=== PATIENT | female | born 1975 | race Two or more races ===

== ENCOUNTER → 2016-07-01 | Outpatient (CLI) | payer OTHER ==
--- NOTE | 2016-07-02 23:33 | ECWPNPC ---
PATIENT NAME: ALEX AVILES : 1975 GENDER: FEMALE VISIT DATE: 07/01/2016 DISCHARGE DATE: 07/01/16 1213 VISIT LOCKED DATE TIME: PHYSICIAN: NATHALIE GONGORA RESOURCE: NATHALIE GONGORA REASON FOR APPOINTMENT 1. NECK HISTORY OF PRESENT ILLNESS HISTORY OF PRESENT ILLNESS: HERE FOR POST PROC. F/U.HAD DAMIEN ON 06-01-16.REPORTS RESOLUTION OF RIGHT ARM AND HAND NUMBNESS BUT NO IMPROVEMENT IN NECK PAIN.RATING PAIN VAS 6/10.DESCRIBES PAIN CONSTANT ACHING AND STABBING.PAIN IS LOCATED RIGHT NECK.PAIN IS AGGREVATED IN THIS AREA WITH USE OF RIGH ARM.DISCUSSED TPI AND PT. FALL RISK SCREENING: SCREENING :NO FALLS IN THE PAST YEAR CURRENT MEDICATIONS TAKING RANITIDINE HCL 150 MG CAPSULE 1 CAPSULE ORALLY ONCE DAILY, NOTES: 05/31/16 0800 TAKING HYDROXYZINE HCL 25 MG TABLET 1-2 TABLETS NEEDED ORALLY AT BEDTIME NEEDED, NOTES: 05/31/16 2030 TAKING TRAZODONE HCL 50 MG TABLET 1 TABLET AT BEDTIME NEEDED ORALLY ONCE A DAY, NOTES: 05/31/16 2030 TAKING METHOCARBAMOL 500 MG TABLET 1 TABLET ORALLY THREE TIMES DAILY NEEDED, NOTES: 05/31/16 1730 TAKING FLUTICASONE FUROATE 27.5 MCG/SPRAY SUSPENSION 1 SPRAY IN EACH NOSTRIL NASALLY TWICE A DAY, NOTES: 05/31/16 0800 TAKING PANTOPRAZOLE SODIUM 40 MG TABLET DELAYED RELEASE 1 TABLET ORALLY ONCE A DAY, NOTES: 05/31/16 0800 TAKING PRAZOSIN HCL 1 MG CAPSULE 1 CAPSULE AT BEDTIME ORALLY ONCE A DAY, NOTES: 05/31/16 2030 TAKING HYDROCODONE-ACETAMINOPHEN 5-325 MG TABLET 1 TABLET NEEDED ORALLY EVERY 8 HOURS, NOTES: 05/31/16 1500 TAKING CYCLOBENZAPRINE HCL 10 MG TABLET 1 TABLET ORALLY THREE TIMES A DAY NEEDED FOR SPASMS AND PAIN MDD3, NOTES: NONE RECENTLY NOT-TAKING ALLERGY RELIEF 180 MG TABLET 1 TABLET NEEDED ORALLY ONCE A DAY NOT-TAKING PROBIOTIC CAPSULE 1 TABLET ORALLY ONCE DAILY NOT-TAKING VALIUM 10 MG TABLET 1 ORALLY 1 TAB 1HR PRE PROC. MDD1, NOTES: 1620 TODAY NOT-TAKING VALIUM 10 MG TABLET 1 TABLET ORALLY IN THE MORNING BEFORE PROCEDURE NOT-TAKING TIZANIDINE HCL 4 MG TABLET 1 TABLET NEEDED ORALLY BEFORE BEDTIME NEEDED FOR SPASMS AND PAIN MDD1 NOT-TAKING SUCRALFATE 1 GM TABLET 1 TABLET ON AN EMPTY STOMACH ORALLY ONCE DAILY MEDICATION LIST REVIEWED AND RECONCILED WITH THE PATIENT PAST MEDICAL HISTORY ANEMIA GERD STOMACH ULCERS WITH H PYLORI NECK AND LOW BACK PAIN ALLERGIES PENICILLIAN: SWELLING: ALLERGY ORANGES: SWELLING,RASH: ALLERGY BANDAIDS AND ADHESIVES: REDDNESS AND SWELLING: ALLERGY LATEX GLOVES: REDDNESS AND SWELLING: ALLERGY TEGADERM: REDNESS, SWELLING: ALLERGY SOCIAL HISTORY GENERAL: TOBACCO USE ARE YOU A:NONSMOKER LEARNING BARRIERS / SPECIAL NEEDS ORIENTED TO PLAN OF CARE: PATIENT, PAIN MANAGEMENT PATIENT, ORIENTED TO PLAN OF CARE: PATIENT, PAIN MANAGEMENT PATIENT. NEW PATIENT PAIN DIARY TODAY'S VISITNOTES FROM 0-10, WHAT LEVEL IS YOUR PAIN TODAY?0 PAIN CLINIC PFS, CLERGY, PUBLIC HEALTH REFERRALS PFS REFERRAL NEEDED?NO CLERGY REFERRAL NEEDED?NO PUBLIC HEALTH REFERRAL NEEDED?NO WAS THE PROVIDER NOTIFIED OF ANY PERTINENT INFO?NO PFS REFERRAL NEEDED?NO CLERGY REFERRAL NEEDED?NO PUBLIC HEALTH REFERRAL NEEDED?NO WAS THE PROVIDER NOTIFIED OF ANY PERTINENT INFO?NO REVIEW OF SYSTEMS CONSTITUTIONAL: ANY CHANGE IN YOUR MEDICAL CONDITION? NO . CHILLS NO . FEVER NO . INFECTION: DO YOU HAVE NEW INFECTIONS? NO . DO YOU HAVE HISTORY OF MRSA? NO . MUSCULOSKELETAL: ANY NEW PATTERNS OF PAIN OR NUMBNESS? NO . GASTROENTEROLOGY: ANY NEW CHANGE IN BOWEL CONTROL? NO . GENITOURINARY: ANY NEW CHANGE IN BLADDER CONTROL? NO . IS THERE A CHANCE YOU COULD BE ? NO . HEMATOLOGY/LYMPH: DO YOU TAKE ANY BLOOD THINNERS? (FOR EXAMPLE- COUMADIN, PLAVIX, AGGRENOX, PLATEL, PRADAXA, OR XARELTO) NO . WHEN WAS YOUR LAST DOSE? DATE: TIME: . NEUROLOGY: HAVE YOU FALLEN IN THE PAST 6 MONTHS? NO . ANY NEW EXTREMITY NUMBNESS OR WEAKNESS? NO . CARDIOLOGY: DO YOU HAVE A PACEMAKER OR DEFIBRILLATOR? NO . RESPIRATORY: HAVE YOU BEEN SICK IN THE PAST WEEK? NO . FEVER NO . FLU LIKE SYMPTOMS? NO . COUGH NO . INTEGUMENTARY: DO YOU HAVE ANY RASHES OR OPEN SORES? NO . ALLERGIC/IMMUNO: ARE YOU ALLERGIC TO SHELLFISH OR IV DYE? NO . ANY NEW ALLERGIES? NO . PSYCHIATRIC: DO YOU HAVE THOUGHTS OF HURTING YOURSELF OR SOMEONE ELSE? NO . ARE YOU ABUSED, NEGLECTED, OR IN AN UNSAFE ENVIRONMENT? NO . ENDOCRINOLOGY: ARE YOU DIABETIC? NO . OTHER: DO YOU NEED ANY PRESCRIPTIONS? YES CYCLOBENZAPRINE . IF YES, PLEASE LIST: ____ . ANY NEW PROBLEMS WITH YOUR MEDICATIONS? NO . WHEN DID YOU LAST EAT? ____ . WHEN DID YOU LAST DRINK? ____ . WHAT DID YOU LAST DRINK? ____ . NAME OF PERSON DRIVING YOU HOME? ____ . DO YOU HAVE ANY OTHER QUESTIONS OR CONCERNS NO . REVIEWED BY: PROVIDER: NATHALIE SUAZO . VITAL SIGNS WT 186.4 LBS, HT 67 IN, BMI 29.19 INDEX, BP 130/86 MM HG, HR 79 /MIN, RR 16 /MIN, TEMP 97.1 F, OXYGEN SAT % 96, NA INITIALS TL 1114, REVIEWED BY: MLFPT WEIGHED ON PMC SCALE- TL. EXAMINATION CERVICAL SPINE/NECK: RANGE OF MOTION OF NECK:FULL W REPORTS OF PAIN AND STIFFNESS W LATERAL ROTATION.. SENSATIONS:NORMAL BILATERALLY. MOTOR STRENGTH:4/5 RIGHT ARM/5/5 LEFT ARM. VERTEBRAL SPINE TENDERNESS:TENDERNESS IN PARASPINAL MUSCLES-RIGHT SIDE ONLY. MYOFASCIAL TRIGGER POINTS:POSITIVE OVER RIGHT TRAPEZIUS. ASSESSMENTS CERVICAL DISC DISORDER WITH RADICULOPATHY OF MID-CERVICAL REGION - M50.120 (PRIMARY) MYOFASCIAL PAIN - M79.1 TREATMENT CERVICAL DISC DISORDER WITH RADICULOPATHY OF MID-CERVICAL REGION TRIGGER POINT 1-2 NATHALIE MARRUFO 07/01/2016 11:43:13 AM > RIGHT TRAPEZIUS CERVICAL FACET JOINT NATHALIE KING 07/01/2016 11:45:06 AM > BILAT CERVICAL C5/6-C6/7 THERAPEUTIC FACET NOTES: TRIGGER POINT INJECTION MATERIAL WAS PRINTED,TRIGGER POINT INJECTION: YOUR EXPERIENCE MATERIAL WAS PRINTED,FACET JOINT INJECTION MATERIAL WAS PRINTED,FACET JOINT INJECTION: YOUR EXPERIENCE MATERIAL WAS PRINTED. REFERRAL TO:PHYSICAL THERAPIST REASON:[id number] MYOFASCIAL RELEASE RIGHT TRAPEZIUS MYOFASCIAL PAIN TRIGGER POINT 1-2 NATHALIE MARRUFO 07/01/2016 11:43:13 AM > RIGHT TRAPEZIUS CERVICAL FACET JOINT NATHALIE KING 07/01/2016 11:45:06 AM > BILAT CERVICAL C5/6-C6/7 THERAPEUTIC FACET PROCEDURE CODES FA211 ESTABILISHED PATIENT [facility] CHARGE DISPOSITION & COMMUNICATION FOLLOW UP 2WK POST (REASON: REQUEST AUTH. BILAT. C5/6-C6/7 THERAPEUTIC FACET BLOCK,TPI RIGHT NECK AND PT [id number]) ELECTRONICALLY SIGNED BY GABRIELE CHRISTENSEN ON 07/02/2016 AT 11:37 AM EST DISCLAIMER : THIS IS A VISIT SUMMARY EXTRACTED FROM THE [email or web address] CHART. IT IS NOT A COPY OF THE [employer] PROGRESS NOTE. JOSE
== END ==
LOC: M PAIN 10:40
PROVIDERS: ATTEND Nurse Practitioner Family
DX: Z09 Encounter for follow-up examination after completed treatment for conditions other than malignant neoplasm (principal); G89.29 Other chronic pain; M50.120 Mid-cervical disc disorder, unspecified level; M79.1 Myalgia; D64.9 Anemia, unspecified; K21.9 Gastro-esophageal reflux disease without esophagitis; Z88.0 Allergy status to penicillin; Z91.018 Allergy to other foods; Z91.040 Latex allergy status; Z88.8 Allergy status to other drugs, medicaments and biological substances; L23.1 Allergic contact dermatitis due to adhesives; Z79.891 Long term (current) use of opiate analgesic; Z79.899 Other long term (current) drug therapy

== ENCOUNTER → 2016-07-27 | Outpatient (CLI) | payer OTHER ==
--- NOTE | 2016-07-28 23:23 | ECWPNPC ---
PATIENT NAME: ALEX AVILES : 1975 GENDER: FEMALE VISIT DATE: 07/27/2016 DISCHARGE DATE: 07/27/16 1108 VISIT LOCKED DATE TIME: PHYSICIAN: NATHALIE GONGORA RESOURCE: NATHALIE GONGORA REASON FOR APPOINTMENT 1. INCREASED PAIN HISTORY OF PRESENT ILLNESS HISTORY OF PRESENT ILLNESS: HERE ON URGENT BASIS FOR RIGHT NECK PAIN.RATING PAIN VAS 9/10.WOULD LIKE US TAKE OVER MEDICINE MANAGEMENT OF PAIN.CURRENTLY USING PERCOCET 5/325 PRN FOR SEVERE PAIN.UNABLE TO USE NSAIDS DUE TO ABDOMINAL ULCERS.REVIEWED NARCOTIC AGREEMENT AND CLINIC POLICY.REVIEWED POTENIAL SIDE EFFECTS OF OPIOD MEDICATIONS. PAIN THE PATIENT DESCRIBES THE PAIN... FALL RISK SCREENING: SCREENING :NO FALLS IN THE PAST YEAR CURRENT MEDICATIONS TAKING RANITIDINE HCL 150 MG CAPSULE 1 CAPSULE ORALLY ONCE DAILY TAKING HYDROXYZINE HCL 25 MG TABLET 1-2 TABLETS NEEDED ORALLY AT BEDTIME NEEDED TAKING TRAZODONE HCL 50 MG TABLET 1 TABLET AT BEDTIME NEEDED ORALLY ONCE A DAY TAKING METHOCARBAMOL 500 MG TABLET 1 TABLET ORALLY THREE TIMES DAILY NEEDED TAKING FLUTICASONE FUROATE 27.5 MCG/SPRAY SUSPENSION 1 SPRAY IN EACH NOSTRIL NASALLY TWICE A DAY TAKING PANTOPRAZOLE SODIUM 40 MG TABLET DELAYED RELEASE 1 TABLET ORALLY ONCE A DAY TAKING PRAZOSIN HCL 1 MG CAPSULE 1 CAPSULE AT BEDTIME ORALLY ONCE A DAY TAKING HYDROCODONE-ACETAMINOPHEN 5-325 MG TABLET 1 TABLET NEEDED ORALLY EVERY 8 HOURS TAKING CYCLOBENZAPRINE HCL 10 MG TABLET 1 TABLET ORALLY THREE TIMES A DAY NEEDED FOR SPASMS AND PAIN MDD3 TAKING MIRALAX NOT-TAKING ALLERGY RELIEF 180 MG TABLET 1 TABLET NEEDED ORALLY ONCE A DAY NOT-TAKING PROBIOTIC CAPSULE 1 TABLET ORALLY ONCE DAILY NOT-TAKING VALIUM 10 MG TABLET 1 ORALLY 1 TAB 1HR PRE PROC. MDD1, NOTES: 1620 TODAY NOT-TAKING VALIUM 10 MG TABLET 1 TABLET ORALLY IN THE MORNING BEFORE PROCEDURE NOT-TAKING TIZANIDINE HCL 4 MG TABLET 1 TABLET NEEDED ORALLY BEFORE BEDTIME NEEDED FOR SPASMS AND PAIN MDD1 NOT-TAKING SUCRALFATE 1 GM TABLET 1 TABLET ON AN EMPTY STOMACH ORALLY ONCE DAILY MEDICATION LIST REVIEWED AND RECONCILED WITH THE PATIENT PAST MEDICAL HISTORY ANEMIA GERD STOMACH ULCERS WITH H PYLORI NECK AND LOW BACK PAIN ALLERGIES PENICILLIAN: SWELLING: ALLERGY ORANGES: SWELLING,RASH: ALLERGY BANDAIDS AND ADHESIVES: REDDNESS AND SWELLING: ALLERGY LATEX GLOVES: REDDNESS AND SWELLING: ALLERGY TEGADERM: REDNESS, SWELLING: ALLERGY SURGICAL HISTORY RIGHT KNEE 1985 TUBAL LIGATION 2002 D&C 1996 MOLES REMOVED 2016 TOTAL HYSTERECTOMY 2017 HOSPITALIZATION/MAJOR DIAGNOSTIC PROCEDURE CHILD 12/18/1991 CHILD 11/01/1996 CHILD 11/23/1998 CHILD 01/29/2002 REVIEW OF SYSTEMS CONSTITUTIONAL: ANY CHANGE IN YOUR MEDICAL CONDITION? NO . CHILLS NO . FEVER NO . INFECTION: DO YOU HAVE NEW INFECTIONS? NO . DO YOU HAVE HISTORY OF MRSA? NO . MUSCULOSKELETAL: ANY NEW PATTERNS OF PAIN OR NUMBNESS? NO . GASTROENTEROLOGY: ANY NEW CHANGE IN BOWEL CONTROL? NO . GENITOURINARY: ANY NEW CHANGE IN BLADDER CONTROL? NO . IS THERE A CHANCE YOU COULD BE ? NO . HEMATOLOGY/LYMPH: DO YOU TAKE ANY BLOOD THINNERS? (FOR EXAMPLE- COUMADIN, PLAVIX, AGGRENOX, PLATEL, PRADAXA, OR XARELTO) NO . WHEN WAS YOUR LAST DOSE? DATE: TIME: . NEUROLOGY: HAVE YOU FALLEN IN THE PAST 6 MONTHS? NO . ANY NEW EXTREMITY NUMBNESS OR WEAKNESS? NO . CARDIOLOGY: DO YOU HAVE A PACEMAKER OR DEFIBRILLATOR? NO . RESPIRATORY: HAVE YOU BEEN SICK IN THE PAST WEEK? NO . FEVER NO . FLU LIKE SYMPTOMS? NO . COUGH NO . INTEGUMENTARY: DO YOU HAVE ANY RASHES OR OPEN SORES? NO . ALLERGIC/IMMUNO: ARE YOU ALLERGIC TO SHELLFISH OR IV DYE? NO . ANY NEW ALLERGIES? NO . PSYCHIATRIC: DO YOU HAVE THOUGHTS OF HURTING YOURSELF OR SOMEONE ELSE? NO . ARE YOU ABUSED, NEGLECTED, OR IN AN UNSAFE ENVIRONMENT? NO . ENDOCRINOLOGY: ARE YOU DIABETIC? NO . OTHER: DO YOU NEED ANY PRESCRIPTIONS? YES PT IS WANTING THE PAIN CLINIC TO TAKE OVER MEDICATION MANAGGEMNT . IF YES, PLEASE LIST: ____ . ANY NEW PROBLEMS WITH YOUR MEDICATIONS? NO . WHEN DID YOU LAST EAT? ____ . WHEN DID YOU LAST DRINK? ____ . WHAT DID YOU LAST DRINK? ____ . NAME OF PERSON DRIVING YOU HOME? ____ . DO YOU HAVE ANY OTHER QUESTIONS OR CONCERNS NO . REVIEWED BY: PROVIDER: NATHALIE SUAZO . VITAL SIGNS WT 179.8 LBS, HT 67 IN, BMI 28.16 INDEX, BP 132/84 MM HG, HR 89 /MIN, RR 16 /MIN, TEMP 97.3 F, OXYGEN SAT % 98, NA INITIALS TL 1003, REVIEWED BY: KG. EXAMINATION CERVICAL SPINE/NECK: RANGE OF MOTION OF NECK:FULL W REPORTS OF PAIN AND STIFFNESS W LATERAL ROTATION.. SENSATIONS:NORMAL BILATERALLY. MOTOR STRENGTH:4/5 RIGHT ARM/5/5 LEFT ARM. VERTEBRAL SPINE TENDERNESS:TENDERNESS IN PARASPINAL MUSCLES-RIGHT SIDE ONLY. MYOFASCIAL TRIGGER POINTS:POSITIVE OVER RIGHT TRAPEZIUS. ASSESSMENTS CERVICAL DISC DISORDER WITH RADICULOPATHY OF MID-CERVICAL REGION - M50.120 (PRIMARY) MYOFASCIAL PAIN - M79.1 TREATMENT CERVICAL DISC DISORDER WITH RADICULOPATHY OF MID-CERVICAL REGION REFILL HYDROCODONE-ACETAMINOPHEN TABLET, 5-325 MG, 1 TABLET NEEDED, ORALLY, EVERY 8 HOURS PRN MDD3, 30 DAY(S), 45, REFILLS 0 PROCEDURE CODES FA211 ESTABILISHED PATIENT [facility] CHARGE DISPOSITION & COMMUNICATION FOLLOW UP HAS PROCEDURE SCHEDULED AND NEEDS F/U W ME 2WK POST ELECTRONICALLY SIGNED BY GABRIELE CHRISTENSEN ON 07/28/2016 AT 01:52 PM EDT DISCLAIMER : THIS IS A VISIT SUMMARY EXTRACTED FROM THE [employer] CHART. IT IS NOT A COPY OF THE [employer] PROGRESS NOTE. BRITANYD
== END | disposition home or self-care (01) ==
LOC: M PAIN 10:00
PROVIDERS: ATTEND Nurse Practitioner Family
DX: Z09 Encounter for follow-up examination after completed treatment for conditions other than malignant neoplasm (principal); G89.29 Other chronic pain; M50.120 Mid-cervical disc disorder, unspecified level; M79.1 Myalgia; K21.9 Gastro-esophageal reflux disease without esophagitis; D64.9 Anemia, unspecified; Z79.899 Other long term (current) drug therapy; Z91.040 Latex allergy status; L23.1 Allergic contact dermatitis due to adhesives; Z91.018 Allergy to other foods; Z88.0 Allergy status to penicillin

== ENCOUNTER → 2016-08-06 | Outpatient (CLI) | payer OTHER ==
[~2016-08-06] MED LIST: BUPIVACAINE HCL 0.25% 10 ML VIAL As Ordered ONE; BUPIVACAINE HCL 0.25% 30 ML VIAL As Ordered ONE; TRIAMCINOLONE ACETONIDE SUSP 40 MG/ML VIAL (J3301) As Ordered ONE; diazePAM 5 MG TAB As Ordered ONE; oxyCODONE 5MG TAB As Ordered ONE
--- NOTE | 2016-08-15 23:23 | ECWPNPC ---
PATIENT NAME: ALEX AVILES : 1975 GENDER: FEMALE VISIT DATE: 08/06/2016 DISCHARGE DATE: 08/06/16 1609 VISIT LOCKED DATE TIME: PHYSICIAN: YESSICA DRAKE RESOURCE: YESSICA DRAKE REASON FOR APPOINTMENT 1. BILAT. C5/6-C6/7 THERAPEUTIC FACET BLOCK HISTORY OF PRESENT ILLNESS HISTORY OF PRESENT ILLNESS: PAIN THE PATIENT DESCRIBES THE PAIN... FALL RISK SCREENING: SCREENING :NO FALLS IN THE PAST YEAR CURRENT MEDICATIONS TAKING RANITIDINE HCL 150 MG CAPSULE 1 CAPSULE ORALLY ONCE DAILY, NOTES: 08-05-162099 TAKING HYDROXYZINE HCL 25 MG TABLET 1-2 TABLETS NEEDED ORALLY AT BEDTIME NEEDED, NOTES: 08-05-162099 TAKING TRAZODONE HCL 50 MG TABLET 1 TABLET AT BEDTIME NEEDED ORALLY ONCE A DAY, NOTES: 08-05-162099 TAKING METHOCARBAMOL 500 MG TABLET 1 TABLET ORALLY THREE TIMES DAILY NEEDED, NOTES: 08-05-161729 TAKING FLUTICASONE FUROATE 27.5 MCG/SPRAY SUSPENSION 1 SPRAY IN EACH NOSTRIL NASALLY TWICE A DAY, NOTES: 08-06-16599 TAKING PANTOPRAZOLE SODIUM 40 MG TABLET DELAYED RELEASE 1 TABLET ORALLY ONCE A DAY, NOTES: 08-05-16 08 TAKING PRAZOSIN HCL 1 MG CAPSULE 1 CAPSULE AT BEDTIME ORALLY ONCE A DAY, NOTES: 08-05-162099 TAKING CYCLOBENZAPRINE HCL 10 MG TABLET 1 TABLET ORALLY THREE TIMES A DAY NEEDED FOR SPASMS AND PAIN MDD3, NOTES: 08-04-16 TAKING MIRALAX TAKING HYDROCODONE-ACETAMINOPHEN 5-325 MG TABLET 1 TABLET NEEDED ORALLY EVERY 8 HOURS PRN MDD3, NOTES: 08-05-161999 TAKING MONTELUKAST SODIUM 10 MG TABLET 1 TABLET IN THE EVENING ORALLY ONCE A DAY, NOTES: 08-06-16 07 NOT-TAKING ALLERGY RELIEF 180 MG TABLET 1 TABLET NEEDED ORALLY ONCE A DAY NOT-TAKING PROBIOTIC CAPSULE 1 TABLET ORALLY ONCE DAILY NOT-TAKING TIZANIDINE HCL 4 MG TABLET 1 TABLET NEEDED ORALLY BEFORE BEDTIME NEEDED FOR SPASMS AND PAIN MDD1 NOT-TAKING SUCRALFATE 1 GM TABLET 1 TABLET ON AN EMPTY STOMACH ORALLY ONCE DAILY DISCONTINUED VALIUM 10 MG TABLET 1 ORALLY 1 TAB 1HR PRE PROC. MDD1, NOTES: 1620 TODAY DISCONTINUED VALIUM 10 MG TABLET 1 TABLET ORALLY IN THE MORNING BEFORE PROCEDURE MEDICATION LIST REVIEWED AND RECONCILED WITH THE PATIENT PAST MEDICAL HISTORY ANEMIA GERD STOMACH ULCERS WITH H PYLORI NECK AND LOW BACK PAIN ALLERGIES PENICILLIAN: SWELLING: ALLERGY ORANGES: SWELLING,RASH: ALLERGY BANDAIDS AND ADHESIVES: REDDNESS AND SWELLING: ALLERGY LATEX GLOVES: REDDNESS AND SWELLING: ALLERGY TEGADERM: REDNESS, SWELLING: ALLERGY SURGICAL HISTORY RIGHT KNEE 1985 TUBAL LIGATION 2002 D&C 1996 MOLES REMOVED 2016 TOTAL HYSTERECTOMY 2017 SOCIAL HISTORY GENERAL: PAIN CLINIC PFS, CLERGY, PUBLIC HEALTH REFERRALS CLERGY REFERRAL NEEDED?NO WAS THE PROVIDER NOTIFIED OF ANY PERTINENT INFO?NO PFS REFERRAL NEEDED?NO PUBLIC HEALTH REFERRAL NEEDED?NO PATIENT: ____. HOSPITALIZATION/MAJOR DIAGNOSTIC PROCEDURE CHILD 12/18/1991 CHILD 11/01/1996 CHILD 11/23/1998 CHILD 01/29/2002 REVIEW OF SYSTEMS CONSTITUTIONAL: ANY CHANGE IN YOUR MEDICAL CONDITION? NO . CHILLS NO . FEVER NO . INFECTION: DO YOU HAVE NEW INFECTIONS? NO . DO YOU HAVE HISTORY OF MRSA? NO . MUSCULOSKELETAL: ANY NEW PATTERNS OF PAIN OR NUMBNESS? NO . GASTROENTEROLOGY: ANY NEW CHANGE IN BOWEL CONTROL? NO . GENITOURINARY: ANY NEW CHANGE IN BLADDER CONTROL? NO . IS THERE A CHANCE YOU COULD BE ? NO . HEMATOLOGY/LYMPH: DO YOU TAKE ANY BLOOD THINNERS? (FOR EXAMPLE- COUMADIN, PLAVIX, AGGRENOX, PLATEL, PRADAXA, OR XARELTO) NO . WHEN WAS YOUR LAST DOSE? DATE: TIME: . NEUROLOGY: HAVE YOU FALLEN IN THE PAST 6 MONTHS? NO . ANY NEW EXTREMITY NUMBNESS OR WEAKNESS? NO . CARDIOLOGY: DO YOU HAVE A PACEMAKER OR DEFIBRILLATOR? NO . RESPIRATORY: HAVE YOU BEEN SICK IN THE PAST WEEK? NO . FEVER NO . FLU LIKE SYMPTOMS? NO . COUGH NO . INTEGUMENTARY: DO YOU HAVE ANY RASHES OR OPEN SORES? NO . ALLERGIC/IMMUNO: ARE YOU ALLERGIC TO SHELLFISH OR IV DYE? NO . ANY NEW ALLERGIES? NO . PSYCHIATRIC: DO YOU HAVE THOUGHTS OF HURTING YOURSELF OR SOMEONE ELSE? NO . ARE YOU ABUSED, NEGLECTED, OR IN AN UNSAFE ENVIRONMENT? NO . ENDOCRINOLOGY: ARE YOU DIABETIC? NO . OTHER: DO YOU NEED ANY PRESCRIPTIONS? NO . IF YES, PLEASE LIST: ____ . ANY NEW PROBLEMS WITH YOUR MEDICATIONS? NO . WHEN DID YOU LAST EAT? 08-05-16 6:30 PM . WHEN DID YOU LAST DRINK? 08-06-16 0600 . WHAT DID YOU LAST DRINK? WATER . NAME OF PERSON DRIVING YOU HOME? KILEY SOTO . DO YOU HAVE ANY OTHER QUESTIONS OR CONCERNS NO . REVIEWED BY: PROVIDER: . VITAL SIGNS WT 182.6 LBS, HT 67 IN, BMI 28.60 INDEX, BP 117/79 MM HG, HR 89 /MIN, RR 16 /MIN, TEMP 97.2 F, OXYGEN SAT % 97, NA INITIALS AW 1149, REVIEWED BY: CM. ASSESSMENTS MYALGIA - M79.1 (PRIMARY) PROCEDURES PN TRIGGER POINT INJECTION WITH STEROIDS PRE PROCEDURE DIAGNOSIS 1. MYALGIA 2. PAIN AT BILATERAL NECK AREA AND BILATERAL SHOULDER AREA POST PROCEDURE DIAGNOSIS 1. MYALGIA 2. PAIN AT BILATERAL NECK AREA AND BILATERAL SHOULDER AREA PROCEDURE TRIGGER POINT INJECTION AT BILATERAL NECK AREA AND BILATERAL SHOULDER AREA SURGEON DR. YESSICA DRAKE PART MAKER NONE ANESTHESIA LOCAL PRE PROCEDURE NOTE THE PATIENT HAS A HISTORY OF CHRONIC PAIN AT THE RIGHT AND LEFT NECK AREA AND RIGHT AND LEFT SHOULDER AREA. I EVALUATE THE PATIENT AND REVIEWED THE CHART. THERE IS EVIDENCE OF BANDS OF TISSUE WITH RESTRICTION OF MOVEMENT AND PRESENCE OF TRIGGER POINT AT THE AFFECTED AREA. I WENT OVER THE RISKS, ALTERNATIVES, AND BENEFITS ASSOCIATED WITH THIS PROCEDURE. THE PATIENT WOULD LIKE TO PROCEED AND GIVE CONSENT TO PERFORMED THE PROCEDURE. THE PATIENT DENIES UNEXPLAINABLE WEIGHT LOSS, FEVER, CHILLS, OR NEW CHANGES IN URINARY OR BOWEL CONTROL DESCRIPTION OF PROCEDURE THE PATIENT WAS BROUGHT TO THE PROCEDURE ROOM AND PLACED IN THE SITTING POSITION. THE AREA WAS CLEANED WITH ALCOHOL. THE PROCEDURE WAS DONE USING ASEPTIC STERILE TECHNIQUE. I CHECKED LATERALITY AND THE LEVEL WHERE THE PROCEDURE WAS GOING TO BE PERFORMED WITH THE PATIENT AND THE SUPPORTING STAFF AT THE MOMENT OF THE TIME OUT IN THE PROCEDURE ROOM. USING A 25-GAUGE NEEDLE, TRIGGER POINTS WERE INJECTED AT THE RIGHT AND LEFT NECK AREA AND RIGHT AND LEFT SHOULDER AREA WITH A TOTAL OF 40 ML OF BUPIVACAINE 0.25% AND KENALOG 40 MG. THERE WAS NO EVIDENCE OF BLOOD, PARESTHESIA OR CEREBROSPINAL FLUID DURING THE PROCEDURE. THE PATIENT WAS SENT TO THE RECOVERY ROOM. THE PATIENT WAS MOVING THE EXTREMITIES AND DOING WELL. THERE WAS NO COMPLICATION DURING THE PROCEDURE POST PROCEDURE NOTE THE PATIENT WILL BE SEEN IN A FOLLOW UP IN THE NEXT FEW WEEKS. INSTRUCTIONS WERE GIVEN, QUESTIONS WERE ANSWERED, AND THE PATIENT EXPRESSED UNDERSTANDING AND AGREES WITH THE PLAN. I, DREA ALCAZAR, DOCUMENTED THE ABOVE INFORMATION ACTING A SCRIBE FOR DR. DRAKE. I HAVE REVIEWED THE ABOVE DOCUMENT, WRITTEN BY DREA ALCAZAR SCRIBDemarco AND I VERIFY THAT IT IS ACCURATE. PROCEDURE CODES 91142 INJECT TRIGGER POINTS 3/> DISPOSITION & COMMUNICATION FOLLOW UP 3 WEEKS ELECTRONICALLY SIGNED BY YESSICA DRAKE MD ON 08/15/2016 AT 05:49 PM EDT DISCLAIMER : THIS IS A VISIT SUMMARY EXTRACTED FROM THE [email or web address] CHART. IT IS NOT A COPY OF THE [employer] PROGRESS NOTE. JOSE
== END | disposition home or self-care (01) ==
LOC: M PAIN 11:40
PROVIDERS: ATTEND Anesthesiology
DX: G89.29 Other chronic pain (principal); M79.1 Myalgia; D64.9 Anemia, unspecified; K21.9 Gastro-esophageal reflux disease without esophagitis; M54.5 Low back pain; M54.2 Cervicalgia; Z79.899 Other long term (current) drug therapy; Z88.0 Allergy status to penicillin; Z91.018 Allergy to other foods; L23.1 Allergic contact dermatitis due to adhesives; Z91.040 Latex allergy status

== ENCOUNTER → 2016-08-20 | Outpatient (CLI) | payer OTHER ==
--- NOTE | 2016-08-31 00:53 | ECWPNPC ---
PATIENT NAME: ALEX AVILES : 1975 GENDER: FEMALE VISIT DATE: 08/20/2016 DISCHARGE DATE: 08/20/16 1126 VISIT LOCKED DATE TIME: PHYSICIAN: NATHALIE GONGORA RESOURCE: NATHALIE GONGORA REASON FOR APPOINTMENT 1. POST TPI HISTORY OF PRESENT ILLNESS HISTORY OF PRESENT ILLNESS: HERE FOR POST PROC. F/U.HAD TPI NECK ON 08-06-16.REPORTS ONLY 3-4 DAYS IMPROVEMENT IN NECK PAIN.RATING PAIN VAS 8/10.DESCRIBES PAIN CONSTANT ACHING AND STABBING.PAIN IS LOCATED RIGHT NECK.PAIN IS AGGREVATED IN THIS AREA WITH USE OF RIGH ARM.DISCUSSED TPI AND PT. PAIN THE PATIENT DESCRIBES THE PAIN... THE PATIENT DESCRIBES THE PAIN... FALL RISK SCREENING: SCREENING :NO FALLS IN THE PAST YEAR CURRENT MEDICATIONS TAKING RANITIDINE HCL 150 MG CAPSULE 1 CAPSULE ORALLY ONCE DAILY TAKING HYDROXYZINE HCL 25 MG TABLET 1-2 TABLETS NEEDED ORALLY AT BEDTIME NEEDED TAKING TRAZODONE HCL 50 MG TABLET 1 TABLET AT BEDTIME NEEDED ORALLY ONCE A DAY TAKING METHOCARBAMOL 500 MG TABLET 1 TABLET ORALLY THREE TIMES DAILY NEEDED TAKING FLUTICASONE FUROATE 27.5 MCG/SPRAY SUSPENSION 1 SPRAY IN EACH NOSTRIL NASALLY TWICE A DAY TAKING PANTOPRAZOLE SODIUM 40 MG TABLET DELAYED RELEASE 1 TABLET ORALLY ONCE A DAY TAKING PRAZOSIN HCL 1 MG CAPSULE 1 CAPSULE AT BEDTIME ORALLY ONCE A DAY TAKING MIRALAX TAKING MONTELUKAST SODIUM 10 MG TABLET 1 TABLET IN THE EVENING ORALLY ONCE A DAY TAKING CYCLOBENZAPRINE HCL 10 MG TABLET 1 TABLET ORALLY THREE TIMES A DAY NEEDED FOR SPASMS AND PAIN MDD3 TAKING HYDROCODONE-ACETAMINOPHEN 5-325 MG TABLET 1 TABLET NEEDED ORALLY EVERY 8 HOURS PRN MDD3 NOT-TAKING ALLERGY RELIEF 180 MG TABLET 1 TABLET NEEDED ORALLY ONCE A DAY NOT-TAKING PROBIOTIC CAPSULE 1 TABLET ORALLY ONCE DAILY NOT-TAKING TIZANIDINE HCL 4 MG TABLET 1 TABLET NEEDED ORALLY BEFORE BEDTIME NEEDED FOR SPASMS AND PAIN MDD1 NOT-TAKING SUCRALFATE 1 GM TABLET 1 TABLET ON AN EMPTY STOMACH ORALLY ONCE DAILY MEDICATION LIST REVIEWED AND RECONCILED WITH THE PATIENT PAST MEDICAL HISTORY ANEMIA GERD STOMACH ULCERS WITH H PYLORI NECK AND LOW BACK PAIN ALLERGIES PENICILLIAN: SWELLING: ALLERGY ORANGES: SWELLING,RASH: ALLERGY BANDAIDS AND ADHESIVES: REDDNESS AND SWELLING: ALLERGY LATEX GLOVES: REDDNESS AND SWELLING: ALLERGY TEGADERM: REDNESS, SWELLING: ALLERGY SOCIAL HISTORY GENERAL: TOBACCO USE ARE YOU A:CURRENT SMOKER PATIENT COUNSELED ON THE DANGERS OF TOBACCO USE AND URGED TO QUIT:08/20/2016 ARE YOU INTERESTED IN QUITTING?NOT READY TO QUIT COUNSELED THE PATIENT ON SMOKING EFFECTS, EDUCATION [id number]/21/2017 PAIN CLINIC PFS, CLERGY, PUBLIC HEALTH REFERRALS CLERGY REFERRAL NEEDED?NO WAS THE PROVIDER NOTIFIED OF ANY PERTINENT INFO?NO PFS REFERRAL NEEDED?NO PUBLIC HEALTH REFERRAL NEEDED?NO PATIENT: ____. REVIEW OF SYSTEMS CONSTITUTIONAL: ANY CHANGE IN YOUR MEDICAL CONDITION? YES STILL NOT SLEEPING . CHILLS NO . FEVER NO . INFECTION: DO YOU HAVE NEW INFECTIONS? NO . DO YOU HAVE HISTORY OF MRSA? NO . MUSCULOSKELETAL: ANY NEW PATTERNS OF PAIN OR NUMBNESS? NO . GASTROENTEROLOGY: ANY NEW CHANGE IN BOWEL CONTROL? NO . GENITOURINARY: ANY NEW CHANGE IN BLADDER CONTROL? NO . IS THERE A CHANCE YOU COULD BE ? NO . HEMATOLOGY/LYMPH: DO YOU TAKE ANY BLOOD THINNERS? (FOR EXAMPLE- COUMADIN, PLAVIX, AGGRENOX, PLATEL, PRADAXA, OR XARELTO) NO . WHEN WAS YOUR LAST DOSE? DATE: TIME: . NEUROLOGY: HAVE YOU FALLEN IN THE PAST 6 MONTHS? NO . ANY NEW EXTREMITY NUMBNESS OR WEAKNESS? NO . CARDIOLOGY: DO YOU HAVE A PACEMAKER OR DEFIBRILLATOR? NO . RESPIRATORY: HAVE YOU BEEN SICK IN THE PAST WEEK? NO . FEVER NO . FLU LIKE SYMPTOMS? NO . COUGH NO . INTEGUMENTARY: DO YOU HAVE ANY RASHES OR OPEN SORES? NO . ALLERGIC/IMMUNO: ARE YOU ALLERGIC TO SHELLFISH OR IV DYE? NO . ANY NEW ALLERGIES? NO . PSYCHIATRIC: DO YOU HAVE THOUGHTS OF HURTING YOURSELF OR SOMEONE ELSE? NO . ARE YOU ABUSED, NEGLECTED, OR IN AN UNSAFE ENVIRONMENT? NO . ENDOCRINOLOGY: ARE YOU DIABETIC? NO . OTHER: DO YOU NEED ANY PRESCRIPTIONS? NO . IF YES, PLEASE LIST: ____ . ANY NEW PROBLEMS WITH YOUR MEDICATIONS? NO . WHEN DID YOU LAST EAT? ____ . WHEN DID YOU LAST DRINK? ____ . WHAT DID YOU LAST DRINK? ____ . NAME OF PERSON DRIVING YOU HOME? ____ . DO YOU HAVE ANY OTHER QUESTIONS OR CONCERNS NO . REVIEWED BY: PROVIDER: NATHALIE SUAZO . VITAL SIGNS WT 169 LBS, HT 67 IN, BMI 26.47 INDEX, BP 132/80 MM HG, HR 73 /MIN, RR 16 /MIN, TEMP 98.6 F, OXYGEN SAT % 100%, NA INITIALS SC 10:36, REVIEWED BY: KG. EXAMINATION CERVICAL SPINE/NECK: RANGE OF MOTION OF NECK:FULL W REPORTS OF PAIN AND STIFFNESS W LATERAL ROTATION.. SENSATIONS:NORMAL BILATERALLY. MOTOR STRENGTH:4/5 RIGHT ARM/5/5 LEFT ARM. VERTEBRAL SPINE TENDERNESS:TENDERNESS IN PARASPINAL MUSCLES-RIGHT SIDE ONLY. MYOFASCIAL TRIGGER POINTS:POSITIVE OVER RIGHT TRAPEZIUS. DIAGNOSTIC DATA-CERVICAL [id number]-REVIEWED. 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 IT IS NOT A COPY OF THE [employer] PROGRESS NOTE. JOSE
== END | disposition home or self-care (01) ==
LOC: M PAIN 10:00
PROVIDERS: ATTEND Nurse Practitioner Family
DX: G89.29 Other chronic pain (principal); M50.120 Mid-cervical disc disorder, unspecified level; M79.1 Myalgia; D64.9 Anemia, unspecified; K21.9 Gastro-esophageal reflux disease without esophagitis; Z79.899 Other long term (current) drug therapy; Z88.0 Allergy status to penicillin; L23.1 Allergic contact dermatitis due to adhesives; Z91.040 Latex allergy status; Z91.018 Allergy to other foods

== ENCOUNTER → 2016-09-28 | Outpatient (CLI) | payer OTHER ==
[~2016-09-28] MED LIST changes: -BUPIVACAINE HCL 0.25% 10 ML VIAL As Ordered ONE; -BUPIVACAINE HCL 0.25% 30 ML VIAL As Ordered ONE; +ISOVUE-M 300 61% 15ML VIAL (Q9967) As Ordered ONE; +LIDOCAINE 1% SDV INJ 30 ML VIAL As Ordered ONE; -TRIAMCINOLONE ACETONIDE SUSP 40 MG/ML VIAL (J3301) As Ordered ONE; +methylPREDNISolone SUSP 40 MG/ML (DEPO-medrol) VIAL (J1030) As Ordered ONE
--- NOTE | 2016-09-29 17:51 | REP ---
FLUOROSCOPIC GUIDED SPINAL INJECTION: The films were reviewed with Dr. Holloway. The patient has a history of neck pain. The portable C-ARM was provided in the OR by Dr. Sanchez for fluoroscopic guidance. 1 intraoperative fluoroscopic spot film was obtained for needle placement verification for cervical epidural injection. The film is on the PACS system and are available for review. 10 seconds of fluoroscopic time was utilized for this procedure. Reviewed by WALE Saez 09/30/2016 12:37 PEdited and Signed by Abelino Holloway MD 09/30/2016 07:22 P
--- NOTE | 2016-10-10 23:49 | ECWPNPC ---
PATIENT NAME: ALEX AVILES : 1975 GENDER: FEMALE VISIT DATE: 09/28/2016 DISCHARGE DATE: 09/28/16 1308 VISIT LOCKED DATE TIME: PHYSICIAN: YESSICA DRAKE RESOURCE: YESSICA DRAKE REASON FOR APPOINTMENT 1. DAMIEN C4/5 HISTORY OF PRESENT ILLNESS HISTORY OF PRESENT ILLNESS: PAIN THE PATIENT DESCRIBES THE PAIN... FALL RISK SCREENING: SCREENING :NO FALLS IN THE PAST YEAR CURRENT MEDICATIONS TAKING RANITIDINE HCL 150 MG CAPSULE 1 CAPSULE ORALLY ONCE DAILY, NOTES: 09/27/16 0800 TAKING HYDROXYZINE HCL 25 MG TABLET 1-2 TABLETS NEEDED ORALLY AT BEDTIME NEEDED, NOTES: 09/27/162199 TAKING TRAZODONE HCL 50 MG TABLET 1 TABLET AT BEDTIME NEEDED ORALLY ONCE A DAY, NOTES: 09/27/162199 TAKING METHOCARBAMOL 500 MG TABLET 1 TABLET ORALLY THREE TIMES DAILY NEEDED, NOTES: 2-3 DAYS AGO TAKING FLUTICASONE FUROATE 27.5 MCG/SPRAY SUSPENSION 1 SPRAY IN EACH NOSTRIL NASALLY TWICE A DAY, NOTES: 09/27/16 1100 TAKING PANTOPRAZOLE SODIUM 40 MG TABLET DELAYED RELEASE 1 TABLET ORALLY ONCE A DAY, NOTES: 09/27/16 0800 TAKING PRAZOSIN HCL 1 MG CAPSULE 1 CAPSULE AT BEDTIME ORALLY ONCE A DAY, NOTES: 09/27/162199 TAKING MIRALAX - POWDER 1 DOSE ORALLY ONCE A DAY NEEDED, NOTES: 2 WEEKS AGO TAKING MONTELUKAST SODIUM 10 MG TABLET 1 TABLET IN THE EVENING ORALLY ONCE A DAY, NOTES: 09/27/162199 TAKING CYCLOBENZAPRINE HCL 10 MG TABLET 1 TABLET ORALLY THREE TIMES A DAY NEEDED FOR SPASMS AND PAIN MDD3, NOTES: 09/27/16 2100 TAKING HYDROCODONE-ACETAMINOPHEN 5-325 MG TABLET 1 TABLET NEEDED ORALLY EVERY 8 HOURS PRN MDD3, NOTES: 09/27/16 1900 NOT-TAKING ALLERGY RELIEF 180 MG TABLET 1 TABLET NEEDED ORALLY ONCE A DAY NOT-TAKING PROBIOTIC CAPSULE 1 TABLET ORALLY ONCE DAILY NOT-TAKING TIZANIDINE HCL 4 MG TABLET 1 TABLET NEEDED ORALLY BEFORE BEDTIME NEEDED FOR SPASMS AND PAIN MDD1 NOT-TAKING SUCRALFATE 1 GM TABLET 1 TABLET ON AN EMPTY STOMACH ORALLY ONCE DAILY MEDICATION LIST REVIEWED AND RECONCILED WITH THE PATIENT PAST MEDICAL HISTORY ANEMIA GERD STOMACH ULCERS WITH H PYLORI NECK AND LOW BACK PAIN ALLERGIES PENICILLIAN: SWELLING: ALLERGY ORANGES: SWELLING,RASH: ALLERGY BANDAIDS AND ADHESIVES: REDDNESS AND SWELLING: ALLERGY LATEX GLOVES: REDDNESS AND SWELLING: ALLERGY TEGADERM: REDNESS, SWELLING: ALLERGY SURGICAL HISTORY RIGHT KNEE 1985 TUBAL LIGATION 2002 D&C 1996 MOLES REMOVED 2016 TOTAL HYSTERECTOMY 2017 SOCIAL HISTORY GENERAL: TOBACCO USE ARE YOU A:CURRENT SMOKER PATIENT COUNSELED ON THE DANGERS OF TOBACCO USE AND URGED TO QUIT:08/20/2016 ARE YOU INTERESTED IN QUITTING?NOT READY TO QUIT COUNSELED THE PATIENT ON SMOKING EFFECTS, EDUCATION [id number]/21/2017 PAIN CLINIC PFS, CLERGY, PUBLIC HEALTH REFERRALS CLERGY REFERRAL NEEDED?NO WAS THE PROVIDER NOTIFIED OF ANY PERTINENT INFO?NO PFS REFERRAL NEEDED?NO PUBLIC HEALTH REFERRAL NEEDED?NO PATIENT: ____. HOSPITALIZATION/MAJOR DIAGNOSTIC PROCEDURE CHILD 12/18/1991 CHILD 11/01/1996 CHILD 11/23/1998 CHILD 01/29/2002 REVIEW OF SYSTEMS CONSTITUTIONAL: ANY CHANGE IN YOUR MEDICAL CONDITION? NO . CHILLS NO . FEVER NO . INFECTION: DO YOU HAVE NEW INFECTIONS? NO . DO YOU HAVE HISTORY OF MRSA? NO . MUSCULOSKELETAL: ANY NEW PATTERNS OF PAIN OR NUMBNESS? NO . GASTROENTEROLOGY: ANY NEW CHANGE IN BOWEL CONTROL? NO . GENITOURINARY: ANY NEW CHANGE IN BLADDER CONTROL? NO . IS THERE A CHANCE YOU COULD BE ? NO . HEMATOLOGY/LYMPH: DO YOU TAKE ANY BLOOD THINNERS? (FOR EXAMPLE- COUMADIN, PLAVIX, AGGRENOX, PLATEL, PRADAXA, OR XARELTO) NO . WHEN WAS YOUR LAST DOSE? DATE: TIME: . NEUROLOGY: HAVE YOU FALLEN IN THE PAST 6 MONTHS? NO . ANY NEW EXTREMITY NUMBNESS OR WEAKNESS? NO . CARDIOLOGY: DO YOU HAVE A PACEMAKER OR DEFIBRILLATOR? NO . RESPIRATORY: HAVE YOU BEEN SICK IN THE PAST WEEK? NO . FEVER NO . FLU LIKE SYMPTOMS? NO . COUGH NO . INTEGUMENTARY: DO YOU HAVE ANY RASHES OR OPEN SORES? NO . ALLERGIC/IMMUNO: ARE YOU ALLERGIC TO SHELLFISH OR IV DYE? NO . ANY NEW ALLERGIES? NO . PSYCHIATRIC: DO YOU HAVE THOUGHTS OF HURTING YOURSELF OR SOMEONE ELSE? NO . ARE YOU ABUSED, NEGLECTED, OR IN AN UNSAFE ENVIRONMENT? NO . ENDOCRINOLOGY: ARE YOU DIABETIC? NO . OTHER: DO YOU NEED ANY PRESCRIPTIONS? NO . IF YES, PLEASE LIST: ____ . ANY NEW PROBLEMS WITH YOUR MEDICATIONS? NO . WHEN DID YOU LAST EAT? ____ . WHEN DID YOU LAST DRINK? ____ . WHAT DID YOU LAST DRINK? ____ . NAME OF PERSON DRIVING YOU HOME? ____REHAN JOHNSON . DO YOU HAVE ANY OTHER QUESTIONS OR CONCERNS NO . REVIEWED BY: PROVIDER: . VITAL SIGNS WT 97.4 LBS, HT 67 IN, BMI 15.25 INDEX, BP 123/81 MM HG, HR 76 /MIN, RR 16 /MIN, TEMP 97.4 F, OXYGEN SAT % 98, NA INITIALS TL 1027, REVIEWED BY: KG. ASSESSMENTS CERVICAL DISC DISORDER AT C5-C6 LEVEL WITH RADICULOPATHY - M50.122 (PRIMARY) PROCEDURES PN CERVICAL EPIDURAL PRE PROCEDURE DIAGNOSIS CERVICAL DISC DISORDER WITH RADICULOPATHY POST PROCEDURE DIAGNOSIS CERVICAL DISC DISORDER WITH RADICULOPATHY PROCEDURE CERVICAL EPIDURAL STEROID INJECTION UNDER FLUOROSCOPIC GUIDANCE SURGEON DR. YESSICA DRAKE METAL LEAF LAYER NONE ANESTHESIA LOCAL PRE PROCEDURE NOTE THE PATIENT HAS A HISTORY OF CHRONIC CERVICAL PAIN. I EVALUATE THE PATIENT AND REVIEWED THE CHART. I WENT OVER THE RISKS, ALTERNATIVES, AND BENEFITS ASSOCIATED WITH THIS PROCEDURE. THE PATIENT WOULD LIKE TO PROCEED AND GIVE CONSENT TO PERFORMED THE PROCEDURE. THE PATIENT DENIES UNEXPLAINABLE WEIGHT LOSS, FEVER, CHILLS, OR NEW CHANGES IN URINARY OR BOWEL CONTROL DESCRIPTION OF PROCEDURE THE PATIENT WAS BROUGHT TO THE PROCEDURE ROOM AND PLACED IN THE PRONE POSITION. THE CERVICOTHORACIC AREA WAS CLEANED WITH BETADINE SOLUTION AND DRAPED ASEPTICALLY. THE PROCEDURE WAS DONE UNDER STERILE CONDITIONS. I CHECKED LATERALITY AND THE LEVEL WHERE THE PROCEDURE WAS GOING TO BE PERFORMED WITH THE PATIENT AND THE SUPPORTING STAFF AT THE MOMENT OF THE TIME OUT IN THE PROCEDURE ROOM. UNDER FLUOROSCOPIC GUIDANCE, THE TARGET WAS SELECTED AT THE INTERLAMINAR LEVEL OF T1-T2 WITH GOOD SPREAD OF DYE TO THE CERVICAL AREA. LIDOCAINE WAS USED TO NUMB THE SKIN AND THE SUBCUTANEOUS TISSUE BELOW IT. EPIDURAL TUOHY NEEDLE 17-GAUGE WAS ADVANCED UNDER FLUOROSCOPIC GUIDANCE AND FOLLOWING PATIENT FEEDBACK UNTIL THE EPIDURAL SPACE WAS REACHED 6 CM DEEP INTO THE SKIN BY THE LOSS OF RESISTANCE TECHNIQUE. ISOVUE M DYE 30%, 0.25 ML, WAS INJECTED SHOWING ADEQUATE SPREAD OF THE DYE. THEN, A SOLUTION OF 3 ML OF NORMAL SALINE WITH DEPO-MEDROL 60 MG WAS INJECTED SLOWLY FOLLOWING PATIENT FEEDBACK. THERE WAS NO EVIDENCE OF BLOOD, PARESTHESIA OR CEREBROSPINAL FLUID DURING THE PROCEDURE. THE PATIENT WAS SENT TO THE RECOVERY ROOM. THE PATIENT WAS MOVING THE EXTREMITIES AND DOING WELL. THERE WAS NO COMPLICATION DURING THE PROCEDURE. FLUOROSCOPY TIME WAS 10 SECONDS POST PROCEDURE NOTE THE PATIENT WILL BE SEEN IN A FOLLOW UP IN THE NEXT FEW WEEKS. INSTRUCTIONS WERE GIVEN, QUESTIONS WERE ANSWERED, AND THE PATIENT EXPRESSED UNDERSTANDING AND AGREES WITH THE PLAN. I, MARCE WEST, DOCUMENTED THE ABOVE INFORMATION ACTING A SCRIBE FOR DR. DRAKE. I HAVE REVIEWED THE ABOVE DOCUMENT, WRITTEN BY MARCE WEST SCRIBE AND I VERIFY THAT IT IS ACCURATE DIAGNOSTIC IMAGING [facility] FLUORO GUIDE SPINE INJECTION (PAIN)[id number] PROCEDURE CODES 27728 CERVICAL/THORACIC W/ IMAGING 6045F RADXPS IN END [id number] PXD DISPOSITION & COMMUNICATION FOLLOW UP 3 WEEKS ELECTRONICALLY SIGNED BY YESSICA DRAKE MD ON 10/10/2016 AT 06:57 PM EDT DISCLAIMER : THIS IS A VISIT SUMMARY EXTRACTED FROM THE [employer] CHART. IT IS NOT A COPY OF THE [employer] PROGRESS NOTE. [id number]
== END | disposition home or self-care (01) ==
LOC: M PAIN 10:20
PROVIDERS: ATTEND Anesthesiology
DX: G89.29 Other chronic pain (principal); M50.122 Cervical disc disorder at C5-C6 level with radiculopathy; D64.9 Anemia, unspecified; K21.9 Gastro-esophageal reflux disease without esophagitis; K25.9 Gastric ulcer, unspecified as acute or chronic, without hemorrhage or perforation; Z79.899 Other long term (current) drug therapy; Z88.0 Allergy status to penicillin; Z91.018 Allergy to other foods; Z91.040 Latex allergy status; L23.1 Allergic contact dermatitis due to adhesives

== ENCOUNTER → 2016-10-13 | Outpatient (CLI) | payer OTHER ==
--- NOTE | 2016-10-14 00:12 | ECWPNPC ---
PATIENT NAME: ALEX AVILES : 1975 GENDER: FEMALE VISIT DATE: 10/13/2016 DISCHARGE DATE: 10/13/16 1040 VISIT LOCKED DATE TIME: PHYSICIAN: NATHALIE GONGORA RESOURCE: NATHALIE GONGORA REASON FOR APPOINTMENT 1. POST EPIDURAL HISTORY OF PRESENT ILLNESS GENERAL: HERE FOR POST PROCEDURE F/U.HAD DAMIEN ON 09-28-16.REPORTS 2 WEEKS IMPROVEMENT POST PROCEDURE BUT PAIN IS GRADUALLY INCREAING.PAIN IS LOCATED IN NECK WITH RADIATION INTO RIGHT UPPER BACK AND SHOULDER.RATING PAIN VAS 5/10.PAIN IS AGGREVATED WITH USE OF RIGHT ARM.DISCUSSED TREATMENT OPTIONS. CURRENT MEDICATIONS TAKING RANITIDINE HCL 150 MG CAPSULE 1 CAPSULE ORALLY ONCE DAILY TAKING HYDROXYZINE HCL 25 MG TABLET 1-2 TABLETS NEEDED ORALLY AT BEDTIME NEEDED TAKING TRAZODONE HCL 50 MG TABLET 1 TABLET AT BEDTIME NEEDED ORALLY ONCE A DAY TAKING METHOCARBAMOL 500 MG TABLET 1 TABLET ORALLY THREE TIMES DAILY NEEDED TAKING FLUTICASONE FUROATE 27.5 MCG/SPRAY SUSPENSION 1 SPRAY IN EACH NOSTRIL NASALLY TWICE A DAY TAKING PANTOPRAZOLE SODIUM 40 MG TABLET DELAYED RELEASE 1 TABLET ORALLY ONCE A DAY TAKING PRAZOSIN HCL 1 MG CAPSULE 1 CAPSULE AT BEDTIME ORALLY ONCE A DAY TAKING MIRALAX - POWDER 1 DOSE ORALLY ONCE A DAY NEEDED TAKING MONTELUKAST SODIUM 10 MG TABLET 1 TABLET IN THE EVENING ORALLY ONCE A DAY TAKING CYCLOBENZAPRINE HCL 10 MG TABLET 1 TABLET ORALLY THREE TIMES A DAY NEEDED FOR SPASMS AND PAIN MDD3 TAKING HYDROCODONE-ACETAMINOPHEN 5-325 MG TABLET 1 TABLET NEEDED ORALLY EVERY 8 HOURS PRN MDD3 NOT-TAKING ALLERGY RELIEF 180 MG TABLET 1 TABLET NEEDED ORALLY ONCE A DAY NOT-TAKING PROBIOTIC CAPSULE 1 TABLET ORALLY ONCE DAILY NOT-TAKING TIZANIDINE HCL 4 MG TABLET 1 TABLET NEEDED ORALLY BEFORE BEDTIME NEEDED FOR SPASMS AND PAIN MDD1 NOT-TAKING SUCRALFATE 1 GM TABLET 1 TABLET ON AN EMPTY STOMACH ORALLY ONCE DAILY MEDICATION LIST REVIEWED AND RECONCILED WITH THE PATIENT PAST MEDICAL HISTORY ANEMIA GERD STOMACH ULCERS WITH H PYLORI NECK AND LOW BACK PAIN ALLERGIES PENICILLIAN: SWELLING: ALLERGY ORANGES: SWELLING,RASH: ALLERGY BANDAIDS AND ADHESIVES: REDDNESS AND SWELLING: ALLERGY LATEX GLOVES: REDDNESS AND SWELLING: ALLERGY TEGADERM: REDNESS, SWELLING: ALLERGY VITAL SIGNS WT 187.8 LBS, HT 67 IN, BMI 29.41 INDEX, BP 114/69 MM HG, HR 82 /MIN, RR 16 /MIN, TEMP 97.5 F, OXYGEN SAT % 98%, NA INITIALS SC 09:52, REVIEWED BY: NL. EXAMINATION CERVICAL SPINE/NECK: RANGE OF MOTION OF NECK:FULL W REPORTS OF PAIN AND STIFFNESS W LATERAL ROTATION.. SENSATIONS:NORMAL BILATERALLY. MOTOR STRENGTH:4/5 RIGHT ARM/5/5 LEFT ARM. VERTEBRAL SPINE TENDERNESS:TENDERNESS IN PARASPINAL MUSCLES-RIGHT SIDE ONLY. MYOFASCIAL TRIGGER POINTS:POSITIVE OVER RIGHT TRAPEZIUS. DIAGNOSTIC DATA-CERVICAL [id number]-REVIEWED. ASSESSMENTS CERVICAL DISC DISORDER WITH RADICULOPATHY OF MID-CERVICAL REGION - M50.120 (PRIMARY) CHRONIC PRESCRIPTION OPIATE USE - Z79.891 TREATMENT CERVICAL DISC DISORDER WITH RADICULOPATHY OF MID-CERVICAL REGION CONTINUE HYDROCODONE-ACETAMINOPHEN TABLET, 5-325 MG, 1 TABLET NEEDED, ORALLY, EVERY 8 HOURS PRN MDD3 CONTINUE TIZANIDINE HCL TABLET, 4 MG, 1 TABLET NEEDED, ORALLY, BEFORE BEDTIME NEEDED FOR SPASMS AND PAIN MDD1 NOTES: ISTOP REGISTRY REVIEWED AND DEMNOSTRATES COMPLLIANCE. BRINGS IN MEDICATIONS WHICH IS APPROPRIATE FOR WHAT WAS DISPENSED. RECENT URINE TOXICOLOGY REVIEWED. NO UNAUTHORIZED MEDICATIONS. NO ILLICIT SUBSTANCES AND PRESCRIBED MEDICATIONS WERE PRESENT. URINE TOX TODAY.DAMIEN-REQUEST FROM INSURANCE. [facility] REASON:CERVICAL SPONDYLOSIS PROCEDURE CODES FA211 ESTABILISHED PATIENT [facility] CHARGE DISPOSITION & COMMUNICATION FOLLOW UP 2WK POST PROCEDURE (REASON: DAMIEN-REQUEST FROM INSURANCE) ELECTRONICALLY SIGNED BY GABRIELE CHRISTENSEN ON 10/13/2016 AT 03:22 PM EDT DISCLAIMER : THIS IS A VISIT SUMMARY EXTRACTED FROM THE [employer] CHART. IT IS NOT A COPY OF THE [employer] PROGRESS NOTE. JOSE
== END | disposition home or self-care (01) ==
LOC: M PAIN 09:40
PROVIDERS: ATTEND Nurse Practitioner Family
DX: G89.29 Other chronic pain (principal); M50.120 Mid-cervical disc disorder, unspecified level; D64.9 Anemia, unspecified; K21.9 Gastro-esophageal reflux disease without esophagitis; K25.9 Gastric ulcer, unspecified as acute or chronic, without hemorrhage or perforation; Z79.899 Other long term (current) drug therapy; Z79.51 Long term (current) use of inhaled steroids; Z88.0 Allergy status to penicillin; Z91.018 Allergy to other foods; Z91.040 Latex allergy status; L23.1 Allergic contact dermatitis due to adhesives

== ENCOUNTER → 2016-11-16 | Outpatient (CLI) | payer OTHER ==
[~2016-11-16] MED LIST changes: +CYCL10TA PO; +FLUTISP; +HYDR-3363 PO; +MIRA33504 PO; +MONT10TA2 PO; +NEUR100C PO; +NORC1TAB4 PO; +PANT40TA2 PO; +PRAZ1CAP PO; +PROBCAP4 PO; +RANI150C PO; +ROBA500T PO; +TOBRSUS41 OP; +TRAZ25TA PO
--- NOTE | 2016-11-16 16:53 | REP ---
Cervical spine series: Two views: History: Cervical epidural steroid injection for pain. Findings: A sequence of two fluoroscopically obtained last image hold spot radiographs of the cervicothoracic junction document needle position and contrast injection associated with cervical injection procedure Signed by John Chowdary MD 11/16/2016 06:44 P
--- NOTE | 2016-11-30 01:33 | ECWPNPC ---
PATIENT NAME: ALEX AVILES : 1975 GENDER: FEMALE VISIT DATE: 11/16/2016 DISCHARGE DATE: 11/16/16 1541 VISIT LOCKED DATE TIME: PHYSICIAN: YESSICA DRAKE RESOURCE: YESSICA DRAKE REASON FOR APPOINTMENT 1. DAMIEN HISTORY OF PRESENT ILLNESS HISTORY OF PRESENT ILLNESS: PAIN THE PATIENT DESCRIBES THE PAIN... FALL RISK SCREENING: SCREENING :NO FALLS IN THE PAST YEAR CURRENT MEDICATIONS TAKING RANITIDINE HCL 150 MG CAPSULE 1 CAPSULE ORALLY ONCE DAILY, NOTES: 11/15/16 8PM TAKING HYDROXYZINE HCL 25 MG TABLET 1-2 TABLETS NEEDED ORALLY AT BEDTIME NEEDED, NOTES: 11/15/16 9PM TAKING TRAZODONE HCL 50 MG TABLET 1 TABLET AT BEDTIME NEEDED ORALLY ONCE A DAY, NOTES: 11/15/16 9PM TAKING METHOCARBAMOL 500 MG TABLET 1 TABLET ORALLY THREE TIMES DAILY NEEDED, NOTES: 11/14/16 TAKING FLUTICASONE FUROATE 27.5 MCG/SPRAY SUSPENSION 1 SPRAY IN EACH NOSTRIL NASALLY TWICE A DAY, NOTES: 11/15/16 8PM TAKING PANTOPRAZOLE SODIUM 40 MG TABLET DELAYED RELEASE 1 TABLET ORALLY ONCE A DAY, NOTES: 11/15/16 0800 TAKING PRAZOSIN HCL 1 MG CAPSULE 1 CAPSULE AT BEDTIME ORALLY ONCE A DAY, NOTES: 11/15/16 9PM TAKING MIRALAX - POWDER 1 DOSE ORALLY ONCE A DAY NEEDED, NOTES: AWHILE AGO TAKING MONTELUKAST SODIUM 10 MG TABLET 1 TABLET IN THE EVENING ORALLY ONCE A DAY, NOTES: 11/15/16 9PM TAKING TIZANIDINE HCL 4 MG TABLET 1 TABLET NEEDED ORALLY BEFORE BEDTIME NEEDED FOR SPASMS AND PAIN MDD1, NOTES: 11/15/16 6PM TAKING HYDROCODONE-ACETAMINOPHEN 5-325 MG TABLET 1 TABLET NEEDED ORALLY EVERY 8 HOURS PRN MDD3, NOTES: 11/15/16 9PM TAKING CYCLOBENZAPRINE HCL 10 MG TABLET 1 TABLET ORALLY THREE TIMES A DAY NEEDED FOR SPASMS AND PAIN MDD3, NOTES: 11/15/16 6PM NOT-TAKING ALLERGY RELIEF 180 MG TABLET 1 TABLET NEEDED ORALLY ONCE A DAY NOT-TAKING PROBIOTIC CAPSULE 1 TABLET ORALLY ONCE DAILY NOT-TAKING SUCRALFATE 1 GM TABLET 1 TABLET ON AN EMPTY STOMACH ORALLY ONCE DAILY MEDICATION LIST REVIEWED AND RECONCILED WITH THE PATIENT PAST MEDICAL HISTORY ANEMIA GERD STOMACH ULCERS WITH H PYLORI NECK AND LOW BACK PAIN ALLERGIES PENICILLIAN: SWELLING: ALLERGY ORANGES: SWELLING,RASH: ALLERGY BANDAIDS AND ADHESIVES: REDDNESS AND SWELLING: ALLERGY LATEX GLOVES: REDDNESS AND SWELLING: ALLERGY TEGADERM: REDNESS, SWELLING: ALLERGY REVIEW OF SYSTEMS REVIEWED BY: PROVIDER: . CONSTITUTIONAL: ANY CHANGE IN YOUR MEDICAL CONDITION? NO . CHILLS NO . FEVER NO . INFECTION: DO YOU HAVE NEW INFECTIONS? NO . DO YOU HAVE HISTORY OF MRSA? NO . MUSCULOSKELETAL: ANY NEW PATTERNS OF PAIN OR NUMBNESS? NO . GASTROENTEROLOGY: ANY NEW CHANGE IN BOWEL CONTROL? NO . GENITOURINARY: ANY NEW CHANGE IN BLADDER CONTROL? NO . IS THERE A CHANCE YOU COULD BE ? NO . HEMATOLOGY/LYMPH: DO YOU TAKE ANY BLOOD THINNERS? (FOR EXAMPLE- COUMADIN, PLAVIX, AGGRENOX, PLATEL, PRADAXA, OR XARELTO) NO . WHEN WAS YOUR LAST DOSE? DATE: TIME: . NEUROLOGY: HAVE YOU FALLEN IN THE PAST 6 MONTHS? NO . ANY NEW EXTREMITY NUMBNESS OR WEAKNESS? NO . CARDIOLOGY: DO YOU HAVE A PACEMAKER OR DEFIBRILLATOR? NO . RESPIRATORY: HAVE YOU BEEN SICK IN THE PAST WEEK? NO . FEVER NO . FLU LIKE SYMPTOMS? NO . COUGH NO . INTEGUMENTARY: DO YOU HAVE ANY RASHES OR OPEN SORES? NO . ALLERGIC/IMMUNO: ARE YOU ALLERGIC TO SHELLFISH OR IV DYE? NO . ANY NEW ALLERGIES? NO . PSYCHIATRIC: DO YOU HAVE THOUGHTS OF HURTING YOURSELF OR SOMEONE ELSE? NO . ARE YOU ABUSED, NEGLECTED, OR IN AN UNSAFE ENVIRONMENT? NO . ENDOCRINOLOGY: ARE YOU DIABETIC? NO . OTHER: DO YOU NEED ANY PRESCRIPTIONS? NO . IF YES, PLEASE LIST: ____ . ANY NEW PROBLEMS WITH YOUR MEDICATIONS? NO . WHEN DID YOU LAST EAT? 8 PM . WHEN DID YOU LAST DRINK? 930PM . WHAT DID YOU LAST DRINK? WATER . NAME OF PERSON DRIVING YOU HOME? KILEY . DO YOU HAVE ANY OTHER QUESTIONS OR CONCERNS NO . VITAL SIGNS WT 187.8 LBS, HT 67 IN, BMI 29.41 INDEX, BP 131/80 MM HG, HR 91 /MIN, RR 16 /MIN, TEMP 98.2 F, OXYGEN SAT % 100%, NA INITIALS SC 11:20, REVIEWED BY: NL. ASSESSMENTS CERVICAL DISC DISORDER WITH RADICULOPATHY, CERVICOTHORACIC REGION - M50.13 (PRIMARY) PROCEDURES PN CERVICAL EPIDURAL PRE PROCEDURE DIAGNOSIS CERVICAL DISC DISORDER WITH RADICULOPATHY POST PROCEDURE DIAGNOSIS CERVICAL DISC DISORDER WITH RADICULOPATHY PROCEDURE CERVICAL EPIDURAL STEROID INJECTION UNDER FLUOROSCOPIC GUIDANCE SURGEON DR. YESSICA DRAKE CLOTH FOLDER HAND NONE ANESTHESIA LOCAL PRE PROCEDURE NOTE THE PATIENT HAS A HISTORY OF CHRONIC CERVICAL PAIN. I EVALUATE THE PATIENT AND REVIEWED THE CHART. I WENT OVER THE RISKS, ALTERNATIVES, AND BENEFITS ASSOCIATED WITH THIS PROCEDURE. THE PATIENT WOULD LIKE TO PROCEED AND GIVE CONSENT TO PERFORMED THE PROCEDURE. THE PATIENT DENIES UNEXPLAINABLE WEIGHT LOSS, FEVER, CHILLS, OR NEW CHANGES IN URINARY OR BOWEL CONTROL DESCRIPTION OF PROCEDURE THE PATIENT WAS BROUGHT TO THE PROCEDURE ROOM AND PLACED IN THE PRONE POSITION. THE CERVICOTHORACIC AREA WAS CLEANED WITH BETADINE SOLUTION AND DRAPED ASEPTICALLY. THE PROCEDURE WAS DONE UNDER STERILE CONDITIONS. I CHECKED LATERALITY AND THE LEVEL WHERE THE PROCEDURE WAS GOING TO BE PERFORMED WITH THE PATIENT AND THE SUPPORTING STAFF AT THE MOMENT OF THE TIME OUT IN THE PROCEDURE ROOM. UNDER FLUOROSCOPIC GUIDANCE, THE TARGET WAS SELECTED AT THE INTERLAMINAR LEVEL OF T1-T2 WITH GOOD CERVICAL SPREAD OF THE DYE. LIDOCAINE WAS USED TO NUMB THE SKIN AND THE SUBCUTANEOUS TISSUE BELOW IT. EPIDURAL TUOHY NEEDLE 17-GAUGE WAS ADVANCED UNDER FLUOROSCOPIC GUIDANCE AND FOLLOWING PATIENT FEEDBACK UNTIL THE EPIDURAL SPACE WAS REACHED 6 CM DEEP INTO THE SKIN BY THE LOSS OF RESISTANCE TECHNIQUE. ISOVUE M DYE 30%, 0.25 ML, WAS INJECTED SHOWING ADEQUATE SPREAD OF THE DYE. THEN, A SOLUTION OF 3 ML OF NORMAL SALINE WITH DEPO-MEDROL 60 MG WAS INJECTED SLOWLY FOLLOWING PATIENT FEEDBACK. THERE WAS NO EVIDENCE OF BLOOD, PARESTHESIA OR CEREBROSPINAL FLUID DURING THE PROCEDURE. THE PATIENT WAS SENT TO THE RECOVERY ROOM. THE PATIENT WAS MOVING THE EXTREMITIES AND DOING WELL. THERE WAS NO COMPLICATION DURING THE PROCEDURE. FLUOROSCOPY TIME WAS 19 SECONDS POST PROCEDURE NOTE THE PATIENT WILL BE SEEN IN A FOLLOW UP IN THE NEXT FEW WEEKS. INSTRUCTIONS WERE GIVEN, QUESTIONS WERE ANSWERED, AND THE PATIENT EXPRESSED UNDERSTANDING AND AGREES WITH THE PLAN. I, MARCE WEST, DOCUMENTED THE ABOVE INFORMATION ACTING A SCRIBE FOR DR. DRAKE. I, DR. DRAKE, HAVE REVIEWED THE ABOVE DOCUMENT, SCRIBED BY MARCE WEST, AND I VERIFY THAT IT IS ACCURATE DIAGNOSTIC IMAGING [facility] FLUORO GUIDE SPINE INJECTION (PAIN)[id number] PROCEDURE CODES 24263 CERVICAL/THORACIC W/ IMAGING 6045F RADXPS IN END [id number] PXD DISPOSITION & COMMUNICATION FOLLOW UP 3 WEEKS ELECTRONICALLY SIGNED BY YESSICA DRAKE MD ON 11/29/2016 AT 11:24 AM EDT DISCLAIMER : THIS IS A VISIT SUMMARY EXTRACTED FROM THE [employer] CHART. IT IS NOT A COPY OF THE [employer] PROGRESS NOTE. MTDD
== END ==
LOC: M PAIN 11:40
PROVIDERS: ATTEND Anesthesiology
DX: G89.29 Other chronic pain (principal); M50.13 Cervical disc disorder with radiculopathy, cervicothoracic region; Z79.891 Long term (current) use of opiate analgesic; Z79.899 Other long term (current) drug therapy; Z88.0 Allergy status to penicillin; Z91.018 Allergy to other foods; Z91.040 Latex allergy status; Z91.09 Other allergy status, other than to drugs and biological substances

== ENCOUNTER → 2016-11-30 | Outpatient (CLI) | payer OTHER ==
[~2016-11-30] MED LIST changes: -ISOVUE-M 300 61% 15ML VIAL (Q9967) As Ordered ONE; -LIDOCAINE 1% SDV INJ 30 ML VIAL As Ordered ONE; -diazePAM 5 MG TAB As Ordered ONE; -methylPREDNISolone SUSP 40 MG/ML (DEPO-medrol) VIAL (J1030) As Ordered ONE; -oxyCODONE 5MG TAB As Ordered ONE
--- NOTE | 2016-12-17 00:44 | ECWPNPC ---
PATIENT NAME: ALEX AVILES : 1975 GENDER: FEMALE VISIT DATE: 11/30/2016 DISCHARGE DATE: 11/30/16 1141 VISIT LOCKED DATE TIME: PHYSICIAN: NATHALIE GONGORA RESOURCE: NATHALIE GONGORA REASON FOR APPOINTMENT 1. POST DAMIEN HISTORY OF PRESENT ILLNESS HISTORY OF PRESENT ILLNESS: PAIN THE PATIENT DESCRIBES THE PAIN... FALL RISK SCREENING: SCREENING :NO FALLS IN THE PAST YEAR GENERAL: HERE FOR POST PROCEDURE F/U.HAD DAMIEN ON 11-16-16.REPORTS 2 WEEKS IMPROVEMENT POST PROCEDURE BUT PAIN IS GRADUALLY INCREAING.PAIN IS LOCATED IN NECK WITH RADIATION INTO RIGHT UPPER BACK AND SHOULDER.RATING PAIN VAS 7/10.PAIN IS AGGREVATED WITH USE OF RIGHT ARM.PATIENT CAN APPRECIATE AN AREA OF PAINFUL SWELLING RIGHT UPPER BACK SINCE INJECTION.ALTHOUGH AREA IS NOT CLOSE TO INJECTION SITE.DISCUSSED TREATMENT OPTIONS. CURRENT MEDICATIONS TAKING RANITIDINE HCL 150 MG CAPSULE 1 CAPSULE ORALLY ONCE DAILY TAKING HYDROXYZINE HCL 25 MG TABLET 1-2 TABLETS NEEDED ORALLY AT BEDTIME NEEDED TAKING TRAZODONE HCL 50 MG TABLET 1 TABLET AT BEDTIME NEEDED ORALLY ONCE A DAY TAKING METHOCARBAMOL 500 MG TABLET 1 TABLET ORALLY THREE TIMES DAILY NEEDED TAKING FLUTICASONE FUROATE 27.5 MCG/SPRAY SUSPENSION 1 SPRAY IN EACH NOSTRIL NASALLY TWICE A DAY TAKING PANTOPRAZOLE SODIUM 40 MG TABLET DELAYED RELEASE 1 TABLET ORALLY ONCE A DAY TAKING PRAZOSIN HCL 1 MG CAPSULE 1 CAPSULE AT BEDTIME ORALLY ONCE A DAY TAKING MIRALAX - POWDER 1 DOSE ORALLY ONCE A DAY NEEDED TAKING MONTELUKAST SODIUM 10 MG TABLET 1 TABLET IN THE EVENING ORALLY ONCE A DAY TAKING TIZANIDINE HCL 4 MG TABLET 1 TABLET NEEDED ORALLY BEFORE BEDTIME NEEDED FOR SPASMS AND PAIN MDD1 TAKING CYCLOBENZAPRINE HCL 10 MG TABLET 1 TABLET ORALLY THREE TIMES A DAY NEEDED FOR SPASMS AND PAIN MDD3 TAKING HYDROCODONE-ACETAMINOPHEN 5-325 MG TABLET 1 TABLET NEEDED ORALLY EVERY 8 HOURS PRN MDD3 NOT-TAKING ALLERGY RELIEF 180 MG TABLET 1 TABLET NEEDED ORALLY ONCE A DAY NOT-TAKING PROBIOTIC CAPSULE 1 TABLET ORALLY ONCE DAILY NOT-TAKING SUCRALFATE 1 GM TABLET 1 TABLET ON AN EMPTY STOMACH ORALLY ONCE DAILY MEDICATION LIST REVIEWED AND RECONCILED WITH THE PATIENT PAST MEDICAL HISTORY ANEMIA GERD STOMACH ULCERS WITH H PYLORI NECK AND LOW BACK PAIN ALLERGIES PENICILLIAN: SWELLING: ALLERGY ORANGES: SWELLING,RASH: ALLERGY BANDAIDS AND ADHESIVES: REDDNESS AND SWELLING: ALLERGY LATEX GLOVES: REDDNESS AND SWELLING: ALLERGY TEGADERM: REDNESS, SWELLING: ALLERGY SOCIAL HISTORY GENERAL: TOBACCO USE ARE YOU A:CURRENT SMOKER PATIENT COUNSELED ON THE DANGERS OF TOBACCO USE AND URGED TO QUIT:08/20/2016 ARE YOU INTERESTED IN QUITTING?NOT READY TO QUIT COUNSELED THE PATIENT ON SMOKING EFFECTS, EDUCATION [id number]/21/2017 MOSQUE [id number] YARSANISM LEARNING BARRIERS / SPECIAL NEEDS BARRIERS TO LEARNING?NO HEARING IMPAIRED?NO VISION IMPAIRED?NO COGNITIVELY IMPAIRED?NO READINESS TO LEARN?YES LEARNING PREFERENCES?NO LEARNING CAPABILITIES PRESENT?YES EMOTIONAL BARRIERS?NO SPECIAL DEVICES?NO POPPED CORN OVEN ATTENDANT NEEDED?NO PAIN CLINIC PFS, CLERGY, PUBLIC HEALTH REFERRALS PFS REFERRAL NEEDED?NO CLERGY REFERRAL NEEDED?NO PUBLIC HEALTH REFERRAL NEEDED?NO WAS THE PROVIDER NOTIFIED OF ANY PERTINENT INFO?NO HAS THE PATIENT BEEN EDUCATED REGARDING HIS/HER PLAN OF CARE?YES HAS THE PATIENT BEEN EDUCATED REGARDING PAIN, THE RISK FOR PAIN, THE IMPORTANCE OF EFFECTIVE PAIN MANAGEMENT, AND THE PAIN ASSESSMENT PROCESS?YES PATIENT: ____. ADVANCE DIRECTIVES HEALTH CARE PROXY?YES NAME OF HCP TRE[facility] SPAR[facility] CONTACT # FOR HCP [phone] DO YOU HAVE A COPY WITH YOU?NO DO YOU HAVE A DNR?NO WOULD YOU LIKE MORE INFORMATION?NO LIVING WILL?NO WOULD YOU LIKE MORE INFORMATION?NO POWER OF VACUUM CLEANER MECHANIC?NO WOULD YOU LIKE MORE INFORMATION?NO REVIEW OF SYSTEMS REVIEWED BY: PROVIDER: NATHALIE SUAZO . CONSTITUTIONAL: ANY CHANGE IN YOUR MEDICAL CONDITION? NO . CHILLS NO . FEVER NO . INFECTION: DO YOU HAVE NEW INFECTIONS? NO . DO YOU HAVE HISTORY OF MRSA? NO . MUSCULOSKELETAL: ANY NEW PATTERNS OF PAIN OR NUMBNESS? NO . GASTROENTEROLOGY: ANY NEW CHANGE IN BOWEL CONTROL? NO . GENITOURINARY: ANY NEW CHANGE IN BLADDER CONTROL? NO . IS THERE A CHANCE YOU COULD BE ? NO . HEMATOLOGY/LYMPH: DO YOU TAKE ANY BLOOD THINNERS? (FOR EXAMPLE- COUMADIN, PLAVIX, AGGRENOX, PLATEL, PRADAXA, OR XARELTO) NO . WHEN WAS YOUR LAST DOSE? DATE: TIME: . NEUROLOGY: HAVE YOU FALLEN IN THE PAST 6 MONTHS? NO . ANY NEW EXTREMITY NUMBNESS OR WEAKNESS? NO . CARDIOLOGY: DO YOU HAVE A PACEMAKER OR DEFIBRILLATOR? NO . RESPIRATORY: HAVE YOU BEEN SICK IN THE PAST WEEK? NO . FEVER NO . FLU LIKE SYMPTOMS? NO . COUGH NO . INTEGUMENTARY: DO YOU HAVE ANY RASHES OR OPEN SORES? NO . ALLERGIC/IMMUNO: ARE YOU ALLERGIC TO SHELLFISH OR IV DYE? NO . ANY NEW ALLERGIES? NO . PSYCHIATRIC: DO YOU HAVE THOUGHTS OF HURTING YOURSELF OR SOMEONE ELSE? NO . ARE YOU ABUSED, NEGLECTED, OR IN AN UNSAFE ENVIRONMENT? NO . ENDOCRINOLOGY: ARE YOU DIABETIC? NO . OTHER: DO YOU NEED ANY PRESCRIPTIONS? NO . IF YES, PLEASE LIST: ____ . ANY NEW PROBLEMS WITH YOUR MEDICATIONS? NO . WHEN DID YOU LAST EAT? ____ . WHEN DID YOU LAST DRINK? ____ . WHAT DID YOU LAST DRINK? ____ . NAME OF PERSON DRIVING YOU HOME? ____ . DO YOU HAVE ANY OTHER QUESTIONS OR CONCERNS NO . VITAL SIGNS WT 177.8 LBS, HT 67 IN, BMI 27.84 INDEX, BP 120/71 MM HG, HR 78 /MIN, RR 16 /MIN, TEMP 97.5 F, OXYGEN SAT % 98%, NA INITIALS [id number], REVIEWED BY: CS. EXAMINATION CERVICAL SPINE/NECK: RANGE OF MOTION OF NECK:FULL W REPORTS OF PAIN AND STIFFNESS W LATERAL ROTATION.. SENSATIONS:NORMAL BILATERALLY. MOTOR STRENGTH:4/5 RIGHT ARM/5/5 LEFT ARM. VERTEBRAL SPINE TENDERNESS:TENDERNESS IN PARASPINAL MUSCLES-RIGHT SIDE ONLY. MYOFASCIAL TRIGGER POINTS:POSITIVE OVER RIGHT TRAPEZIUS. DIAGNOSTIC DATA-CERVICAL [id number]-REVIEWED. GENERAL EXAMINATION: LUNGS:LUNG ALVARES ARE CLEAR TO AUSCULTATION BILATERALLY. GOOD MOVEMENT OF AIR. HEART:S1, S2 IN A REGULAR RATE AND RHYTHM. NO SIGNIFICANT MURMURS, RUBS OR GALLOPS NOTED. ASSESSMENTS CERVICAL DISC DISORDER WITH RADICULOPATHY OF MID-CERVICAL REGION - M50.120 (PRIMARY) MYALGIA - M79.1 TREATMENT CERVICAL DISC DISORDER WITH RADICULOPATHY OF MID-CERVICAL REGION CONTINUE TIZANIDINE HCL TABLET, 4 MG, 1 TABLET NEEDED, ORALLY, BEFORE BEDTIME NEEDED FOR SPASMS AND PAIN MDD1 CONTINUE CYCLOBENZAPRINE HCL TABLET, 10 MG, 1 TABLET, ORALLY, THREE TIMES A DAY NEEDED FOR SPASMS AND PAIN MDD3 CONTINUE HYDROCODONE-ACETAMINOPHEN TABLET, 5-325 MG, 1 TABLET NEEDED, ORALLY, EVERY 8 HOURS PRN MDD3 NOTES: HEAT X 20MIN TO RIGHT UPPER THORACIC SWELLINGASPERCREME W LIDOCAINE 3X DAY. PREVENTIVE MEDICINE PAIN CLINIC TEACHING: MEDICATIONS PATIENT ADVISED TO USE OVER THE COUNTER ASPERCREAM WITH LIDOCAINE BY Adam GONGORA. PATIENT VERBALIZES UNDERSTANDING.. PROCEDURE CODES FA211 ESTABILISHED PATIENT [facility] CHARGE DISPOSITION & COMMUNICATION FOLLOW UP 4 WEEKS ELECTRONICALLY SIGNED BY GABRIELE CHRISTENSEN ON 12/16/2016 AT 06:48 PM EDT DISCLAIMER : THIS IS A VISIT SUMMARY EXTRACTED FROM THE [email or web address] CHART. IT IS NOT A COPY OF THE [email or web address] PROGRESS NOTE. JOSE
== END | disposition home or self-care (01) ==
LOC: M PAIN 11:00
PROVIDERS: ATTEND Nurse Practitioner Family
DX: G89.29 Other chronic pain (principal); M50.120 Mid-cervical disc disorder, unspecified level; M79.1 Myalgia; D64.9 Anemia, unspecified; K21.9 Gastro-esophageal reflux disease without esophagitis; Z79.899 Other long term (current) drug therapy; F17.210 Nicotine dependence, cigarettes, uncomplicated; Z88.0 Allergy status to penicillin; Z91.018 Allergy to other foods; Z91.040 Latex allergy status; L23.1 Allergic contact dermatitis due to adhesives

== ENCOUNTER → 2017-01-04 | Outpatient (CLI) | payer OTHER ==
--- NOTE | 2017-01-14 00:49 | ECWPNPC ---
PATIENT NAME: ALEX AVILES : 1975 GENDER: FEMALE VISIT DATE: 01/04/2017 DISCHARGE DATE: 01/04/17 1444 VISIT LOCKED DATE TIME: PHYSICIAN: NATHALIE GONGORA RESOURCE: NAHTALIE GONGORA REASON FOR APPOINTMENT 1. NECK HISTORY OF PRESENT ILLNESS HISTORY OF PRESENT ILLNESS: HERE FOR F/U OF PERSISTENT RIGHT NECK PAIN.HAS BEEN SEEN BY [facility] IN [place] RECENTLY.MRI CERVICAL SPINE WAS ORDERED AND IS PENDING.RATING PAIN VAS 7/10.HAS BEEN USING HYDROCODONE 5/325 PRN WHICH SEEMS TO NOT BE EFFECTIVE ANYMORE.ALSO USING METHCARBOMAL AND FLEXERIL PRN WITH IMPROVEMENT.DISCUSSED MEDICATION AND TREATMENT OPTIONS. PAIN THE PATIENT DESCRIBES THE PAIN... FALL RISK SCREENING: SCREENING :NO FALLS IN THE PAST YEAR CURRENT MEDICATIONS TAKING RANITIDINE HCL 150 MG CAPSULE 1 CAPSULE ORALLY ONCE DAILY TAKING HYDROXYZINE HCL 25 MG TABLET 1-2 TABLETS NEEDED ORALLY AT BEDTIME NEEDED TAKING TRAZODONE HCL 50 MG TABLET 1 TABLET AT BEDTIME NEEDED ORALLY ONCE A DAY TAKING METHOCARBAMOL 500 MG TABLET 1 TABLET ORALLY THREE TIMES DAILY NEEDED TAKING FLUTICASONE FUROATE 27.5 MCG/SPRAY SUSPENSION 1 SPRAY IN EACH NOSTRIL NASALLY TWICE A DAY TAKING PANTOPRAZOLE SODIUM 40 MG TABLET DELAYED RELEASE 1 TABLET ORALLY ONCE A DAY TAKING PRAZOSIN HCL 1 MG CAPSULE 1 CAPSULE AT BEDTIME ORALLY ONCE A DAY TAKING MIRALAX - POWDER 1 DOSE ORALLY ONCE A DAY NEEDED TAKING MONTELUKAST SODIUM 10 MG TABLET 1 TABLET IN THE EVENING ORALLY ONCE A DAY TAKING CYCLOBENZAPRINE HCL 10 MG TABLET 1 TABLET ORALLY THREE TIMES A DAY NEEDED FOR SPASMS AND PAIN MDD3 TAKING HYDROCODONE-ACETAMINOPHEN 5-325 MG TABLET 1 TABLET NEEDED ORALLY EVERY 8 HOURS PRN MDD3 TAKING ASTELIN 1 SPRAY EACH NOSTRIL NASAL TWICE A DAY NOT-TAKING TIZANIDINE HCL 4 MG TABLET 1 TABLET NEEDED ORALLY BEFORE BEDTIME NEEDED FOR SPASMS AND PAIN MDD1 NOT-TAKING ALLERGY RELIEF 180 MG TABLET 1 TABLET NEEDED ORALLY ONCE A DAY NOT-TAKING PROBIOTIC CAPSULE 1 TABLET ORALLY ONCE DAILY NOT-TAKING SUCRALFATE 1 GM TABLET 1 TABLET ON AN EMPTY STOMACH ORALLY ONCE DAILY MEDICATION LIST REVIEWED AND RECONCILED WITH THE PATIENT PAST MEDICAL HISTORY ANEMIA GERD STOMACH ULCERS WITH H PYLORI NECK AND LOW BACK PAIN ALLERGIES PENICILLIAN: SWELLING: ALLERGY ORANGES: SWELLING,RASH: ALLERGY BANDAIDS AND ADHESIVES: REDDNESS AND SWELLING: ALLERGY LATEX GLOVES: REDDNESS AND SWELLING: ALLERGY TEGADERM: REDNESS, SWELLING: ALLERGY SOCIAL HISTORY GENERAL: TOBACCO USE ARE YOU A:CURRENT SMOKER PATIENT COUNSELED ON THE DANGERS OF TOBACCO USE AND URGED TO QUIT:08/20/2016 ARE YOU INTERESTED IN QUITTING?NOT READY TO QUIT COUNSELED THE PATIENT ON SMOKING EFFECTS, EDUCATION [id number]/21/2017 YAZIDISM [id number] YAZDANISM LEARNING BARRIERS / SPECIAL NEEDS CHANGE FROM LAST VISIT?NO BARRIERS TO LEARNING?NO HEARING IMPAIRED?NO VISION IMPAIRED?NO COGNITIVELY IMPAIRED?NO READINESS TO LEARN?YES LEARNING PREFERENCES?NO LEARNING CAPABILITIES PRESENT?YES EMOTIONAL BARRIERS?NO SPECIAL DEVICES?NO THERMAL CUTTING MACHINE OPERATOR NEEDED?NO PAIN CLINIC PFS, CLERGY, PUBLIC HEALTH REFERRALS PFS REFERRAL NEEDED?NO CLERGY REFERRAL NEEDED?NO PUBLIC HEALTH REFERRAL NEEDED?NO WAS THE PROVIDER NOTIFIED OF ANY PERTINENT INFO?NO HAS THE PATIENT BEEN EDUCATED REGARDING HIS/HER PLAN OF CARE?YES HAS THE PATIENT BEEN EDUCATED REGARDING PAIN, THE RISK FOR PAIN, THE IMPORTANCE OF EFFECTIVE PAIN MANAGEMENT, AND THE PAIN ASSESSMENT PROCESS?YES PATIENT: ____. ADVANCE DIRECTIVES HEALTH CARE PROXY?YES NAME OF HCP TREV[facility] SPARKS CONTACT # FOR HCP [phone] DO YOU HAVE A COPY WITH YOU?NO DO YOU HAVE A DNR?NO WOULD YOU LIKE MORE INFORMATION?NO LIVING WILL?NO WOULD YOU LIKE MORE INFORMATION?NO POWER OF BIOMASS FACILITATOR?NO WOULD YOU LIKE MORE INFORMATION?NO REVIEW OF SYSTEMS REVIEWED BY: PROVIDER: NATHALIE SUAZO . CONSTITUTIONAL: ANY CHANGE IN YOUR MEDICAL CONDITION? NO . CHILLS NO . FEVER NO . INFECTION: DO YOU HAVE NEW INFECTIONS? NO . DO YOU HAVE HISTORY OF MRSA? NO . MUSCULOSKELETAL: ANY NEW PATTERNS OF PAIN OR NUMBNESS? NO . GASTROENTEROLOGY: ANY NEW CHANGE IN BOWEL CONTROL? NO . GENITOURINARY: ANY NEW CHANGE IN BLADDER CONTROL? NO . IS THERE A CHANCE YOU COULD BE ? NO . HEMATOLOGY/LYMPH: DO YOU TAKE ANY BLOOD THINNERS? (FOR EXAMPLE- COUMADIN, PLAVIX, AGGRENOX, PLATEL, PRADAXA, OR XARELTO) NO . WHEN WAS YOUR LAST DOSE? DATE: TIME: . NEUROLOGY: HAVE YOU FALLEN IN THE PAST 6 MONTHS? NO . ANY NEW EXTREMITY NUMBNESS OR WEAKNESS? NO . CARDIOLOGY: DO YOU HAVE A PACEMAKER OR DEFIBRILLATOR? NO . RESPIRATORY: HAVE YOU BEEN SICK IN THE PAST WEEK? NO . FEVER NO . FLU LIKE SYMPTOMS? NO . COUGH NO . INTEGUMENTARY: DO YOU HAVE ANY RASHES OR OPEN SORES? NO . ALLERGIC/IMMUNO: ARE YOU ALLERGIC TO SHELLFISH OR IV DYE? NO . ANY NEW ALLERGIES? NO . PSYCHIATRIC: DO YOU HAVE THOUGHTS OF HURTING YOURSELF OR SOMEONE ELSE? NO . ARE YOU ABUSED, NEGLECTED, OR IN AN UNSAFE ENVIRONMENT? NO . ENDOCRINOLOGY: ARE YOU DIABETIC? NO . OTHER: DO YOU NEED ANY PRESCRIPTIONS? NO . IF YES, PLEASE LIST: ____ . ANY NEW PROBLEMS WITH YOUR MEDICATIONS? NO . WHEN DID YOU LAST EAT? ____ . WHEN DID YOU LAST DRINK? ____ . WHAT DID YOU LAST DRINK? ____ . NAME OF PERSON DRIVING YOU HOME? ____ . DO YOU HAVE ANY OTHER QUESTIONS OR CONCERNS NO . VITAL SIGNS WT 178 LBS, HT 67 IN, BMI 27.88 INDEX, BP 120/68 MM HG, HR 84 /MIN, RR 16 /MIN, TEMP 97.7 F, OXYGEN SAT % 99%, REVIEWED BY: ORLANDO (DONE AT 1355). EXAMINATION CERVICAL SPINE/NECK: RANGE OF MOTION OF NECK:FULL W REPORTS OF PAIN AND STIFFNESS W LATERAL ROTATION.. SENSATIONS:NORMAL BILATERALLY. MOTOR STRENGTH:4/5 RIGHT ARM/5/5 LEFT ARM. VERTEBRAL SPINE TENDERNESS:TENDERNESS IN PARASPINAL MUSCLES-RIGHT SIDE ONLY. MYOFASCIAL TRIGGER POINTS:POSITIVE OVER RIGHT TRAPEZIUS. DIAGNOSTIC DATA-CERVICAL [id number]-REVIEWED. GENERAL EXAMINATION: LUNGS:LUNG ALVARES ARE CLEAR TO AUSCULTATION BILATERALLY. GOOD MOVEMENT OF AIR. HEART:S1, S2 IN A REGULAR RATE AND RHYTHM. NO SIGNIFICANT MURMURS, RUBS OR GALLOPS NOTED. ASSESSMENTS CERVICAL DISC DISORDER WITH RADICULOPATHY OF MID-CERVICAL REGION - M50.120 (PRIMARY) MYALGIA - M79.1 TREATMENT CERVICAL DISC DISORDER WITH RADICULOPATHY OF MID-CERVICAL REGION CONTINUE METHOCARBAMOL TABLET, 500 MG, 1 TABLET, ORALLY, THREE TIMES DAILY NEEDED CONTINUE CYCLOBENZAPRINE HCL TABLET, 10 MG, 1 TABLET, ORALLY, THREE TIMES A DAY NEEDED FOR SPASMS AND PAIN MDD3 REFILL HYDROCODONE-ACETAMINOPHEN TABLET, 5-325 MG, 1 TABLET NEEDED, ORALLY, EVERY 8 HOURS PRN MDD3, 30 DAY(S), 90, REFILLS 0 NOTES: ISTOP REGISTRY REVIEWED AND DEMNOSTRATES COMPLLIANCE. BRINGS IN MEDICATIONS WHICH IS APPROPRIATE FOR WHAT WAS DISPENSED. RECENT URINE TOXICOLOGY REVIEWED. NO UNAUTHORIZED MEDICATIONS. NO ILLICIT SUBSTANCES AND PRESCRIBED MEDICATIONS WERE PRESENT. , RISKS AND BENEFITS OF NARCOTIC/OPIOD MEDICATIONS WERE REVIEWED WITH PATIENT - THIS INCLUDES BUT IS NOT LIMITED TO RISK OF DEPENDANCE/DEVELOPMENT OF ADDICTION, MOOD DISTURBANCE AND DEPRESSION, OSTEOPOROSIS, HORMONAL AND LABIDAL CHANGES, RESPIRATORY DEPRESSION AND . PATIENT IS ADVISED NOT TO DRIVE WHILE ON THESE MEDICATIONS. PREVENTIVE MEDICINE PAIN CLINIC TEACHING: PROCEDURE TEACHING PRE-PROCEDURE TEACHING DONE. QUESTIONS ANSWERED AND PATIENT VERBALIZES UNDERSTANDING.. PROCEDURE CODES FA211 ESTABILISHED PATIENT [facility] CHARGE DISPOSITION & COMMUNICATION FOLLOW UP TPI RIGHT NECK/2WK POST (REASON: TPI RIGHT NECK) ELECTRONICALLY SIGNED BY GABRIELE CHRISTENSEN ON 01/13/2017 AT 05:33 PM EDT DISCLAIMER : THIS IS A VISIT SUMMARY EXTRACTED FROM THE [employer] CHART. IT IS NOT A COPY OF THE [employer] PROGRESS NOTE. JOSE
== END | disposition home or self-care (01) ==
LOC: M PAIN 13:30
PROVIDERS: ATTEND Nurse Practitioner Family
DX: G89.29 Other chronic pain (principal); M50.120 Mid-cervical disc disorder, unspecified level; M79.1 Myalgia; D64.9 Anemia, unspecified; K21.9 Gastro-esophageal reflux disease without esophagitis; K25.9 Gastric ulcer, unspecified as acute or chronic, without hemorrhage or perforation; Z79.899 Other long term (current) drug therapy; Z79.51 Long term (current) use of inhaled steroids; Z88.0 Allergy status to penicillin; Z91.018 Allergy to other foods; L23.1 Allergic contact dermatitis due to adhesives; Z91.040 Latex allergy status; F17.210 Nicotine dependence, cigarettes, uncomplicated

== ENCOUNTER → 2017-02-08 | Outpatient (CLI) | payer OTHER ==
[~2017-02-08] MED LIST changes: +BUPIVACAINE HCL 0.25% 10 ML VIAL As Ordered ONE; +BUPIVACAINE HCL 0.25% 30 ML VIAL As Ordered ONE; +TRIAMCINOLONE ACETONIDE SUSP 40 MG/ML VIAL (J3301) As Ordered ONE; +diazePAM 5 MG TAB As Ordered ONE; +oxyCODONE 5MG TAB As Ordered ONE
--- NOTE | 2017-02-09 23:56 | ECWPNPC ---
PATIENT NAME: ALEX AVILES : 1975 GENDER: FEMALE VISIT DATE: 02/08/2017 DISCHARGE DATE: 02/08/17 1300 VISIT LOCKED DATE TIME: PHYSICIAN: YESSICA DRAKE RESOURCE: YESSICA DRAKE REASON FOR APPOINTMENT 1. TPI HISTORY OF PRESENT ILLNESS HISTORY OF PRESENT ILLNESS: PAIN THE PATIENT DESCRIBES THE PAIN... FALL RISK SCREENING: SCREENING :NO FALLS IN THE PAST YEAR CURRENT MEDICATIONS TAKING RANITIDINE HCL 150 MG CAPSULE 1 CAPSULE ORALLY ONCE DAILY, NOTES: 02-07-172099 TAKING HYDROXYZINE HCL 25 MG TABLET 1-2 TABLETS NEEDED ORALLY AT BEDTIME NEEDED, NOTES: 02-07-172099 TAKING TRAZODONE HCL 50 MG TABLET 1 TABLET AT BEDTIME NEEDED ORALLY ONCE A DAY, NOTES: 02-07-172099 TAKING FLUTICASONE FUROATE 27.5 MCG/SPRAY SUSPENSION 1 SPRAY IN EACH NOSTRIL NASALLY TWICE A DAY, NOTES: [id number] TAKING PANTOPRAZOLE SODIUM 40 MG TABLET DELAYED RELEASE 1 TABLET ORALLY ONCE A DAY, NOTES: 02-07-17799 TAKING PRAZOSIN HCL 1 MG CAPSULE 1 CAPSULE AT BEDTIME ORALLY ONCE A DAY, NOTES: 02-07-172099 TAKING MIRALAX - POWDER 1 DOSE ORALLY ONCE A DAY NEEDED, NOTES: NOT LATELY TAKING MONTELUKAST SODIUM 10 MG TABLET 1 TABLET IN THE EVENING ORALLY ONCE A DAY, NOTES: 02-08-17699 TAKING ASTELIN 1 SPRAY EACH NOSTRIL NASAL TWICE A DAY, NOTES: 02-07-172099 TAKING METHOCARBAMOL 500 MG TABLET 1 TABLET ORALLY THREE TIMES DAILY NEEDED, NOTES: 02-07-17899 TAKING CYCLOBENZAPRINE HCL 10 MG TABLET 1 TABLET ORALLY THREE TIMES A DAY NEEDED FOR SPASMS AND PAIN MDD3, NOTES: 02-06-172099 TAKING HYDROCODONE-ACETAMINOPHEN 5-325 MG TABLET 1 TABLET NEEDED ORALLY EVERY 8 HOURS PRN MDD3, NOTES: 02-07-171899 UNKNOWN TIZANIDINE HCL 4 MG TABLET 1 TABLET NEEDED ORALLY BEFORE BEDTIME NEEDED FOR SPASMS AND PAIN MDD1 UNKNOWN ALLERGY RELIEF 180 MG TABLET 1 TABLET NEEDED ORALLY ONCE A DAY UNKNOWN PROBIOTIC CAPSULE 1 TABLET ORALLY ONCE DAILY UNKNOWN SUCRALFATE 1 GM TABLET 1 TABLET ON AN EMPTY STOMACH ORALLY ONCE DAILY MEDICATION LIST REVIEWED AND RECONCILED WITH THE PATIENT PAST MEDICAL HISTORY ANEMIA GERD STOMACH ULCERS WITH H PYLORI NECK AND LOW BACK PAIN ALLERGIES PENICILLIAN: SWELLING: ALLERGY ORANGES: SWELLING,RASH: ALLERGY BANDAIDS AND ADHESIVES: REDDNESS AND SWELLING: ALLERGY LATEX GLOVES: REDDNESS AND SWELLING: ALLERGY TEGADERM: REDNESS, SWELLING: ALLERGY REVIEW OF SYSTEMS REVIEWED BY: PROVIDER: . CONSTITUTIONAL: ANY CHANGE IN YOUR MEDICAL CONDITION? NO . CHILLS NO . FEVER NO . INFECTION: DO YOU HAVE NEW INFECTIONS? NO . DO YOU HAVE HISTORY OF MRSA? NO . MUSCULOSKELETAL: ANY NEW PATTERNS OF PAIN OR NUMBNESS? NO . GASTROENTEROLOGY: ANY NEW CHANGE IN BOWEL CONTROL? NO . GENITOURINARY: ANY NEW CHANGE IN BLADDER CONTROL? NO . IS THERE A CHANCE YOU COULD BE ? NO . HEMATOLOGY/LYMPH: DO YOU TAKE ANY BLOOD THINNERS? (FOR EXAMPLE- COUMADIN, PLAVIX, AGGRENOX, PLATEL, PRADAXA, OR XARELTO) NO . WHEN WAS YOUR LAST DOSE? DATE: TIME: . NEUROLOGY: HAVE YOU FALLEN IN THE PAST 6 MONTHS? NO . ANY NEW EXTREMITY NUMBNESS OR WEAKNESS? NO . CARDIOLOGY: DO YOU HAVE A PACEMAKER OR DEFIBRILLATOR? NO . RESPIRATORY: HAVE YOU BEEN SICK IN THE PAST WEEK? NO . FEVER NO . FLU LIKE SYMPTOMS? NO . COUGH NO . INTEGUMENTARY: DO YOU HAVE ANY RASHES OR OPEN SORES? NO . ALLERGIC/IMMUNO: ARE YOU ALLERGIC TO SHELLFISH OR IV DYE? NO . ANY NEW ALLERGIES? NO . PSYCHIATRIC: DO YOU HAVE THOUGHTS OF HURTING YOURSELF OR SOMEONE ELSE? NO . ARE YOU ABUSED, NEGLECTED, OR IN AN UNSAFE ENVIRONMENT? NO . ENDOCRINOLOGY: ARE YOU DIABETIC? NO . OTHER: DO YOU NEED ANY PRESCRIPTIONS? NO . IF YES, PLEASE LIST: ____ . ANY NEW PROBLEMS WITH YOUR MEDICATIONS? NO . WHEN DID YOU LAST EAT? ____630 LAST NIGHT . WHEN DID YOU LAST DRINK? ____LAST NIGHT . WHAT DID YOU LAST DRINK? _WATER-___LAST NIGHT . NAME OF PERSON DRIVING YOU HOME? ____KILEY CABAN . DO YOU HAVE ANY OTHER QUESTIONS OR CONCERNS NO . VITAL SIGNS WT 178.4 LBS, HT 67 IN, BMI 27.94 INDEX, BP 118/77 MM HG, HR 100 /MIN, RR 18 /MIN, TEMP 98.0 F, OXYGEN SAT % 100%, NA INITIALS SC 11:27, REVIEWED BY: KG. ASSESSMENTS MYALGIA - M79.1 (PRIMARY) PROCEDURES PN TRIGGER POINT INJECTION WITH STEROIDS PRE PROCEDURE DIAGNOSIS 1. MYALGIA 2. PAIN AT RIGHT NECK AREA AND BILATERAL SHOULDER AREA POST PROCEDURE DIAGNOSIS 1. MYALGIA 2. PAIN AT RIGHT NECK AREA AND BILATERAL SHOULDER AREA PROCEDURE TRIGGER POINT INJECTION AT RIGHT NECK AREA AND BILATERAL SHOULDER AREA SURGEON DR. YESSICA DRAKE SURGICAL ELASTIC KNITTER HAND FRAME NONE ANESTHESIA LOCAL PRE PROCEDURE NOTE THE PATIENT HAS A HISTORY OF CHRONIC PAIN AT THE RIGHT NECK AND RIGHT AND LEFT SHOULDER AREA. I EVALUATE THE PATIENT AND REVIEWED THE CHART. THERE IS EVIDENCE OF BANDS OF TISSUE WITH RESTRICTION OF MOVEMENT AND PRESENCE OF TRIGGER POINT AT THE AFFECTED AREA. I WENT OVER THE RISKS, ALTERNATIVES, AND BENEFITS ASSOCIATED WITH THIS PROCEDURE. THE PATIENT WOULD LIKE TO PROCEED AND GIVE CONSENT TO PERFORMED THE PROCEDURE. THE PATIENT DENIES UNEXPLAINABLE WEIGHT LOSS, FEVER, CHILLS, OR NEW CHANGES IN URINARY OR BOWEL CONTROL DESCRIPTION OF PROCEDURE THE PATIENT WAS BROUGHT TO THE PROCEDURE ROOM AND PLACED IN THE SITTING POSITION. THE AREA WAS CLEANED WITH ALCOHOL. THE PROCEDURE WAS DONE USING ASEPTIC STERILE TECHNIQUE. I CHECKED LATERALITY AND THE LEVEL WHERE THE PROCEDURE WAS GOING TO BE PERFORMED WITH THE PATIENT AND THE SUPPORTING STAFF AT THE MOMENT OF THE TIME OUT IN THE PROCEDURE ROOM. USING A 25-GAUGE NEEDLE, TRIGGER POINTS WERE INJECTED AT THE RIGHT NECK AREA AND RIGHT AND LEFT SHOULDER AREA WITH A TOTAL OF 40 ML OF BUPIVACAINE 0.25% AND KENALOG 40 MG. THERE WAS NO EVIDENCE OF BLOOD, PARESTHESIA OR CEREBROSPINAL FLUID DURING THE PROCEDURE. THE PATIENT WAS SENT TO THE RECOVERY ROOM. THE PATIENT WAS MOVING THE EXTREMITIES AND DOING WELL. THERE WAS NO COMPLICATION DURING THE PROCEDURE POST PROCEDURE NOTE THE PATIENT WILL BE SEEN IN A FOLLOW UP IN THE NEXT FEW WEEKS. INSTRUCTIONS WERE GIVEN, QUESTIONS WERE ANSWERED, AND THE PATIENT EXPRESSED UNDERSTANDING AND AGREES WITH THE PLAN. I, MARCE WEST, DOCUMENTED THE ABOVE INFORMATION ACTING A SCRIBE FOR DR. DRAKE. I HAVE REVIEWED THE ABOVE DOCUMENT, WRITTEN BY MARCE HOLGUIN AND I VERIFY THAT IT IS ACCURATE PROCEDURE CODES 03769 INJECT TRIGGER POINTS 3/> DISPOSITION & COMMUNICATION FOLLOW UP 3 WEEKS ELECTRONICALLY SIGNED BY YESSICA DRAKE MD ON 02/09/2017 AT 12:57 PM EDT DISCLAIMER : THIS IS A VISIT SUMMARY EXTRACTED FROM THE [employer] CHART. IT IS NOT A COPY OF THE [facility]. MTDD
== END ==
LOC: M PAIN 11:45
PROVIDERS: ATTEND Anesthesiology
DX: G89.29 Other chronic pain (principal); M79.1 Myalgia; Z79.891 Long term (current) use of opiate analgesic; Z79.899 Other long term (current) drug therapy; Z88.0 Allergy status to penicillin; Z88.8 Allergy status to other drugs, medicaments and biological substances; Z91.018 Allergy to other foods; Z91.040 Latex allergy status; Z91.048 Other nonmedicinal substance allergy status
CPT/HCPCS: 20553; J3301

== ENCOUNTER → 2017-02-22 | Outpatient (CLI) | payer OTHER ==
[~2017-02-22] MED LIST changes: -BUPIVACAINE HCL 0.25% 10 ML VIAL As Ordered ONE; -BUPIVACAINE HCL 0.25% 30 ML VIAL As Ordered ONE; -TRIAMCINOLONE ACETONIDE SUSP 40 MG/ML VIAL (J3301) As Ordered ONE; -diazePAM 5 MG TAB As Ordered ONE; -oxyCODONE 5MG TAB As Ordered ONE
--- NOTE | 2017-02-23 00:27 | ECWPNPC ---
PATIENT NAME: AELX AVILES : 1975 GENDER: FEMALE VISIT DATE: 02/22/2017 DISCHARGE DATE: 02/22/17 1220 VISIT LOCKED DATE TIME: PHYSICIAN: NATHALIE GONGORA RESOURCE: NATHALIE GONGORA REASON FOR APPOINTMENT 1. POST TPI HISTORY OF PRESENT ILLNESS HISTORY OF PRESENT ILLNESS: HERE FOR POST PROCEDURE F/U.HAD TPI RIGHT NECK ON 02/08/17.REPORTS 2 DAYS OF IMPROVEMENT THEN PAIN RETURNED TO BASELINE.RAING PAIN VAS 8/10.DESCRIBES PAIN CONSTANT AND STABBING.HAS SEEN ORTHOPEDIC SURGEON,DR. MONACO AT [facility].SHE WAS TOLD SHE WASNT A SURGICAL CANDIDATE RIGHT NOW. PAIN THE PATIENT DESCRIBES THE PAIN... FALL RISK SCREENING: SCREENING :NO FALLS IN THE PAST YEAR CURRENT MEDICATIONS TAKING RANITIDINE HCL 150 MG CAPSULE 1 CAPSULE ORALLY ONCE DAILY TAKING HYDROXYZINE HCL 25 MG TABLET 1-2 TABLETS NEEDED ORALLY AT BEDTIME NEEDED TAKING TRAZODONE HCL 50 MG TABLET 1 TABLET AT BEDTIME NEEDED ORALLY ONCE A DAY TAKING FLUTICASONE FUROATE 27.5 MCG/SPRAY SUSPENSION 1 SPRAY IN EACH NOSTRIL NASALLY TWICE A DAY TAKING PANTOPRAZOLE SODIUM 40 MG TABLET DELAYED RELEASE 1 TABLET ORALLY ONCE A DAY TAKING PRAZOSIN HCL 1 MG CAPSULE 1 CAPSULE AT BEDTIME ORALLY ONCE A DAY TAKING MIRALAX - POWDER 1 DOSE ORALLY ONCE A DAY NEEDED TAKING MONTELUKAST SODIUM 10 MG TABLET 1 TABLET IN THE EVENING ORALLY ONCE A DAY TAKING ASTELIN 1 SPRAY EACH NOSTRIL NASAL TWICE A DAY TAKING METHOCARBAMOL 500 MG TABLET 1 TABLET ORALLY THREE TIMES DAILY NEEDED TAKING CYCLOBENZAPRINE HCL 10 MG TABLET 1 TABLET ORALLY THREE TIMES A DAY NEEDED FOR SPASMS AND PAIN MDD3 TAKING HYDROCODONE-ACETAMINOPHEN 5-325 MG TABLET 1 TABLET NEEDED ORALLY EVERY 8 HOURS PRN MDD3 TAKING PROBIOTIC CAPSULE 1 TABLET ORALLY ONCE DAILY NOT-TAKING TIZANIDINE HCL 4 MG TABLET 1 TABLET NEEDED ORALLY BEFORE BEDTIME NEEDED FOR SPASMS AND PAIN MDD1 NOT-TAKING ALLERGY RELIEF 180 MG TABLET 1 TABLET NEEDED ORALLY ONCE A DAY NOT-TAKING SUCRALFATE 1 GM TABLET 1 TABLET ON AN EMPTY STOMACH ORALLY ONCE DAILY MEDICATION LIST REVIEWED AND RECONCILED WITH THE PATIENT PAST MEDICAL HISTORY ANEMIA GERD STOMACH ULCERS WITH H PYLORI NECK AND LOW BACK PAIN ALLERGIES PENICILLIAN: SWELLING: ALLERGY ORANGES: SWELLING,RASH: ALLERGY BANDAIDS AND ADHESIVES: REDDNESS AND SWELLING: ALLERGY LATEX GLOVES: REDDNESS AND SWELLING: ALLERGY TEGADERM: REDNESS, SWELLING: ALLERGY SOCIAL HISTORY GENERAL: TOBACCO USE ARE YOU A:CURRENT SMOKER ARE YOU INTERESTED IN QUITTING?NOT READY TO QUIT PATIENT COUNSELED ON THE DANGERS OF TOBACCO USE AND URGED TO QUIT:08/20/2016 COUNSELED THE PATIENT ON SMOKING EFFECTS, EDUCATION [id number]/21/2017 ALCOHOL SCREENING POINTS0 INTERPRETATIONNEGATIVE RECREATIONAL DRUG USE DRUG USE?NO SCIENTOLOGIST [id number] [employer]ARITAN LANGUAGE LANGUAGES SPOKEN:LAO LEARNING BARRIERS / SPECIAL NEEDS CHANGE FROM LAST VISIT?NO BARRIERS TO LEARNING?NO HEARING IMPAIRED?NO VISION IMPAIRED?NO COGNITIVELY IMPAIRED?NO READINESS TO LEARN?YES LEARNING PREFERENCES?NO LEARNING CAPABILITIES PRESENT?YES EMOTIONAL BARRIERS?NO SPECIAL DEVICES?NO ABAP DEVELOPER NEEDED?NO PAIN CLINIC PFS, CLERGY, PUBLIC HEALTH REFERRALS PFS REFERRAL NEEDED?NO CLERGY REFERRAL NEEDED?NO PUBLIC HEALTH REFERRAL NEEDED?NO WAS THE PROVIDER NOTIFIED OF ANY PERTINENT INFO?NO HAS THE PATIENT BEEN EDUCATED REGARDING HIS/HER PLAN OF CARE?YES HAS THE PATIENT BEEN EDUCATED REGARDING PAIN, THE RISK FOR PAIN, THE IMPORTANCE OF EFFECTIVE PAIN MANAGEMENT, AND THE PAIN ASSESSMENT PROCESS?YES PATIENT: ____. ADVANCE DIRECTIVES HEALTH CARE PROXY?YES NAME OF HCP TREVON SPARKS CONTACT # FOR HCP [phone] DO YOU HAVE A COPY WITH YOU?NO POWER OF SENIOR TAX MANAGER?NO DO YOU HAVE A DNR?NO WOULD YOU LIKE MORE INFORMATION?NO LIVING WILL?NO WOULD YOU LIKE MORE INFORMATION?NO WOULD YOU LIKE MORE INFORMATION?NO REVIEW OF SYSTEMS REVIEWED BY: PROVIDER: NATHALIE SUAZO . CONSTITUTIONAL: ANY CHANGE IN YOUR MEDICAL CONDITION? NO . CHILLS NO . FEVER NO . INFECTION: DO YOU HAVE NEW INFECTIONS? NO . DO YOU HAVE HISTORY OF MRSA? NO . MUSCULOSKELETAL: ANY NEW PATTERNS OF PAIN OR NUMBNESS? NO . GASTROENTEROLOGY: ANY NEW CHANGE IN BOWEL CONTROL? NO . GENITOURINARY: ANY NEW CHANGE IN BLADDER CONTROL? NO . IS THERE A CHANCE YOU COULD BE ? NO . HEMATOLOGY/LYMPH: DO YOU TAKE ANY BLOOD THINNERS? (FOR EXAMPLE- COUMADIN, PLAVIX, AGGRENOX, PLATEL, PRADAXA, OR XARELTO) NO . WHEN WAS YOUR LAST DOSE? DATE: TIME: . NEUROLOGY: HAVE YOU FALLEN IN THE PAST 6 MONTHS? YES, FELL BACKWARDS ON BUTTOCKS YESTERDAY AND HAS BRUISING ON RIGHT BUTTOCKS AND ALSO "JOLTED NECK" . ANY NEW EXTREMITY NUMBNESS OR WEAKNESS? NO . CARDIOLOGY: DO YOU HAVE A PACEMAKER OR DEFIBRILLATOR? NO . RESPIRATORY: HAVE YOU BEEN SICK IN THE PAST WEEK? NO . FEVER NO . FLU LIKE SYMPTOMS? NO . COUGH NO . INTEGUMENTARY: DO YOU HAVE ANY RASHES OR OPEN SORES? NO . ALLERGIC/IMMUNO: ARE YOU ALLERGIC TO SHELLFISH OR IV DYE? NO . ANY NEW ALLERGIES? NO . PSYCHIATRIC: DO YOU HAVE THOUGHTS OF HURTING YOURSELF OR SOMEONE ELSE? NO . ARE YOU ABUSED, NEGLECTED, OR IN AN UNSAFE ENVIRONMENT? NO . ENDOCRINOLOGY: ARE YOU DIABETIC? NO . OTHER: DO YOU NEED ANY PRESCRIPTIONS? NO . IF YES, PLEASE LIST: ____ . ANY NEW PROBLEMS WITH YOUR MEDICATIONS? NO . WHEN DID YOU LAST EAT? ____ . WHEN DID YOU LAST DRINK? ____ . WHAT DID YOU LAST DRINK? ____ . NAME OF PERSON DRIVING YOU HOME? ____ . DO YOU HAVE ANY OTHER QUESTIONS OR CONCERNS NO . VITAL SIGNS WT 170.5 LBS, HT 67 IN, BMI 26.70 INDEX, BP 129/93 MM HG, HR 82 /MIN, RR 18 /MIN, TEMP 97.7 F, OXYGEN SAT % 98%, SAFE IN ENV? (Y/N) YES, REVIEWED BY: CS. EXAMINATION CERVICAL SPINE/NECK: RANGE OF MOTION OF NECK:FULL W REPORTS OF PAIN AND STIFFNESS W LATERAL ROTATION.. SENSATIONS:NORMAL BILATERALLY. MOTOR STRENGTH:4/5 RIGHT ARM/5/5 LEFT ARM. VERTEBRAL SPINE TENDERNESS:TENDERNESS IN PARASPINAL MUSCLES-RIGHT SIDE ONLY. MYOFASCIAL TRIGGER POINTS:POSITIVE OVER RIGHT TRAPEZIUS. DIAGNOSTIC DATA-CERVICAL [id number]-REVIEWED. 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 BRINGS IN MEDICATIONS WHICH IS APPROPRIATE FOR WHAT WAS DISPENSED. RECENT URINE TOXICOLOGY REVIEWED. NO UNAUTHORIZED MEDICATIONS. NO ILLICIT SUBSTANCES AND PRESCRIBED MEDICATIONS WERE PRESENT. PREVENTIVE MEDICINE PAIN CLINIC TEACHING: MEDICATIONS GABAPENTIN TEACHING DONE. QUESTIONS ANSWERED AND PATIENT VERBALIZES UNDERSTANDING.ADDITIONAL HAND OUT GIVEN TO PATIENT.. PROCEDURE TEACHING PRE-PROCEDURE TEACHING DONE. QUESTIONS ANSWERED AND PATIENT VERBALIZES UNDERSTANDING.. PROCEDURE CODES FA211 ESTABILISHED PATIENT [facility] CHARGE DISPOSITION & COMMUNICATION FOLLOW UP 2WK POST (REASON: SIGN RECORDS RELEASE SOS/DAMIEN) ELECTRONICALLY SIGNED BY GABRIELE CHRISTENSEN ON 02/22/2017 AT 02:00 PM EDT DISCLAIMER : THIS IS A VISIT SUMMARY EXTRACTED FROM THE [employer] CHART. IT IS NOT A COPY OF THE [employer] PROGRESS NOTE. BRITANYD
== END ==
LOC: M PAIN 11:15
PROVIDERS: ATTEND Nurse Practitioner Family
DX: G89.29 Other chronic pain (principal); M50.120 Mid-cervical disc disorder, unspecified level; M79.1 Myalgia; K21.9 Gastro-esophageal reflux disease without esophagitis; F17.210 Nicotine dependence, cigarettes, uncomplicated; Z88.0 Allergy status to penicillin; Z91.018 Allergy to other foods; Z91.040 Latex allergy status; Z88.8 Allergy status to other drugs, medicaments and biological substances; Z79.899 Other long term (current) drug therapy

== ENCOUNTER → 2017-03-09 | Outpatient (CLI) | payer OTHER ==
[~2017-03-09] MED LIST changes: +ISOVUE-M 300 61% 15ML VIAL (Q9967) As Ordered ONE; +LIDOCAINE 1% SDV INJ 30 ML VIAL As Ordered ONE; +diazePAM 5 MG TAB As Ordered ONE; +methylPREDNISolone SUSP 40 MG/ML (DEPO-medrol) VIAL (J1030) As Ordered ONE; +oxyCODONE 5MG TAB As Ordered ONE
--- NOTE | 2017-03-09 18:43 | REP ---
FLUOROSCOPIC GUIDANCE FOR CERVICAL EPIDURAL INJECTION: 03/09/2017. Clinical history: Neck pain. Findings: Three images were reviewed from the fluoroscopic guidance provided to Dr. Sanchez of the pain clinic. The initial image shows a needle to the right of the C7-T1 level. Second image shows epidural contrast adjacent and the third image shows the needle removed. Fluoroscopy time: 35 seconds. Signed by Rome Hartmann MD 03/10/2017 09:54 A
--- NOTE | 2017-03-14 23:59 | ECWPNPC ---
PATIENT NAME: ALEX AVILES : 1975 GENDER: FEMALE VISIT DATE: 03/09/2017 DISCHARGE DATE: 03/09/17 1355 VISIT LOCKED DATE TIME: PHYSICIAN: YESSICA DRAKE RESOURCE: YESSICA DRAKE REASON FOR APPOINTMENT 1. DAMIEN HISTORY OF PRESENT ILLNESS HISTORY OF PRESENT ILLNESS: PAIN THE PATIENT DESCRIBES THE PAIN... FALL RISK SCREENING: SCREENING :NO FALLS IN THE PAST YEAR CURRENT MEDICATIONS TAKING RANITIDINE HCL 150 MG CAPSULE 1 CAPSULE ORALLY ONCE DAILY, NOTES: 03/08/17 TAKING HYDROXYZINE HCL 25 MG TABLET 1-2 TABLETS NEEDED ORALLY AT BEDTIME NEEDED, NOTES: 03/08/17 TAKING TRAZODONE HCL 50 MG TABLET 1 TABLET AT BEDTIME NEEDED ORALLY ONCE A DAY, NOTES: 03/08/17 TAKING FLUTICASONE FUROATE 27.5 MCG/SPRAY SUSPENSION 1 SPRAY IN EACH NOSTRIL NASALLY TWICE A DAY, NOTES: 03/09/17 0600 TAKING PANTOPRAZOLE SODIUM 40 MG TABLET DELAYED RELEASE 1 TABLET ORALLY ONCE A DAY, NOTES: 03/08/17 TAKING PRAZOSIN HCL 1 MG CAPSULE 1 CAPSULE AT BEDTIME ORALLY ONCE A DAY, NOTES: 03/08/17 TAKING MIRALAX - POWDER 1 DOSE ORALLY ONCE A DAY NEEDED, NOTES: 3 DAYS AGO TAKING MONTELUKAST SODIUM 10 MG TABLET 1 TABLET IN THE EVENING ORALLY ONCE A DAY, NOTES: 03/08/17 TAKING ASTELIN 1 SPRAY EACH NOSTRIL NASAL TWICE A DAY, NOTES: 03/08/17 TAKING PROBIOTIC CAPSULE 1 TABLET ORALLY ONCE DAILY, NOTES: 03/08/17 TAKING METHOCARBAMOL 500 MG TABLET 1 TABLET ORALLY THREE TIMES DAILY NEEDED, NOTES: 03/08/17 TAKING CYCLOBENZAPRINE HCL 10 MG TABLET 1 TABLET ORALLY THREE TIMES A DAY NEEDED FOR SPASMS AND PAIN MDD3, NOTES: 03/07/17 TAKING GABAPENTIN 100 MG CAPSULE DIRECTED ORALLY BID, NOTES: 03/08/17 TAKING HYDROCODONE-ACETAMINOPHEN 5-325 MG TABLET 1 TABLET NEEDED ORALLY EVERY 8 HOURS PRN MDD3, NOTES: 03/08/17 NOT-TAKING TIZANIDINE HCL 4 MG TABLET 1 TABLET NEEDED ORALLY BEFORE BEDTIME NEEDED FOR SPASMS AND PAIN MDD1 NOT-TAKING ALLERGY RELIEF 180 MG TABLET 1 TABLET NEEDED ORALLY ONCE A DAY NOT-TAKING SUCRALFATE 1 GM TABLET 1 TABLET ON AN EMPTY STOMACH ORALLY ONCE DAILY MEDICATION LIST REVIEWED AND RECONCILED WITH THE PATIENT PAST MEDICAL HISTORY ANEMIA GERD STOMACH ULCERS WITH H PYLORI NECK AND LOW BACK PAIN ALLERGIES PENICILLIAN: SWELLING: ALLERGY ORANGES: SWELLING,RASH: ALLERGY BANDAIDS AND ADHESIVES: REDDNESS AND SWELLING: ALLERGY LATEX GLOVES: REDDNESS AND SWELLING: ALLERGY TEGADERM: REDNESS, SWELLING: ALLERGY SURGICAL HISTORY RIGHT KNEE 1985 TUBAL LIGATION 2002 D&C 1996 MOLES REMOVED 2016 TOTAL HYSTERECTOMY 2017 SOCIAL HISTORY GENERAL: TOBACCO USE ARE YOU A:CURRENT SMOKER ARE YOU INTERESTED IN QUITTING?NOT READY TO QUIT COUNSELED THE PATIENT ON SMOKING EFFECTS, EDUCATION [id number]/08/2017 PATIENT COUNSELED ON THE DANGERS OF TOBACCO USE AND URGED TO QUIT:03/09/2017 ALCOHOL SCREENING DID YOU HAVE A DRINK CONTAINING ALCOHOL IN THE PAST YEAR?NO POINTS0 INTERPRETATIONNEGATIVE RECREATIONAL DRUG USE DRUG USE?NO SCIENTOLOGY [id number] RASTAFARIAN LANGUAGE LANGUAGES SPOKEN:[place] OF [place] EDUCATION LEVEL OF EDUCATION:NOT FINISHED COLLEGE LEARNING BARRIERS / SPECIAL NEEDS CHANGE FROM LAST VISIT?NO BARRIERS TO LEARNING?NO HEARING IMPAIRED?NO VISION IMPAIRED?NO COGNITIVELY IMPAIRED?NO READINESS TO LEARN?YES LEARNING PREFERENCES?NO LEARNING CAPABILITIES PRESENT?YES EMOTIONAL BARRIERS?NO SPECIAL DEVICES?NO EDUCATION ANALYST NEEDED?NO PAIN CLINIC PFS, CLERGY, PUBLIC HEALTH REFERRALS PFS REFERRAL NEEDED?NO CLERGY REFERRAL NEEDED?NO PUBLIC HEALTH REFERRAL NEEDED?NO WAS THE PROVIDER NOTIFIED OF ANY PERTINENT INFO?NO HAS THE PATIENT BEEN EDUCATED REGARDING HIS/HER PLAN OF CARE?YES HAS THE PATIENT BEEN EDUCATED REGARDING PAIN, THE RISK FOR PAIN, THE IMPORTANCE OF EFFECTIVE PAIN MANAGEMENT, AND THE PAIN ASSESSMENT PROCESS?YES PATIENT: ____. ADVANCE DIRECTIVES HEALTH CARE PROXY?YES NAME OF HCP TREVON SPARKS CONTACT # FOR HCP [phone] DO YOU HAVE A COPY WITH YOU?NO POWER OF MANAGER RISK?NO DO YOU HAVE A DNR?NO WOULD YOU LIKE MORE INFORMATION?NO LIVING WILL?NO WOULD YOU LIKE MORE INFORMATION?NO WOULD YOU LIKE MORE INFORMATION?NO HOSPITALIZATION/MAJOR DIAGNOSTIC PROCEDURE CHILD 12/18/1991 CHILD 11/01/1996 CHILD 11/23/1998 CHILD 01/29/2002 REVIEW OF SYSTEMS REVIEWED BY: PROVIDER: . CONSTITUTIONAL: ANY CHANGE IN YOUR MEDICAL CONDITION? NO . CHILLS NO . FEVER NO . INFECTION: DO YOU HAVE NEW INFECTIONS? NO . DO YOU HAVE HISTORY OF MRSA? NO . MUSCULOSKELETAL: ANY NEW PATTERNS OF PAIN OR NUMBNESS? NO . GASTROENTEROLOGY: ANY NEW CHANGE IN BOWEL CONTROL? NO . GENITOURINARY: ANY NEW CHANGE IN BLADDER CONTROL? NO . IS THERE A CHANCE YOU COULD BE ? NO . HEMATOLOGY/LYMPH: DO YOU TAKE ANY BLOOD THINNERS? (FOR EXAMPLE- COUMADIN, PLAVIX, AGGRENOX, PLATEL, PRADAXA, OR XARELTO) NO . WHEN WAS YOUR LAST DOSE? DATE: TIME: . NEUROLOGY: HAVE YOU FALLEN IN THE PAST 6 MONTHS? YES, PT WAS PULLING WEEDS, THE WEED GAVE UNEXPECTEDLY AND PT FELL BACK ON HER BOTTOM, NO INJURIES REQUIRING MEDICAL [place] . ANY NEW EXTREMITY NUMBNESS OR WEAKNESS? NO . CARDIOLOGY: DO YOU HAVE A PACEMAKER OR DEFIBRILLATOR? NO . RESPIRATORY: HAVE YOU BEEN SICK IN THE PAST WEEK? NO . FEVER NO . FLU LIKE SYMPTOMS? NO . COUGH NO . INTEGUMENTARY: DO YOU HAVE ANY RASHES OR OPEN SORES? NO . ALLERGIC/IMMUNO: ARE YOU ALLERGIC TO SHELLFISH OR IV DYE? NO . ANY NEW ALLERGIES? NO . PSYCHIATRIC: DO YOU HAVE THOUGHTS OF HURTING YOURSELF OR SOMEONE ELSE? NO . ARE YOU ABUSED, NEGLECTED, OR IN AN UNSAFE ENVIRONMENT? NO . ENDOCRINOLOGY: ARE YOU DIABETIC? NO . OTHER: DO YOU NEED ANY PRESCRIPTIONS? NO . IF YES, PLEASE LIST: ____ . ANY NEW PROBLEMS WITH YOUR MEDICATIONS? NO . WHEN DID YOU LAST EAT? 03/08/17 1900 . WHEN DID YOU LAST DRINK? 03/09/17 0600 . WHAT DID YOU LAST DRINK? WATER . NAME OF PERSON DRIVING YOU HOME? KILEY SOTO . DO YOU HAVE ANY OTHER QUESTIONS OR CONCERNS NO, PT STATES FLU SHOT NOT TAKEN THIS YEAR. DISCUSSED AVOIDING FLU VACCINE WITHIN 1 MONTH OF PROCEDURES WITH US . VITAL SIGNS WT 174.2 LBS, HT 67 IN, BMI 27.28 INDEX, BP 134/82 MM HG, HR 98 /MIN, RR 16 /MIN, TEMP 97.5 F, OXYGEN SAT % 98%, NA INITIALS TL 1021. ASSESSMENTS CERVICAL DISC DISORDER WITH RADICULOPATHY OF CERVICOTHORACIC REGION - M50.13 (PRIMARY) PROCEDURES PN CERVICAL EPIDURAL PRE PROCEDURE DIAGNOSIS CERVICAL DISC DISORDER WITH RADICULOPATHY POST PROCEDURE DIAGNOSIS CERVICAL DISC DISORDER WITH RADICULOPATHY PROCEDURE CERVICAL EPIDURAL STEROID INJECTION UNDER FLUOROSCOPIC GUIDANCE SURGEON DR. YESSICA DRAKE DRAWER IN HAND NONE ANESTHESIA LOCAL PRE PROCEDURE NOTE THE PATIENT HAS A HISTORY OF CHRONIC CERVICAL PAIN. I EVALUATE THE PATIENT AND REVIEWED THE CHART. I WENT OVER THE RISKS, ALTERNATIVES, AND BENEFITS ASSOCIATED WITH THIS PROCEDURE. THE PATIENT WOULD LIKE TO PROCEED AND GIVE CONSENT TO PERFORMED THE PROCEDURE. THE PATIENT DENIES UNEXPLAINABLE WEIGHT LOSS, FEVER, CHILLS, OR NEW CHANGES IN URINARY OR BOWEL CONTROL DESCRIPTION OF PROCEDURE THE PATIENT WAS BROUGHT TO THE PROCEDURE ROOM AND PLACED IN THE PRONE POSITION. THE CERVICOTHORACIC AREA WAS CLEANED WITH BETADINE SOLUTION AND DRAPED ASEPTICALLY. THE PROCEDURE WAS DONE UNDER STERILE CONDITIONS. I CHECKED LATERALITY AND THE LEVEL WHERE THE PROCEDURE WAS GOING TO BE PERFORMED WITH THE PATIENT AND THE SUPPORTING STAFF AT THE MOMENT OF THE TIME OUT IN THE PROCEDURE ROOM. UNDER FLUOROSCOPIC GUIDANCE, THE TARGET WAS SELECTED AT THE INTERLAMINAR LEVEL OF T1-T2, WITH GOOD SPREAD OF THE DYE TO THE CERVICAL AREA. LIDOCAINE WAS USED TO NUMB THE SKIN AND THE SUBCUTANEOUS TISSUE BELOW IT. EPIDURAL TUOHY NEEDLE 17-GAUGE WAS ADVANCED UNDER FLUOROSCOPIC GUIDANCE AND FOLLOWING PATIENT FEEDBACK UNTIL THE EPIDURAL SPACE WAS REACHED 6 CM DEEP INTO THE SKIN BY THE LOSS OF RESISTANCE TECHNIQUE. ISOVUE M DYE 30%, 0.25 ML, WAS INJECTED SHOWING ADEQUATE SPREAD OF THE DYE. THEN, A SOLUTION OF 3 ML OF NORMAL SALINE WITH DEPO-MEDROL 60 MG WAS INJECTED SLOWLY FOLLOWING PATIENT FEEDBACK. THERE WAS NO EVIDENCE OF BLOOD, PARESTHESIA OR CEREBROSPINAL FLUID DURING THE PROCEDURE. THE PATIENT WAS SENT TO THE RECOVERY ROOM. THE PATIENT WAS MOVING THE EXTREMITIES AND DOING WELL. THERE WAS NO COMPLICATION DURING THE PROCEDURE. FLUOROSCOPY TIME WAS 35 SECONDS POST PROCEDURE NOTE BEFORE I STARTED THE PROCEDURE I WAS INFORMED BY THE NURSE IN THE ROOM THAT WHILE PREPARING MS. AVILES FOR THE PROCEDURE SOME BETADINE SOLUTION WENT TO HER EYE. I WAS INFORMED THAT IMMEDIATELY THAT THIS OCCURRED SHE WAS PROPERLY CLEAN WITH SALINE SOLUTION AND THAT SHE WAS DOING WELL. I ASKED ALEX AND SHE TOLD ME SHE WAS TOTALLY FINE. SO, I DECIDED TO MOVE FORWARD WITH THE PROCEDURE WHICH WENT WELL AND WITHOUT COMPLICATIONS. AFTER THE PROCEDURE WAS DONE, I DISCUSSED THE CASE WITH THE PATIENT. ALEX EXPRESSED UNDERSTANDING AND I LEFT THE ROOM. FEW MINUTES AFTER THE PROCEDURE WAS DONE I WAS CALLED TO GO TO THE RECOVERY ROOM BECAUSE MS. AVILES WAS HAVING SOME DISCOMFORT AT HER EYE. I WENT TO SEE HER AND DECIDED TO IMMEDIATELY CLEAN HER AGAIN WITH NORMAL SALINE. I ALSO DECIDED TO TRANSFER HER TO THE ER FOR FURTHER EVALUATION. SHE AGREES. ALEX WILL BE SEEN IN A FOLLOW UP IN THE NEXT FEW WEEKS. INSTRUCTIONS WERE GIVEN, QUESTIONS WERE ANSWERED, AND THE PATIENT EXPRESSED UNDERSTANDING AND AGREES WITH THE PLAN. I, MARCE WEST, DOCUMENTED THE ABOVE INFORMATION ACTING A SCRIBE FOR DR. DRAKE. I HAVE REVIEWED THE ABOVE DOCUMENT, WRITTEN BY MARCE HOLGUIN AND I VERIFY THAT IT IS ACCURATE. DIAGNOSTIC IMAGING [facility] FLUORO GUIDE SPINE INJECTION (PAIN)[id number] PROCEDURE CODES 75746 CERVICAL/THORACIC W/ IMAGING 6045F RADXPS IN END [id number] [id number] DISPOSITION & COMMUNICATION FOLLOW UP 3 WEEKS ELECTRONICALLY SIGNED BY YESSICA DRAKE MD ON 03/14/2017 AT 01:00 PM EST DISCLAIMER : THIS IS A VISIT SUMMARY EXTRACTED FROM THE [employer] CHART. IT IS NOT A COPY OF THE [employer] PROGRESS NOTE. MTDD
== END ==
LOC: M PAIN 10:15
PROVIDERS: ATTEND Anesthesiology
DX: G89.29 Other chronic pain (principal); M50.13 Cervical disc disorder with radiculopathy, cervicothoracic region; F17.210 Nicotine dependence, cigarettes, uncomplicated; Z88.0 Allergy status to penicillin; Z91.018 Allergy to other foods; L23.1 Allergic contact dermatitis due to adhesives; Z88.8 Allergy status to other drugs, medicaments and biological substances; Z91.040 Latex allergy status; Z79.899 Other long term (current) drug therapy
CPT/HCPCS: 62321; J1030; Q9967

== ENCOUNTER → 2017-04-01 | Outpatient (CLI) | payer OTHER ==
[~2017-04-01] MED LIST changes: -ISOVUE-M 300 61% 15ML VIAL (Q9967) As Ordered ONE; -LIDOCAINE 1% SDV INJ 30 ML VIAL As Ordered ONE; -diazePAM 5 MG TAB As Ordered ONE; -methylPREDNISolone SUSP 40 MG/ML (DEPO-medrol) VIAL (J1030) As Ordered ONE; -oxyCODONE 5MG TAB As Ordered ONE
--- NOTE | 2017-04-22 01:03 | ECWPNPC ---
PATIENT NAME: ALEX AVILES : 1975 GENDER: FEMALE VISIT DATE: 04/01/2017 DISCHARGE DATE: 04/01/17 1152 VISIT LOCKED DATE TIME: PHYSICIAN: NATHALIE GONGORA RESOURCE: NATHALIE GONGORA REASON FOR APPOINTMENT 1. POST PROCEDURE HISTORY OF PRESENT ILLNESS HISTORY OF PRESENT ILLNESS: HERE FOR POST PROCEDURE F/U.HAD THORACIC EPIDURAL T1/T2 ON 03/09/17.REPORTS 2 DAYS OF IMPROVEMENT THEN PAIN RETURNED TO BASELINE.RAING PAIN VAS 8/10.DESCRIBES PAIN CONSTANT AND STABBING.HAS SEEN ORTHOPEDIC SURGEON,DR. MONACO AT [facility].SHE WAS TOLD SHE WASNT A SURGICAL CANDIDATE RIGHT NOW. PAIN THE PATIENT DESCRIBES THE PAIN... THE PATIENT DESCRIBES THE PAIN... FALL RISK SCREENING: SCREENING :NO FALLS IN THE PAST YEAR CURRENT MEDICATIONS TAKING RANITIDINE HCL 150 MG CAPSULE 1 CAPSULE ORALLY ONCE DAILY TAKING HYDROXYZINE HCL 25 MG TABLET 1-2 TABLETS NEEDED ORALLY AT BEDTIME NEEDED TAKING TRAZODONE HCL 50 MG TABLET 1 TABLET AT BEDTIME NEEDED ORALLY ONCE A DAY TAKING FLUTICASONE FUROATE 27.5 MCG/SPRAY SUSPENSION 1 SPRAY IN EACH NOSTRIL NASALLY TWICE A DAY TAKING PANTOPRAZOLE SODIUM 40 MG TABLET DELAYED RELEASE 1 TABLET ORALLY ONCE A DAY TAKING PRAZOSIN HCL 1 MG CAPSULE 1 CAPSULE AT BEDTIME ORALLY ONCE A DAY TAKING MIRALAX - POWDER 1 DOSE ORALLY ONCE A DAY NEEDED TAKING MONTELUKAST SODIUM 10 MG TABLET 1 TABLET IN THE EVENING ORALLY ONCE A DAY TAKING ASTELIN 1 SPRAY EACH NOSTRIL NASAL TWICE A DAY TAKING PROBIOTIC CAPSULE 1 TABLET ORALLY ONCE DAILY TAKING METHOCARBAMOL 500 MG TABLET 1 TABLET ORALLY THREE TIMES DAILY NEEDED TAKING CYCLOBENZAPRINE HCL 10 MG TABLET 1 TABLET ORALLY THREE TIMES A DAY NEEDED FOR SPASMS AND PAIN MDD3 TAKING GABAPENTIN 100 MG CAPSULE DIRECTED ORALLY BID TAKING HYDROCODONE-ACETAMINOPHEN 5-325 MG TABLET 1 TABLET NEEDED ORALLY EVERY 8 HOURS PRN MDD3 NOT-TAKING TIZANIDINE HCL 4 MG TABLET 1 TABLET NEEDED ORALLY BEFORE BEDTIME NEEDED FOR SPASMS AND PAIN MDD1 NOT-TAKING ALLERGY RELIEF 180 MG TABLET 1 TABLET NEEDED ORALLY ONCE A DAY NOT-TAKING SUCRALFATE 1 GM TABLET 1 TABLET ON AN EMPTY STOMACH ORALLY ONCE DAILY MEDICATION LIST REVIEWED AND RECONCILED WITH THE PATIENT PAST MEDICAL HISTORY ANEMIA GERD STOMACH ULCERS WITH H PYLORI NECK AND LOW BACK PAIN ALLERGIES PENICILLIAN: SWELLING: ALLERGY ORANGES: SWELLING,RASH: ALLERGY BANDAIDS AND ADHESIVES: REDDNESS AND SWELLING: ALLERGY LATEX GLOVES: REDDNESS AND SWELLING: ALLERGY TEGADERM: REDNESS, SWELLING: ALLERGY SURGICAL HISTORY RIGHT KNEE 1985 TUBAL LIGATION 2002 D&C 1996 MOLES REMOVED 2016 TOTAL HYSTERECTOMY 2016 SOCIAL HISTORY GENERAL: TOBACCO USE ARE YOU A:CURRENT SMOKER ARE YOU INTERESTED IN QUITTING?NOT READY TO QUIT COUNSELED THE PATIENT ON SMOKING EFFECTS, EDUCATION [id number]/01/2017 PATIENT COUNSELED ON THE DANGERS OF TOBACCO USE AND URGED TO QUIT:04/01/2017 ALCOHOL SCREENING DID YOU HAVE A DRINK CONTAINING ALCOHOL IN THE PAST YEAR?NO POINTS0 INTERPRETATIONNEGATIVE RECREATIONAL DRUG USE DRUG USE?NO ISLAM [id number] [employer] L[employer] LANGUAGES SPOKEN:OCCITAN EDUCATION LEVEL OF EDUCATION:NOT FINISHED COLLEGE LEARNING BARRIERS / SPECIAL NEEDS CHANGE FROM LAST VISIT?NO BARRIERS TO LEARNING?NO HEARING IMPAIRED?NO VISION IMPAIRED?NO COGNITIVELY IMPAIRED?NO READINESS TO LEARN?YES LEARNING PREFERENCES?NO LEARNING CAPABILITIES PRESENT?YES EMOTIONAL BARRIERS?NO SPECIAL DEVICES?NO FISH HATCHERY INSPECTOR NEEDED?NO PAIN CLINIC PFS, CLERGY, PUBLIC HEALTH REFERRALS PFS REFERRAL NEEDED?NO CLERGY REFERRAL NEEDED?NO PUBLIC HEALTH REFERRAL NEEDED?NO WAS THE PROVIDER NOTIFIED OF ANY PERTINENT INFO?NO HAS THE PATIENT BEEN EDUCATED REGARDING HIS/HER PLAN OF CARE?YES HAS THE PATIENT BEEN EDUCATED REGARDING PAIN, THE RISK FOR PAIN, THE IMPORTANCE OF EFFECTIVE PAIN MANAGEMENT, AND THE PAIN ASSESSMENT PROCESS?YES PATIENT: ____. ADVANCE DIRECTIVES HEALTH CARE PROXY?YES NAME OF HCP TREVON SPARKS CONTACT # FOR HCP [phone] DO YOU HAVE A COPY WITH YOU?NO POWER OF NUCLEAR PLANT EQUIPMENT OPERATOR?NO DO YOU HAVE A DNR?NO WOULD YOU LIKE MORE INFORMATION?NO LIVING WILL?NO WOULD YOU LIKE MORE INFORMATION?NO WOULD YOU LIKE MORE INFORMATION?NO HOSPITALIZATION/MAJOR DIAGNOSTIC PROCEDURE CHILD 12/18/1991 CHILD 11/01/1996 CHILD 11/23/1998 CHILD 01/29/2002 REVIEW OF SYSTEMS REVIEWED BY: PROVIDER: NATHALIE SUAZO . CONSTITUTIONAL: ANY CHANGE IN YOUR MEDICAL CONDITION? NO . CHILLS NO . FEVER NO . INFECTION: DO YOU HAVE NEW INFECTIONS? NO . DO YOU HAVE HISTORY OF MRSA? NO . MUSCULOSKELETAL: ANY NEW PATTERNS OF PAIN OR NUMBNESS? NO . GASTROENTEROLOGY: ANY NEW CHANGE IN BOWEL CONTROL? NO . GENITOURINARY: ANY NEW CHANGE IN BLADDER CONTROL? NO . IS THERE A CHANCE YOU COULD BE ? NO . HEMATOLOGY/LYMPH: DO YOU TAKE ANY BLOOD THINNERS? (FOR EXAMPLE- COUMADIN, PLAVIX, AGGRENOX, PLATEL, PRADAXA, OR XARELTO) NO . WHEN WAS YOUR LAST DOSE? DATE: TIME: . NEUROLOGY: HAVE YOU FALLEN IN THE PAST 6 MONTHS? YES, ABOUT A MONTH AGO, PT STATES SHE FELL PULLING WEEDS. PT DENIES SEEKING MEDICAL [place] . ANY NEW EXTREMITY NUMBNESS OR WEAKNESS? NO . CARDIOLOGY: DO YOU HAVE A PACEMAKER OR DEFIBRILLATOR? NO . RESPIRATORY: HAVE YOU BEEN SICK IN THE PAST WEEK? NO . FEVER NO . FLU LIKE SYMPTOMS? NO . COUGH NO . INTEGUMENTARY: DO YOU HAVE ANY RASHES OR OPEN SORES? NO . ALLERGIC/IMMUNO: ARE YOU ALLERGIC TO SHELLFISH OR IV DYE? NO . ANY NEW ALLERGIES? NO . PSYCHIATRIC: DO YOU HAVE THOUGHTS OF HURTING YOURSELF OR SOMEONE ELSE? NO . ARE YOU ABUSED, NEGLECTED, OR IN AN UNSAFE ENVIRONMENT? NO . ENDOCRINOLOGY: ARE YOU DIABETIC? NO . OTHER: DO YOU NEED ANY PRESCRIPTIONS? NO . IF YES, PLEASE LIST: ____ . ANY NEW PROBLEMS WITH YOUR MEDICATIONS? NO . WHEN DID YOU LAST EAT? ____ . WHEN DID YOU LAST DRINK? ____ . WHAT DID YOU LAST DRINK? ____ . NAME OF PERSON DRIVING YOU HOME? ____ . DO YOU HAVE ANY OTHER QUESTIONS OR CONCERNS NO . VITAL SIGNS WT 174.2 LBS, HT 67 IN, BMI 27.28 INDEX, BP 122/76 MM HG, HR 82 /MIN, RR 16 /MIN, TEMP 97.3 F, OXYGEN SAT % 99%, NA INITIALS SC 10:52, REVIEWED BY: EM. EXAMINATION CERVICAL SPINE/NECK: RANGE OF MOTION OF NECK:FULL W REPORTS OF PAIN AND STIFFNESS W LATERAL ROTATION. . SENSATIONS:NORMAL BILATERALLY . MOTOR STRENGTH:4/5 RIGHT ARM/5/5 LEFT ARM . VERTEBRAL SPINE TENDERNESS:TENDERNESS IN PARASPINAL MUSCLES-RIGHT SIDE ONLY . MYOFASCIAL TRIGGER POINTS:POSITIVE OVER RIGHT TRAPEZIUS . REVIEWED PROGRESS NOTES AND MRI IMAGING FROM [facility] AND REVIEWED WITH PATIENT. ASSESSMENTS CERVICAL DISC DISORDER WITH RADICULOPATHY OF MID-CERVICAL REGION - M50.120 (PRIMARY) MYALGIA - M79.1 CERVICAL SPONDYLOSIS WITH RADICULOPATHY - M47.22 TREATMENT CERVICAL DISC DISORDER WITH RADICULOPATHY OF MID-CERVICAL REGION REFILL CYCLOBENZAPRINE HCL TABLET, 10 MG, 1 TABLET, ORALLY, THREE TIMES A DAY NEEDED FOR SPASMS AND PAIN MDD3, 30 DAY(S), 90, REFILLS 1 STOP GABAPENTIN CAPSULE, 100 MG, DIRECTED, ORALLY, BID REFILL HYDROCODONE-ACETAMINOPHEN TABLET, 5-325 MG, 1 TABLET NEEDED, ORALLY, EVERY 8 HOURS PRN MDD3, 30 DAY(S), 90, REFILLS 0 START CYMBALTA CAPSULE DELAYED RELEASE PARTICLES, 30 MG, 1 CAPSULE, ORALLY, DAILY, 30 DAY(S), 30 CAPSULE, REFILLS 1 NOTES: ISTOP REGISTRY REVIEWED [id number] AND DEMNOSTRATES COMPLLIANCE. BRINGS IN MEDICATIONS WHICH IS APPROPRIATE FOR WHAT WAS DISPENSED. RECENT URINE TOXICOLOGY REVIEWED. NO UNAUTHORIZED MEDICATIONS. NO ILLICIT SUBSTANCES AND PRESCRIBED MEDICATIONS WERE PRESENT. , RISKS AND BENEFITS OF NARCOTIC/OPIOD MEDICATIONS WERE REVIEWED WITH PATIENT - THIS INCLUDES BUT IS NOT LIMITED TO RISK OF DEPENDANCE/DEVELOPMENT OF ADDICTION, MOOD DISTURBANCE AND DEPRESSION, OSTEOPOROSIS, HORMONAL AND LABIDAL CHANGES, RESPIRATORY DEPRESSION AND . PATIENT IS ADVISED NOT TO DRIVE WHILE ON THESE MEDICATIONSCESI (HIGH CERVICAL-ASK PATIENT-C4/5 NOT T1/2). PROCEDURE CODES FA211 ESTABILISHED PATIENT [facility] FACILITY CHARGE DISPOSITION & COMMUNICATION FOLLOW UP 2WK POST (REASON: DAMIEN (HIGH CERVICAL-ASK PATIENT-C4/5 NOT T1/2)) ELECTRONICALLY SIGNED BY GABRIELE CHRISTENSEN ON 04/21/2017 AT 04:19 PM EST DISCLAIMER : THIS IS A VISIT SUMMARY EXTRACTED FROM THE [employer] CHART. IT IS NOT A COPY OF THE [employer] PROGRESS NOTE. BRITANYD
== END ==
LOC: M PAIN 10:00
PROVIDERS: ATTEND Nurse Practitioner Family
DX: M50.120 Mid-cervical disc disorder, unspecified level (principal); M79.1 Myalgia; M47.22 Other spondylosis with radiculopathy, cervical region; F17.210 Nicotine dependence, cigarettes, uncomplicated; Z79.891 Long term (current) use of opiate analgesic; Z79.899 Other long term (current) drug therapy; Z88.0 Allergy status to penicillin; Z91.040 Latex allergy status; Z91.018 Allergy to other foods; Z91.048 Other nonmedicinal substance allergy status; Z88.8 Allergy status to other drugs, medicaments and biological substances

== ENCOUNTER → 2017-05-11 | Outpatient (CLI) | payer OTHER ==
[~2017-05-11] MED LIST changes: -CYCL10TA PO; -FLUTISP; -HYDR-3363 PO; +ISOVUE-M 300 61% 15ML VIAL (Q9967) As Ordered; +LIDOCAINE 1% SDV INJ 30 ML VIAL As Ordered; -MIRA33504 PO; -MONT10TA2 PO; -NEUR100C PO; -NORC1TAB4 PO; -PANT40TA2 PO; -PRAZ1CAP PO; -PROBCAP4 PO; -RANI150C PO; -ROBA500T PO; -TOBRSUS41 OP; -TRAZ25TA PO; +diazePAM 5 MG TAB As Ordered; +methylPREDNISolone SUSP 40 MG/ML (DEPO-medrol) VIAL (J1030) As Ordered; +oxyCODONE 5MG TAB As Ordered
== END ==
LOC: M PAIN 11:15
DX: G89.29 Other chronic pain (principal); M50.13 Cervical disc disorder with radiculopathy, cervicothoracic region; K21.9 Gastro-esophageal reflux disease without esophagitis; F17.210 Nicotine dependence, cigarettes, uncomplicated; Z88.0 Allergy status to penicillin; Z88.8 Allergy status to other drugs, medicaments and biological substances; Z91.018 Allergy to other foods; Z91.09 Other allergy status, other than to drugs and biological substances; Z91.040 Latex allergy status; Z79.899 Other long term (current) drug therapy
CPT/HCPCS: J1030

== ENCOUNTER → 2017-06-07 | Outpatient (CLI) | payer OTHER | LOC: M PAIN 10:00 | DX: M50.120 Mid-cervical disc disorder, unspecified level (principal); M47.22 Other spondylosis with radiculopathy, cervical region; M79.1 Myalgia; K21.9 Gastro-esophageal reflux disease without esophagitis; F17.210 Nicotine dependence, cigarettes, uncomplicated; Z79.899 Other long term (current) drug therapy; Z88.0 Allergy status to penicillin; Z88.8 Allergy status to other drugs, medicaments and biological substances; Z91.018 Allergy to other foods; Z91.040 Latex allergy status; Z91.048 Other nonmedicinal substance allergy status | CPT/HCPCS: G0463 ==

== ENCOUNTER → 2017-06-28 | Outpatient (CLI) | payer OTHER | LOC: M PAIN 09:45 | DX: G89.29 Other chronic pain (principal); M50.120 Mid-cervical disc disorder, unspecified level; M79.1 Myalgia; M47.22 Other spondylosis with radiculopathy, cervical region; D64.9 Anemia, unspecified; K21.9 Gastro-esophageal reflux disease without esophagitis; F17.210 Nicotine dependence, cigarettes, uncomplicated; K25.9 Gastric ulcer, unspecified as acute or chronic, without hemorrhage or perforation; Z79.899 Other long term (current) drug therapy; Z88.0 Allergy status to penicillin; Z91.018 Allergy to other foods; Z91.040 Latex allergy status; Z91.048 Other nonmedicinal substance allergy status; Z88.8 Allergy status to other drugs, medicaments and biological substances | CPT/HCPCS: G0463 ==

== ENCOUNTER → 2017-08-01 | Outpatient (CLI) | payer OTHER | LOC: M PAIN 11:15 | DX: G89.29 Other chronic pain (principal); M48.02 Spinal stenosis, cervical region; M50.10 Cervical disc disorder with radiculopathy, unspecified cervical region; K21.9 Gastro-esophageal reflux disease without esophagitis; F17.210 Nicotine dependence, cigarettes, uncomplicated; Z79.899 Other long term (current) drug therapy; Z88.0 Allergy status to penicillin; Z88.8 Allergy status to other drugs, medicaments and biological substances; Z91.018 Allergy to other foods; Z91.040 Latex allergy status; Z91.09 Other allergy status, other than to drugs and biological substances | CPT/HCPCS: J1030 ==

== ENCOUNTER → 2017-08-29 | Outpatient (CLI) | payer OTHER | LOC: M PAIN 13:45 | DX: G89.29 Other chronic pain (principal); M50.120 Mid-cervical disc disorder, unspecified level; M79.1 Myalgia; D64.9 Anemia, unspecified; K21.9 Gastro-esophageal reflux disease without esophagitis; M54.5 Low back pain; Z79.891 Long term (current) use of opiate analgesic; Z79.899 Other long term (current) drug therapy; F17.210 Nicotine dependence, cigarettes, uncomplicated; Z88.0 Allergy status to penicillin; Z91.040 Latex allergy status; Z91.018 Allergy to other foods; Z88.8 Allergy status to other drugs, medicaments and biological substances | CPT/HCPCS: G0463 ==

== ENCOUNTER → 2017-09-20 | Outpatient (CLI) | payer OTHER ==
[~2017-09-20] MED LIST changes: +BUPIVACAINE HCL 0.25% 10 ML VIAL As Ordered; +BUPIVACAINE HCL 0.25% 30 ML VIAL As Ordered; -ISOVUE-M 300 61% 15ML VIAL (Q9967) As Ordered; -LIDOCAINE 1% SDV INJ 30 ML VIAL As Ordered; +TRIAMCINOLONE ACETONIDE SUSP 40 MG/ML VIAL (J3301) As Ordered; -methylPREDNISolone SUSP 40 MG/ML (DEPO-medrol) VIAL (J1030) As Ordered
== END ==
LOC: M PAIN 11:45
DX: G89.29 Other chronic pain (principal); M79.1 Myalgia; M54.2 Cervicalgia; M25.511 Pain in right shoulder; M54.6 Pain in thoracic spine; F17.210 Nicotine dependence, cigarettes, uncomplicated; Z79.899 Other long term (current) drug therapy; Z88.0 Allergy status to penicillin; Z88.8 Allergy status to other drugs, medicaments and biological substances; Z91.09 Other allergy status, other than to drugs and biological substances; Z91.040 Latex allergy status; Z91.018 Allergy to other foods
CPT/HCPCS: J3301

== ENCOUNTER → 2017-11-09 | Outpatient (CLI) | payer OTHER | LOC: M PAIN 11:30 | DX: M54.2 Cervicalgia (principal); M54.6 Pain in thoracic spine; K25.4 Chronic or unspecified gastric ulcer with hemorrhage; F17.210 Nicotine dependence, cigarettes, uncomplicated; Z79.891 Long term (current) use of opiate analgesic; Z79.899 Other long term (current) drug therapy; Z88.0 Allergy status to penicillin; Z91.018 Allergy to other foods; Z91.048 Other nonmedicinal substance allergy status; Z91.040 Latex allergy status; Z90.710 Acquired absence of both cervix and uterus | CPT/HCPCS: G0463 ==

== ENCOUNTER → 2017-11-18 | Outpatient (CLI) | payer OTHER | LOC: M RAD 13:37 | DX: M54.2 Cervicalgia (principal) | CPT/HCPCS: 70490 ==

== ENCOUNTER → 2017-12-07 | Outpatient (CLI) | payer OTHER | LOC: M PAIN 11:15 | DX: M47.812 Spondylosis without myelopathy or radiculopathy, cervical region (principal); M43.6 Torticollis; F17.210 Nicotine dependence, cigarettes, uncomplicated; Z79.891 Long term (current) use of opiate analgesic; Z79.899 Other long term (current) drug therapy; Z88.0 Allergy status to penicillin; Z91.040 Latex allergy status; Z91.018 Allergy to other foods; Z91.048 Other nonmedicinal substance allergy status; Z88.8 Allergy status to other drugs, medicaments and biological substances | CPT/HCPCS: G0463 ==

== ENCOUNTER → 2018-01-30 | Outpatient (CLI) | payer OTHER | LOC: M PAIN 11:30 | DX: M47.812 Spondylosis without myelopathy or radiculopathy, cervical region (principal); K21.9 Gastro-esophageal reflux disease without esophagitis; F17.210 Nicotine dependence, cigarettes, uncomplicated; Z79.899 Other long term (current) drug therapy; Z88.0 Allergy status to penicillin; Z88.8 Allergy status to other drugs, medicaments and biological substances; Z91.018 Allergy to other foods; Z91.09 Other allergy status, other than to drugs and biological substances; Z91.040 Latex allergy status; Z96.651 Presence of right artificial knee joint; Z87.19 Personal history of other diseases of the digestive system | CPT/HCPCS: G0463 ==

== ENCOUNTER → 2018-02-17 | Outpatient (CLI) | payer OTHER ==
[~2018-02-17] MED LIST changes: -BUPIVACAINE HCL 0.25% 10 ML VIAL As Ordered
== END ==
LOC: M PAIN 13:45
DX: M79.18 Myalgia, other site (principal); M54.2 Cervicalgia; M25.511 Pain in right shoulder; K21.9 Gastro-esophageal reflux disease without esophagitis; Z79.899 Other long term (current) drug therapy; Z88.0 Allergy status to penicillin; Z88.8 Allergy status to other drugs, medicaments and biological substances; Z91.09 Other allergy status, other than to drugs and biological substances; Z91.018 Allergy to other foods; Z91.040 Latex allergy status; Z86.2 Personal history of diseases of the blood and blood-forming organs and certain disorders involving the immune mechanism
CPT/HCPCS: J3301

== ENCOUNTER → 2018-03-08 | Outpatient (CLI) | payer OTHER | LOC: M PAIN 09:30 | DX: M79.7 Fibromyalgia (principal); M51.26 Other intervertebral disc displacement, lumbar region; D64.9 Anemia, unspecified; K21.9 Gastro-esophageal reflux disease without esophagitis; M54.2 Cervicalgia; Z79.899 Other long term (current) drug therapy; Z79.891 Long term (current) use of opiate analgesic; Z88.0 Allergy status to penicillin; Z91.018 Allergy to other foods; Z91.040 Latex allergy status; Z91.048 Other nonmedicinal substance allergy status; Z88.8 Allergy status to other drugs, medicaments and biological substances | CPT/HCPCS: G0463 ==

== ENCOUNTER → 2018-03-30 | Outpatient (CLI) | payer OTHER | LOC: M PAIN 13:45 | DX: M79.18 Myalgia, other site (principal); M54.5 Low back pain; K21.9 Gastro-esophageal reflux disease without esophagitis; Z79.891 Long term (current) use of opiate analgesic; Z79.899 Other long term (current) drug therapy; Z88.0 Allergy status to penicillin; Z88.8 Allergy status to other drugs, medicaments and biological substances; Z91.09 Other allergy status, other than to drugs and biological substances; Z91.040 Latex allergy status; Z91.018 Allergy to other foods; Z87.19 Personal history of other diseases of the digestive system | CPT/HCPCS: J3301 ==

== ENCOUNTER → 2018-05-08 | Outpatient (CLI) | payer BC ==
[~2018-05-08] MED LIST changes: -BUPIVACAINE HCL 0.25% 30 ML VIAL As Ordered; +CYCL10TA PO; +FLUTISP; +HYDR-3363 PO; +MIRA33504 PO; +MONT10TA2 PO; +NEUR100C PO; +NORC1TAB4 PO; +PANT40TA3 PO; +PRAZ1CAP PO; +PROBCAP4 PO; +RANI150C PO; +ROBA500T PO; +TOBRSUS41 OP; +TRAZ25TA PO; -TRIAMCINOLONE ACETONIDE SUSP 40 MG/ML VIAL (J3301) As Ordered; -diazePAM 5 MG TAB As Ordered; -oxyCODONE 5MG TAB As Ordered
--- NOTE | 2018-05-29 01:34 | ECWPNPC ---
PATIENT NAME: ALEX AVILES : 1975 GENDER: FEMALE VISIT DATE: 05/08/2018 DISCHARGE DATE: 05/08/18 1335 VISIT LOCKED DATE TIME: PHYSICIAN: NATHALIE GONGORA RESOURCE: NATHALIE GONGORA REASON FOR APPOINTMENT 1. POST TPI HISTORY OF PRESENT ILLNESS HISTORY OF PRESENT ILLNESS: HERE FOR POST PROCEDURE F/U.HAD TPI LOW BACK ON 03-30-18.REPORTING IMPROVEMENT IN LOW BACK PAIN THAT CONTINUES TODAY. REPORTS FALLING DOWN STAIRS THE DAY AFTER ABBIE.REPORTING HAVING SUSTAINED A CONCUSSION AFTER FALL AND ONSET OF LEFT NECK PAIN.PAIN IS AGGREVATED BY TURNING HEAD.DENIES CHANGES IN URINARY OR BOWEL ROUTINE. PAIN THE PATIENT DESCRIBES THE PAIN... THE PATIENT DESCRIBES THE PAIN... FALL RISK SCREENING: SCREENING :NO FALLS IN THE PAST YEAR CURRENT MEDICATIONS TAKING RANITIDINE HCL 150 MG CAPSULE 1 CAPSULE ORALLY ONCE DAILY TAKING HYDROXYZINE HCL 25 MG TABLET 1-2 TABLETS NEEDED ORALLY AT BEDTIME NEEDED TAKING FLUTICASONE FUROATE 27.5 MCG/SPRAY SUSPENSION 1 SPRAY IN EACH NOSTRIL NASALLY TWICE A DAY TAKING PANTOPRAZOLE SODIUM 40 MG TABLET DELAYED RELEASE 1 TABLET ORALLY ONCE A DAY TAKING MIRALAX - POWDER 1 DOSE ORALLY ONCE A DAY NEEDED TAKING MONTELUKAST SODIUM 10 MG TABLET 1 TABLET IN THE EVENING ORALLY ONCE A DAY TAKING ASTELIN 1 SPRAY EACH NOSTRIL NASAL TWICE A DAY TAKING PROBIOTIC CAPSULE 1 TABLET ORALLY ONCE DAILY TAKING WELLBUTRIN SR 200 MG TABLET EXTENDED RELEASE 12 HOUR 1 TABLET IN THE MORNING ORALLY ONCE A DAY TAKING NORCO 10-325 MG TABLET 1 TABLET NEEDED ORALLY Q8H PRN MDD3 TAKING TIZANIDINE HCL 4 MG TABLET 1 TAB ORALLY BID TAKING MORPHINE SULFATE ER 15 MG TABLET EXTENDED RELEASE 1 TABLET ORALLY DAILY MDD1 TAKING CYMBALTA 30 MG CAPSULE DELAYED RELEASE PARTICLES 1 CAPSULE ORALLY DAILY DISCONTINUED PRAZOSIN HCL 2 MG CAPSULE 1 CAPSULE AT BEDTIME ORALLY ONCE A DAY DISCONTINUED VALIUM 5 MG TABLET 1/2 TAB ORALLY TWICE A DAY PRN MUSCLE SPASM DISCONTINUED KETOROLAC TROMETHAMINE 10 MG TABLET 1 TABLET WITH FOOD OR MILK NEEDED ORALLY EVERY 6 HRS DISCONTINUED TRAZODONE HCL 50 MG TABLET 1 TABLET AT BEDTIME NEEDED ORALLY ONCE A DAY MEDICATION LIST REVIEWED AND RECONCILED WITH THE PATIENT PAST MEDICAL HISTORY ANEMIA GERD STOMACH ULCERS WITH H PYLORI NECK AND LOW BACK PAIN 04/26/18 CONCUSSION FROM FALLING DOWN THE STAIRS AND HITTING HEAD ALLERGIES PENICILLIN: SWELLING: ALLERGY ORANGES: SWELLING,RASH: ALLERGY BANDAIDS AND ADHESIVES: REDDNESS AND SWELLING: ALLERGY LATEX GLOVES: REDDNESS AND SWELLING: ALLERGY TEGADERM: REDNESS, SWELLING: ALLERGY SURGICAL HISTORY RIGHT KNEE 1985 TUBAL LIGATION 2002 D&C 1996 MOLES REMOVED 2016 TOTAL HYSTERECTOMY 2017 FAMILY HISTORY FATHER: MOTHER: , DIAGNOSED WITH OTHER SIBLINGS: ALIVE PATERNAL GRAND FATHER: DIAGNOSED WITH CANCER 3 BROTHER(S) , 4 SISTER(S) - HEALTHY. 1 SON(S) , 3 DAUGHTER(S) . FATHER FROM MVA, NO MEDICAL HISTORY MOTHER- DUE TO CHF, BRAIN TUMOR X 2, BREAST CAPATERNAL GRANDFATHER--CA-UNSURE OF WHAT KINDDAUGHTER - IRREGULAR HEART BEAT, ASTHMADAUGHTER - HYPOTHYROID. SOCIAL HISTORY GENERAL: TOBACCO USE ARE YOU A:NONSMOKER ALCOHOL SCREENING DID YOU HAVE A DRINK CONTAINING ALCOHOL IN THE PAST YEAR?NO POINTS0 INTERPRETATIONNEGATIVE RECREATIONAL DRUG USE DRUG USE?NO CAFFEINE CAFFEINE USE?YES HOW OFTEN AND HOW MUCH? 3 SODAS/DAY CAODAISM [id number] YAZDANISM LANGUAGE LANGUAGES SPOKEN:SAMI EDUCATION LEVEL OF EDUCATION:NOT FINISHED COLLEGE LEARNING BARRIERS / SPECIAL NEEDS BARRIERS TO LEARNING?NO HEARING IMPAIRED?NO VISION IMPAIRED?NO COGNITIVELY IMPAIRED?NO READINESS TO LEARN?YES DOMESTIC VIOLENCE DO YOU FEEL SAFE IN YOUR ENVIRONMENT?YES PAIN CLINIC PFS, CLERGY, PUBLIC HEALTH REFERRALS HAS THE PATIENT BEEN EDUCATED REGARDING HIS/HER PLAN OF CARE?YES HAS THE PATIENT BEEN EDUCATED REGARDING PAIN, THE RISK FOR PAIN, THE IMPORTANCE OF EFFECTIVE PAIN MANAGEMENT, AND THE PAIN ASSESSMENT PROCESS?YES ADVANCE DIRECTIVE ADVANCE DIRECTIVE DISCUSSED WITH PATIENT:YES HCP-TREVON SPARKS [phone] REVIEWED WITH PT 02/17/18 1326 BVREVIEWED WITH PATIENT 03/08/18 1023 JSREVIEWED WITH PATIENT 03/30/18 1400 LAS05/08/18 REVIEWED WITH PT. AD. HOSPITALIZATION/MAJOR DIAGNOSTIC PROCEDURE CHILD 12/18/1991 CHILD 11/01/1996 CHILD 11/23/1998 CHILD 01/29/2002 HYSTERECTOMY 2017 KNEE SURGERY ALLERGIC REACTION AGE 2 OR 3 REVIEW OF SYSTEMS REVIEWED BY: PROVIDER: NATHALIE SUAZO . CONSTITUTIONAL: ANY CHANGE IN YOUR MEDICAL CONDITION? YES, CONCUSSION 04/26 . CHILLS NO . FEVER NO . INFECTION: DO YOU HAVE NEW INFECTIONS? NO . DO YOU HAVE HISTORY OF MRSA? NO . MUSCULOSKELETAL: ANY NEW PATTERNS OF PAIN OR NUMBNESS? YES, FELL DOWN STAIRS 04/26 WITH LOC, WENT TO ED-DX WITH CONCUSSION. WAS GIVEN TORADOL. NOW BOTH SIDES OF NECK HURT ALONG WITH LOWER BACK PAIN BEING WORSE SINCE. HAS BEEN TAKING THE MORPHINE FOR THE PAIN. . GASTROENTEROLOGY: ANY NEW CHANGE IN BOWEL CONTROL? NO . GENITOURINARY: ANY NEW CHANGE IN BLADDER CONTROL? NO . IS THERE A CHANCE YOU COULD BE ? NO . HEMATOLOGY/LYMPH: DO YOU TAKE ANY BLOOD THINNERS? (FOR EXAMPLE- COUMADIN, PLAVIX, AGGRENOX, PLATEL, PRADAXA, OR XARELTO) NO . WHEN WAS YOUR LAST DOSE? DATE: TIME: . NEUROLOGY: HAVE YOU FALLEN IN THE PAST 6 MONTHS? YES, HAS FALLEN DOWN HER STAIRS X 2, LAST 04/16 SEE ABOVE NOTE . ANY NEW EXTREMITY NUMBNESS OR WEAKNESS? NO . CARDIOLOGY: DO YOU HAVE A PACEMAKER OR DEFIBRILLATOR? NO . RESPIRATORY: HAVE YOU BEEN SICK IN THE PAST WEEK? NO . FEVER NO . FLU LIKE SYMPTOMS? NO . COUGH NO . INTEGUMENTARY: DO YOU HAVE ANY RASHES OR OPEN SORES? NO . ALLERGIC/IMMUNO: ARE YOU ALLERGIC TO SHELLFISH OR IV DYE? NO . ANY NEW ALLERGIES? NO . PSYCHIATRIC: DO YOU HAVE THOUGHTS OF HURTING YOURSELF OR SOMEONE ELSE? NO . ARE YOU ABUSED, NEGLECTED, OR IN AN UNSAFE ENVIRONMENT? NO . ENDOCRINOLOGY: ARE YOU DIABETIC? NO . OTHER: DO YOU NEED ANY PRESCRIPTIONS? NO . IF YES, PLEASE LIST: ____ . ANY NEW PROBLEMS WITH YOUR MEDICATIONS? NO . WHEN DID YOU LAST EAT? ____ . WHEN DID YOU LAST DRINK? ____ . WHAT DID YOU LAST DRINK? ____ . NAME OF PERSON DRIVING YOU HOME? ____ . DO YOU HAVE ANY OTHER QUESTIONS OR CONCERNS NO . VITAL SIGNS WT 182 LBS, HT 67 IN, BMI 28.50 INDEX, BP 135/82 MM HG, HR 74 /MIN, RR 16 /MIN, TEMP 98 F, OXYGEN SAT % 98%, SAFE IN ENV? (Y/N) Y, REVIEWED BY: AD @ [id number]. EXAMINATION GENERAL EXAMINATION: LUNGS:LUNG SOUNDS ARE CLEAR . HEART:HEART RATE REGULAR . MUSCULOSKELETAL:*, MUSCLE STRENGTH TESTING 5/5 BILATERAL UPPER EXTREMITIES. . CERVICAL+ FOR PAIN WITH PALPATION OF CERVICAL SPINE. + FOR PAIN WITH PALPATION OF CERVICAL PARASPINALS.SPECIFIC POINT TENDERNESS NOTED OV C4/5-/C5/6 CERVICAL FACETS WITH EXTENSION AND FACET LOADING. . DIAGNOSTIC TESTS REVIEWEDCERVICAL MRI . ASSESSMENTS CERVICAL SPONDYLOSIS WITHOUT MYELOPATHY - M47.812 (PRIMARY) TREATMENT CERVICAL SPONDYLOSIS WITHOUT MYELOPATHY REFILL NORCO TABLET, 10-325 MG, 1 TABLET NEEDED, ORALLY, Q8H PRN MDD3, 30 DAY(S), 90, REFILLS 0 STOP MORPHINE SULFATE ER TABLET EXTENDED RELEASE, 15 MG, 1 TABLET, ORALLY, DAILY MDD1 CONTINUE TIZANIDINE HCL TABLET, 4 MG, 1 TAB, ORALLY, BID CONTINUE CYMBALTA CAPSULE DELAYED RELEASE PARTICLES, 30 MG, 1 CAPSULE, ORALLY, DAILY NOTES: BILAT. C4/5-C5/6 THERAPEUTIC FACET BLOCKNECK STRETCHING EXCERSISE 2X DAILY 10 REPS,FACET JOINT INJECTION MATERIAL WAS PRINTED, REVIEWED AND GIVEN TO PT. EM. PROCEDURE CODES FA211 ESTABILISHED PATIENT [facility] CHARGE DISPOSITION & COMMUNICATION FOLLOW UP POST (REASON: BILAT. C4/5-C5/6 THERAPEUTIC FACET BLOCK) ELECTRONICALLY SIGNED BY GABRIELE DAWSON ON 05/28/2018 AT 09:15 AM EST DISCLAIMER : THIS IS A VISIT SUMMARY EXTRACTED FROM THE [employer] CHART. IT IS NOT A COPY OF THE [employer] PROGRESS NOTE. MTDD
== END ==
LOC: M PAIN 13:00
PROVIDERS: ATTEND Nurse Practitioner Family
DX: M47.812 Spondylosis without myelopathy or radiculopathy, cervical region (principal); K21.9 Gastro-esophageal reflux disease without esophagitis; Z79.891 Long term (current) use of opiate analgesic; Z79.899 Other long term (current) drug therapy; Z88.0 Allergy status to penicillin; Z88.8 Allergy status to other drugs, medicaments and biological substances; Z91.018 Allergy to other foods; Z91.09 Other allergy status, other than to drugs and biological substances; Z91.040 Latex allergy status; Z87.820 Personal history of traumatic brain injury; Z87.11 Personal history of peptic ulcer disease

== ENCOUNTER → 2018-05-30 | Outpatient (CLI) | payer BC ==
[~2018-05-30] MED LIST changes: +BUPIVACAINE HCL 0.25% 30 ML VIAL As Ordered ONE; +ISOVUE-M 300 61% 15ML VIAL (Q9967) As Ordered ONE; +LIDOCAINE 1% SDV INJ 30 ML VIAL As Ordered ONE; +TRIAMCINOLONE ACETONIDE SUSP 40 MG/ML VIAL (J3301) As Ordered ONE; +diazePAM 5 MG TAB As Ordered ONE; +oxyCODONE 5MG TAB As Ordered ONE
--- NOTE | 2018-05-30 13:45 | REP ---
Cervical spine: Two views limited study. History: Bilateral cervical facet block for pain. 17 seconds of fluoroscopy time was utilized. Findings: A sequence of two last image hold fluoroscopically obtained spot radiographs of the cervical spine document various needle positions and contrast injections associated with cervical spine facet injection procedure. Electronically Signed by John Chowdary MD 05/30/2018 01:36 P
--- NOTE | 2018-06-13 00:49 | ECWPNPC ---
PATIENT NAME: ALEX AVILES : 1975 GENDER: FEMALE VISIT DATE: 05/30/2018 DISCHARGE DATE: 05/30/18 1403 VISIT LOCKED DATE TIME: PHYSICIAN: YESSICA DRAKE MD RESOURCE: YESSICA DRAKE MD REASON FOR APPOINTMENT 1. BILAT. CERVICAL THERAPEUTIC FACET BLOCK HISTORY OF PRESENT ILLNESS HISTORY OF PRESENT ILLNESS: PAIN THE PATIENT DESCRIBES THE PAIN... FALL RISK SCREENING: SCREENING :NO FALLS IN THE PAST YEAR CURRENT MEDICATIONS TAKING RANITIDINE HCL 150 MG CAPSULE 1 CAPSULE ORALLY ONCE DAILY, NOTES: 05/29/18 TAKING HYDROXYZINE HCL 25 MG TABLET 1-2 TABLETS NEEDED ORALLY AT BEDTIME NEEDED, NOTES: 05/29/18 TAKING FLUTICASONE FUROATE 27.5 MCG/SPRAY SUSPENSION 1 SPRAY IN EACH NOSTRIL NASALLY TWICE A DAY, NOTES: 05/29/18 TAKING PANTOPRAZOLE SODIUM 40 MG TABLET DELAYED RELEASE 1 TABLET ORALLY ONCE A DAY, NOTES: 05/29/18 TAKING MIRALAX - POWDER 1 DOSE ORALLY ONCE A DAY NEEDED, NOTES: 05/29/18 TAKING MONTELUKAST SODIUM 10 MG TABLET 1 TABLET IN THE EVENING ORALLY ONCE A DAY, NOTES: 05/29/18 TAKING ASTELIN 1 SPRAY EACH NOSTRIL NASAL TWICE A DAY, NOTES: 05/29/18 TAKING PROBIOTIC CAPSULE 1 TABLET ORALLY ONCE DAILY, NOTES: 05/29/18 TAKING WELLBUTRIN SR 200 MG TABLET EXTENDED RELEASE 12 HOUR 1 TABLET IN THE MORNING ORALLY ONCE A DAY, NOTES: 05/29/18 TAKING NORCO 10-325 MG TABLET 1 TABLET NEEDED ORALLY Q8H PRN MDD3, NOTES: 05/29/18 TAKING TIZANIDINE HCL 4 MG TABLET 1 TAB ORALLY BID, NOTES: 05/29/18 TAKING CYMBALTA 30 MG CAPSULE DELAYED RELEASE PARTICLES 1 CAPSULE ORALLY DAILY, NOTES: 05/29/18 MEDICATION LIST REVIEWED AND RECONCILED WITH THE PATIENT PAST MEDICAL HISTORY ANEMIA GERD STOMACH ULCERS WITH H PYLORI NECK AND LOW BACK PAIN 04/26/18 CONCUSSION FROM FALLING DOWN THE STAIRS AND HITTING HEAD ALLERGIES PENICILLIN: SWELLING: ALLERGY ORANGES: SWELLING,RASH: ALLERGY BANDAIDS AND ADHESIVES: REDDNESS AND SWELLING: ALLERGY LATEX GLOVES: REDDNESS AND SWELLING: ALLERGY TEGADERM: REDNESS, SWELLING: ALLERGY SURGICAL HISTORY RIGHT KNEE 1985 TUBAL LIGATION 2002 D&C 1996 MOLES REMOVED 2016 TOTAL HYSTERECTOMY 2017 FAMILY HISTORY FATHER: MOTHER: , DIAGNOSED WITH OTHER SIBLINGS: ALIVE PATERNAL GRAND FATHER: DIAGNOSED WITH CANCER 3 BROTHER(S) , 4 SISTER(S) - HEALTHY. 1 SON(S) , 3 DAUGHTER(S) . FATHER FROM MVA, NO MEDICAL HISTORY MOTHER- DUE TO CHF, BRAIN TUMOR X 2, BREAST CAPATERNAL GRANDFATHER--CA-UNSURE OF WHAT KINDDAUGHTER - IRREGULAR HEART BEAT, ASTHMADAUGHTER - HYPOTHYROID. SOCIAL HISTORY GENERAL: TOBACCO USE ARE YOU A:NONSMOKER ALCOHOL SCREENING DID YOU HAVE A DRINK CONTAINING ALCOHOL IN THE PAST YEAR?NO POINTS0 INTERPRETATIONNEGATIVE RECREATIONAL DRUG USE DRUG USE?NO CAFFEINE CAFFEINE USE?YES HOW OFTEN AND HOW MUCH? 3 SODAS/DAY MUSLIM [id number] SCIENTOLOGY LANGUAGE LANGUAGES SPOKEN:MOLDOVAN EDUCATION LEVEL OF EDUCATION:NOT FINISHED COLLEGE LEARNING BARRIERS / SPECIAL NEEDS BARRIERS TO LEARNING?NO HEARING IMPAIRED?NO VISION IMPAIRED?NO COGNITIVELY IMPAIRED?NO READINESS TO LEARN?YES DOMESTIC VIOLENCE DO YOU FEEL SAFE IN YOUR ENVIRONMENT?YES PAIN CLINIC PFS, CLERGY, PUBLIC HEALTH REFERRALS HAS THE PATIENT BEEN EDUCATED REGARDING HIS/HER PLAN OF CARE?YES HAS THE PATIENT BEEN EDUCATED REGARDING PAIN, THE RISK FOR PAIN, THE IMPORTANCE OF EFFECTIVE PAIN MANAGEMENT, AND THE PAIN ASSESSMENT PROCESS?YES ADVANCE DIRECTIVE ADVANCE DIRECTIVE DISCUSSED WITH PATIENT:YES HCP-TREVON SPARKS [phone] REVIEWED WITH PT 02/17/18 1326 BVREVIEWED WITH PATIENT 03/08/18 1023 JSREVIEWED WITH PATIENT 03/30/18 1400 LAS05/08/18 REVIEWED WITH PT. AD. HOSPITALIZATION/MAJOR DIAGNOSTIC PROCEDURE CHILD 12/18/1991 CHILD 11/01/1996 CHILD 11/23/1998 CHILD 01/29/2002 HYSTERECTOMY 2017 KNEE SURGERY ALLERGIC REACTION AGE 2 OR 3 REVIEW OF SYSTEMS REVIEWED BY: PROVIDER: . CONSTITUTIONAL: ANY CHANGE IN YOUR MEDICAL CONDITION? NO . CHILLS NO . FEVER NO . INFECTION: DO YOU HAVE NEW INFECTIONS? NO . DO YOU HAVE HISTORY OF MRSA? NO . MUSCULOSKELETAL: ANY NEW PATTERNS OF PAIN OR NUMBNESS? NO . GASTROENTEROLOGY: ANY NEW CHANGE IN BOWEL CONTROL? NO . GENITOURINARY: ANY NEW CHANGE IN BLADDER CONTROL? NO . IS THERE A CHANCE YOU COULD BE ? NO . HEMATOLOGY/LYMPH: DO YOU TAKE ANY BLOOD THINNERS? (FOR EXAMPLE- COUMADIN, PLAVIX, AGGRENOX, PLATEL, PRADAXA, OR XARELTO) NO . WHEN WAS YOUR LAST DOSE? DATE: TIME: . NEUROLOGY: HAVE YOU FALLEN IN THE PAST 12 MONTHS? YES, PRIOR TO LAST VISIT . ANY NEW EXTREMITY NUMBNESS OR WEAKNESS? NO . CARDIOLOGY: DO YOU HAVE A PACEMAKER OR DEFIBRILLATOR? NO . RESPIRATORY: HAVE YOU BEEN SICK IN THE PAST WEEK? NO . FEVER NO . FLU LIKE SYMPTOMS? NO . COUGH NO . INTEGUMENTARY: DO YOU HAVE ANY RASHES OR OPEN SORES? NO . ALLERGIC/IMMUNO: ARE YOU ALLERGIC TO IV DYE? NO . ANY NEW ALLERGIES? NO . PSYCHIATRIC: DO YOU HAVE THOUGHTS OF HURTING YOURSELF OR SOMEONE ELSE? NO . ARE YOU ABUSED, NEGLECTED, OR IN AN UNSAFE ENVIRONMENT? NO . ENDOCRINOLOGY: ARE YOU DIABETIC? NO . OTHER: DO YOU NEED ANY PRESCRIPTIONS? NO . IF YES, PLEASE LIST: ____ . ANY NEW PROBLEMS WITH YOUR MEDICATIONS? NO . WHEN DID YOU LAST EAT? 1999 . WHEN DID YOU LAST DRINK? 499 . WHAT DID YOU LAST DRINK? WATER . NAME OF PERSON DRIVING YOU HOME? KILEY SOTO . DO YOU HAVE ANY OTHER QUESTIONS OR CONCERNS NO . VITAL SIGNS WT 186.4 LBS, HT 67 IN, BMI 29.19 INDEX, BP 150/90 MM HG, HR 64 /MIN, RR 18 /MIN, TEMP 97.2 F, OXYGEN SAT % 99%, NA INITIALS SC 11:00, REVIEWED BY: ALEXUS. ASSESSMENTS SPONDYLOSIS OF CERVICAL REGION WITHOUT MYELOPATHY OR RADICULOPATHY - M47.812 (PRIMARY) PROCEDURES PN CERVICAL FACET BLOCK LOW BILATERAL CERVICAL PRE PROCEDURE DIAGNOSIS CERVICAL SPONDYLOSIS POST PROCEDURE DIAGNOSIS CERVICAL SPONDYLOSIS PROCEDURE BILATERAL C5-C6 AND BILATERAL C6-C7 CERVICAL FACET BLOCK SURGEON DR. 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 I EVALUATE THE PATIENT AND REVIEWED THE CHART. I WENT OVER THE RISKS, ALTERNATIVES, AND BENEFITS ASSOCIATED WITH THIS PROCEDURE. THE PATIENT WOULD LIKE TO PROCEED AND GIVE CONSENT TO PERFORMED THE PROCEDURE. THE PATIENT DENIES UNEXPLAINABLE WEIGHT LOSS, FEVER, CHILLS, OR NEW CHANGES IN URINARY OR BOWEL CONTROL. DESCRIPTION OF PROCEDURE THE PATIENT WAS BROUGHT TO THE PROCEDURE ROOM AND PLACED IN THE PRONE POSITION. THE CERVICOTHORACIC AREA WAS CLEANED WITH CHLORAPREP SOLUTION AND DRAPED ASEPTICALLY. THE PROCEDURE WAS DONE UNDER STERILE CONDITIONS. I CHECKED LATERALITY AND THE LEVEL WHERE THE PROCEDURE WAS GOING TO BE PERFORMED WITH THE PATIENT AND THE SUPPORTING STAFF AT THE MOMENT OF THE TIME OUT IN THE PROCEDURE ROOM. UNDER FLUOROSCOPIC GUIDANCE, TARGET POINT WAS SELECTED AT THE RIGHT AND LEFT C5-C6 CERVICAL FACET JOINT. TARGET POINTS WERE SELECTED AFTER LATERAL ROTATION AND TILT OF THE MAGNIFIER OF THE C-ARM. LIDOCAINE 0.5% WAS USED TO NUMB THE SKIN AND THE SUBCUTANEOUS TISSUE BELOW IT. SPINAL NEEDLES, 22-GAUGE, WERE ADVANCED UNDER FLUOROSCOPIC GUIDANCE AND FOLLOWING PATIENT FEEDBACK UNTIL THE TARGETS WERE TOUCHED. THE POSITION OF THE NEEDLES WAS VERIFIED WITH AP AND LATERAL VIEWS. AFTER PROPER POSITION OF THE NEEDLES WAS ACHIEVED, ISOVUE M DYE 30, 0.1 ML WAS INJECTED SHOWING SPREAD OF THE DYE. THEN A SOLUTION OF 0.9 ML OF BUPIVACAINE 0.125% AND KENALOG 10 MG WAS INJECTED AT EACH SITE. THERE WAS NO EVIDENCE OF BLOOD, PARESTHESIA OR CEREBROSPINAL FLUID DURING THE PROCEDURE. THE PATIENT WAS SENT TO THE RECOVERY ROOM. THE PATIENT WAS MOVING THE EXTREMITIES AND DOING WELL. THERE WAS NO COMPLICATION DURING THE PROCEDURE. FLUOROSCOPY TIME WAS 17 SECONDS POST PROCEDURE NOTE THE PATIENT WILL BE SEEN IN A FOLLOW UP IN THE NEXT FEW WEEKS. INSTRUCTIONS WERE GIVEN, QUESTIONS WERE ANSWERED, AND THE PATIENT EXPRESSED UNDERSTANDING AND AGREES WITH THE PLAN. I, DESIRAE DRAKE, DOCUMENTED THE ABOVE INFORMATION ACTING A SCRIBE FOR DR. DRAKE. I HAVE REVIEWED THE ABOVE DOCUMENT, WRITTEN BY DESIRAE HOLGUIN AND I VERIFY THAT IT IS ACCURATE. [facility]AGNOSTIC [facility] FACET BLOCK (PAIN)[id number] PROCEDURE CODES 6045F RADXPS IN END [id number] PXD [id number] INJ PARAVERT F JNT C/T 1 LEV, MODIFIERS: 50 [id number] INJ PARAVERT F JNT C/T 2 LEV, MODIFIERS: 50 DISPOSITION & COMMUNICATION FOLLOW UP 3 WEEKS ELECTRONICALLY SIGNED BY YESSICA DRAKE MD, MD ON 06/12/2018 AT 05:44 PM EST DISCLAIMER : THIS IS A VISIT SUMMARY EXTRACTED FROM THE SLID CHART. IT IS NOT A COPY OF THE SLID PROGRESS NOTE. MTDD
== END ==
LOC: M PAIN 11:15
PROVIDERS: ATTEND Anesthesiology
DX: G89.29 Other chronic pain (principal); M47.812 Spondylosis without myelopathy or radiculopathy, cervical region; K21.9 Gastro-esophageal reflux disease without esophagitis; Z79.899 Other long term (current) drug therapy; Z88.0 Allergy status to penicillin; Z88.8 Allergy status to other drugs, medicaments and biological substances; Z91.018 Allergy to other foods; Z91.09 Other allergy status, other than to drugs and biological substances; Z91.040 Latex allergy status; Z87.11 Personal history of peptic ulcer disease; Z87.820 Personal history of traumatic brain injury
CPT/HCPCS: 64490; 64491; J3301; Q9967

== ENCOUNTER → 2018-08-14 | Outpatient (CLI) | payer BC ==
[~2018-08-14] MED LIST changes: -BUPIVACAINE HCL 0.25% 30 ML VIAL As Ordered ONE; -ISOVUE-M 300 61% 15ML VIAL (Q9967) As Ordered ONE; -LIDOCAINE 1% SDV INJ 30 ML VIAL As Ordered ONE; -NORC1TAB4 PO; +NORC1TAB7 PO; -TRIAMCINOLONE ACETONIDE SUSP 40 MG/ML VIAL (J3301) As Ordered ONE; -diazePAM 5 MG TAB As Ordered ONE; -oxyCODONE 5MG TAB As Ordered ONE
--- NOTE | 2018-08-28 00:59 | ECWPNPC ---
PATIENT NAME: ALEX AVILES : 1975 GENDER: FEMALE VISIT DATE: 08/14/2018 DISCHARGE DATE: 08/14/18 1208 VISIT LOCKED DATE TIME: PHYSICIAN: NATHALIE GONGORA RESOURCE: NATHALIE GONGORA REASON FOR APPOINTMENT 1. POST PROC HISTORY OF PRESENT ILLNESS HISTORY OF PRESENT ILLNESS: HERE FOR POST PROCEDURE F/U.HAD BILATERAL C5/6-C6/7 THERAPEUTIC BLOCK ON 05/30/18.REPORTING SIGNIFICANT REDUCTION IN PAIN IN THIS AREA THAT CONTINUES TODAY.HAVING SPECIFIC RIGHT NECK SHARP PAIN AFTER HER GRANDSON PULLED ON HER NECK 3 DAYS AGO. PAIN THE PATIENT DESCRIBES THE PAIN... FALL RISK SCREENING: SCREENING :NO FALLS REPORTED IN THE LAST YEAR CURRENT MEDICATIONS TAKING RANITIDINE HCL 150 MG CAPSULE 1 CAPSULE ORALLY ONCE DAILY TAKING HYDROXYZINE HCL 25 MG TABLET 1-2 TABLETS NEEDED ORALLY AT BEDTIME NEEDED TAKING FLUTICASONE FUROATE 27.5 MCG/SPRAY SUSPENSION 1 SPRAY IN EACH NOSTRIL NASALLY TWICE A DAY TAKING PANTOPRAZOLE SODIUM 40 MG TABLET DELAYED RELEASE 1 TABLET ORALLY ONCE A DAY TAKING MIRALAX - POWDER 1 DOSE ORALLY ONCE A DAY NEEDED TAKING MONTELUKAST SODIUM 10 MG TABLET 1 TABLET IN THE EVENING ORALLY ONCE A DAY TAKING ASTELIN 1 SPRAY EACH NOSTRIL NASAL TWICE A DAY TAKING PROBIOTIC CAPSULE 1 TABLET ORALLY ONCE DAILY TAKING WELLBUTRIN SR 200 MG TABLET EXTENDED RELEASE 12 HOUR 1 TABLET IN THE MORNING ORALLY ONCE A DAY TAKING TIZANIDINE HCL 4 MG TABLET 1 TAB ORALLY BID TAKING NORCO 10-325 MG TABLET 1 TABLET NEEDED ORALLY Q8H PRN MDD3 TAKING MORPHINE SULFATE ER 15 MG TABLET EXTENDED RELEASE 1 TABLET ORALLY DAILY MDD1 TAKING CYMBALTA 30 MG CAPSULE DELAYED RELEASE PARTICLES 1 CAPSULE ORALLY DAILY MEDICATION LIST REVIEWED AND RECONCILED WITH THE PATIENT PAST MEDICAL HISTORY ANEMIA GERD STOMACH ULCERS WITH H PYLORI NECK AND LOW BACK PAIN 04/26/18 CONCUSSION FROM FALLING DOWN THE STAIRS AND HITTING HEAD ALLERGIES PENICILLIN: SWELLING - ALLERGY ORANGES: SWELLING,RASH - ALLERGY BANDAIDS AND ADHESIVES: REDDNESS AND SWELLING - ALLERGY LATEX GLOVES: REDDNESS AND SWELLING - ALLERGY TEGADERM: REDNESS, SWELLING - ALLERGY SURGICAL HISTORY RIGHT KNEE 1985 TUBAL LIGATION 2002 D&C 1996 MOLES REMOVED 2016 TOTAL HYSTERECTOMY 2017 FAMILY HISTORY FATHER: MOTHER: , DIAGNOSED WITH OTHER SIBLINGS: ALIVE PATERNAL GRAND FATHER: CANCER 3 BROTHER(S) , 4 SISTER(S) - HEALTHY. 1 SON(S) , 3 DAUGHTER(S) . FATHER FROM MVA, NO MEDICAL HISTORY \NMOTHER- DUE TO CHF, BRAIN TUMOR X 2, BREAST CA\NPATERNAL GRANDFATHER--CA-UNSURE OF WHAT KIND\NDAUGHTER - IRREGULAR HEART BEAT, ASTHMA\NDAUGHTER - HYPOTHYROID. SOCIAL HISTORY GENERAL: TOBACCO USE ARE YOU A:NONSMOKER LATEX QUESTIONNAIRE LATEX ALLERGY : HAVE YOU EVER DEVELOPED ANY TYPE OF REACTION AFTER HANDLING LATEX PRODUCTS SUCH RUBBER GLOVES, CONDOMS, DIAPHRAGMS, BALLOONS, SOCKS, OR UNDERWEAR?YES - PLEASE INDICATE :RUBBER GLOVES, CONDOMS, BALLOONS, OTHER (DOCUMENT IN NOTES) BANDAIDS LATEX ALLERGY : HAVE YOU EVER DEVELOPED ANY TYPE OF REACTION DURING OR AFTER DENTAL APPOINTMENT, VAGINAL/RECTAL EXAMINATION, SURGICAL PROCEDURE, OR ANY OTHER EXPOSURE?NO LATEX RISK : HAVE YOU EVER HAD ANY DIFFICULTY BREATHING OR HIVES AFTER EATING OR HANDLING ANY FRUITS, OR VEGETABLES; SUCH KIWI, BANANAS, STONE FRUITS, OR CHESTNUTSYES - PLEASE INDICATE : ORANGES LATEX RISK : DO YOU HAVE A PREVIOUS PERSONAL HISTORY OF MORE THAN NINE SURGERIES, SPINA BIFIDA, OR REPEATED CATHERTIZATIONS? NO LATEX RISK : ARE YOU FREQUENTLY EXPOSED TO LATEX PRODUCTS IN YOUR OCCUPATION?NO DATE ASKED : 08/14/2018 ALCOHOL SCREENING DID YOU HAVE A DRINK CONTAINING ALCOHOL IN THE PAST YEAR?NO POINTS0 INTERPRETATIONNEGATIVE RECREATIONAL DRUG USE DRUG USE?NO CAFFEINE CAFFEINE USE?YES HOW OFTEN AND HOW MUCH? 3 SODAS/DAY MOSQUE [id number] SY[place]GOGUE LANGUAGE LANGUAGES SPOKEN:TAMAZIGHT EDUCATION LEVEL OF EDUCATION:NOT FINISHED COLLEGE LEARNING BARRIERS / SPECIAL NEEDS BARRIERS TO LEARNING?NO HEARING IMPAIRED?NO VISION IMPAIRED?NO COGNITIVELY IMPAIRED?NO READINESS TO LEARN?YES DOMESTIC VIOLENCE DO YOU FEEL SAFE IN YOUR ENVIRONMENT?YES PAIN CLINIC PFS, CLERGY, PUBLIC HEALTH REFERRALS WAS THE PROVIDER NOTIFIED OF ANY PERTINENT INFO?YES HAS THE PATIENT BEEN EDUCATED REGARDING HIS/HER PLAN OF CARE?YES HAS THE PATIENT BEEN EDUCATED REGARDING PAIN, THE RISK FOR PAIN, THE IMPORTANCE OF EFFECTIVE PAIN MANAGEMENT, AND THE PAIN ASSESSMENT PROCESS?YES ADVANCE DIRECTIVE ADVANCE DIRECTIVE DISCUSSED WITH PATIENT:YES HCP-TREVON SPARKS [phone] REVIEWED WITH PT 02/17/18 1326 BVREVIEWED WITH PATIENT 03/08/18 1023 JSREVIEWED WITH PATIENT 03/30/18 1400 LAS05/08/18 REVIEWED WITH PT. AD. HOSPITALIZATION/MAJOR DIAGNOSTIC PROCEDURE CHILD 12/18/1991 CHILD 11/01/1996 CHILD 11/23/1998 CHILD 01/29/2002 HYSTERECTOMY 2017 KNEE SURGERY ALLERGIC REACTION AGE 2 OR 3 REVIEW OF SYSTEMS REVIEWED BY: PROVIDER: NATHALIE SUAZO . CONSTITUTIONAL: ANY CHANGE IN YOUR MEDICAL CONDITION? NO . CHILLS NO . FEVER NO . INFECTION: DO YOU HAVE NEW INFECTIONS? NO . DO YOU HAVE HISTORY OF MRSA? NO . MUSCULOSKELETAL: ANY NEW PATTERNS OF PAIN OR NUMBNESS? NO . GASTROENTEROLOGY: ANY NEW CHANGE IN BOWEL CONTROL? NO . GENITOURINARY: ANY NEW CHANGE IN BLADDER CONTROL? NO . IS THERE A CHANCE YOU COULD BE ? NO . HEMATOLOGY/LYMPH: DO YOU TAKE ANY BLOOD THINNERS? (FOR EXAMPLE- COUMADIN, PLAVIX, AGGRENOX, PLATEL, PRADAXA, OR XARELTO) NO . WHEN WAS YOUR LAST DOSE? DATE: TIME: . NEUROLOGY: HAVE YOU FALLEN IN THE PAST 12 MONTHS? YES, PT STATES THAT SHE FELL WHILE AT HOME, ON STAIRS, BRUISING, CALLED AMBULANCE, REPORTED TO ED SAME DAY FOR TREATMENT, NO FRACTURES . ANY NEW EXTREMITY NUMBNESS OR WEAKNESS? PAIN STATES THAT SHE HAD NUMBNESS IN RIGHT NECK AREA FOR ABOUT 1 MONTH AFTER TREATMENT . CARDIOLOGY: DO YOU HAVE A PACEMAKER OR DEFIBRILLATOR? NO . RESPIRATORY: HAVE YOU BEEN SICK IN THE PAST WEEK? NO . FEVER NO . FLU LIKE SYMPTOMS? NO . COUGH NO . INTEGUMENTARY: DO YOU HAVE ANY RASHES OR OPEN SORES? NO . ALLERGIC/IMMUNO: ARE YOU ALLERGIC TO IV DYE? NO . ANY NEW ALLERGIES? NO . PSYCHIATRIC: DO YOU HAVE THOUGHTS OF HURTING YOURSELF OR SOMEONE ELSE? NO . ARE YOU ABUSED, NEGLECTED, OR IN AN UNSAFE ENVIRONMENT? NO . ENDOCRINOLOGY: ARE YOU DIABETIC? NO . OTHER: DO YOU NEED ANY PRESCRIPTIONS? NO . IF YES, PLEASE LIST: ____ . ANY NEW PROBLEMS WITH YOUR MEDICATIONS? NO . WHEN DID YOU LAST EAT? ____ . WHEN DID YOU LAST DRINK? ____ . WHAT DID YOU LAST DRINK? ____ . NAME OF PERSON DRIVING YOU HOME? ____ . DO YOU HAVE ANY OTHER QUESTIONS OR CONCERNS PT STATES THAT TREATMENT WORKED FOR ABOUT 2 MONTHS . VITAL SIGNS WT 194.8 LBS, HT 67 IN, BMI 30.51 INDEX, BP 124/76 MM HG, HR 85 /MIN, RR 18 /MIN, TEMP 97.5 F, OXYGEN SAT % 96%, SAFE IN ENV? (Y/N) Y, NA INITIALS AW 1124, REVIEWED BY: JOANNA. EXAMINATION GENERAL EXAMINATION: GENERAL APPEARANCE:ALERT/APPEARS UNCOMFORTABLE . PSYCHAFFECT NORMAL . LUNGS:LUNG ALVARES ARE CLEAR TO AUSCULTATION BILATERALLY. GOOD MOVEMENT OF AIR . HEART:S1, S2 IN A REGULAR RATE AND RHYTHM. NO SIGNIFICANT MURMURS, RUBS OR GALLOPS NOTED . MUSCULOSKELETAL:TRIGGER POINTS:, ELICITED WITH PALPATION OVER RIGHT LUMBAR PARAVERTEBRAL MUSCLES. RESTRICTION OF ROM IN THIS AREA. THORACIC SPINETENDER WITH PALPATION OVER UPPER THORACIC SPINE AND RIGHT PARASPINAL. . CERVICALROJM NECK DECREASED DUE TO PAIN AND STIFFNESS.TRIGGER POINTS ELICITED IN RIGHT TRAPEZIUS.TENDER WITH PALPATION OVER CERVICAL AXIS . DIAGNOSTIC TESTS REVIEWEDCT SCAN NECK-10/2017 NCS RIGHT ARM -06/2016 . ASSESSMENTS MYALGIA OF MUSCLE OF NECK - M79.18 (PRIMARY) CERVICAL SPONDYLOSIS WITHOUT MYELOPATHY - M47.812 TREATMENT MYALGIA OF MUSCLE OF NECK CONTINUE TIZANIDINE HCL TABLET, 4 MG, 1 TAB, ORALLY, BID REFILL NORCO TABLET, 10-325 MG, 1 TABLET NEEDED, ORALLY, Q8H PRN MDD3, 30 DAY(S), 90, REFILLS 0 REFILL MORPHINE SULFATE ER TABLET EXTENDED RELEASE, 15 MG, 1 TABLET, ORALLY, DAILY MDD1, 30 DAY(S), 30, REFILLS 0 CONTINUE CYMBALTA CAPSULE DELAYED RELEASE PARTICLES, 30 MG, 1 CAPSULE, ORALLY, DAILY NOTES: TPI RIGHT TRAPEZIUS/SCALENE, ISTOP REGISTRY REVIEWED AND DEMONSTRATES COMPLLIANCE. BRINGS IN MEDICATIONS WHICH IS APPROPRIATE FOR WHAT WAS DISPENSED. RECENT URINE TOXICOLOGY REVIEWED. NO UNAUTHORIZED MEDICATIONS. NO ILLICIT SUBSTANCES AND PRESCRIBED MEDICATIONS WERE PRESENT. URINE TOX TODAY, RISKS AND BENEFITS OF NARCOTIC/OPIOD MEDICATIONS WERE REVIEWED WITH PATIENT - THIS INCLUDES BUT IS NOT LIMITED TO RISK OF DEPENDANCE/DEVELOPMENT OF ADDICTION, MOOD DISTURBANCE AND DEPRESSION, OSTEOPOROSIS, HORMONAL AND LABIDAL CHANGES, RESPIRATORY DEPRESSION AND . PATIENT IS ADVISED NOT TO DRIVE OR DRINK ALCOHOL WHILE ON THESE MEDICATIONS. PREVENTIVE MEDICINE PAIN CLINIC TEACHING: PROCEDURE TEACHING REVIEWED TRIGGER POINT PROCEDURE INFORMATION WITH PATIENT. ALSO REVIEWED PRE-PROCEDURE INSTRUCTIONS. PATIENT VERBALIZED AN UNDERSTANDING. FIORELLA MORALES 08/14/2018 12:08:37 PM > . PROCEDURE CODES FA211 ESTABILISHED PATIENT [facility] CHARGE DISPOSITION & COMMUNICATION FOLLOW UP POST (REASON: TPI RIGHT TRAPEZIUS/SCALENE) ELECTRONICALLY SIGNED BY GABRIELE DAWSON ON 08/27/2018 AT 07:34 PM EDT DISCLAIMER : THIS IS A VISIT SUMMARY EXTRACTED FROM THE ECL[employer]ICAL[employer]KS CHART. IT IS NOT A COPY OF THE [employer]ICAL[employer]KS PROGRESS NOTE. JOSE
== END ==
LOC: M PAIN 10:30
PROVIDERS: ATTEND Nurse Practitioner Family
DX: M79.18 Myalgia, other site (principal); M47.812 Spondylosis without myelopathy or radiculopathy, cervical region; K21.9 Gastro-esophageal reflux disease without esophagitis; Z88.0 Allergy status to penicillin; Z91.018 Allergy to other foods; Z91.040 Latex allergy status; Z91.09 Other allergy status, other than to drugs and biological substances; Z79.891 Long term (current) use of opiate analgesic; Z79.899 Other long term (current) drug therapy

== ENCOUNTER → 2018-08-30 | Outpatient (CLI) | payer BC ==
[~2018-08-30] MED LIST changes: +BUPIVACAINE HCL 0.25% 10 ML VIAL As Ordered ONE; +BUPIVACAINE HCL 0.25% 30 ML VIAL As Ordered ONE; +TRIAMCINOLONE ACETONIDE SUSP 40 MG/ML VIAL (J3301) As Ordered ONE; +diazePAM 5 MG TAB As Ordered ONE; +oxyCODONE 5MG TAB As Ordered ONE
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
== END ==
LOC: M PAIN 12:00
PROVIDERS: ATTEND Anesthesiology
DX: M79.18 Myalgia, other site (principal); M54.2 Cervicalgia; M25.511 Pain in right shoulder; K21.9 Gastro-esophageal reflux disease without esophagitis; Z79.891 Long term (current) use of opiate analgesic; Z79.899 Other long term (current) drug therapy; Z88.0 Allergy status to penicillin; Z88.8 Allergy status to other drugs, medicaments and biological substances; Z91.018 Allergy to other foods; Z91.09 Other allergy status, other than to drugs and biological substances; Z91.040 Latex allergy status; Z87.11 Personal history of peptic ulcer disease; Z87.820 Personal history of traumatic brain injury
CPT/HCPCS: 20552; J3301

== ENCOUNTER → 2018-09-13 | Outpatient (CLI) | payer BC ==
[~2018-09-13] MED LIST changes: -BUPIVACAINE HCL 0.25% 10 ML VIAL As Ordered ONE; -BUPIVACAINE HCL 0.25% 30 ML VIAL As Ordered ONE; -TRIAMCINOLONE ACETONIDE SUSP 40 MG/ML VIAL (J3301) As Ordered ONE; -diazePAM 5 MG TAB As Ordered ONE; -oxyCODONE 5MG TAB As Ordered ONE
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
== END ==
LOC: M PAIN 10:00
PROVIDERS: ATTEND Nurse Practitioner Family
DX: M79.12 Myalgia of auxiliary muscles, head and neck (principal); K21.9 Gastro-esophageal reflux disease without esophagitis; Z79.891 Long term (current) use of opiate analgesic; Z79.899 Other long term (current) drug therapy; Z88.0 Allergy status to penicillin; Z88.8 Allergy status to other drugs, medicaments and biological substances; Z91.018 Allergy to other foods; Z91.09 Other allergy status, other than to drugs and biological substances; Z91.040 Latex allergy status; Z87.11 Personal history of peptic ulcer disease; Z87.820 Personal history of traumatic brain injury

== ENCOUNTER → 2018-10-04 | Outpatient (CLI) | payer BC ==
[~2018-10-04] MED LIST changes: +BUPIVACAINE HCL 0.25% 10 ML VIAL As Ordered ONE; +BUPIVACAINE HCL 0.25% 30 ML VIAL As Ordered ONE; +TRAZ1TAB11 PO; -TRAZ25TA PO; +TRIAMCINOLONE ACETONIDE SUSP 40 MG/ML VIAL (J3301) As Ordered ONE; +diazePAM 5 MG TAB As Ordered ONE; +oxyCODONE 5MG TAB As Ordered ONE
--- NOTE | 2018-10-07 01:55 | ECWPNPC ---
PATIENT NAME: ALEX AVILES : 1975 GENDER: FEMALE VISIT DATE: 10/04/2018 DISCHARGE DATE: 10/04/18 1354 VISIT LOCKED DATE TIME: PHYSICIAN: YESSICA DRAKE MD RESOURCE: YESSICA DRAKE MD REASON FOR APPOINTMENT 1. TPI RIGHT NECK, SHOULDER HISTORY OF PRESENT ILLNESS HISTORY OF PRESENT ILLNESS: PAIN THE PATIENT DESCRIBES THE PAIN... FALL RISK SCREENING: SCREENING :NO FALLS REPORTED IN THE LAST YEAR CURRENT MEDICATIONS TAKING RANITIDINE HCL 150 MG CAPSULE 1 CAPSULE ORALLY ONCE DAILY, NOTES: 10-03-18699 TAKING HYDROXYZINE HCL 25 MG TABLET 1-2 TABLETS NEEDED ORALLY AT BEDTIME NEEDED, NOTES: 10-03-181999 TAKING FLUTICASONE FUROATE 27.5 MCG/SPRAY SUSPENSION 1 SPRAY IN EACH NOSTRIL NASALLY TWICE A DAY, NOTES: 10-03-18699 TAKING PANTOPRAZOLE SODIUM 40 MG TABLET DELAYED RELEASE 1 TABLET ORALLY ONCE A DAY, NOTES: 10-03-18699 TAKING MIRALAX - POWDER 1 DOSE ORALLY ONCE A DAY NEEDED, NOTES: ONE WEEK AGO TAKING MONTELUKAST SODIUM 10 MG TABLET 1 TABLET IN THE EVENING ORALLY ONCE A DAY, NOTES: 10-03-181999 TAKING ASTELIN 1 SPRAY EACH NOSTRIL NASAL TWICE A DAY, NOTES: 10-03-181199 TAKING PROBIOTIC CAPSULE 1 TABLET ORALLY ONCE DAILY, NOTES: 10-03-18699 TAKING WELLBUTRIN SR 200 MG TABLET EXTENDED RELEASE 12 HOUR 1 TABLET IN THE MORNING ORALLY ONCE A DAY, NOTES: 10-03-18699 TAKING MORPHINE SULFATE ER 15 MG TABLET EXTENDED RELEASE 1 TABLET ORALLY DAILY MDD1, NOTES: 10-03-18699 TAKING CYMBALTA 30 MG CAPSULE DELAYED RELEASE PARTICLES 1 CAPSULE ORALLY DAILY, NOTES: 10-03-18699 TAKING NORCO 10-325 MG TABLET 1 TABLET NEEDED ORALLY Q8H PRN MDD3, NOTES: 10-03-182199 TAKING TIZANIDINE HCL 4 MG TABLET 1 TAB ORALLY BID, NOTES: 10-03-181499 MEDICATION LIST REVIEWED AND RECONCILED WITH THE PATIENT PAST MEDICAL HISTORY ANEMIA GERD STOMACH ULCERS WITH H PYLORI NECK AND LOW BACK PAIN 04/26/18 CONCUSSION FROM FALLING DOWN THE STAIRS AND HITTING HEAD LEFT EYE BLIND SINCE ALLERGIES PENICILLIN: SWELLING - ALLERGY ORANGES: SWELLING,RASH - ALLERGY BANDAIDS AND ADHESIVES: REDDNESS AND SWELLING - ALLERGY LATEX GLOVES: REDDNESS AND SWELLING - ALLERGY TEGADERM: REDNESS, SWELLING - ALLERGY SURGICAL HISTORY RIGHT KNEE 1985 TUBAL LIGATION 2001 D&C 1996 MOLES REMOVED 2016 TOTAL HYSTERECTOMY 2017 COLONOSCOPY/ENDOSCOPY 2019 FAMILY HISTORY FATHER: MOTHER: , DIAGNOSED WITH OTHER SIBLINGS: ALIVE PATERNAL GRAND FATHER: CANCER 3 BROTHER(S) , 4 SISTER(S) - HEALTHY. 1 SON(S) , 3 DAUGHTER(S) . FATHER FROM MVA, NO MEDICAL HISTORY \\NMOTHER- DUE TO CHF, BRAIN TUMOR X 2, BREAST CA\\NPATERNAL GRANDFATHER--CA-UNSURE OF WHAT KIND\\NDAUGHTER - IRREGULAR HEART BEAT, ASTHMA\\NDAUGHTER - HYPOTHYROID. SOCIAL HISTORY GENERAL: TOBACCO USE ARE YOU A:NONSMOKER PAIN CLINIC PFS, CLERGY, PUBLIC HEALTH REFERRALS WAS THE PROVIDER NOTIFIED OF ANY PERTINENT INFO?YES HAS THE PATIENT BEEN EDUCATED REGARDING HIS/HER PLAN OF CARE?YES HAS THE PATIENT BEEN EDUCATED REGARDING PAIN, THE RISK FOR PAIN, THE IMPORTANCE OF EFFECTIVE PAIN MANAGEMENT, AND THE PAIN ASSESSMENT PROCESS?YES LATEX QUESTIONNAIRE LATEX ALLERGY : HAVE YOU EVER DEVELOPED ANY TYPE OF REACTION AFTER HANDLING LATEX PRODUCTS SUCH RUBBER GLOVES, CONDOMS, DIAPHRAGMS, BALLOONS, SOCKS, OR UNDERWEAR?YES - PLEASE INDICATE :RUBBER GLOVES, CONDOMS, BALLOONS, OTHER (DOCUMENT IN NOTES) BANDAIDS LATEX ALLERGY : HAVE YOU EVER DEVELOPED ANY TYPE OF REACTION DURING OR AFTER DENTAL APPOINTMENT, VAGINAL/RECTAL EXAMINATION, SURGICAL PROCEDURE, OR ANY OTHER EXPOSURE?NO LATEX RISK : HAVE YOU EVER HAD ANY DIFFICULTY BREATHING OR HIVES AFTER EATING OR HANDLING ANY FRUITS, OR VEGETABLES; SUCH KIWI, BANANAS, STONE FRUITS, OR CHESTNUTSYES - PLEASE INDICATE : ORANGES LATEX RISK : DO YOU HAVE A PREVIOUS PERSONAL HISTORY OF MORE THAN NINE SURGERIES, SPINA BIFIDA, OR REPEATED CATHERTIZATIONS? NO LATEX RISK : ARE YOU FREQUENTLY EXPOSED TO LATEX PRODUCTS IN YOUR OCCUPATION?NO DATE ASKED : 08/14/2018 CAFFEINE CAFFEINE USE?YES HOW OFTEN AND HOW MUCH? 3 SODAS/DAY ADVANCE DIRECTIVE ADVANCE DIRECTIVE DISCUSSED WITH PATIENT:YES HCP-TREVON SPARKS [phone] EDUCATION LEVEL OF EDUCATION:NOT FINISHED COLLEGE ANGLICAN [id number] EVANGELICAL LANGUAGE LANGUAGES SPOKEN:SYRIAN DOMESTIC VIOLENCE DO YOU FEEL SAFE IN YOUR ENVIRONMENT?YES ALCOHOL SCREENING DID YOU HAVE A DRINK CONTAINING ALCOHOL IN THE PAST YEAR?NO POINTS0 INTERPRETATIONNEGATIVE RECREATIONAL DRUG USE DRUG USE?NO LEARNING BARRIERS / SPECIAL NEEDS BARRIERS TO LEARNING?NO HEARING IMPAIRED?NO VISION IMPAIRED?NO COGNITIVELY IMPAIRED?NO READINESS TO LEARN?YES REVIEWED WITH PT 02/17/18 1326 BVREVIEWED WITH PATIENT 03/08/18 1023 JSREVIEWED WITH PATIENT 03/30/18 1400 LAS05/08/18 REVIEWED WITH PT. RUSTY ARASELI. HOSPITALIZATION/MAJOR DIAGNOSTIC PROCEDURE CHILD 12/18/1991 CHILD 11/01/1996 CHILD 11/23/1998 CHILD 01/29/2002 HYSTERECTOMY 2017 KNEE SURGERY ALLERGIC REACTION AGE 2 OR 3 REVIEW OF SYSTEMS REVIEWED BY: PROVIDER: . CONSTITUTIONAL: ANY CHANGE IN YOUR MEDICAL CONDITION? NO . CHILLS NO . FEVER NO . INFECTION: DO YOU HAVE NEW INFECTIONS? NO . DO YOU HAVE HISTORY OF MRSA? NO . MUSCULOSKELETAL: ANY NEW PATTERNS OF PAIN OR NUMBNESS? NO . GASTROENTEROLOGY: ANY NEW CHANGE IN BOWEL CONTROL? NO . GENITOURINARY: ANY NEW CHANGE IN BLADDER CONTROL? NO . IS THERE A CHANCE YOU COULD BE ? NO . HEMATOLOGY/LYMPH: DO YOU TAKE ANY BLOOD THINNERS? (FOR EXAMPLE- COUMADIN, PLAVIX, AGGRENOX, PLATEL, PRADAXA, OR XARELTO) NO . WHEN WAS YOUR LAST DOSE? DATE: TIME: . NEUROLOGY: HAVE YOU FALLEN IN THE PAST 12 MONTHS? YESPATIENT FELL ABBIE ALREADY DISCUSSED WITH PROVIDER . ANY NEW EXTREMITY NUMBNESS OR WEAKNESS? NO . CARDIOLOGY: DO YOU HAVE A PACEMAKER OR DEFIBRILLATOR? NO . RESPIRATORY: HAVE YOU BEEN SICK IN THE PAST WEEK? NO . FEVER NO . FLU LIKE SYMPTOMS? NO . COUGH NO . INTEGUMENTARY: DO YOU HAVE ANY RASHES OR OPEN SORES? NO . ALLERGIC/IMMUNO: ARE YOU ALLERGIC TO IV DYE? NO . ANY NEW ALLERGIES? NO . PSYCHIATRIC: DO YOU HAVE THOUGHTS OF HURTING YOURSELF OR SOMEONE ELSE? NO . ARE YOU ABUSED, NEGLECTED, OR IN AN UNSAFE ENVIRONMENT? NO . ENDOCRINOLOGY: ARE YOU DIABETIC? NO . OTHER: DO YOU NEED ANY PRESCRIPTIONS? NO . IF YES, PLEASE LIST: ____ . ANY NEW PROBLEMS WITH YOUR MEDICATIONS? NO . WHEN DID YOU LAST EAT? ____[id number] . WHEN DID YOU LAST DRINK? ____10-04-18599 . WHAT DID YOU LAST DRINK? ____WATER . NAME OF PERSON DRIVING YOU HOME? ____KILEY SOTO . DO YOU HAVE ANY OTHER QUESTIONS OR CONCERNS NO . VITAL SIGNS WT 192.4 LBS, HT 67 IN, BMI 30.13 INDEX, BP 115/63 MM HG, HR 67 /MIN, RR 18 /MIN, TEMP 97.8 F, OXYGEN SAT % 100, NA INITIALS MP 1122, REVIEWED BY: NLJ. ASSESSMENTS MYALGIA, OTHER SITE - M79.18 (PRIMARY) PROCEDURES PN TRIGGER POINT INJECTION WITH STEROIDS PRE PROCEDURE DIAGNOSIS 1. MYALGIA 2. PAIN AT RIGHT NECK AREA AND RIGHT SHOULDER AREA POST PROCEDURE DIAGNOSIS 1. MYALGIA 2. PAIN AT RIGHT NECK AREA AND RIGHT SHOULDER AREA PROCEDURE TRIGGER POINT INJECTION AT RIGHT NECK AREA AND RIGHT SHOULDER AREA SURGEON DR. YESSICA DRAKE PROP WORKER NONE ANESTHESIA LOCAL PRE PROCEDURE NOTE THE PATIENT HAS A HISTORY OF CHRONIC PAIN AT THE RIGHT NECK AREA AND RIGHT SHOULDER AREA. I EVALUATE THE PATIENT AND REVIEWED THE CHART. THERE IS EVIDENCE OF BANDS OF TISSUE WITH RESTRICTION OF MOVEMENT AND PRESENCE OF TRIGGER POINT AT THE AFFECTED AREA. I WENT OVER THE RISKS, ALTERNATIVES, AND BENEFITS ASSOCIATED WITH THIS PROCEDURE. THE PATIENT WOULD LIKE TO PROCEED AND GIVE CONSENT TO PERFORMED THE PROCEDURE. THE PATIENT DENIES UNEXPLAINABLE WEIGHT LOSS, FEVER, CHILLS, OR NEW CHANGES IN URINARY OR BOWEL CONTROL DESCRIPTION OF PROCEDURE THE PATIENT WAS BROUGHT TO THE PROCEDURE ROOM AND PLACED IN THE SITTING POSITION. THE AREA WAS CLEANED WITH ALCOHOL. THE PROCEDURE WAS DONE USING ASEPTIC STERILE TECHNIQUE. I CHECKED LATERALITY AND THE LEVEL WHERE THE PROCEDURE WAS GOING TO BE PERFORMED WITH THE PATIENT AND THE SUPPORTING STAFF AT THE MOMENT OF THE TIME OUT IN THE PROCEDURE ROOM. USING A 25-GAUGE NEEDLE, TRIGGER POINTS WERE INJECTED AT THE RIGHT NECK AREA AND RIGHT SHOULDER AREA WITH A TOTAL OF 40 ML OF BUPIVACAINE 0.25% AND KENALOG 40 MG. THERE WAS NO EVIDENCE OF BLOOD, PARESTHESIA OR CEREBROSPINAL FLUID DURING THE PROCEDURE. THE PATIENT WAS SENT TO THE RECOVERY ROOM. THE PATIENT WAS MOVING THE EXTREMITIES AND DOING WELL. THERE WAS NO COMPLICATION DURING THE PROCEDURE POST PROCEDURE NOTE THE PATIENT WILL BE SEEN IN A FOLLOW UP IN THE NEXT FEW WEEKS. INSTRUCTIONS WERE GIVEN, QUESTIONS WERE ANSWERED, AND THE PATIENT EXPRESSED UNDERSTANDING AND AGREES WITH THE PLAN. I, DESIRAE DRAKE, DOCUMENTED THE ABOVE INFORMATION ACTING A SCRIBE FOR DR. DRAKE. I HAVE REVIEWED THE ABOVE DOCUMENT, WRITTEN BY DESIRAE SMITHIBDemarco AND I VERIFY THAT IT IS ACCURATE. PROCEDURE CODES 67702 INJ TRIGGER POINT / MUSC DISPOSITION & COMMUNICATION FOLLOW UP 3 WEEKS ELECTRONICALLY SIGNED BY YESSICA DRAKE MD, MD ON 10/06/2018 AT 05:15 PM EDT DISCLAIMER : THIS IS A VISIT SUMMARY EXTRACTED FROM THE [employer] CHART. IT IS NOT A COPY OF THE [employer] PROGRESS NOTE. JOSE
== END ==
LOC: M PAIN 11:15
PROVIDERS: ATTEND Anesthesiology
DX: M79.18 Myalgia, other site (principal); F64.9 Gender identity disorder, unspecified; K21.9 Gastro-esophageal reflux disease without esophagitis; M54.2 Cervicalgia; M54.5 Low back pain; H54.62 Unqualified visual loss, left eye, normal vision right eye; Z79.891 Long term (current) use of opiate analgesic; Z79.899 Other long term (current) drug therapy; Z88.0 Allergy status to penicillin; Z88.8 Allergy status to other drugs, medicaments and biological substances; Z91.018 Allergy to other foods; Z91.040 Latex allergy status; Z91.048 Other nonmedicinal substance allergy status
CPT/HCPCS: 20552; J3301

== ENCOUNTER → 2018-11-08 | Outpatient (CLI) | payer BC ==
[~2018-11-08] MED LIST changes: -BUPIVACAINE HCL 0.25% 10 ML VIAL As Ordered ONE; -BUPIVACAINE HCL 0.25% 30 ML VIAL As Ordered ONE; -TRIAMCINOLONE ACETONIDE SUSP 40 MG/ML VIAL (J3301) As Ordered ONE; -diazePAM 5 MG TAB As Ordered ONE; -oxyCODONE 5MG TAB As Ordered ONE
--- NOTE | 2018-11-17 23:58 | ECWPNPC ---
PATIENT NAME: ALEX AVILES : 1975 GENDER: FEMALE VISIT DATE: 11/08/2018 DISCHARGE DATE: 11/08/18 1501 VISIT LOCKED DATE TIME: PHYSICIAN: NATHALIE GONGORA RESOURCE: NATHALIE GONGORA HISTORY OF PRESENT ILLNESS HISTORY OF PRESENT ILLNESS: HERE FOR F/U ON URGENT BASIS.HAD TPI RIGHT RHOMBOID /NECK AND THIS HELPED FOR APPROXIMATLEY 2 WEEKS THEN PAIN RETURNED ABRUPTLY.RIGHT NECK REMAINS PAINFUL.RATING PAIN VAS 9/10. PAIN THE PATIENT DESCRIBES THE PAIN... FALL RISK SCREENING: SCREENING :NO FALLS REPORTED IN THE LAST YEAR CURRENT MEDICATIONS TAKING RANITIDINE HCL 150 MG CAPSULE 1 CAPSULE ORALLY ONCE DAILY, NOTES: 10-03-18699 TAKING HYDROXYZINE HCL 25 MG TABLET 2 TABS ORALLY AT BEDTIME NEEDED, NOTES: 10-03-181999 TAKING FLUTICASONE FUROATE 27.5 MCG/SPRAY SUSPENSION 1 SPRAY IN EACH NOSTRIL NASALLY TWICE A DAY, NOTES: 10-03-18699 TAKING PANTOPRAZOLE SODIUM 40 MG TABLET DELAYED RELEASE 1 TABLET ORALLY ONCE A DAY, NOTES: 10-03-18699 TAKING MIRALAX - POWDER 1 DOSE ORALLY ONCE A DAY NEEDED, NOTES: ONE WEEK AGO TAKING MONTELUKAST SODIUM 10 MG TABLET 1 TABLET IN THE EVENING ORALLY ONCE A DAY, NOTES: 10-03-181999 TAKING ASTELIN 1 SPRAY EACH NOSTRIL NASAL TWICE A DAY, NOTES: 10-03-181199 TAKING PROBIOTIC CAPSULE 1 TABLET ORALLY ONCE DAILY, NOTES: 10-03-18699 TAKING WELLBUTRIN SR 200 MG TABLET EXTENDED RELEASE 12 HOUR 1 TABLET IN THE MORNING ORALLY ONCE A DAY, NOTES: 10-03-18699 TAKING CYMBALTA 30 MG CAPSULE DELAYED RELEASE PARTICLES 1 CAPSULE ORALLY DAILY, NOTES: 10-03-18699 TAKING TIZANIDINE HCL 4 MG TABLET 1 TAB ORALLY BID, NOTES: 10-03-18 1500 TAKING NORCO 10-325 MG TABLET 1 TABLET NEEDED ORALLY Q8H PRN MDD3, NOTES: 10-03-182199 TAKING MORPHINE SULFATE ER 15 MG TABLET EXTENDED RELEASE 1 TABLET ORALLY DAILY MDD1, NOTES: 10-03-18699 MEDICATION LIST REVIEWED AND RECONCILED WITH THE PATIENT PAST MEDICAL HISTORY ANEMIA GERD STOMACH ULCERS WITH H PYLORI NECK AND LOW BACK PAIN 04/26/18 CONCUSSION FROM FALLING DOWN THE STAIRS AND HITTING HEAD LEFT EYE BLIND SINCE ALLERGIES PENICILLIN: SWELLING - ALLERGY ORANGES: SWELLING,RASH - ALLERGY BANDAIDS AND ADHESIVES: REDDNESS AND SWELLING - ALLERGY LATEX GLOVES: REDDNESS AND SWELLING - ALLERGY TEGADERM: REDNESS, SWELLING - ALLERGY SURGICAL HISTORY RIGHT KNEE 1985 TUBAL LIGATION 2001 D&C 1996 MOLES REMOVED 2016 TOTAL HYSTERECTOMY 2017 COLONOSCOPY/ENDOSCOPY 2019 FAMILY HISTORY FATHER: MOTHER: , DIAGNOSED WITH OTHER SIBLINGS: ALIVE PATERNAL GRAND FATHER: CANCER 3 BROTHER(S) , 4 SISTER(S) - HEALTHY. 1 SON(S) , 3 DAUGHTER(S) . FATHER FROM MVA, NO MEDICAL HISTORY \\NMOTHER- DUE TO CHF, BRAIN TUMOR X 2, BREAST CA\\NPATERNAL GRANDFATHER--CA-UNSURE OF WHAT KIND\\NDAUGHTER - IRREGULAR HEART BEAT, ASTHMA\\NDAUGHTER - HYPOTHYROID. SOCIAL HISTORY GENERAL: TOBACCO USE ARE YOU A:NONSMOKER PAIN CLINIC PFS, CLERGY, PUBLIC HEALTH REFERRALS WAS THE PROVIDER NOTIFIED OF ANY PERTINENT INFO?YES HAS THE PATIENT BEEN EDUCATED REGARDING HIS/HER PLAN OF CARE?YES HAS THE PATIENT BEEN EDUCATED REGARDING PAIN, THE RISK FOR PAIN, THE IMPORTANCE OF EFFECTIVE PAIN MANAGEMENT, AND THE PAIN ASSESSMENT PROCESS?YES LATEX QUESTIONNAIRE LATEX ALLERGY : HAVE YOU EVER DEVELOPED ANY TYPE OF REACTION AFTER HANDLING LATEX PRODUCTS SUCH RUBBER GLOVES, CONDOMS, DIAPHRAGMS, BALLOONS, SOCKS, OR UNDERWEAR?YES - PLEASE INDICATE :RUBBER GLOVES, CONDOMS, BALLOONS, OTHER (DOCUMENT IN NOTES) BANDAIDS LATEX ALLERGY : HAVE YOU EVER DEVELOPED ANY TYPE OF REACTION DURING OR AFTER DENTAL APPOINTMENT, VAGINAL/RECTAL EXAMINATION, SURGICAL PROCEDURE, OR ANY OTHER EXPOSURE?NO LATEX RISK : HAVE YOU EVER HAD ANY DIFFICULTY BREATHING OR HIVES AFTER EATING OR HANDLING ANY FRUITS, OR VEGETABLES; SUCH KIWI, BANANAS, STONE FRUITS, OR CHESTNUTSYES - PLEASE INDICATE : ORANGES LATEX RISK : DO YOU HAVE A PREVIOUS PERSONAL HISTORY OF MORE THAN NINE SURGERIES, SPINA BIFIDA, OR REPEATED CATHERIZATIONS? NO LATEX RISK : ARE YOU FREQUENTLY EXPOSED TO LATEX PRODUCTS IN YOUR OCCUPATION?NO DATE ASKED : 08/14/2018 CAFFEINE CAFFEINE USE?YES HOW OFTEN AND HOW MUCH? 3 SODAS/DAY ADVANCE DIRECTIVE ADVANCE DIRECTIVE DISCUSSED WITH PATIENT:YES HCP-TREVON SPARKS [phone] EDUCATION LEVEL OF EDUCATION:NOT FINISHED COLLEGE YAZDANISM [id number] ROMAN CATHOLIC LANGUAGE LANGUAGES SPOKEN:BHUTANESE DOMESTIC VIOLENCE DO YOU FEEL SAFE IN YOUR ENVIRONMENT?YES ALCOHOL SCREENING DID YOU HAVE A DRINK CONTAINING ALCOHOL IN THE PAST YEAR?NO POINTS0 INTERPRETATIONNEGATIVE RECREATIONAL DRUG USE DRUG USE?NO LEARNING BARRIERS / SPECIAL NEEDS BARRIERS TO LEARNING?NO HEARING IMPAIRED?NO VISION IMPAIRED?NO COGNITIVELY IMPAIRED?NO READINESS TO LEARN?YES REVIEWED WITH PT 02/17/18 1326 BVREVIEWED WITH PATIENT 03/08/18 1023 JSREVIEWED WITH PATIENT 03/30/18 1400 LAS05/08/18 REVIEWED WITH PT. RUSTY NLJ. HOSPITALIZATION/MAJOR DIAGNOSTIC PROCEDURE CHILD 12/18/1991 CHILD 11/01/1996 CHILD 11/23/1998 CHILD 01/29/2002 HYSTERECTOMY 2017 KNEE SURGERY ALLERGIC REACTION AGE 2 OR 3 REVIEW OF SYSTEMS REVIEWED BY: PROVIDER: NATHALIE SUAZO . CONSTITUTIONAL: ANY CHANGE IN YOUR MEDICAL CONDITION? NO . CHILLS NO . FEVER NO . INFECTION: DO YOU HAVE NEW INFECTIONS? NO . DO YOU HAVE HISTORY OF MRSA? NO . MUSCULOSKELETAL: ANY NEW PATTERNS OF PAIN OR NUMBNESS? YES- PAIN MAINLY ON RIGHT SIDE BACK PF NECK, THERE IS SOMETHING ON LEFT SIDE BUT NOT BAD, NUMBNESS AND TINGLING IN RIGHT NECK INTO SHOULDER AND DOWN RIGHT ARM, BUT RIGHT HAND NUMBNESS IS A LITTLE BETTER . GASTROENTEROLOGY: ANY NEW CHANGE IN BOWEL CONTROL? NO . GENITOURINARY: ANY NEW CHANGE IN BLADDER CONTROL? NO . IS THERE A CHANCE YOU COULD BE ? NO . HEMATOLOGY/LYMPH: DO YOU TAKE ANY BLOOD THINNERS? (FOR EXAMPLE- COUMADIN, PLAVIX, AGGRENOX, PLATEL, PRADAXA, OR XARELTO) NO . WHEN WAS YOUR LAST DOSE? DATE: TIME: . NEUROLOGY: HAVE YOU FALLEN IN THE PAST 12 MONTHS? YES- PREVIOUSLY RECODED . ANY NEW EXTREMITY NUMBNESS OR WEAKNESS? NO . CARDIOLOGY: DO YOU HAVE A PACEMAKER OR DEFIBRILLATOR? NO . RESPIRATORY: HAVE YOU BEEN SICK IN THE PAST WEEK? NO . FEVER NO . FLU LIKE SYMPTOMS? NO . COUGH NO . INTEGUMENTARY: DO YOU HAVE ANY RASHES OR OPEN SORES? NO . ALLERGIC/IMMUNO: ARE YOU ALLERGIC TO IV DYE? NO . ANY NEW ALLERGIES? NO . PSYCHIATRIC: DO YOU HAVE THOUGHTS OF HURTING YOURSELF OR SOMEONE ELSE? NO . ARE YOU ABUSED, NEGLECTED, OR IN AN UNSAFE ENVIRONMENT? NO . ENDOCRINOLOGY: ARE YOU DIABETIC? NO . OTHER: DO YOU NEED ANY PRESCRIPTIONS? NO . IF YES, PLEASE LIST: ____ . ANY NEW PROBLEMS WITH YOUR MEDICATIONS? NO . WHEN DID YOU LAST EAT? ____ . WHEN DID YOU LAST DRINK? ____ . WHAT DID YOU LAST DRINK? ____ . NAME OF PERSON DRIVING YOU HOME? ____ . DO YOU HAVE ANY OTHER QUESTIONS OR CONCERNS YES- TPI REALLY DID NOT HELP, STATES SHE FELT NO RELIEF. WISHES TO DISCUSS FACET BLOCK . VITAL SIGNS WT 195.8 LBS, HT 67 IN, BMI 30.66 INDEX, BP 139/70 MM HG, HR 73 /MIN, RR 18 /MIN, TEMP 97.4 F, OXYGEN SAT % 99%, SAFE IN ENV? (Y/N) YES, NA INITIALS SC 14:01. EXAMINATION GENERAL EXAMINATION: LUNGS: LUNG SOUNDS ARE CLEAR . HEART: HEART RATE REGULAR . MUSCULOSKELETAL:*, MUSCLE STRENGTH TESTING 5/5 BILATERAL UPPER EXTREMITIES. . CERVICAL+ FOR PAIN WITH PALPATION OF CERVICAL SPINE. + FOR PAIN WITH PALPATION OF CERVICAL PARASPINALS.SPECIFIC POINT TENDERNESS NOTED OVER RIGHT C4/5-/C5/6 CERVICAL FACETS WITH EXTENSION AND FACET LOADING.. DIAGNOSTIC TESTS REVIEWED CERVICAL MRI -10/03/15. 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 PREVENTIVE MEDICINE PAIN CLINIC TEACHING: PROCEDURE TEACHING REVIEWED PROCEDURE AND PRE-PROCEDURE INSTRUCTIONS WITH PATIENT, VERBALIZES UNDERSTANDING 11/08/18 ARASELI. PROCEDURE CODES FA211 ESTABILISHED PATIENT [facility] CHARGE DISPOSITION & COMMUNICATION FOLLOW UP POST (REASON: RIGHT C4/5-C5/6 CFBT) ELECTRONICALLY SIGNED BY GABRIELE DAWSON ON 11/17/2018 AT 12:59 PM EDT DISCLAIMER : THIS IS A VISIT SUMMARY EXTRACTED FROM THE [employer] CHART. IT IS NOT A COPY OF THE [employer] PROGRESS NOTE. JOSE
== END ==
LOC: M PAIN 13:45
PROVIDERS: ATTEND Family Medicine
DX: M47.22 Other spondylosis with radiculopathy, cervical region (principal); D64.9 Anemia, unspecified; M54.5 Low back pain; H54.62 Unqualified visual loss, left eye, normal vision right eye; Z79.891 Long term (current) use of opiate analgesic; Z79.899 Other long term (current) drug therapy; Z88.0 Allergy status to penicillin; Z88.8 Allergy status to other drugs, medicaments and biological substances; Z91.018 Allergy to other foods; Z91.048 Other nonmedicinal substance allergy status

== ENCOUNTER → 2018-12-21 | Outpatient (CLI) | payer BC, MEDICARE ==
[~2018-12-21] MED LIST changes: +BUPIVACAINE HCL 0.25% 30 ML VIAL As Ordered ONE; +ISOVUE-M 200 41% 20ML VIAL (Q9966) As Ordered ONE; +LIDOCAINE 1% SDV INJ 30 ML VIAL As Ordered ONE; +TRIAMCINOLONE ACETONIDE SUSP 40 MG/ML VIAL (J3301) As Ordered ONE; +diazePAM 5 MG TAB As Ordered ONE; +diphenhydrAMINE 25 MG CAP As Ordered ONE; +oxyCODONE 5MG TAB As Ordered ONE
--- NOTE | 2018-12-21 16:48 | REP ---
Cervical spine: Two views. History: Cervical facet block for pain. 5 seconds of fluoroscopy time is reported. Findings: A sequence of two last image hold fluoroscopically obtained spot radiographs of the cervical spine document various needle positions and contrast injections associated with bilateral cervical spine facet injection procedure. Electronically Signed by John Chowdary MD 12/21/2018 04:52 P
--- NOTE | 2018-12-29 | ECWPNPC ---
PATIENT NAME: ALEX AVILES : 1975 GENDER: FEMALE VISIT DATE: 12/21/2018 DISCHARGE DATE: 12/21/18 1500 VISIT LOCKED DATE TIME: PHYSICIAN: YESSICA DRAKE MD RESOURCE: YESSICA DRAKE MD REASON FOR APPOINTMENT 1. BILAT CERVICAL THERAPEUTIC FACET BLOCK HISTORY OF PRESENT ILLNESS HISTORY OF PRESENT ILLNESS: PAIN THE PATIENT DESCRIBES THE PAIN... FALL RISK SCREENING: SCREENING :NO FALLS REPORTED IN THE LAST YEAR CURRENT MEDICATIONS TAKING RANITIDINE HCL 150 MG CAPSULE 1 CAPSULE ORALLY ONCE DAILY TAKING HYDROXYZINE HCL 25 MG TABLET 2 TABS ORALLY AT BEDTIME NEEDED TAKING FLUTICASONE FUROATE 27.5 MCG/SPRAY SUSPENSION 1 SPRAY IN EACH NOSTRIL NASALLY TWICE A DAY TAKING PANTOPRAZOLE SODIUM 40 MG TABLET DELAYED RELEASE 1 TABLET ORALLY ONCE A DAY TAKING MIRALAX - POWDER 1 DOSE ORALLY ONCE A DAY NEEDED TAKING MONTELUKAST SODIUM 10 MG TABLET 1 TABLET IN THE EVENING ORALLY ONCE A DAY TAKING ASTELIN 1 SPRAY EACH NOSTRIL NASAL TWICE A DAY TAKING PROBIOTIC CAPSULE 1 TABLET ORALLY ONCE DAILY TAKING WELLBUTRIN SR 200 MG TABLET EXTENDED RELEASE 12 HOUR 1 TABLET IN THE MORNING ORALLY ONCE A DAY TAKING CYMBALTA 30 MG CAPSULE DELAYED RELEASE PARTICLES 1 CAPSULE ORALLY DAILY TAKING MORPHINE SULFATE ER 15 MG TABLET EXTENDED RELEASE 1 TABLET ORALLY DAILY MDD1 TAKING NORCO 10-325 MG TABLET 1 TABLET NEEDED ORALLY Q8H PRN MDD3 TAKING TIZANIDINE HCL 4 MG TABLET 1 TAB ORALLY BID MEDICATION LIST REVIEWED AND RECONCILED WITH THE PATIENT PAST MEDICAL HISTORY ANEMIA GERD STOMACH ULCERS WITH H PYLORI NECK AND LOW BACK PAIN 04/26/18 CONCUSSION FROM FALLING DOWN THE STAIRS AND HITTING HEAD LEFT EYE BLIND SINCE ALLERGIES PENICILLIN: SWELLING - ALLERGY ORANGES: ANAPHYLAXIS - ALLERGY BANDAIDS AND ADHESIVES: REDDNESS AND SWELLING - ALLERGY LATEX GLOVES: REDDNESS AND SWELLING - ALLERGY TEGADERM: REDNESS, SWELLING - ALLERGY SURGICAL HISTORY RIGHT KNEE 1985 TUBAL LIGATION 2002 D&C 1996 MOLES REMOVED 2016 TOTAL HYSTERECTOMY 2017 COLONOSCOPY/ENDOSCOPY 2019 FAMILY HISTORY FATHER: MOTHER: , DIAGNOSED WITH OTHER SIBLINGS: ALIVE PATERNAL GRAND FATHER: CANCER 3 BROTHER(S) , 4 SISTER(S) - HEALTHY. 1 SON(S) , 3 DAUGHTER(S) . FATHER FROM MVA, NO MEDICAL HISTORY \\NMOTHER- DUE TO CHF, BRAIN TUMOR X 2, BREAST CA\\NPATERNAL GRANDFATHER--CA-UNSURE OF WHAT KIND\\NDAUGHTER - IRREGULAR HEART BEAT, ASTHMA\\NDAUGHTER - HYPOTHYROID. SOCIAL HISTORY GENERAL: TOBACCO USE ARE YOU A:NONSMOKER PAIN CLINIC PFS, CLERGY, PUBLIC HEALTH REFERRALS WAS THE PROVIDER NOTIFIED OF ANY PERTINENT INFO?YES HAS THE PATIENT BEEN EDUCATED REGARDING HIS/HER PLAN OF CARE?YES HAS THE PATIENT BEEN EDUCATED REGARDING PAIN, THE RISK FOR PAIN, THE IMPORTANCE OF EFFECTIVE PAIN MANAGEMENT, AND THE PAIN ASSESSMENT PROCESS?YES LATEX QUESTIONNAIRE LATEX ALLERGY : HAVE YOU EVER DEVELOPED ANY TYPE OF REACTION AFTER HANDLING LATEX PRODUCTS SUCH RUBBER GLOVES, CONDOMS, DIAPHRAGMS, BALLOONS, SOCKS, OR UNDERWEAR?YES - PLEASE INDICATE :RUBBER GLOVES, CONDOMS, BALLOONS, OTHER (DOCUMENT IN NOTES) BANDAIDS LATEX ALLERGY : HAVE YOU EVER DEVELOPED ANY TYPE OF REACTION DURING OR AFTER DENTAL APPOINTMENT, VAGINAL/RECTAL EXAMINATION, SURGICAL PROCEDURE, OR ANY OTHER EXPOSURE?NO LATEX RISK : HAVE YOU EVER HAD ANY DIFFICULTY BREATHING OR HIVES AFTER EATING OR HANDLING ANY FRUITS, OR VEGETABLES; SUCH KIWI, BANANAS, STONE FRUITS, OR CHESTNUTSYES - PLEASE INDICATE : ORANGES LATEX RISK : DO YOU HAVE A PREVIOUS PERSONAL HISTORY OF MORE THAN NINE SURGERIES, SPINA BIFIDA, OR REPEATED CATHERIZATIONS? NO LATEX RISK : ARE YOU FREQUENTLY EXPOSED TO LATEX PRODUCTS IN YOUR OCCUPATION?NO DATE ASKED : 08/14/2018 CAFFEINE CAFFEINE USE?YES HOW OFTEN AND HOW MUCH? 3 SODAS/DAY ADVANCE DIRECTIVE ADVANCE DIRECTIVE DISCUSSED WITH PATIENT:YES HCP-TREVON SPARKS [phone] EDUCATION LEVEL OF EDUCATION:NOT FINISHED COLLEGE [employer] [id number] RELIGIOUS LANGUAGE LANGUAGES SPOKEN:LITHUANIAN DOMESTIC VIOLENCE DO YOU FEEL SAFE IN YOUR ENVIRONMENT?YES ALCOHOL SCREENING DID YOU HAVE A DRINK CONTAINING ALCOHOL IN THE PAST YEAR?NO POINTS0 INTERPRETATIONNEGATIVE RECREATIONAL DRUG USE DRUG USE?NO LEARNING BARRIERS / SPECIAL NEEDS BARRIERS TO LEARNING?NO HEARING IMPAIRED?NO VISION IMPAIRED?NO COGNITIVELY IMPAIRED?NO READINESS TO LEARN?YES REVIEWED WITH PT 02/17/18 1326 BVREVIEWED WITH PATIENT 03/08/18 1023 JSREVIEWED WITH PATIENT 03/30/18 1400 LAS05/08/18 REVIEWED WITH PT. RUSTY -10-03 NLJREVIEWED WITH PATIENT 12/21/18 1316 JS. HOSPITALIZATION/MAJOR DIAGNOSTIC PROCEDURE CHILD 12/18/1991 CHILD 11/01/1996 CHILD 11/23/1998 CHILD 01/29/2002 HYSTERECTOMY 2017 KNEE SURGERY ALLERGIC REACTION AGE 2 OR 3 REVIEW OF SYSTEMS REVIEWED BY: PROVIDER: . CONSTITUTIONAL: ANY CHANGE IN YOUR MEDICAL CONDITION? NO . CHILLS NO . FEVER NO . INFECTION: DO YOU HAVE NEW INFECTIONS? NO . DO YOU HAVE HISTORY OF MRSA? NO . MUSCULOSKELETAL: ANY NEW PATTERNS OF PAIN OR NUMBNESS? NO . GASTROENTEROLOGY: ANY NEW CHANGE IN BOWEL CONTROL? NO . GENITOURINARY: ANY NEW CHANGE IN BLADDER CONTROL? NO . IS THERE A CHANCE YOU COULD BE ? NO . HEMATOLOGY/LYMPH: DO YOU TAKE ANY BLOOD THINNERS? (FOR EXAMPLE- COUMADIN, PLAVIX, AGGRENOX, PLATEL, PRADAXA, OR XARELTO) NO . WHEN WAS YOUR LAST DOSE? DATE: TIME: . NEUROLOGY: HAVE YOU FALLEN IN THE PAST 12 MONTHS? YES, STATES PRIOR TO LAST VISIT, DISCUSSED AT PREVIOUS VISIT . ANY NEW EXTREMITY NUMBNESS OR WEAKNESS? NO . CARDIOLOGY: DO YOU HAVE A PACEMAKER OR DEFIBRILLATOR? NO . RESPIRATORY: HAVE YOU BEEN SICK IN THE PAST WEEK? NO . FEVER NO . FLU LIKE SYMPTOMS? NO . COUGH NO . INTEGUMENTARY: DO YOU HAVE ANY RASHES OR OPEN SORES? NO . ALLERGIC/IMMUNO: ARE YOU ALLERGIC TO IV DYE? NO . ANY NEW ALLERGIES? NO . PSYCHIATRIC: DO YOU HAVE THOUGHTS OF HURTING YOURSELF OR SOMEONE ELSE? NO . ARE YOU ABUSED, NEGLECTED, OR IN AN UNSAFE ENVIRONMENT? NO . ENDOCRINOLOGY: ARE YOU DIABETIC? NO . OTHER: DO YOU NEED ANY PRESCRIPTIONS? NO . IF YES, PLEASE LIST: ____ . ANY NEW PROBLEMS WITH YOUR MEDICATIONS? NO . WHEN DID YOU LAST EAT? ____12/20/18 1930 . WHEN DID YOU LAST DRINK? ____12/21/18 0900 . WHAT DID YOU LAST DRINK? ____WATER . NAME OF PERSON DRIVING YOU HOME? ____KILEY SOTO . DO YOU HAVE ANY OTHER QUESTIONS OR CONCERNS NO . VITAL SIGNS WT 194 LBS, HT 67 IN, BMI 30.38 INDEX, BP 127/67 MM HG, HR 64 /MIN, RR 18 /MIN, TEMP 97.5 F, OXYGEN SAT % 100%, SAFE IN ENV? (Y/N) YES, NA INITIALS WV 11:43, REVIEWED BY: JS. ASSESSMENTS SPONDYLOSIS OF CERVICAL REGION WITHOUT MYELOPATHY OR RADICULOPATHY - M47.812 (PRIMARY) PROCEDURES PN CERVICAL FACET BLOCK LOW BILATERAL CERVICAL PRE PROCEDURE DIAGNOSIS CERVICAL SPONDYLOSIS POST PROCEDURE DIAGNOSIS CERVICAL SPONDYLOSIS PROCEDURE BILATERAL C4-C5 AND BILATERAL C5-C6 CERVICAL THERAPEUTIC FACET BLOCK SURGEON DR. 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 I EVALUATED THE PATIENT AND REVIEWED THE CHART. I WENT OVER THE RISKS, ALTERNATIVES, AND BENEFITS ASSOCIATED WITH THIS PROCEDURE. THE PATIENT WOULD LIKE TO PROCEED AND GIVE CONSENT TO PERFORMED THE PROCEDURE. THE PATIENT DENIES UNEXPLAINABLE WEIGHT LOSS, FEVER, CHILLS, OR NEW CHANGES IN URINARY OR BOWEL CONTROL. DESCRIPTION OF PROCEDURE THE PATIENT WAS BROUGHT TO THE PROCEDURE ROOM AND PLACED IN THE PRONE POSITION. THE CERVICOTHORACIC AREA WAS CLEANED WITH CHLORAPREP SOLUTION AND DRAPED ASEPTICALLY. THE PROCEDURE WAS DONE UNDER STERILE CONDITIONS. I CHECKED LATERALITY AND THE LEVEL WHERE THE PROCEDURE WAS GOING TO BE PERFORMED WITH THE PATIENT AND THE SUPPORTING STAFF AT THE MOMENT OF THE TIME OUT IN THE PROCEDURE ROOM. UNDER FLUOROSCOPIC GUIDANCE, TARGET POINT WAS SELECTED AT THE RIGHT AND LEFT C4-C5 AND RIGHT AND LEFT C5-C6 FACET JOINTS. TARGET POINTS WERE SELECTED AFTER LATERAL ROTATION AND TILT OF THE MAGNIFIER OF THE C-ARM. LIDOCAINE 0.5% WAS USED TO NUMB THE SKIN AND THE SUBCUTANEOUS TISSUE BELOW IT. SPINAL NEEDLES, 22-GAUGE, WERE ADVANCED UNDER FLUOROSCOPIC GUIDANCE AND FOLLOWING PATIENT FEEDBACK UNTIL THE TARGETS WERE TOUCHED. THE POSITION OF THE NEEDLES WAS VERIFIED WITH AP AND LATERAL VIEWS. AFTER PROPER POSITION OF THE NEEDLES WAS ACHIEVED, ISOVUE M-200 CONTRAST WAS INJECTED SHOWING SPREAD OF THE DYE. THEN A SOLUTION OF 0.9 ML OF BUPIVACAINE 0.125% AND KENALOG 10 MG WAS INJECTED AT EACH SITE. THERE WAS NO EVIDENCE OF BLOOD, PARESTHESIA OR CEREBROSPINAL FLUID DURING THE PROCEDURE. THE PATIENT WAS SENT TO THE RECOVERY ROOM. THE PATIENT WAS MOVING THE EXTREMITIES AND DOING WELL. THERE WAS NO COMPLICATION DURING THE PROCEDURE. FLUOROSCOPY TIME WAS 5 SECONDS POST PROCEDURE NOTE THE PATIENT WILL BE SEEN IN A FOLLOW UP IN THE NEXT FEW WEEKS. INSTRUCTIONS WERE GIVEN, QUESTIONS WERE ANSWERED, AND THE PATIENT EXPRESSED UNDERSTANDING AND AGREES WITH THE PLAN. I, ADE HERNANDEZ, DOCUMENTED THE ABOVE INFORMATION ACTING A SCRIBE FOR DR. DRAKE. I HAVE REVIEWED THE ABOVE DOCUMENT, WRITTEN BY ADE HOLGUIN AND I VERIFY THAT IT IS ACCURATE. DIAGNOSTIC IMAGING [facility] FACET BLOCK (PAIN)[id number] PROCEDURE CODES 27044 INJ PARAVERT F JNT C/T 1 LEV, MODIFIERS: 50 [id number] INJ PARAVERT F JNT C/T 2 LEV, MODIFIERS: 50 [id number] RADXPS IN END [id number] PXD DISPOSITION & COMMUNICATION FOLLOW UP 3 WEEKS ELECTRONICALLY SIGNED BY YESSICA DRAKE MD, MD ON 12/28/2018 AT 12:15 PM EDT DISCLAIMER : THIS IS A VISIT SUMMARY EXTRACTED FROM THE [employer] CHART. IT IS NOT A COPY OF THE [employer] PROGRESS NOTE. MTDD
== END ==
LOC: M PAIN 11:30
PROVIDERS: ATTEND Anesthesiology
DX: G89.29 Other chronic pain (principal); M47.812 Spondylosis without myelopathy or radiculopathy, cervical region; M54.2 Cervicalgia; Z79.891 Long term (current) use of opiate analgesic; Z79.899 Other long term (current) drug therapy; Z88.0 Allergy status to penicillin; Z91.018 Allergy to other foods; Z91.040 Latex allergy status; Z91.048 Other nonmedicinal substance allergy status; Z88.8 Allergy status to other drugs, medicaments and biological substances
CPT/HCPCS: 64490; 64491; J3301; Q9966

== ENCOUNTER → 2019-01-09 | Outpatient (CLI) | payer BC, MEDICARE ==
[~2019-01-09] MED LIST changes: -BUPIVACAINE HCL 0.25% 30 ML VIAL As Ordered ONE; -ISOVUE-M 200 41% 20ML VIAL (Q9966) As Ordered ONE; -LIDOCAINE 1% SDV INJ 30 ML VIAL As Ordered ONE; -TRIAMCINOLONE ACETONIDE SUSP 40 MG/ML VIAL (J3301) As Ordered ONE; -diazePAM 5 MG TAB As Ordered ONE; -diphenhydrAMINE 25 MG CAP As Ordered ONE; -oxyCODONE 5MG TAB As Ordered ONE
--- NOTE | 2019-01-26 01:02 | ECWPNPC ---
PATIENT NAME: ALEX AVILES : 1975 GENDER: FEMALE VISIT DATE: 01/09/2019 DISCHARGE DATE: 01/09/19 1507 VISIT LOCKED DATE TIME: PHYSICIAN: NATHALIE GONGORA RESOURCE: NATHALIE GONGORA REASON FOR APPOINTMENT 1. POST RIGHT C4/5-C5/6 CFBT HISTORY OF PRESENT ILLNESS HISTORY OF PRESENT ILLNESS: HERE FOR POST PROCEDURE F/U.HAD BILAT. CFBT C4/5-C5/6 ON 12/21/18.CONTINUES TO BENEFIT FROM CERVICAL THERAPEUTIC BLOCK TODAY.SHE IS VERY HAPPY. CHIEF AREAOF PAIN IS RIGHT TRAPEZIUS.RATING THIS AREA 5/10 VAS. PAIN THE PATIENT DESCRIBES THE PAIN... THE PATIENT DESCRIBES THE PAIN... FALL RISK SCREENING: SCREENING :NO FALLS REPORTED IN THE LAST YEAR CURRENT MEDICATIONS TAKING RANITIDINE HCL 150 MG CAPSULE 1 CAPSULE ORALLY ONCE DAILY TAKING HYDROXYZINE HCL 25 MG TABLET 2 TABS ORALLY AT BEDTIME NEEDED TAKING FLUTICASONE FUROATE 27.5 MCG/SPRAY SUSPENSION 1 SPRAY IN EACH NOSTRIL NASALLY TWICE A DAY TAKING PANTOPRAZOLE SODIUM 40 MG TABLET DELAYED RELEASE 1 TABLET ORALLY ONCE A DAY TAKING MIRALAX - POWDER 1 DOSE ORALLY ONCE A DAY NEEDED TAKING MONTELUKAST SODIUM 10 MG TABLET 1 TABLET IN THE EVENING ORALLY ONCE A DAY TAKING ASTELIN 1 SPRAY EACH NOSTRIL NASAL TWICE A DAY TAKING PROBIOTIC CAPSULE 1 TABLET ORALLY ONCE DAILY TAKING WELLBUTRIN SR 200 MG TABLET EXTENDED RELEASE 12 HOUR 1 TABLET IN THE MORNING ORALLY ONCE A DAY TAKING CYMBALTA 30 MG CAPSULE DELAYED RELEASE PARTICLES 1 CAPSULE ORALLY DAILY TAKING TIZANIDINE HCL 4 MG TABLET 1 TAB ORALLY BID TAKING NORCO 10-325 MG TABLET 1 TABLET NEEDED ORALLY Q8H PRN MDD3 TAKING MORPHINE SULFATE ER 15 MG TABLET EXTENDED RELEASE 1 TABLET ORALLY DAILY MDD1 MEDICATION LIST REVIEWED AND RECONCILED WITH THE PATIENT PAST MEDICAL HISTORY ANEMIA GERD STOMACH ULCERS WITH H PYLORI NECK AND LOW BACK PAIN 04/26/18 CONCUSSION FROM FALLING DOWN THE STAIRS AND HITTING HEAD LEFT EYE BLIND SINCE ALLERGIES PENICILLIN: SWELLING - ALLERGY ORANGES: ANAPHYLAXIS - ALLERGY BANDAIDS AND ADHESIVES: REDDNESS AND SWELLING - ALLERGY LATEX GLOVES: REDDNESS AND SWELLING - ALLERGY TEGADERM: REDNESS, SWELLING - ALLERGY SURGICAL HISTORY RIGHT KNEE 1985 TUBAL LIGATION 2002 D&C 1996 MOLES REMOVED 2016 TOTAL HYSTERECTOMY 2017 COLONOSCOPY/ENDOSCOPY 2019 FAMILY HISTORY FATHER: MOTHER: , DIAGNOSED WITH OTHER SPECIFIED CONDITIONS INFLUENCING HEALTH STATUS SIBLINGS: ALIVE PATERNAL GRAND FATHER: OTHER MALIGNANT NEOPLASM OF UNSPECIFIED SITE 3 BROTHER(S) , 4 SISTER(S) - HEALTHY. 1 SON(S) , 3 DAUGHTER(S) . FATHER FROM MVA, NO MEDICAL HISTORY \\NMOTHER- DUE TO CHF, BRAIN TUMOR X 2, BREAST CA\\NPATERNAL GRANDFATHER--CA-UNSURE OF WHAT KIND\\NDAUGHTER - IRREGULAR HEART BEAT, ASTHMA\\NDAUGHTER - HYPOTHYROID. SOCIAL HISTORY GENERAL: TOBACCO USE ARE YOU A:NONSMOKER PAIN CLINIC PFS, CLERGY, PUBLIC HEALTH REFERRALS WAS THE PROVIDER NOTIFIED OF ANY PERTINENT INFO?YES HAS THE PATIENT BEEN EDUCATED REGARDING HIS/HER PLAN OF CARE?YES HAS THE PATIENT BEEN EDUCATED REGARDING PAIN, THE RISK FOR PAIN, THE IMPORTANCE OF EFFECTIVE PAIN MANAGEMENT, AND THE PAIN ASSESSMENT PROCESS?YES LATEX QUESTIONNAIRE LATEX ALLERGY : HAVE YOU EVER DEVELOPED ANY TYPE OF REACTION AFTER HANDLING LATEX PRODUCTS SUCH RUBBER GLOVES, CONDOMS, DIAPHRAGMS, BALLOONS, SOCKS, OR UNDERWEAR?YES - PLEASE INDICATE :RUBBER GLOVES, CONDOMS, BALLOONS, OTHER (DOCUMENT IN NOTES) BANDAIDS LATEX ALLERGY : HAVE YOU EVER DEVELOPED ANY TYPE OF REACTION DURING OR AFTER DENTAL APPOINTMENT, VAGINAL/RECTAL EXAMINATION, SURGICAL PROCEDURE, OR ANY OTHER EXPOSURE?NO LATEX RISK : HAVE YOU EVER HAD ANY DIFFICULTY BREATHING OR HIVES AFTER EATING OR HANDLING ANY FRUITS, OR VEGETABLES; SUCH KIWI, BANANAS, STONE FRUITS, OR CHESTNUTSYES - PLEASE INDICATE : ORANGES LATEX RISK : DO YOU HAVE A PREVIOUS PERSONAL HISTORY OF MORE THAN NINE SURGERIES, SPINA BIFIDA, OR REPEATED CATHERIZATIONS? NO LATEX RISK : ARE YOU FREQUENTLY EXPOSED TO LATEX PRODUCTS IN YOUR OCCUPATION?NO DATE ASKED : 01/09/2019 CAFFEINE CAFFEINE USE?YES HOW OFTEN AND HOW MUCH? 3 SODAS/DAY ADVANCE DIRECTIVE ADVANCE DIRECTIVE DISCUSSED WITH PATIENT:YES HCP-TREVON SPARKS [phone] EDUCATION LEVEL OF EDUCATION:NOT FINISHED COLLEGE [employer] [id number] GNOSTICISM LANGUAGE LANGUAGES SPOKEN:NIGERIEN DOMESTIC VIOLENCE DO YOU FEEL SAFE IN YOUR ENVIRONMENT?YES ALCOHOL SCREENING DID YOU HAVE A DRINK CONTAINING ALCOHOL IN THE PAST YEAR?NO POINTS0 INTERPRETATIONNEGATIVE RECREATIONAL DRUG USE DRUG USE?NO LEARNING BARRIERS / SPECIAL NEEDS BARRIERS TO LEARNING?NO HEARING IMPAIRED?NO VISION IMPAIRED?NO COGNITIVELY IMPAIRED?NO READINESS TO LEARN?YES REVIEWED WITH PT 02/17/18 1326 BVREVIEWED WITH PATIENT 03/08/18 1023 JSREVIEWED WITH PATIENT 03/30/18 1400 LAS05/08/18 REVIEWED WITH PT. MASOUDJAE NLJREVIEWED WITH PATIENT 12/21/18 1316 JS. HOSPITALIZATION/MAJOR DIAGNOSTIC PROCEDURE CHILD 12/18/1991 CHILD 11/01/1996 CHILD 11/23/1998 CHILD 01/29/2002 HYSTERECTOMY 2017 KNEE SURGERY ALLERGIC REACTION AGE 2 OR 3 REVIEW OF SYSTEMS REVIEWED BY: PROVIDER: NATHALIE SUAZO . CONSTITUTIONAL: ANY CHANGE IN YOUR MEDICAL CONDITION? NO . CHILLS NO . FEVER NO . INFECTION: DO YOU HAVE NEW INFECTIONS? NO . DO YOU HAVE HISTORY OF MRSA? NO . MUSCULOSKELETAL: ANY NEW PATTERNS OF PAIN OR NUMBNESS? NO . GASTROENTEROLOGY: ANY NEW CHANGE IN BOWEL CONTROL? NO . GENITOURINARY: ANY NEW CHANGE IN BLADDER CONTROL? NO . IS THERE A CHANCE YOU COULD BE ? NO . HEMATOLOGY/LYMPH: DO YOU TAKE ANY BLOOD THINNERS? (FOR EXAMPLE- COUMADIN, PLAVIX, AGGRENOX, PLATEL, PRADAXA, OR XARELTO) NO . WHEN WAS YOUR LAST DOSE? DATE: TIME: . NEUROLOGY: HAVE YOU FALLEN IN THE PAST 12 MONTHS? YES, PT STATES THAT SHE FELL IN APRIL WHILE GOING DOWN STAIRS AT HOME, PT STATES THAT SHE REPORTED TO ED, PT RECEIVED TREATMENT. . ANY NEW EXTREMITY NUMBNESS OR WEAKNESS? NO . CARDIOLOGY: DO YOU HAVE A PACEMAKER OR DEFIBRILLATOR? NO . RESPIRATORY: HAVE YOU BEEN SICK IN THE PAST WEEK? NO . FEVER NO . FLU LIKE SYMPTOMS? NO . COUGH NO . INTEGUMENTARY: DO YOU HAVE ANY RASHES OR OPEN SORES? NO . ALLERGIC/IMMUNO: ARE YOU ALLERGIC TO IV DYE? NO . ANY NEW ALLERGIES? NO . PSYCHIATRIC: DO YOU HAVE THOUGHTS OF HURTING YOURSELF OR SOMEONE ELSE? NO . ARE YOU ABUSED, NEGLECTED, OR IN AN UNSAFE ENVIRONMENT? NO . ENDOCRINOLOGY: ARE YOU DIABETIC? NO . OTHER: DO YOU NEED ANY PRESCRIPTIONS? NO . IF YES, PLEASE LIST: ____ . ANY NEW PROBLEMS WITH YOUR MEDICATIONS? NO . WHEN DID YOU LAST EAT? ____ . WHEN DID YOU LAST DRINK? ____ . WHAT DID YOU LAST DRINK? ____ . NAME OF PERSON DRIVING YOU HOME? ____ . DO YOU HAVE ANY OTHER QUESTIONS OR CONCERNS PT STATES THAT SHE FELT RELIEF IN NECK FROM FACET INJECTIONS. PT STATES THAT SHE IS HAVING PAIN IN AREA BELOW INJECTION SITE. . VITAL SIGNS WT 197.6 LBS, HT 67 IN, BMI 30.95 INDEX, BP 132/82 MM HG, HR 88 /MIN, RR 18 /MIN, TEMP 97.1 F, OXYGEN SAT % 96%, NA INITIALS AW 1414. EXAMINATION GENERAL EXAMINATION: GENERALALERT/APPEARS UNCOMFORTABLE . PSYCHAFFECT NORMAL . LUNGS:LUNG ALVARES ARE CLEAR TO AUSCULTATION BILATERALLY. GOOD MOVEMENT OF AIR . HEART:S1, S2 IN A REGULAR RATE AND RHYTHM. NO SIGNIFICANT MURMURS, RUBS OR GALLOPS NOTED . CERVICALROJM NECK DECREASED DUE TO PAIN AND STIFFNESS.TRIGGER POINTS ELICITED IN RIGHT TRAPEZIUS.. DIAGNOSTIC TESTS REVIEWEDCT SCAN NECK-10/2017 NCS RIGHT ARM -06/2016 . ASSESSMENTS MYALGIA OF AUXILIARY MUSCLES, HEAD AND NECK - M79.12 (PRIMARY) TREATMENT MYALGIA OF AUXILIARY MUSCLES, HEAD AND NECK NOTES: TPI RIGHT TRAPEZIUS. PREVENTIVE MEDICINE PAIN CLINIC TEACHING: PROCEDURE TEACHING EDUCATED PT REGARDING TRIGGER POINT INJECTIONS IN RIGHT NECK, PT STATES THAT SHE HAS HAD PROCEDURE IN PAST, DECLINES WRITTEN INFORMATION. DS. PROCEDURE CODES FA211 ESTABILISHED PATIENT [facility] FAC[facility] CHARGE DISPOSITION & COMMUNICATION FOLLOW UP POST (REASON: TPI RIGHT TRAPEZIUS) ELECTRONICALLY SIGNED BY GABRIELE DAWSON ON 01/25/2019 AT 03:19 PM EDT DISCLAIMER : THIS IS A VISIT SUMMARY EXTRACTED FROM THE [employer] CHART. IT IS NOT A COPY OF THE [employer] PROGRESS NOTE. JOSE
== END ==
LOC: M PAIN 14:15
PROVIDERS: ATTEND Nurse Practitioner Family
DX: M79.12 Myalgia of auxiliary muscles, head and neck (principal); K21.9 Gastro-esophageal reflux disease without esophagitis; Z88.0 Allergy status to penicillin; Z91.018 Allergy to other foods; Z91.040 Latex allergy status; Z91.09 Other allergy status, other than to drugs and biological substances; Z79.891 Long term (current) use of opiate analgesic; Z79.899 Other long term (current) drug therapy

== ENCOUNTER → 2019-03-07 | Outpatient (CLI) | payer BC, MEDICARE ==
[~2019-03-07] MED LIST changes: +BUPIVACAINE HCL 0.25% 10 ML VIAL As Ordered ONE; +BUPIVACAINE HCL 0.25% 30 ML VIAL As Ordered ONE; +TRIAMCINOLONE ACETONIDE SUSP 40 MG/ML VIAL (J3301) As Ordered ONE; +diazePAM 5 MG TAB As Ordered ONE; +oxyCODONE 5MG TAB As Ordered ONE
--- NOTE | 2019-03-21 03:11 | ECWPNPC ---
PATIENT NAME: ALEX AVILES : 1975 GENDER: FEMALE VISIT DATE: 03/07/2019 DISCHARGE DATE: 03/07/19 1300 VISIT LOCKED DATE TIME: PHYSICIAN: YESSICA DRAKE MD RESOURCE: YESSICA DRAKE MD REASON FOR APPOINTMENT 1. TPI RIGHT NECK/RIGHT SHOULDER HISTORY OF PRESENT ILLNESS HISTORY OF PRESENT ILLNESS: PAIN THE PATIENT DESCRIBES THE PAIN... FALL RISK SCREENING: SCREENING :NO FALLS REPORTED IN THE LAST YEAR CURRENT MEDICATIONS TAKING RANITIDINE HCL 150 MG CAPSULE 1 CAPSULE ORALLY ONCE DAILY, NOTES: [id number] TAKING HYDROXYZINE HCL 25 MG TABLET 2 TABS ORALLY AT BEDTIME NEEDED, NOTES: 03-06-192099 TAKING FLUTICASONE FUROATE 27.5 MCG/SPRAY SUSPENSION 1 SPRAY IN EACH NOSTRIL NASALLY TWICE A DAY, NOTES: 03-06-192099 TAKING PANTOPRAZOLE SODIUM 40 MG TABLET DELAYED RELEASE 1 TABLET ORALLY ONCE A DAY, NOTES: 03-06-19899 TAKING MIRALAX - POWDER 1 DOSE ORALLY ONCE A DAY NEEDED, NOTES: NOT LATELY TAKING MONTELUKAST SODIUM 10 MG TABLET 1 TABLET IN THE EVENING ORALLY ONCE A DAY, NOTES: 03-06-19899 TAKING ASTELIN 1 SPRAY EACH NOSTRIL NASAL TWICE A DAY, NOTES: 03-06-192099 TAKING PROBIOTIC CAPSULE 1 TABLET ORALLY ONCE DAILY, NOTES: 03-06-19799 TAKING WELLBUTRIN SR 200 MG TABLET EXTENDED RELEASE 12 HOUR 1 TABLET IN THE MORNING ORALLY ONCE A DAY, NOTES: 03-06-192099 TAKING TIZANIDINE HCL 4 MG TABLET 1 TAB ORALLY BID, NOTES: 03-06-19899 TAKING NORCO 10-325 MG TABLET 1 TABLET NEEDED ORALLY Q8H PRN MDD3, NOTES: 03-06-192099 TAKING MORPHINE SULFATE ER 15 MG TABLET EXTENDED RELEASE 1 TABLET ORALLY DAILY MDD1, NOTES: 03-06-19799 TAKING CYMBALTA 30 MG CAPSULE DELAYED RELEASE PARTICLES 1 CAPSULE ORALLY DAILY, NOTES: 03-06-19799 MEDICATION LIST REVIEWED AND RECONCILED WITH THE PATIENT PAST MEDICAL HISTORY ANEMIA GERD STOMACH ULCERS WITH H PYLORI NECK AND LOW BACK PAIN 04/26/18 CONCUSSION FROM FALLING DOWN THE STAIRS AND HITTING HEAD LEFT EYE BLIND SINCE ALLERGIES PENICILLIN: SWELLING - ALLERGY ORANGES: ANAPHYLAXIS - ALLERGY BANDAIDS AND ADHESIVES: REDDNESS AND SWELLING - ALLERGY LATEX GLOVES: REDDNESS AND SWELLING - ALLERGY TEGADERM: REDNESS, SWELLING - ALLERGY SURGICAL HISTORY RIGHT KNEE 1985 TUBAL LIGATION 2002 D&C 1996 MOLES REMOVED 2016 TOTAL HYSTERECTOMY 2017 COLONOSCOPY/ENDOSCOPY 2019 FAMILY HISTORY FATHER: MOTHER: , DIAGNOSED WITH OTHER SPECIFIED CONDITIONS INFLUENCING HEALTH STATUS SIBLINGS: ALIVE PATERNAL GRAND FATHER: OTHER MALIGNANT NEOPLASM OF UNSPECIFIED SITE 3 BROTHER(S) , 4 SISTER(S) - HEALTHY. 1 SON(S) , 3 DAUGHTER(S) . FATHER FROM MVA, NO MEDICAL HISTORY \\NMOTHER- DUE TO CHF, BRAIN TUMOR X 2, BREAST CA\\NPATERNAL GRANDFATHER--CA-UNSURE OF WHAT KIND\\NDAUGHTER - IRREGULAR HEART BEAT, ASTHMA\\NDAUGHTER - HYPOTHYROID. SOCIAL HISTORY GENERAL: TOBACCO USE ARE YOU A:NONSMOKER PAIN CLINIC PFS, CLERGY, PUBLIC HEALTH REFERRALS WAS THE PROVIDER NOTIFIED OF ANY PERTINENT INFO?YES HAS THE PATIENT BEEN EDUCATED REGARDING HIS/HER PLAN OF CARE?YES HAS THE PATIENT BEEN EDUCATED REGARDING PAIN, THE RISK FOR PAIN, THE IMPORTANCE OF EFFECTIVE PAIN MANAGEMENT, AND THE PAIN ASSESSMENT PROCESS?YES LATEX QUESTIONNAIRE LATEX ALLERGY : HAVE YOU EVER DEVELOPED ANY TYPE OF REACTION AFTER HANDLING LATEX PRODUCTS SUCH RUBBER GLOVES, CONDOMS, DIAPHRAGMS, BALLOONS, SOCKS, OR UNDERWEAR?YES LATEX ALLERGY : HAVE YOU EVER DEVELOPED ANY TYPE OF REACTION DURING OR AFTER DENTAL APPOINTMENT, VAGINAL/RECTAL EXAMINATION, SURGICAL PROCEDURE, OR ANY OTHER EXPOSURE?NO - PLEASE INDICATE :RUBBER GLOVES, CONDOMS, BALLOONS, OTHER (DOCUMENT IN NOTES) BANDAIDS DATE ASKED : 01/09/2019 LATEX RISK : HAVE YOU EVER HAD ANY DIFFICULTY BREATHING OR HIVES AFTER EATING OR HANDLING ANY FRUITS, OR VEGETABLES; SUCH KIWI, BANANAS, STONE FRUITS, OR CHESTNUTSYES - PLEASE INDICATE : ORANGES LATEX RISK : DO YOU HAVE A PREVIOUS PERSONAL HISTORY OF MORE THAN NINE SURGERIES, SPINA BIFIDA, OR REPEATED CATHERIZATIONS? NO LATEX RISK : ARE YOU FREQUENTLY EXPOSED TO LATEX PRODUCTS IN YOUR OCCUPATION?NO CAFFEINE CAFFEINE USE?YES HOW OFTEN AND HOW MUCH? 3 SODAS/DAY ADVANCE DIRECTIVE ADVANCE DIRECTIVE DISCUSSED WITH PATIENT:YES HCP-TREVON SPARKS [phone] EDUCATION LEVEL OF EDUCATION:NOT FINISHED COLLEGE PRESYBETERIAN [id number] JAIN LANGUAGE LANGUAGES SPOKEN:JAPANESE DOMESTIC VIOLENCE DO YOU FEEL SAFE IN YOUR ENVIRONMENT?YES ALCOHOL SCREENING DID YOU HAVE A DRINK CONTAINING ALCOHOL IN THE PAST YEAR?NO POINTS0 INTERPRETATIONNEGATIVE RECREATIONAL DRUG USE DRUG USE?NO LEARNING BARRIERS / SPECIAL NEEDS BARRIERS TO LEARNING?NO HEARING IMPAIRED?NO VISION IMPAIRED?NO COGNITIVELY IMPAIRED?NO READINESS TO LEARN?YES REVIEWED WITH PT 02/17/18 1326 BVREVIEWED WITH PATIENT 03/08/18 1023 JSREVIEWED WITH PATIENT 03/30/18 1400 LAS05/08/18 REVIEWED WITH PT. RUSTY NLJREVIEWED WITH PATIENT 12/21/18 1316 JS. HOSPITALIZATION/MAJOR DIAGNOSTIC PROCEDURE CHILD 12/18/1991 CHILD 11/01/1996 CHILD 11/23/1998 CHILD 01/29/2002 HYSTERECTOMY 2017 KNEE SURGERY ALLERGIC REACTION AGE 2 OR 3 REVIEW OF SYSTEMS REVIEWED BY: PROVIDER: . CONSTITUTIONAL: ANY CHANGE IN YOUR MEDICAL CONDITION? NO . CHILLS NO . FEVER NO . INFECTION: DO YOU HAVE NEW INFECTIONS? NO . DO YOU HAVE HISTORY OF MRSA? NO . MUSCULOSKELETAL: ANY NEW PATTERNS OF PAIN OR NUMBNESS? NO . GASTROENTEROLOGY: ANY NEW CHANGE IN BOWEL CONTROL? NO . GENITOURINARY: ANY NEW CHANGE IN BLADDER CONTROL? NO . IS THERE A CHANCE YOU COULD BE ? NO . HEMATOLOGY/LYMPH: DO YOU TAKE ANY BLOOD THINNERS? (FOR EXAMPLE- COUMADIN, PLAVIX, AGGRENOX, PLATEL, PRADAXA, OR XARELTO) NO . WHEN WAS YOUR LAST DOSE? DATE: TIME: . NEUROLOGY: HAVE YOU FALLEN IN THE PAST 12 MONTHS? NO . ANY NEW EXTREMITY NUMBNESS OR WEAKNESS? NO . CARDIOLOGY: DO YOU HAVE A PACEMAKER OR DEFIBRILLATOR? NO . RESPIRATORY: HAVE YOU BEEN SICK IN THE PAST WEEK? NO . FEVER NO . FLU LIKE SYMPTOMS? NO . COUGH NO . INTEGUMENTARY: DO YOU HAVE ANY RASHES OR OPEN SORES? NO . ALLERGIC/IMMUNO: ARE YOU ALLERGIC TO IV DYE? NO . ANY NEW ALLERGIES? NO . PSYCHIATRIC: DO YOU HAVE THOUGHTS OF HURTING YOURSELF OR SOMEONE ELSE? NO . ARE YOU ABUSED, NEGLECTED, OR IN AN UNSAFE ENVIRONMENT? NO . ENDOCRINOLOGY: ARE YOU DIABETIC? NO . OTHER: DO YOU NEED ANY PRESCRIPTIONS? NO . IF YES, PLEASE LIST: ____ . ANY NEW PROBLEMS WITH YOUR MEDICATIONS? NO . WHEN DID YOU LAST EAT? ____03-06-19 915 PM . WHEN DID YOU LAST DRINK? ____03-07-19 0600 . WHAT DID YOU LAST DRINK? ____WATER . NAME OF PERSON DRIVING YOU HOME? ____[facility] . DO YOU HAVE ANY OTHER QUESTIONS OR CONCERNS NO . VITAL SIGNS WT 197.0 LBS, HT 67 IN, BMI 30.85 INDEX, BP 171/85 MM HG, HR 67 /MIN, RR 18 /MIN, TEMP 96.8 F, OXYGEN SAT % 100%, NA INITIALS AW 1022, REVIEWED BY: EM. ASSESSMENTS MYALGIA, OTHER SITE - M79.18 (PRIMARY) PROCEDURES PN TRIGGER POINT INJECTION WITH STEROIDS PRE PROCEDURE DIAGNOSIS 1. MYALGIA 2. PAIN AT RIGHT NECK AREA AND RIGHT SHOULDER AREA. POST PROCEDURE DIAGNOSIS 1. MYALGIA 2. PAIN AT RIGHT NECK AREA AND RIGHT SHOULDER AREA. PROCEDURE TRIGGER POINT INJECTION AT RIGHT NECK AREA AND RIGHT SHOULDER AREA. SURGEON DR. YESSICA DRAKE JOURNEYMAN POWERHOUSE OPERATOR NONE ANESTHESIA LOCAL PRE PROCEDURE NOTE THE PATIENT HAS A HISTORY OF CHRONIC PAIN AT THE RIGHT NECK AREA AND RIGHT SHOULDER AREA. I EVALUATED THE PATIENT AND REVIEWED THE CHART. THERE IS EVIDENCE OF BANDS OF TISSUE WITH RESTRICTION OF MOVEMENT AND PRESENCE OF TRIGGER POINT AT THE AFFECTED AREA. I WENT OVER THE RISKS, ALTERNATIVES, AND BENEFITS ASSOCIATED WITH THIS PROCEDURE. THE PATIENT WOULD LIKE TO PROCEED AND GIVES CONSENT TO PERFORM THE PROCEDURE. THE PATIENT DENIES UNEXPLAINABLE WEIGHT LOSS, FEVER, CHILLS, OR NEW CHANGES IN URINARY OR BOWEL CONTROL DESCRIPTION OF PROCEDURE THE PATIENT WAS BROUGHT TO THE PROCEDURE ROOM AND PLACED IN THE SITTING POSITION. THE AREA WAS CLEANED WITH ALCOHOL. THE PROCEDURE WAS DONE USING ASEPTIC STERILE TECHNIQUE. I CHECKED LATERALITY AND THE LEVEL WHERE THE PROCEDURE WAS GOING TO BE PERFORMED WITH THE PATIENT AND THE SUPPORTING STAFF AT THE MOMENT OF THE TIME OUT IN THE PROCEDURE ROOM. USING A 25-GAUGE NEEDLE, TRIGGER POINTS WERE INJECTED AT THE RIGHT NECK AREA AND RIGHT SHOULDER AREA WITH A TOTAL OF 40 ML OF BUPIVACAINE 0.25% AND KENALOG 40 MG. THERE WAS NO EVIDENCE OF BLOOD, PARESTHESIA OR CEREBROSPINAL FLUID DURING THE PROCEDURE. THE PATIENT WAS SENT TO THE RECOVERY ROOM. THE PATIENT WAS MOVING THE EXTREMITIES AND DOING WELL. THERE WAS NO COMPLICATION DURING THE PROCEDURE POST PROCEDURE NOTE THE PATIENT WILL BE SEEN IN A FOLLOW UP IN THE NEXT FEW WEEKS. INSTRUCTIONS WERE GIVEN, QUESTIONS WERE ANSWERED, AND THE PATIENT EXPRESSED UNDERSTANDING AND AGREES WITH THE PLAN. I, VANITA ANG, DOCUMENTED THE ABOVE INFORMATION ACTING A SCRIBE FOR DR. DRAKE. I HAVE REVIEWED THE ABOVE DOCUMENT, WRITTEN BY VANITA ANG SCRIBDemarco AND I VERIFY THAT IT IS ACCURATE. PROCEDURE CODES 61966 INJ TRIGGER POINT / [place] [facility] [place] DISPOSITION & COMMUNICATION FOLLOW UP 3 WEEKS ELECTRONICALLY SIGNED BY YESSICA DRAKE MD, MD ON 03/20/2019 AT 01:25 PM EST DISCLAIMER : THIS IS A VISIT SUMMARY EXTRACTED FROM THE [employer] CHART. IT IS NOT A COPY OF THE [employer] PROGRESS NOTE. JOSE
== END ==
LOC: M PAIN 11:00
PROVIDERS: ATTEND Anesthesiology
DX: M79.18 Myalgia, other site (principal); K21.9 Gastro-esophageal reflux disease without esophagitis; Z88.0 Allergy status to penicillin; Z91.018 Allergy to other foods; Z91.040 Latex allergy status; Z91.09 Other allergy status, other than to drugs and biological substances; Z79.891 Long term (current) use of opiate analgesic; Z79.899 Other long term (current) drug therapy
CPT/HCPCS: 20552; J3301

== ENCOUNTER → 2019-04-17 | Outpatient (CLI) | payer BC, MEDICARE ==
[~2019-04-17] MED LIST changes: -BUPIVACAINE HCL 0.25% 10 ML VIAL As Ordered ONE; +ISOVUE-M 300 61% 15ML VIAL (Q9967) As Ordered ONE; +LIDOCAINE 1% SDV INJ 30 ML VIAL As Ordered ONE; +diphenhydrAMINE 25 MG CAP As Ordered ONE
--- NOTE | 2019-04-18 07:34 | REP ---
Two spot fluoroscopic images: 04/17/2019. Indication: Procedural guidance. Findings: Two spot fluoroscopic images of the cervical region were performed for procedural guidance. Please see the procedure report for details. Impression: Fluoroscopy provided for procedural guidance. 9 seconds of fluoroscopy time. Electronically Signed by Nelson Arriaza DO 04/17/2019 04:22 P
--- NOTE | 2019-04-19 01:31 | ECWPNPC ---
PATIENT NAME: ALEX AVILES : 1975 GENDER: FEMALE VISIT DATE: 04/17/2019 DISCHARGE DATE: 04/17/19 1636 VISIT LOCKED DATE TIME: PHYSICIAN: YESSICA DRAKE MD RESOURCE: YESSICA DRAKE MD REASON FOR APPOINTMENT 1. CFBT BILAT. C2-C3, C3-C4, C4-C5 HISTORY OF PRESENT ILLNESS HISTORY OF PRESENT ILLNESS: PAIN THE PATIENT DESCRIBES THE PAIN... FALL RISK SCREENING: SCREENING :NO FALLS REPORTED IN THE LAST YEAR CURRENT MEDICATIONS TAKING RANITIDINE HCL 150 MG CAPSULE 1 CAPSULE ORALLY ONCE DAILY, NOTES: 04/16/19 TAKING HYDROXYZINE HCL 25 MG TABLET 2 TABS ORALLY AT BEDTIME NEEDED, NOTES: 04/16/19 TAKING FLUTICASONE FUROATE 27.5 MCG/SPRAY SUSPENSION 1 SPRAY IN EACH NOSTRIL NASALLY TWICE A DAY, NOTES: 04/16/19 TAKING PANTOPRAZOLE SODIUM 40 MG TABLET DELAYED RELEASE 1 TABLET ORALLY ONCE A DAY, NOTES: 04/16/19 TAKING MIRALAX - POWDER 1 DOSE ORALLY ONCE A DAY NEEDED, NOTES: 04/16/19 TAKING MONTELUKAST SODIUM 10 MG TABLET 1 TABLET IN THE EVENING ORALLY ONCE A DAY, NOTES: 04/16/19 TAKING ASTELIN 1 SPRAY EACH NOSTRIL NASAL TWICE A DAY, NOTES: 04/16/19 TAKING PROBIOTIC CAPSULE 1 TABLET ORALLY ONCE DAILY, NOTES: 04/16/19 TAKING WELLBUTRIN SR 200 MG TABLET EXTENDED RELEASE 12 HOUR 1 TABLET IN THE MORNING ORALLY ONCE A DAY, NOTES: 04/16/19 TAKING TIZANIDINE HCL 4 MG TABLET 1 TAB ORALLY BID, NOTES: 04/16/19 TAKING NORCO 10-325 MG TABLET 1 TABLET NEEDED ORALLY Q8H PRN MDD3, NOTES: 04/16/19 TAKING MORPHINE SULFATE ER 15 MG TABLET EXTENDED RELEASE 1 TABLET ORALLY DAILY MDD1, NOTES: 04/16/19 TAKING CYMBALTA 30 MG CAPSULE DELAYED RELEASE PARTICLES 1 CAPSULE ORALLY DAILY, NOTES: 04/16/19 MEDICATION LIST REVIEWED AND RECONCILED WITH THE PATIENT PAST MEDICAL HISTORY ANEMIA GERD STOMACH ULCERS WITH H PYLORI NECK AND LOW BACK PAIN 04/26/18 CONCUSSION FROM FALLING DOWN THE STAIRS AND HITTING HEAD LEFT EYE BLIND SINCE ALLERGIES PENICILLIN: SWELLING - ALLERGY ORANGES: ANAPHYLAXIS - ALLERGY BANDAIDS AND ADHESIVES: REDDNESS AND SWELLING - ALLERGY LATEX GLOVES: REDDNESS AND SWELLING - ALLERGY TEGADERM: REDNESS, SWELLING - ALLERGY SURGICAL HISTORY RIGHT KNEE 1985 TUBAL LIGATION 2002 D&C 1996 MOLES REMOVED 2016 TOTAL HYSTERECTOMY 2017 COLONOSCOPY/ENDOSCOPY 2019 FAMILY HISTORY FATHER: MOTHER: , DIAGNOSED WITH OTHER SPECIFIED CONDITIONS INFLUENCING HEALTH STATUS SIBLINGS: ALIVE PATERNAL GRAND FATHER: OTHER MALIGNANT NEOPLASM OF UNSPECIFIED SITE 3 BROTHER(S) , 4 SISTER(S) - HEALTHY. 1 SON(S) , 3 DAUGHTER(S) . FATHER FROM MVA, NO MEDICAL HISTORY \\NMOTHER- DUE TO CHF, BRAIN TUMOR X 2, BREAST CA\\NPATERNAL GRANDFATHER--CA-UNSURE OF WHAT KIND\\NDAUGHTER - IRREGULAR HEART BEAT, ASTHMA\\NDAUGHTER - HYPOTHYROID. SOCIAL HISTORY GENERAL: TOBACCO USE ARE YOU A:NONSMOKER PAIN CLINIC PFS, CLERGY, PUBLIC HEALTH REFERRALS WAS THE PROVIDER NOTIFIED OF ANY PERTINENT INFO?YES HAS THE PATIENT BEEN EDUCATED REGARDING HIS/HER PLAN OF CARE?YES HAS THE PATIENT BEEN EDUCATED REGARDING PAIN, THE RISK FOR PAIN, THE IMPORTANCE OF EFFECTIVE PAIN MANAGEMENT, AND THE PAIN ASSESSMENT PROCESS?YES LATEX QUESTIONNAIRE LATEX ALLERGY : HAVE YOU EVER DEVELOPED ANY TYPE OF REACTION AFTER HANDLING LATEX PRODUCTS SUCH RUBBER GLOVES, CONDOMS, DIAPHRAGMS, BALLOONS, SOCKS, OR UNDERWEAR?YES - PLEASE INDICATE :RUBBER GLOVES, CONDOMS, BALLOONS, OTHER (DOCUMENT IN NOTES) BANDAIDS LATEX ALLERGY : HAVE YOU EVER DEVELOPED ANY TYPE OF REACTION DURING OR AFTER DENTAL APPOINTMENT, VAGINAL/RECTAL EXAMINATION, SURGICAL PROCEDURE, OR ANY OTHER EXPOSURE?NO LATEX RISK : HAVE YOU EVER HAD ANY DIFFICULTY BREATHING OR HIVES AFTER EATING OR HANDLING ANY FRUITS, OR VEGETABLES; SUCH KIWI, BANANAS, STONE FRUITS, OR CHESTNUTSYES - PLEASE INDICATE : ORANGES LATEX RISK : DO YOU HAVE A PREVIOUS PERSONAL HISTORY OF MORE THAN NINE SURGERIES, SPINA BIFIDA, OR REPEATED CATHERIZATIONS? NO LATEX RISK : ARE YOU FREQUENTLY EXPOSED TO LATEX PRODUCTS IN YOUR OCCUPATION?NO DATE ASKED : 04/09/2019 CAFFEINE CAFFEINE USE?YES HOW OFTEN AND HOW MUCH? 3 SODAS/DAY ADVANCE DIRECTIVE ADVANCE DIRECTIVE DISCUSSED WITH PATIENT:YES HCP-TREVON SPARKS [phone] EDUCATION LEVEL OF EDUCATION:NOT FINISHED COLLEGE BUDDHISM [id number] WORSHIP LANGUAGE LANGUAGES SPOKEN:KOREAN DOMESTIC VIOLENCE DO YOU FEEL SAFE IN YOUR ENVIRONMENT?YES ALCOHOL SCREENING DID YOU HAVE A DRINK CONTAINING ALCOHOL IN THE PAST YEAR?NO POINTS0 INTERPRETATIONNEGATIVE RECREATIONAL DRUG USE DRUG USE?NO LEARNING BARRIERS / SPECIAL NEEDS BARRIERS TO LEARNING?NO HEARING IMPAIRED?NO VISION IMPAIRED?NO COGNITIVELY IMPAIRED?NO READINESS TO LEARN?YES PRE PROCEDURE PHONE CALL DONE 04/09/19 1000 BVREVIEWED WITH PT 02/17/18 1326 BVREVIEWED WITH PATIENT 03/08/18 1023 JSREVIEWED WITH PATIENT 03/30/18 1400 LAS05/08/18 REVIEWED WITH PT. RUSTY -10-03 NLJREVIEWED WITH PATIENT 12/21/18 1316 JSREVIEWED WITH PATIENT 04/02/19 1042. HOSPITALIZATION/MAJOR DIAGNOSTIC PROCEDURE CHILD 12/18/1991 CHILD 11/01/1996 CHILD 11/23/1998 CHILD 01/29/2002 HYSTERECTOMY 2017 KNEE SURGERY ALLERGIC REACTION AGE 2 OR 3 REVIEW OF SYSTEMS REVIEWED BY: PROVIDER: . CONSTITUTIONAL: ANY CHANGE IN YOUR MEDICAL CONDITION? NO . CHILLS NO . FEVER NO . INFECTION: DO YOU HAVE NEW INFECTIONS? NO . DO YOU HAVE HISTORY OF MRSA? NO . MUSCULOSKELETAL: ANY NEW PATTERNS OF PAIN OR NUMBNESS? NO . GASTROENTEROLOGY: ANY NEW CHANGE IN BOWEL CONTROL? NO . GENITOURINARY: ANY NEW CHANGE IN BLADDER CONTROL? NO . IS THERE A CHANCE YOU COULD BE ? NO . HEMATOLOGY/LYMPH: DO YOU TAKE ANY BLOOD THINNERS? (FOR EXAMPLE- COUMADIN, PLAVIX, AGGRENOX, PLATEL, PRADAXA, OR XARELTO) NO . WHEN WAS YOUR LAST DOSE? DATE: TIME: . NEUROLOGY: HAVE YOU FALLEN IN THE PAST 12 MONTHS? YES, FELL THIS AM ON ICE, PT DENIES INJURIES . ANY NEW EXTREMITY NUMBNESS OR WEAKNESS? NO . CARDIOLOGY: DO YOU HAVE A PACEMAKER OR DEFIBRILLATOR? NO . RESPIRATORY: HAVE YOU BEEN SICK IN THE PAST WEEK? NO . FEVER NO . FLU LIKE SYMPTOMS? NO . COUGH NO . INTEGUMENTARY: DO YOU HAVE ANY RASHES OR OPEN SORES? NO . ALLERGIC/IMMUNO: ARE YOU ALLERGIC TO IV DYE? NO . ANY NEW ALLERGIES? NO . PSYCHIATRIC: DO YOU HAVE THOUGHTS OF HURTING YOURSELF OR SOMEONE ELSE? NO . ARE YOU ABUSED, NEGLECTED, OR IN AN UNSAFE ENVIRONMENT? NO . ENDOCRINOLOGY: ARE YOU DIABETIC? NO . OTHER: DO YOU NEED ANY PRESCRIPTIONS? NO . IF YES, PLEASE LIST: ____ . ANY NEW PROBLEMS WITH YOUR MEDICATIONS? NO . WHEN DID YOU LAST EAT? 04/16/19 2100 . WHEN DID YOU LAST DRINK? 04/17/19 1000 . WHAT DID YOU LAST DRINK? WATER . NAME OF PERSON DRIVING YOU HOME? [facility] . DO YOU HAVE ANY OTHER QUESTIONS OR CONCERNS NO . VITAL SIGNS WT 199.4 LBS, HT 67 IN, BMI 31.23 INDEX, BP 142/72 MM HG, HR 79 /MIN, RR 18 /MIN, TEMP 96.3 F, OXYGEN SAT % 97%, NA INITIALS AW 1422, REVIEWED BY: EM. ASSESSMENTS SPONDYLOSIS OF CERVICAL REGION WITHOUT MYELOPATHY OR RADICULOPATHY - M47.812 (PRIMARY) TREATMENT SPONDYLOSIS OF CERVICAL REGION WITHOUT MYELOPATHY OR RADICULOPATHY SMC FACET BLOCK (PAIN)[id number] PROCEDURES PN CERVICAL FACET BLOCK LOW BILATERAL CERVICAL PRE PROCEDURE DIAGNOSIS CERVICAL SPONDYLOSIS POST PROCEDURE DIAGNOSIS CERVICAL SPONDYLOSIS PROCEDURE BILATERAL C2-C3, C3-C4, AND C4-C5 CERVICAL THERAPEUTIC FACET BLOCK SURGEON DR. YESSICA DRAKE NURSING PROGRAM MANAGER NONE ANESTHESIA LOCAL PRE PROCEDURE NOTE THE PATIENT HAS HISTORY OF CHRONIC CERVICAL PAIN. I EVALUATED THE PATIENT AND REVIEWED THE CHART. I WENT OVER THE RISKS, ALTERNATIVES, AND BENEFITS ASSOCIATED WITH THIS PROCEDURE. THE PATIENT WOULD LIKE TO PROCEED AND GIVES CONSENT TO PERFORM THE PROCEDURE. THE PATIENT DENIES UNEXPLAINABLE WEIGHT LOSS, FEVER, CHILLS, OR NEW CHANGES IN URINARY OR BOWEL CONTROL. DESCRIPTION OF PROCEDURE THE PATIENT WAS BROUGHT TO THE PROCEDURE ROOM AND PLACED IN THE PRONE POSITION. THE CERVICOTHORACIC AREA WAS CLEANED WITH CHLORAPREP SOLUTION AND DRAPED ASEPTICALLY. THE PROCEDURE WAS DONE UNDER STERILE CONDITIONS. I CHECKED LATERALITY AND THE LEVEL WHERE THE PROCEDURE WAS GOING TO BE PERFORMED WITH THE PATIENT AND THE SUPPORTING STAFF AT THE MOMENT OF THE TIME OUT IN THE PROCEDURE ROOM. UNDER FLUOROSCOPIC GUIDANCE, TARGET POINT WAS SELECTED AT THE RIGHT AND LEFT C2-C3, RIGHT AND LEFT C3-C4, AND RIGHT AND LEFT C4-C5 CERVICAL FACET JOINTS. TARGET POINTS WERE SELECTED AFTER LATERAL ROTATION AND TILT OF THE MAGNIFIER OF THE C-ARM. LIDOCAINE 0.5% WAS USED TO NUMB THE SKIN AND THE SUBCUTANEOUS TISSUE BELOW IT. SPINAL NEEDLES, 22-GAUGE, WERE ADVANCED UNDER FLUOROSCOPIC GUIDANCE AND FOLLOWING PATIENT FEEDBACK UNTIL THE TARGETS WERE TOUCHED. THE POSITION OF THE NEEDLES WAS VERIFIED WITH AP AND LATERAL VIEWS. AFTER PROPER POSITION OF THE NEEDLES WAS ACHIEVED, ISOVUE M DYE 30, 0.1 ML WAS INJECTED SHOWING SPREAD OF THE DYE. THEN A SOLUTION OF 0.9 ML OF BUPIVACAINE 0.125% AND KENALOG 10 MG WAS INJECTED AT EACH SITE. THERE WAS NO EVIDENCE OF BLOOD, PARESTHESIA OR CEREBROSPINAL FLUID DURING THE PROCEDURE. THE PATIENT WAS SENT TO THE RECOVERY ROOM. THE PATIENT WAS MOVING THE EXTREMITIES AND DOING WELL. THERE WAS NO COMPLICATION DURING THE PROCEDURE. FLUOROSCOPY TIME WAS 9 SECONDS POST PROCEDURE NOTE I AM LOOKING FOR LONG LASTING PAIN RELIEF WITH THIS INTERVENTION. THE PATIENT WILL BE SEEN IN A FOLLOW UP IN THE NEXT FEW WEEKS. INSTRUCTIONS WERE GIVEN, QUESTIONS WERE ANSWERED, AND THE PATIENT EXPRESSED UNDERSTANDING AND AGREES WITH THE PLAN. I, VANITA ANG, DOCUMENTED THE ABOVE INFORMATION ACTING A SCRIBE FOR DR. DRAKE. I HAVE REVIEWED THE ABOVE DOCUMENT, WRITTEN BY VANITA SMITHIBDemarco AND I VERIFY THAT IT IS ACCURATE. PROCEDURE CODES 53962 INJ PARAVERT F JNT C/T 1 LEV, MODIFIERS: 50 [id number] INJ PARAVERT F JNT C/T 2 LEV, MODIFIERS: 50 [id number] INJ PARAVERT F JNT C/T 3 LEV, MODIFIERS: 50 [id number] RADXPS IN END [id number] PXD DISPOSITION & COMMUNICATION FOLLOW UP 3 WEEKS ELECTRONICALLY SIGNED BY YESSICA DRAKE MD, MD ON 04/18/2019 AT 02:34 PM EST DISCLAIMER : THIS IS A VISIT SUMMARY EXTRACTED FROM THE [employer] CHART. IT IS NOT A COPY OF THE [email or web address] PROGRESS NOTE. MTDD
== END ==
LOC: M PAIN 14:45
PROVIDERS: ATTEND Anesthesiology
DX: M47.812 Spondylosis without myelopathy or radiculopathy, cervical region (principal); K21.9 Gastro-esophageal reflux disease without esophagitis; Z88.0 Allergy status to penicillin; Z91.018 Allergy to other foods; Z91.040 Latex allergy status; Z91.09 Other allergy status, other than to drugs and biological substances; Z79.891 Long term (current) use of opiate analgesic; Z79.899 Other long term (current) drug therapy
CPT/HCPCS: 64490; 64491; 64492; J3301; Q9967

== ENCOUNTER → 2019-05-10 | Outpatient (CLI) | payer BC, MEDICARE ==
[~2019-05-10] MED LIST changes: -BUPIVACAINE HCL 0.25% 30 ML VIAL As Ordered ONE; -ISOVUE-M 300 61% 15ML VIAL (Q9967) As Ordered ONE; -LIDOCAINE 1% SDV INJ 30 ML VIAL As Ordered ONE; -TRIAMCINOLONE ACETONIDE SUSP 40 MG/ML VIAL (J3301) As Ordered ONE; -diazePAM 5 MG TAB As Ordered ONE; -diphenhydrAMINE 25 MG CAP As Ordered ONE; -oxyCODONE 5MG TAB As Ordered ONE
--- NOTE | 2019-05-23 03:39 | ECWPNPC ---
PATIENT NAME: ALEX AVILES : 1975 GENDER: FEMALE VISIT DATE: 05/10/2019 DISCHARGE DATE: 05/10/19 1358 VISIT LOCKED DATE TIME: PHYSICIAN: NATHALIE GONGORA RESOURCE: NATHALIE GONGORA REASON FOR APPOINTMENT 1. POST PROCEDURE HISTORY OF PRESENT ILLNESS HISTORY OF PRESENT ILLNESS: HERE FOR POST PROCEDURE F/U.HAD BILAT. CFBT C4/5-C5/6 ON 04/17/19.CONTINUES TO BENEFIT FROM CERVICAL THERAPEUTIC BLOCK TODAY.CHIEF AREA OF PAIN IS RIGHT TRAPEZIUS. REPORTING A INTERMITTENT TINGLING SENSATION IN RIGHT FACET REGION SINCE INJECTION. STATES THAT SHE FELL ON ICE DAY OF PROCEDURE. DENIES INCREASE IN NECK PAIN OR NEW ONSET OF RADICULAR SYMPTOMS SINCE FALL. RATING PAIN LEVEL 4/ 10 VAS. PAIN THE PATIENT DESCRIBES THE PAIN... FALL RISK SCREENING: SCREENING :NO FALLS REPORTED IN THE LAST YEAR CURRENT MEDICATIONS TAKING RANITIDINE HCL 150 MG CAPSULE 1 CAPSULE ORALLY ONCE DAILY TAKING HYDROXYZINE HCL 25 MG TABLET 2 TABS ORALLY EVERY 6 HRS NEEDED TAKING FLUTICASONE FUROATE 27.5 MCG/SPRAY SUSPENSION 1 SPRAY IN EACH NOSTRIL NASALLY TWICE A DAY TAKING PANTOPRAZOLE SODIUM 40 MG TABLET DELAYED RELEASE 1 TABLET ORALLY ONCE A DAY TAKING MIRALAX - POWDER 1 DOSE ORALLY ONCE A DAY NEEDED TAKING MONTELUKAST SODIUM 10 MG TABLET 1 TABLET IN THE EVENING ORALLY ONCE A DAY TAKING ASTELIN 1 SPRAY EACH NOSTRIL NASAL TWICE A DAY TAKING PROBIOTIC CAPSULE 1 TABLET ORALLY ONCE DAILY TAKING WELLBUTRIN SR 200 MG TABLET EXTENDED RELEASE 12 HOUR 1 TABLET IN THE MORNING ORALLY ONCE A DAY TAKING NORCO 10-325 MG TABLET 1 TABLET NEEDED ORALLY Q8H PRN MDD3 TAKING MORPHINE SULFATE ER 15 MG TABLET EXTENDED RELEASE 1 TABLET ORALLY DAILY MDD1 TAKING TIZANIDINE HCL 4 MG TABLET 1 TAB ORALLY BID TAKING CYMBALTA 30 MG CAPSULE DELAYED RELEASE PARTICLES 1 CAPSULE ORALLY DAILY MEDICATION LIST REVIEWED AND RECONCILED WITH THE PATIENT PAST MEDICAL HISTORY ANEMIA GERD STOMACH ULCERS WITH H PYLORI NECK AND LOW BACK PAIN 04/26/18 CONCUSSION FROM FALLING DOWN THE STAIRS AND HITTING HEAD LEFT EYE BLIND SINCE ALLERGIES PENICILLIN: SWELLING - ALLERGY ORANGES: ANAPHYLAXIS - ALLERGY BANDAIDS AND ADHESIVES: REDDNESS AND SWELLING - ALLERGY LATEX GLOVES: REDDNESS AND SWELLING - ALLERGY TEGADERM: REDNESS, SWELLING - ALLERGY SURGICAL HISTORY RIGHT KNEE 1985 TUBAL LIGATION 2001 D&C 1995 MOLES REMOVED 2016 TOTAL HYSTERECTOMY 2017 COLONOSCOPY/ENDOSCOPY 2019 FAMILY HISTORY FATHER: MOTHER: , DIAGNOSED WITH OTHER SPECIFIED CONDITIONS INFLUENCING HEALTH STATUS SIBLINGS: ALIVE PATERNAL GRAND FATHER: OTHER MALIGNANT NEOPLASM OF UNSPECIFIED SITE 3 BROTHER(S) , 4 SISTER(S) - HEALTHY. 1 SON(S) , 3 DAUGHTER(S) . FATHER FROM MVA, NO MEDICAL HISTORY \\NMOTHER- DUE TO CHF, BRAIN TUMOR X 2, BREAST CA\\NPATERNAL GRANDFATHER--CA-UNSURE OF WHAT KIND\\NDAUGHTER - IRREGULAR HEART BEAT, ASTHMA\\NDAUGHTER - HYPOTHYROID. SOCIAL HISTORY GENERAL: TOBACCO USE ARE YOU A:NONSMOKER PAIN CLINIC PFS, CLERGY, PUBLIC HEALTH REFERRALS WAS THE PROVIDER NOTIFIED OF ANY PERTINENT INFO?YES HAS THE PATIENT BEEN EDUCATED REGARDING HIS/HER PLAN OF CARE?YES HAS THE PATIENT BEEN EDUCATED REGARDING PAIN, THE RISK FOR PAIN, THE IMPORTANCE OF EFFECTIVE PAIN MANAGEMENT, AND THE PAIN ASSESSMENT PROCESS?YES LATEX QUESTIONNAIRE LATEX ALLERGY : HAVE YOU EVER DEVELOPED ANY TYPE OF REACTION AFTER HANDLING LATEX PRODUCTS SUCH RUBBER GLOVES, CONDOMS, DIAPHRAGMS, BALLOONS, SOCKS, OR UNDERWEAR?YES LATEX ALLERGY : HAVE YOU EVER DEVELOPED ANY TYPE OF REACTION DURING OR AFTER DENTAL APPOINTMENT, VAGINAL/RECTAL EXAMINATION, SURGICAL PROCEDURE, OR ANY OTHER EXPOSURE?NO - PLEASE INDICATE :RUBBER GLOVES, CONDOMS, BALLOONS, OTHER (DOCUMENT IN NOTES) BANDAIDS DATE ASKED : 04/09/2019 LATEX RISK : HAVE YOU EVER HAD ANY DIFFICULTY BREATHING OR HIVES AFTER EATING OR HANDLING ANY FRUITS, OR VEGETABLES; SUCH KIWI, BANANAS, STONE FRUITS, OR CHESTNUTSYES - PLEASE INDICATE : ORANGES LATEX RISK : DO YOU HAVE A PREVIOUS PERSONAL HISTORY OF MORE THAN NINE SURGERIES, SPINA BIFIDA, OR REPEATED CATHERIZATIONS? NO LATEX RISK : ARE YOU FREQUENTLY EXPOSED TO LATEX PRODUCTS IN YOUR OCCUPATION?NO CAFFEINE CAFFEINE USE?YES HOW OFTEN AND HOW MUCH? 3 SODAS/DAY ADVANCE DIRECTIVE ADVANCE DIRECTIVE DISCUSSED WITH PATIENT:YES HCP-TREVON SPARKS [phone] EDUCATION LEVEL OF EDUCATION:NOT FINISHED COLLEGE ANABAPTISM [id number] ANABAPTIST LANGUAGE LANGUAGES SPOKEN:MONGOLIAN DOMESTIC VIOLENCE DO YOU FEEL SAFE IN YOUR ENVIRONMENT?YES ALCOHOL SCREENING DID YOU HAVE A DRINK CONTAINING ALCOHOL IN THE PAST YEAR?NO POINTS0 INTERPRETATIONNEGATIVE RECREATIONAL DRUG USE DRUG USE?NO LEARNING BARRIERS / SPECIAL NEEDS BARRIERS TO LEARNING?NO HEARING IMPAIRED?NO VISION IMPAIRED?NO COGNITIVELY IMPAIRED?NO READINESS TO LEARN?YES PRE PROCEDURE PHONE CALL DONE 04/09/19 1000 BVREVIEWED WITH PT 02/17/18 1326 BVREVIEWED WITH PATIENT 03/08/18 1023 JSREVIEWED WITH PATIENT 03/30/18 1400 LAS05/08/18 REVIEWED WITH PT. MASOUDJAE NLJREVIEWED WITH PATIENT 12/21/18 1316 JSREVIEWED WITH PATIENT 04/02/19 1042. HOSPITALIZATION/MAJOR DIAGNOSTIC PROCEDURE CHILD 12/18/1991 CHILD 11/01/1996 CHILD 11/23/1998 CHILD 01/29/2002 HYSTERECTOMY 2017 KNEE SURGERY ALLERGIC REACTION AGE 2 OR 3 REVIEW OF SYSTEMS REVIEWED BY: PROVIDER: NATHALIE SUAZO . CONSTITUTIONAL: ANY CHANGE IN YOUR MEDICAL CONDITION? NO . CHILLS NO . FEVER NO . INFECTION: DO YOU HAVE NEW INFECTIONS? NO . DO YOU HAVE HISTORY OF MRSA? NO . MUSCULOSKELETAL: ANY NEW PATTERNS OF PAIN OR NUMBNESS? YES - WHILE RESTING . GASTROENTEROLOGY: ANY NEW CHANGE IN BOWEL CONTROL? NO . GENITOURINARY: ANY NEW CHANGE IN BLADDER CONTROL? NO . IS THERE A CHANCE YOU COULD BE ? NO . HEMATOLOGY/LYMPH: DO YOU TAKE ANY BLOOD THINNERS? (FOR EXAMPLE- COUMADIN, PLAVIX, AGGRENOX, PLATEL, PRADAXA, OR XARELTO) NO . WHEN WAS YOUR LAST DOSE? DATE: TIME: . NEUROLOGY: HAVE YOU FALLEN IN THE PAST 12 MONTHS? YES . ANY NEW EXTREMITY NUMBNESS OR WEAKNESS? NO . CARDIOLOGY: DO YOU HAVE A PACEMAKER OR DEFIBRILLATOR? NO . RESPIRATORY: HAVE YOU BEEN SICK IN THE PAST WEEK? NO . FEVER NO . FLU LIKE SYMPTOMS? NO . COUGH NO . INTEGUMENTARY: DO YOU HAVE ANY RASHES OR OPEN SORES? NO . ALLERGIC/IMMUNO: ARE YOU ALLERGIC TO IV DYE? NO . ANY NEW ALLERGIES? NO . PSYCHIATRIC: DO YOU HAVE THOUGHTS OF HURTING YOURSELF OR SOMEONE ELSE? NO . ARE YOU ABUSED, NEGLECTED, OR IN AN UNSAFE ENVIRONMENT? NO . ENDOCRINOLOGY: ARE YOU DIABETIC? NO . OTHER: DO YOU NEED ANY PRESCRIPTIONS? NO . IF YES, PLEASE LIST: ____ . ANY NEW PROBLEMS WITH YOUR MEDICATIONS? NO . WHEN DID YOU LAST EAT? ____ . WHEN DID YOU LAST DRINK? ____ . WHAT DID YOU LAST DRINK? ____ . NAME OF PERSON DRIVING YOU HOME? ____ . DO YOU HAVE ANY OTHER QUESTIONS OR CONCERNS NO . VITAL SIGNS WT 195.8 LBS, HT 67 IN, BMI 30.66 INDEX, BP 137/98 MM HG, HR 75 /MIN, RR 18 /MIN, TEMP 96.4 F, OXYGEN SAT % 99%, NA INITIALS AW 1255, REVIEWED BY: ALEXUS. EXAMINATION GENERAL EXAMINATION: GENERAL AWAKE,ALERT ,PLEASANT . PSYCH AFFECT NORMAL . LUNGS: LUNG ALVARES ARE CLEAR TO AUSCULTATION BILATERALLY. GOOD MOVEMENT OF AIR . HEART: S1, S2 IN A REGULAR RATE AND RHYTHM. NO SIGNIFICANT MURMURS, RUBS OR GALLOPS NOTED . MUSCULOSKELETAL:HYPERSENSITIVE TO LIGHT TOUCH RIGHT UPPER BACK AND NECK . NO REDNESS OR SWELLING. . ASSESSMENTS SPONDYLOSIS OF CERVICAL REGION WITHOUT MYELOPATHY OR RADICULOPATHY - M47.812 (PRIMARY) TREATMENT SPONDYLOSIS OF CERVICAL REGION WITHOUT MYELOPATHY OR RADICULOPATHY CONTINUE NORCO TABLET, 10-325 MG, 1 TABLET NEEDED, ORALLY, Q8H PRN MDD3 CONTINUE MORPHINE SULFATE ER TABLET EXTENDED RELEASE, 15 MG, 1 TABLET, ORALLY, DAILY MDD1 CONTINUE TIZANIDINE HCL TABLET, 4 MG, 1 TAB, ORALLY, BID CONTINUE CYMBALTA CAPSULE DELAYED RELEASE PARTICLES, 30 MG, 1 CAPSULE, ORALLY, DAILY NOTES: ISTOP REGISTRY REVIEWED AND DEMONSTRATES COMPLLIANCE. BRINGS IN MEDICATIONS WHICH IS APPROPRIATE FOR WHAT WAS DISPENSED. RECENT URINE TOXICOLOGY REVIEWED. NO UNAUTHORIZED MEDICATIONS. NO ILLICIT SUBSTANCES AND PRESCRIBED MEDICATIONS WERE PRESENT. URINE TOXICOLOGY TODAY, RISKS OF NARCOTIC/OPIOD MEDICATIONS INCLUDES BUT IS NOT LIMITED TO RISK OF DEPENDANCE/DEVELOPMENT OF ADDICTION, MOOD DISTURBANCE AND DEPRESSION, OSTEOPOROSIS, HORMONAL AND LABIDAL CHANGES, RESPIRATORY DEPRESSION AND . PATIENT IS ADVISED NOT TO DRIVE OR DRINK ALCOHOL WHILE ON THESE MEDICATIONS. PROCEDURE CODES FA211 ESTABILISHED PATIENT [facility] FACILITY CHARGE DISPOSITION & COMMUNICATION FOLLOW UP 8-10 WKS (REASON: NECK PAIN) ELECTRONICALLY SIGNED BY GABRIELE DAWSON ON 05/22/2019 AT 03:17 PM EST DISCLAIMER : THIS IS A VISIT SUMMARY EXTRACTED FROM THE [employer] CHART. IT IS NOT A COPY OF THE [employer] PROGRESS NOTE. MTDD
== END ==
LOC: M PAIN 13:00
PROVIDERS: ATTEND Nurse Practitioner Family
DX: M47.812 Spondylosis without myelopathy or radiculopathy, cervical region (principal); K21.9 Gastro-esophageal reflux disease without esophagitis; Z88.0 Allergy status to penicillin; Z91.018 Allergy to other foods; Z91.040 Latex allergy status; Z91.09 Other allergy status, other than to drugs and biological substances; Z79.899 Other long term (current) drug therapy

== ENCOUNTER → 2019-07-03 | Outpatient (CLI) | payer BC ==
[~2019-07-03] MED LIST changes: -MONT10TA2 PO; +MONT10TA4 PO
--- NOTE | 2019-07-05 23:55 | ECWPNPC ---
PATIENT NAME: ALEX AVILES : 1975 GENDER: FEMALE VISIT DATE: 07/03/2019 DISCHARGE DATE: 07/03/19 1257 VISIT LOCKED DATE TIME: PHYSICIAN: NATHALIE GONGORA RESOURCE: NATHALIE GONGORA REASON FOR APPOINTMENT 1. NECK PAIN HISTORY OF PRESENT ILLNESS HISTORY OF PRESENT ILLNESS: HERE FOR FOLLOW-UP OF PERSISTENT NECK AND UPPER BACK PAIN ON THE RIGHT SIDE. REPORTS A FALL INJURY A FEW MONTHS AGO. PAIN, ESPECIALLY IN THE UPPER RIGHT THORACIC PARASPINAL REGION. HAS BEEN AGGRAVATED SINCE FALL. REPORTS SIGNIFICANT INCREASE IN PAIN WITH USE OF RIGHT ARM. RATING PAIN LEVEL 4-10 OVER 10 VAS. FINDS CURRENT CHRONIC PAIN MEDICATION MARGINALLY EFFECTIVE. PAIN THE PATIENT DESCRIBES THE PAIN... FALL RISK SCREENING: SCREENING :NO FALLS REPORTED IN THE LAST YEAR CURRENT MEDICATIONS TAKING RANITIDINE HCL 150 MG CAPSULE 1 CAPSULE ORALLY ONCE DAILY TAKING HYDROXYZINE HCL 25 MG TABLET 2 TABS ORALLY EVERY 6 HRS NEEDED TAKING FLUTICASONE FUROATE 27.5 MCG/SPRAY SUSPENSION 1 SPRAY IN EACH NOSTRIL NASALLY TWICE A DAY TAKING PANTOPRAZOLE SODIUM 40 MG TABLET DELAYED RELEASE 1 TABLET ORALLY ONCE A DAY TAKING MIRALAX - POWDER 1 DOSE ORALLY ONCE A DAY NEEDED TAKING MONTELUKAST SODIUM 10 MG TABLET 1 TABLET IN THE EVENING ORALLY ONCE A DAY TAKING ASTELIN 1 SPRAY EACH NOSTRIL NASAL TWICE A DAY TAKING PROBIOTIC CAPSULE 1 TABLET ORALLY ONCE DAILY TAKING WELLBUTRIN SR 200 MG TABLET EXTENDED RELEASE 12 HOUR 1 TABLET IN THE MORNING ORALLY ONCE A DAY TAKING MORPHINE SULFATE ER 15 MG TABLET EXTENDED RELEASE 1 TABLET ORALLY DAILY MDD1 TAKING NORCO 10-325 MG TABLET 1 TABLET NEEDED ORALLY Q8H PRN MDD3 TAKING TIZANIDINE HCL 4 MG TABLET 1 TAB ORALLY BID TAKING CYMBALTA 30 MG CAPSULE DELAYED RELEASE PARTICLES 1 CAPSULE ORALLY DAILY MEDICATION LIST REVIEWED AND RECONCILED WITH THE PATIENT PAST MEDICAL HISTORY ANEMIA GERD STOMACH ULCERS WITH H PYLORI NECK AND LOW BACK PAIN 04/26/18 CONCUSSION FROM FALLING DOWN THE STAIRS AND HITTING HEAD LEFT EYE BLIND SINCE ALLERGIES PENICILLIN: SWELLING - ALLERGY ORANGES: ANAPHYLAXIS - ALLERGY BANDAIDS AND ADHESIVES: REDDNESS AND SWELLING - ALLERGY LATEX GLOVES: REDDNESS AND SWELLING - ALLERGY TEGADERM: REDNESS, SWELLING - ALLERGY SURGICAL HISTORY RIGHT KNEE 1985 TUBAL LIGATION 2002 D&C 1996 MOLES REMOVED 2016 TOTAL HYSTERECTOMY 2017 COLONOSCOPY/ENDOSCOPY 2019 FAMILY HISTORY FATHER: MOTHER: , DIAGNOSED WITH OTHER SPECIFIED CONDITIONS INFLUENCING HEALTH STATUS SIBLINGS: ALIVE PATERNAL GRAND FATHER: OTHER MALIGNANT NEOPLASM OF UNSPECIFIED SITE 3 BROTHER(S) , 4 SISTER(S) - HEALTHY. 1 SON(S) , 3 DAUGHTER(S) . FATHER FROM MVA, NO MEDICAL HISTORY \\NMOTHER- DUE TO CHF, BRAIN TUMOR X 2, BREAST CA\\NPATERNAL GRANDFATHER--CA-UNSURE OF WHAT KIND\\NDAUGHTER - IRREGULAR HEART BEAT, ASTHMA\\NDAUGHTER - HYPOTHYROID. SOCIAL HISTORY GENERAL: TOBACCO USE ARE YOU A:NONSMOKER PAIN CLINIC PFS, CLERGY, PUBLIC HEALTH REFERRALS WAS THE PROVIDER NOTIFIED OF ANY PERTINENT INFO?YES HAS THE PATIENT BEEN EDUCATED REGARDING HIS/HER PLAN OF CARE?YES HAS THE PATIENT BEEN EDUCATED REGARDING PAIN, THE RISK FOR PAIN, THE IMPORTANCE OF EFFECTIVE PAIN MANAGEMENT, AND THE PAIN ASSESSMENT PROCESS?YES LATEX QUESTIONNAIRE LATEX ALLERGY : HAVE YOU EVER DEVELOPED ANY TYPE OF REACTION AFTER HANDLING LATEX PRODUCTS SUCH RUBBER GLOVES, CONDOMS, DIAPHRAGMS, BALLOONS, SOCKS, OR UNDERWEAR?YES LATEX ALLERGY : HAVE YOU EVER DEVELOPED ANY TYPE OF REACTION DURING OR AFTER DENTAL APPOINTMENT, VAGINAL/RECTAL EXAMINATION, SURGICAL PROCEDURE, OR ANY OTHER EXPOSURE?NO - PLEASE INDICATE :RUBBER GLOVES, CONDOMS, BALLOONS, OTHER (DOCUMENT IN NOTES) BANDAIDS DATE ASKED : 04/09/2019 LATEX RISK : HAVE YOU EVER HAD ANY DIFFICULTY BREATHING OR HIVES AFTER EATING OR HANDLING ANY FRUITS, OR VEGETABLES; SUCH KIWI, BANANAS, STONE FRUITS, OR CHESTNUTSYES - PLEASE INDICATE : ORANGES LATEX RISK : DO YOU HAVE A PREVIOUS PERSONAL HISTORY OF MORE THAN NINE SURGERIES, SPINA BIFIDA, OR REPEATED CATHERIZATIONS? NO LATEX RISK : ARE YOU FREQUENTLY EXPOSED TO LATEX PRODUCTS IN YOUR OCCUPATION?NO CAFFEINE CAFFEINE USE?YES HOW OFTEN AND HOW MUCH? 3 SODAS/DAY ADVANCE DIRECTIVE ADVANCE DIRECTIVE DISCUSSED WITH PATIENT:YES HCP-TREVON SPARKS [phone] EDUCATION LEVEL OF EDUCATION:NOT FINISHED COLLEGE SCIENTOLOGY [id number] JEW LANGUAGE LANGUAGES SPOKEN:LEBANESE DOMESTIC VIOLENCE DO YOU FEEL SAFE IN YOUR ENVIRONMENT?YES ALCOHOL SCREENING DID YOU HAVE A DRINK CONTAINING ALCOHOL IN THE PAST YEAR?NO POINTS0 INTERPRETATIONNEGATIVE RECREATIONAL DRUG USE DRUG USE?NO LEARNING BARRIERS / SPECIAL NEEDS BARRIERS TO LEARNING?NO HEARING IMPAIRED?NO VISION IMPAIRED?NO COGNITIVELY IMPAIRED?NO READINESS TO LEARN?YES PRE PROCEDURE PHONE CALL DONE 04/09/19 1000 BVREVIEWED WITH PT 02/17/18 1326 BVREVIEWED WITH PATIENT 03/08/18 1023 JSREVIEWED WITH PATIENT 03/30/18 1400 LAS05/08/18 REVIEWED WITH PT. RUSTY -10-03 NLJREVIEWED WITH PATIENT 12/21/18 1316 JSREVIEWED WITH PATIENT 04/02/19 1042. HOSPITALIZATION/MAJOR DIAGNOSTIC PROCEDURE CHILD 12/18/1991 CHILD 11/01/1996 CHILD 11/23/1998 CHILD 01/29/2002 HYSTERECTOMY 2017 KNEE SURGERY ALLERGIC REACTION AGE 2 OR 3 REVIEW OF SYSTEMS REVIEWED BY: PROVIDER: NATHALIE SUAZO . CONSTITUTIONAL: ANY CHANGE IN YOUR MEDICAL CONDITION? NO . CHILLS NO . FEVER NO . INFECTION: DO YOU HAVE NEW INFECTIONS? NO . DO YOU HAVE HISTORY OF MRSA? NO . MUSCULOSKELETAL: ANY NEW PATTERNS OF PAIN OR NUMBNESS? NO . GASTROENTEROLOGY: ANY NEW CHANGE IN BOWEL CONTROL? NO . GENITOURINARY: ANY NEW CHANGE IN BLADDER CONTROL? NO . IS THERE A CHANCE YOU COULD BE ? NO . HEMATOLOGY/LYMPH: DO YOU TAKE ANY BLOOD THINNERS? (FOR EXAMPLE- COUMADIN, PLAVIX, AGGRENOX, PLATEL, PRADAXA, OR XARELTO) NO . WHEN WAS YOUR LAST DOSE? DATE: TIME: . NEUROLOGY: HAVE YOU FALLEN IN THE PAST 12 MONTHS? NO . ANY NEW EXTREMITY NUMBNESS OR WEAKNESS? NO . CARDIOLOGY: DO YOU HAVE A PACEMAKER OR DEFIBRILLATOR? NO . RESPIRATORY: HAVE YOU BEEN SICK IN THE PAST WEEK? NO . FEVER NO . FLU LIKE SYMPTOMS? NO . COUGH NO . INTEGUMENTARY: DO YOU HAVE ANY RASHES OR OPEN SORES? NO . ALLERGIC/IMMUNO: ARE YOU ALLERGIC TO IV DYE? NO . ANY NEW ALLERGIES? NO . PSYCHIATRIC: DO YOU HAVE THOUGHTS OF HURTING YOURSELF OR SOMEONE ELSE? NO . ARE YOU ABUSED, NEGLECTED, OR IN AN UNSAFE ENVIRONMENT? NO . ENDOCRINOLOGY: ARE YOU DIABETIC? NO . OTHER: DO YOU NEED ANY PRESCRIPTIONS? NO . IF YES, PLEASE LIST: ____ . ANY NEW PROBLEMS WITH YOUR MEDICATIONS? NO . WHEN DID YOU LAST EAT? ____ . WHEN DID YOU LAST DRINK? ____ . WHAT DID YOU LAST DRINK? ____ . NAME OF PERSON DRIVING YOU HOME? ____ . DO YOU HAVE ANY OTHER QUESTIONS OR CONCERNS NO . VITAL SIGNS WT 198 LBS, HT 67 IN, BMI 31.01 INDEX, BP 130/65 MM HG, HR 78 /MIN, RR 18 /MIN, TEMP 98 F, OXYGEN SAT % 99, SAFE IN ENV? (Y/N) Y, REVIEWED BY: KG. EXAMINATION GENERAL EXAMINATION: GENERAL AWAKE,ALERT ,PLEASANT . PSYCH AFFECT NORMAL . LUNGS: LUNG ALVARES ARE CLEAR TO AUSCULTATION BILATERALLY. GOOD MOVEMENT OF AIR . HEART: S1, S2 IN A REGULAR RATE AND RHYTHM. NO SIGNIFICANT MURMURS, RUBS OR GALLOPS NOTED . MUSCULOSKELETAL:HYPERSENSITIVE TO LIGHT TOUCH RIGHT UPPER BACK AND NECK . NO REDNESS OR SWELLING. . THORACIC SPINE: PALPATION: TENDERNESS NOTED WITH PALPATION OVER RIGHT UPPER THORACIC PARASPINAL REGION.. ASSESSMENTS OTHER CHRONIC PAIN - G89.29 (PRIMARY) PAIN IN THORACIC SPINE - M54.6 TREATMENT OTHER CHRONIC PAIN START AMITRIPTYLINE HCL TABLET, 25 MG, 1 TABLET AT BEDTIME, ORALLY, ONCE A DAY, 30 DAY(S), 30, REFILLS 2 [facility] MRI SPINE,THORACIC WITHOUT [id number] NOTES: DUE TO NEW-ONSET OF SEVERE RIGHT UPPER THORACIC AND SHOULDER PAIN STATUS POST FALL INJURY A FEW MONTHS AGO I'M ORDERING AN MRI OF THE THORACIC SPINE TO RULE OUT DISC PATHOLOGY AND DEVELOP A TREATMENT PLAN. PROCEDURE CODES FA211 ESTABILISHED PATIENT [facility] FACILITY CHARGE DISPOSITION & COMMUNICATION FOLLOW UP 6 WEEKS (REASON: MRI THORACIC SPINE REVIEW) ELECTRONICALLY SIGNED BY GABRIELE DAWSON ON 07/05/2019 AT 01:39 PM EST DISCLAIMER : THIS IS A VISIT SUMMARY EXTRACTED FROM THE [employer] CHART. IT IS NOT A COPY OF THE [employer] PROGRESS NOTE. BRITANYD
== END ==
LOC: M PAIN 11:30
PROVIDERS: ATTEND Nurse Practitioner Family
DX: G89.29 Other chronic pain (principal); M54.6 Pain in thoracic spine

== ENCOUNTER → 2019-07-14 | Outpatient (CLI) | payer BC ==
--- NOTE | 2019-07-14 15:37 | REP ---
REASON: Thoracic spine pain. There are no priors for comparison. There is no abnormal signal seen in the imaged portion of the spinal cord. Vertebral body height and alignment is within normal limits. There is adequate disc hydration and disc space height at every level. The marrow signal is within normal limits. 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 This is unchanged from the C-spine MRI examination of 10/03/2015. There is no disc herniation, foraminal narrowing, central canal stenosis at any thoracic level. IMPRESSION: No acute abnormality is noted. Findings as described above. Unreviewed
== END ==
LOC: M RAD 11:05
PROVIDERS: ATTEND Nurse Practitioner Family
DX: M54.6 Pain in thoracic spine (principal)

== ENCOUNTER → 2019-07-27 | Outpatient (CLI) | payer BC ==
--- NOTE | 2019-07-28 00:35 | ECWPNPC ---
PATIENT NAME: ALEX AVILES : 1975 GENDER: FEMALE VISIT DATE: 07/27/2019 DISCHARGE DATE: 07/27/19933 VISIT LOCKED DATE TIME: PHYSICIAN: NATHALIE GONGORA RESOURCE: NATHALIE GONGORA REASON FOR APPOINTMENT 1. 4 WEEKS HISTORY OF PRESENT ILLNESS HISTORY OF PRESENT ILLNESS: PERMISSION FROM PATIENT WAS RECEIVED TO DO TELEPHONE OFFICE VISIT. CONTINUES TO HAVE MAINLY RIGHT UPPER THORACIC ,LOWER CERVICAL PAIN. MRI OF THE THORACIC SPINE THAT I HAD ORDERED DUE TO THE FACT THAT SHE HAD FALLEN AND HAD INCREASE IN PAIN IN THIS AREA WAS REVIEWED WITH PATIENT. THIS IS SHOWING NO ACUTE ABNORMALITY. FINDS CURRENT MEDICATION SOMEWHAT EFFECTIVE AT REDUCING HER PAIN AND KEEPING HER COMFORTABLE. AMITRIPTYLINE STARTED AT LAST VISIT SHE DOES NOT FEEL IS ALL THAT HELPFUL AND IS HAVING POOR SLEEP, BUT SHE ALSO IS UNDER A LOT OF STRESS RECENTLY. RATING PAIN LEVEL /X VAS. STATES THAT SHE FEELS CERVICAL FACET BLOCKS WERE HELPFUL FOR HER PAIN AND WOULD LIKE TO BE CONSIDERED TO HAVE THAT IN THE NEAR FUTURE. PAIN THE PATIENT DESCRIBES THE PAIN... FALL RISK SCREENING: SCREENING :NO FALLS REPORTED IN THE LAST YEAR CURRENT MEDICATIONS TAKING RANITIDINE HCL 150 MG CAPSULE 1 CAPSULE ORALLY ONCE DAILY TAKING HYDROXYZINE HCL 25 MG TABLET 2 TABS ORALLY EVERY 6 HRS NEEDED TAKING FLUTICASONE FUROATE 27.5 MCG/SPRAY SUSPENSION 1 SPRAY IN EACH NOSTRIL NASALLY TWICE A DAY TAKING PANTOPRAZOLE SODIUM 40 MG TABLET DELAYED RELEASE 1 TABLET ORALLY ONCE A DAY TAKING MIRALAX - POWDER 1 DOSE ORALLY ONCE A DAY NEEDED TAKING MONTELUKAST SODIUM 10 MG TABLET 1 TABLET IN THE EVENING ORALLY ONCE A DAY TAKING ASTELIN 1 SPRAY EACH NOSTRIL NASAL TWICE A DAY TAKING PROBIOTIC CAPSULE 1 TABLET ORALLY ONCE DAILY TAKING WELLBUTRIN SR 200 MG TABLET EXTENDED RELEASE 12 HOUR 1 TABLET IN THE MORNING ORALLY ONCE A DAY TAKING AMITRIPTYLINE HCL 25 MG TABLET 1 TABLET AT BEDTIME ORALLY ONCE A DAY TAKING MORPHINE SULFATE ER 15 MG TABLET EXTENDED RELEASE 1 TABLET ORALLY DAILY MDD1 TAKING NORCO 10-325 MG TABLET 1 TABLET NEEDED ORALLY Q8H PRN MDD3 TAKING TIZANIDINE HCL 4 MG TABLET 1 TAB ORALLY BID TAKING CYMBALTA 30 MG CAPSULE DELAYED RELEASE PARTICLES 1 CAPSULE ORALLY DAILY MEDICATION LIST REVIEWED AND RECONCILED WITH THE PATIENT PAST MEDICAL HISTORY ANEMIA GERD STOMACH ULCERS WITH H PYLORI NECK AND LOW BACK PAIN 04/26/18 CONCUSSION FROM FALLING DOWN THE STAIRS AND HITTING HEAD LEFT EYE BLIND SINCE ALLERGIES PENICILLIN: SWELLING - ALLERGY ORANGES: ANAPHYLAXIS - ALLERGY BANDAIDS AND ADHESIVES: REDDNESS AND SWELLING - ALLERGY LATEX GLOVES: REDDNESS AND SWELLING - ALLERGY TEGADERM: REDNESS, SWELLING - ALLERGY SURGICAL HISTORY RIGHT KNEE 1985 TUBAL LIGATION 2001 D&C 1996 MOLES REMOVED 2016 TOTAL HYSTERECTOMY 2017 COLONOSCOPY/ENDOSCOPY 2019 FAMILY HISTORY FATHER: MOTHER: , DIAGNOSED WITH OTHER SPECIFIED CONDITIONS INFLUENCING HEALTH STATUS SIBLINGS: ALIVE PATERNAL GRAND FATHER: OTHER MALIGNANT NEOPLASM OF UNSPECIFIED SITE 3 BROTHER(S) , 4 SISTER(S) - HEALTHY. 1 SON(S) , 3 DAUGHTER(S) . FATHER FROM MVA, NO MEDICAL HISTORY \\NMOTHER- DUE TO CHF, BRAIN TUMOR X 2, BREAST CA\\NPATERNAL GRANDFATHER--CA-UNSURE OF WHAT KIND\\NDAUGHTER - IRREGULAR HEART BEAT, ASTHMA\\NDAUGHTER - HYPOTHYROID. SOCIAL HISTORY GENERAL: TOBACCO USE ARE YOU A:NONSMOKER EDUCATION LEVEL OF EDUCATION:NOT FINISHED COLLEGE LANGUAGE LANGUAGES SPOKEN:SPANISH DOMESTIC VIOLENCE DO YOU FEEL SAFE IN YOUR ENVIRONMENT?YES NEW PATIENT PAIN DIARY PATIENT DESCRIBES PAIN :HAVE IT ALL THE TIME, SHARP FROM 0-10, WHAT LEVEL IS YOUR PAIN TODAY?6 PRECIPITATING FACTORS NO ALLEVIATING FACTORS HEAT/ICE, MEDS IMPACT ON FUNCTION YES RECREATIONAL DRUG USE DRUG USE?NO LEARNING BARRIERS / SPECIAL NEEDS BARRIERS TO LEARNING?NO HEARING IMPAIRED?NO VISION IMPAIRED?NO COGNITIVELY IMPAIRED?NO READINESS TO LEARN?YES PAIN CLINIC PFS, CLERGY, PUBLIC HEALTH REFERRALS WAS THE PROVIDER NOTIFIED OF ANY PERTINENT INFO?YES HAS THE PATIENT BEEN EDUCATED REGARDING HIS/HER PLAN OF CARE?YES HAS THE PATIENT BEEN EDUCATED REGARDING PAIN, THE RISK FOR PAIN, THE IMPORTANCE OF EFFECTIVE PAIN MANAGEMENT, AND THE PAIN ASSESSMENT PROCESS?YES LATEX QUESTIONNAIRE LATEX ALLERGY : HAVE YOU EVER DEVELOPED ANY TYPE OF REACTION AFTER HANDLING LATEX PRODUCTS SUCH RUBBER GLOVES, CONDOMS, DIAPHRAGMS, BALLOONS, SOCKS, OR UNDERWEAR?YES LATEX ALLERGY : HAVE YOU EVER DEVELOPED ANY TYPE OF REACTION DURING OR AFTER DENTAL APPOINTMENT, VAGINAL/RECTAL EXAMINATION, SURGICAL PROCEDURE, OR ANY OTHER EXPOSURE?NO - PLEASE INDICATE :RUBBER GLOVES, CONDOMS, BALLOONS, OTHER (DOCUMENT IN NOTES) BANDAIDS DATE ASKED : 04/09/2019 LATEX RISK : HAVE YOU EVER HAD ANY DIFFICULTY BREATHING OR HIVES AFTER EATING OR HANDLING ANY FRUITS, OR VEGETABLES; SUCH KIWI, BANANAS, STONE FRUITS, OR CHESTNUTSYES - PLEASE INDICATE : ORANGES LATEX RISK : DO YOU HAVE A PREVIOUS PERSONAL HISTORY OF MORE THAN NINE SURGERIES, SPINA BIFIDA, OR REPEATED CATHERIZATIONS? NO LATEX RISK : ARE YOU FREQUENTLY EXPOSED TO LATEX PRODUCTS IN YOUR OCCUPATION?NO CAFFEINE CAFFEINE USE?YES HOW OFTEN AND HOW MUCH? 3 SODAS/DAY ADVANCE DIRECTIVE ADVANCE DIRECTIVE DISCUSSED WITH PATIENT:YES HCP-TREVON SPARKS [phone] ORIENTAL ORTHODOX [id number] TAOIST ALCOHOL SCREENING DID YOU HAVE A DRINK CONTAINING ALCOHOL IN THE PAST YEAR?NO POINTS0 INTERPRETATIONNEGATIVE PRE PROCEDURE PHONE CALL DONE 04/09/19 1000 BVREVIEWED WITH PT 02/17/18 1326 BVREVIEWED WITH PATIENT 03/08/18 1023 JSREVIEWED WITH PATIENT 03/30/18 1400 LAS05/08/18 REVIEWED WITH PT. ADREVIEWED -10-03 NLJREVIEWED WITH PATIENT 12/21/18 1316 JSREVIEWED WITH PATIENT 04/02/19 1042. HOSPITALIZATION/MAJOR DIAGNOSTIC PROCEDURE CHILD 12/18/1991 CHILD 11/01/1996 CHILD 11/23/1998 CHILD 01/29/2002 HYSTERECTOMY 2017 KNEE SURGERY ALLERGIC REACTION AGE 2 OR 3 REVIEW OF SYSTEMS REVIEWED BY: PROVIDER: NATHALIE SUAZO . CONSTITUTIONAL: ANY CHANGE IN YOUR MEDICAL CONDITION? NO . CHILLS NO . FEVER NO . INFECTION: DO YOU HAVE NEW INFECTIONS? NO . DO YOU HAVE HISTORY OF MRSA? NO . MUSCULOSKELETAL: ANY NEW PATTERNS OF PAIN OR NUMBNESS? YES, PAIN IS ACROSS BACK OF NECK. PT WENT TO [facility] FOR PAIN, WHERE SHE WAS TOLD TO TAKE HER REGULAR MEDS. PT THOUGHT DRUG STORES WERE CLOSED FOR COVID 19, SO SHE STOPPED TAKING MEDS TO SAVE THEM, THEN REALIZED THEY WERE OPEN SO SHE STARTED TAKING THEM AGAIN. . GASTROENTEROLOGY: ANY NEW CHANGE IN BOWEL CONTROL? NO . GENITOURINARY: ANY NEW CHANGE IN BLADDER CONTROL? NO . IS THERE A CHANCE YOU COULD BE ? NO . HEMATOLOGY/LYMPH: DO YOU TAKE ANY BLOOD THINNERS? (FOR EXAMPLE- COUMADIN, PLAVIX, AGGRENOX, PLATEL, PRADAXA, OR XARELTO) NO . WHEN WAS YOUR LAST DOSE? DATE: TIME: . NEUROLOGY: HAVE YOU FALLEN IN THE PAST 12 MONTHS? YES, PRIOR TO LAST VISIT . ANY NEW EXTREMITY NUMBNESS OR WEAKNESS? NO . CARDIOLOGY: DO YOU HAVE A PACEMAKER OR DEFIBRILLATOR? NO . RESPIRATORY: HAVE YOU BEEN SICK IN THE PAST WEEK? NO . FEVER NO . FLU LIKE SYMPTOMS? NO . COUGH NO . INTEGUMENTARY: DO YOU HAVE ANY RASHES OR OPEN SORES? NO . ALLERGIC/IMMUNO: ARE YOU ALLERGIC TO IV DYE? NO . ANY NEW ALLERGIES? NO . PSYCHIATRIC: DO YOU HAVE THOUGHTS OF HURTING YOURSELF OR SOMEONE ELSE? NO . ARE YOU ABUSED, NEGLECTED, OR IN AN UNSAFE ENVIRONMENT? NO . ENDOCRINOLOGY: ARE YOU DIABETIC? NO . OTHER: DO YOU NEED ANY PRESCRIPTIONS? NO . IF YES, PLEASE LIST: ____ . ANY NEW PROBLEMS WITH YOUR MEDICATIONS? NO . WHEN DID YOU LAST EAT? ____ . WHEN DID YOU LAST DRINK? ____ . WHAT DID YOU LAST DRINK? ____ . NAME OF PERSON DRIVING YOU HOME? ____ . DO YOU HAVE ANY OTHER QUESTIONS OR CONCERNS WORKS AT [employer] WHERE AN EMPLOYEE TESTED POSITIVE FOR COVID 19, HAS HAD NO CONTACT WITH THAT INDIVIDUAL, BUT PT IS ON EDGE . ASSESSMENTS OTHER CHRONIC PAIN - G89.29 (PRIMARY) PAIN IN THORACIC SPINE - M54.6 TREATMENT OTHER CHRONIC PAIN NOTES: PREPROCEDURE VISIT 4-6 WEEKS. WE WILL CONSIDER CERVICAL THERAPEUTIC FACET BLOCK. DISPOSITION & COMMUNICATION FOLLOW UP 4-6WKS PRE PROCEDURE ELECTRONICALLY SIGNED BY GABRIELE DAWSON ON 07/27/2019 AT 01:26 PM EDT DISCLAIMER : THIS IS A VISIT SUMMARY EXTRACTED FROM THE [employer] CHART. IT IS NOT A COPY OF THE [employer] PROGRESS NOTE. JOSE
== END ==
LOC: M PAIN 08:45
PROVIDERS: ATTEND Nurse Practitioner Family
DX: G89.29 Other chronic pain (principal); M54.6 Pain in thoracic spine

== ENCOUNTER → 2019-08-24 | Outpatient (CLI) | payer BC ==
[~2019-08-24] MED LIST changes: +CYCL-707 PO; -CYCL10TA PO
--- NOTE | 2019-08-28 03:30 | ECWPNPC ---
PATIENT NAME: ALEX AVILES : 1975 GENDER: FEMALE VISIT DATE: 08/24/2019 DISCHARGE DATE: 08/24/19 0950 VISIT LOCKED DATE TIME: PHYSICIAN: NATHALIE GONGORA RESOURCE: NATHALIE GONGORA REASON FOR APPOINTMENT 1. 4-6WKS PRE PROCEDURE HISTORY OF PRESENT ILLNESS HISTORY OF PRESENT ILLNESS: HERE FOR PREPROCEDURE VISIT. CONTINUES WITH RIGHT NECK AND UPPER BACK PAIN. PAIN IS AGGRAVATED WITH RANGE OF JOINT MOTION OF THE NECK. HAS RESPONDED WELL TO CERVICAL THERAPEUTIC FACET BLOCKS IN THE PAST. RATING PAIN VAS 8/10. DOES NOT FEEL MORPHINE EFFECTIVE ANYMORE. CURRENTLY TAKING MS CONTIN 15 MG 1 DAILY. DISCUSSED ISSUES OF TOLERANCE WITH NARCOTIC PAIN MEDICATION. DISCUSSED MEDICATION AND TREATMENT OPTIONS. SHE DOES FIND AMITRIPTYLINE 25 MG AT BEDTIME HELPFUL AT REDUCING PAIN AND IMPROVING HER SLEEP. PAIN THE PATIENT DESCRIBES THE PAIN... FALL RISK SCREENING: SCREENING :NO FALLS REPORTED IN THE LAST YEAR CURRENT MEDICATIONS TAKING RANITIDINE HCL 150 MG CAPSULE 1 CAPSULE ORALLY ONCE DAILY TAKING HYDROXYZINE HCL 25 MG TABLET 2 TABS ORALLY EVERY 6 HRS NEEDED TAKING FLUTICASONE FUROATE 27.5 MCG/SPRAY SUSPENSION 1 SPRAY IN EACH NOSTRIL NASALLY TWICE A DAY TAKING PANTOPRAZOLE SODIUM 40 MG TABLET DELAYED RELEASE 1 TABLET ORALLY ONCE A DAY TAKING MIRALAX - POWDER 1 DOSE ORALLY ONCE A DAY NEEDED TAKING MONTELUKAST SODIUM 10 MG TABLET 1 TABLET IN THE EVENING ORALLY ONCE A DAY TAKING ASTELIN 1 SPRAY EACH NOSTRIL NASAL TWICE A DAY TAKING PROBIOTIC CAPSULE 1 TABLET ORALLY ONCE DAILY TAKING WELLBUTRIN SR 200 MG TABLET EXTENDED RELEASE 12 HOUR 1 TABLET IN THE MORNING ORALLY ONCE A DAY TAKING NORCO 10-325 MG TABLET 1 TABLET NEEDED ORALLY Q8H PRN MDD3 TAKING TIZANIDINE HCL 4 MG TABLET 1 TAB ORALLY BID TAKING AMITRIPTYLINE HCL 25 MG TABLET 1 TABLET AT BEDTIME ORALLY ONCE A DAY TAKING CYMBALTA 30 MG CAPSULE DELAYED RELEASE PARTICLES 1 CAPSULE ORALLY DAILY TAKING MORPHINE SULFATE ER 15 MG TABLET EXTENDED RELEASE 1 TABLET ORALLY DAILY MDD1 MEDICATION LIST REVIEWED AND RECONCILED WITH THE PATIENT PAST MEDICAL HISTORY ANEMIA GERD STOMACH ULCERS WITH H PYLORI NECK AND LOW BACK PAIN 04/26/18 CONCUSSION FROM FALLING DOWN THE STAIRS AND HITTING HEAD LEFT EYE BLIND SINCE ALLERGIES PENICILLIN: SWELLING - ALLERGY ORANGES: ANAPHYLAXIS - ALLERGY BANDAIDS AND ADHESIVES: REDDNESS AND SWELLING - ALLERGY LATEX GLOVES: REDDNESS AND SWELLING - ALLERGY TEGADERM: REDNESS, SWELLING - ALLERGY SURGICAL HISTORY RIGHT KNEE 1985 TUBAL LIGATION 2002 D&C 1996 MOLES REMOVED 2016 TOTAL HYSTERECTOMY 2017 COLONOSCOPY/ENDOSCOPY 2019 FAMILY HISTORY FATHER: MOTHER: , DIAGNOSED WITH OTHER SPECIFIED CONDITIONS INFLUENCING HEALTH STATUS SIBLINGS: ALIVE PATERNAL GRAND FATHER: OTHER MALIGNANT NEOPLASM OF UNSPECIFIED SITE 3 BROTHER(S) , 4 SISTER(S) - HEALTHY. 1 SON(S) , 3 DAUGHTER(S) . FATHER FROM MVA, NO MEDICAL HISTORY \\NMOTHER- DUE TO CHF, BRAIN TUMOR X 2, BREAST CA\\NPATERNAL GRANDFATHER--CA-UNSURE OF WHAT KIND\\NDAUGHTER - IRREGULAR HEART BEAT, ASTHMA\\NDAUGHTER - HYPOTHYROID. SOCIAL HISTORY GENERAL: TOBACCO USE ARE YOU A:NONSMOKER LATEX QUESTIONNAIRE LATEX ALLERGY : HAVE YOU EVER DEVELOPED ANY TYPE OF REACTION AFTER HANDLING LATEX PRODUCTS SUCH RUBBER GLOVES, CONDOMS, DIAPHRAGMS, BALLOONS, SOCKS, OR UNDERWEAR?YES LATEX ALLERGY : HAVE YOU EVER DEVELOPED ANY TYPE OF REACTION DURING OR AFTER DENTAL APPOINTMENT, VAGINAL/RECTAL EXAMINATION, SURGICAL PROCEDURE, OR ANY OTHER EXPOSURE?NO - PLEASE INDICATE :RUBBER GLOVES, CONDOMS, BALLOONS, OTHER (DOCUMENT IN NOTES) BANDAIDS DATE ASKED : 04/09/2019 LATEX RISK : HAVE YOU EVER HAD ANY DIFFICULTY BREATHING OR HIVES AFTER EATING OR HANDLING ANY FRUITS, OR VEGETABLES; SUCH KIWI, BANANAS, STONE FRUITS, OR CHESTNUTSYES - PLEASE INDICATE : ORANGES LATEX RISK : DO YOU HAVE A PREVIOUS PERSONAL HISTORY OF MORE THAN NINE SURGERIES, SPINA BIFIDA, OR REPEATED CATHERIZATIONS? NO LATEX RISK : ARE YOU FREQUENTLY EXPOSED TO LATEX PRODUCTS IN YOUR OCCUPATION?NO ALCOHOL SCREENING DID YOU HAVE A DRINK CONTAINING ALCOHOL IN THE PAST YEAR?NO POINTS0 INTERPRETATIONNEGATIVE RECREATIONAL DRUG USE DRUG USE?NO CAFFEINE CAFFEINE USE?YES HOW OFTEN AND HOW MUCH? 3 SODAS/DAY GNOSTICISM [id number] RASTAFARI LANGUAGE LANGUAGES SPOKEN:UZBEK EDUCATION LEVEL OF EDUCATION:NOT FINISHED COLLEGE LEARNING BARRIERS / SPECIAL NEEDS BARRIERS TO LEARNING?NO HEARING IMPAIRED?NO VISION IMPAIRED?NO COGNITIVELY IMPAIRED?NO READINESS TO LEARN?YES DOMESTIC VIOLENCE DO YOU FEEL SAFE IN YOUR ENVIRONMENT?YES NEW PATIENT PAIN DIARY TODAY'S VISITNOTES PATIENT DESCRIBES PAIN :HAVE IT ALL THE TIME, SHARP FROM 0-10, WHAT LEVEL IS YOUR PAIN TODAY?7 PRECIPITATING FACTORS LIFTING ALLEVIATING FACTORS HEAT/ICE, MEDS IMPACT ON FUNCTION YES PAIN CLINIC PFS, CLERGY, PUBLIC HEALTH REFERRALS WAS THE PROVIDER NOTIFIED OF ANY PERTINENT INFO?YES HAS THE PATIENT BEEN EDUCATED REGARDING HIS/HER PLAN OF CARE?YES HAS THE PATIENT BEEN EDUCATED REGARDING PAIN, THE RISK FOR PAIN, THE IMPORTANCE OF EFFECTIVE PAIN MANAGEMENT, AND THE PAIN ASSESSMENT PROCESS?YES ADVANCE DIRECTIVE ADVANCE DIRECTIVE DISCUSSED WITH PATIENT:YES HCP-TREVON SPARKS [phone] PRE PROCEDURE PHONE CALL DONE 04/09/19 1000 BVREVIEWED WITH PT 02/17/18 1326 BVREVIEWED WITH PATIENT 03/08/18 1023 JSREVIEWED WITH PATIENT 03/30/18 1400 LAS05/08/18 REVIEWED WITH PT. ADRVANESSAD -10-03 NLJREVIEWED WITH PATIENT 12/21/18 1316 JSREVIEWED WITH PATIENT 04/02/19 1042. HOSPITALIZATION/MAJOR DIAGNOSTIC PROCEDURE CHILD 12/18/1991 CHILD 11/01/1996 CHILD 11/23/1998 CHILD 01/29/2002 HYSTERECTOMY 2017 KNEE SURGERY ALLERGIC REACTION AGE 2 OR 3 REVIEW OF SYSTEMS REVIEWED BY: PROVIDER: NATHALIE SUAZO . CONSTITUTIONAL: ANY CHANGE IN YOUR MEDICAL CONDITION? NO . CHILLS NO . FEVER NO . INFECTION: DO YOU HAVE NEW INFECTIONS? NO . DO YOU HAVE HISTORY OF MRSA? NO . MUSCULOSKELETAL: ANY NEW PATTERNS OF PAIN OR NUMBNESS? NO- STATES NECK PAIN IS THE SAME PAIN THAT SHE HAS HAD, STATES SHE HAS SHARP PAIN IN THE RIGHT SIDE OF HER NECK INTO HER SHOULDER BLADE . GASTROENTEROLOGY: ANY NEW CHANGE IN BOWEL CONTROL? NO . GENITOURINARY: ANY NEW CHANGE IN BLADDER CONTROL? NO . IS THERE A CHANCE YOU COULD BE ? NO . HEMATOLOGY/LYMPH: DO YOU TAKE ANY BLOOD THINNERS? (FOR EXAMPLE- COUMADIN, PLAVIX, AGGRENOX, PLATEL, PRADAXA, OR XARELTO) NO . WHEN WAS YOUR LAST DOSE? DATE: TIME: . NEUROLOGY: HAVE YOU FALLEN IN THE PAST 12 MONTHS? YES- PREVIOUSLY DOCUMENTED . ANY NEW EXTREMITY NUMBNESS OR WEAKNESS? NO . CARDIOLOGY: DO YOU HAVE A PACEMAKER OR DEFIBRILLATOR? NO . RESPIRATORY: HAVE YOU BEEN SICK IN THE PAST WEEK? NO . FEVER NO . FLU LIKE SYMPTOMS? NO . COUGH NO . INTEGUMENTARY: DO YOU HAVE ANY RASHES OR OPEN SORES? NO . ALLERGIC/IMMUNO: ARE YOU ALLERGIC TO IV DYE? NO . ANY NEW ALLERGIES? NO . PSYCHIATRIC: DO YOU HAVE THOUGHTS OF HURTING YOURSELF OR SOMEONE ELSE? NO . ARE YOU ABUSED, NEGLECTED, OR IN AN UNSAFE ENVIRONMENT? NO . ENDOCRINOLOGY: ARE YOU DIABETIC? NO . OTHER: DO YOU NEED ANY PRESCRIPTIONS? NO . IF YES, PLEASE LIST: ____ . ANY NEW PROBLEMS WITH YOUR MEDICATIONS? NO . WHEN DID YOU LAST EAT? ____ . WHEN DID YOU LAST DRINK? ____ . WHAT DID YOU LAST DRINK? ____ . NAME OF PERSON DRIVING YOU HOME? ____ . DO YOU HAVE ANY OTHER QUESTIONS OR CONCERNS NO- INTERESTED IN GETTING A CERVICAL FACET BLOCK DONE . VITAL SIGNS WT 204.8 LBS, HT 67 IN, BMI 32.07 INDEX, BP 157/89 MM HG, HR 82 /MIN, RR 18 /MIN, TEMP 97.5 F, OXYGEN SAT % 99%, SAFE IN ENV? (Y/N) YES, REVIEWED BY: ARASELI. EXAMINATION GENERAL EXAMINATION: LUNGS: LUNG SOUNDS ARE CLEAR . HEART: HEART RATE REGULAR . MUSCULOSKELETAL:*, MUSCLE STRENGTH TESTING 5/5 BILATERAL UPPER EXTREMITIES. . CERVICAL:+ FOR PAIN WITH PALPATION OF CERVICAL SPINE. + FOR PAIN WITH PALPATION OF CERVICAL PARASPINALS.SPECIFIC POINT TENDERNESS NOTED OVER RIGHT C4/5-/C5/6 CERVICAL FACETS WITH EXTENSION AND FACET LOADING.. DIAGNOSTIC TESTS REVIEWED CERVICAL MRI -10/03/15. ASSESSMENTS SPONDYLOSIS OF CERVICAL REGION WITHOUT MYELOPATHY OR RADICULOPATHY - M47.812 (PRIMARY) TREATMENT SPONDYLOSIS OF CERVICAL REGION WITHOUT MYELOPATHY OR RADICULOPATHY STOP MORPHINE SULFATE ER TABLET EXTENDED RELEASE, 15 MG, 1 TABLET, ORALLY, DAILY MDD1 START OXYCODONE-ACETAMINOPHEN TABLET, 10-325 MG, 1 TABLET NEEDED, ORALLY, Q8H PRN MDD2, 30 DAYS, 60, REFILLS 0 NOTES: ISTOP REGISTRY REVIEWED AND DEMONSTRATES COMPLLIANCE. BRINGS IN MEDICATIONS WHICH IS APPROPRIATE FOR WHAT WAS DISPENSED. RECENT URINE TOXICOLOGY REVIEWED. NO UNAUTHORIZED MEDICATIONS. NO ILLICIT SUBSTANCES AND PRESCRIBED MEDICATIONS WERE PRESENT. , RISKS OF NARCOTIC/OPIOD MEDICATIONS INCLUDES BUT IS NOT LIMITED TO RISK OF DEPENDANCE/DEVELOPMENT OF ADDICTION, MOOD DISTURBANCE AND DEPRESSION, OSTEOPOROSIS, HORMONAL AND LABIDAL CHANGES, RESPIRATORY DEPRESSION AND . PATIENT IS ADVISED NOT TO DRIVE OR DRINK ALCOHOL WHILE ON THESE MEDICATIONS RIGHT C5/6-C6/7 CFBT. PREVENTIVE MEDICINE PAIN CLINIC TEACHING: PROCEDURE TEACHING CERVICAL FACET PROCEDURE INFORMATION PRINTED AND REVIEWED WITH PATIENT. PATIENT VERBLAIZES UNDERSTANDING OF PROCEDURE. PATIENT ALSO VERBLAIZES UNDERSTANDING OF PRE PROCEDURE INSTRUCTIONS REVIEWED. 08/24/2019 0945 NLJ. PROCEDURE CODES FA211 ESTABILISHED PATIENT [facility] CHARGE DISPOSITION & COMMUNICATION FOLLOW UP POST (REASON: RIGHT C5/6-C6/7 CFBT) ELECTRONICALLY SIGNED BY GABRIELE DAWSON ON 08/27/2019 AT 08:52 AM EDT DISCLAIMER : THIS IS A VISIT SUMMARY EXTRACTED FROM THE [employer] CHART. IT IS NOT A COPY OF THE [employer] PROGRESS NOTE. JOSE
== END ==
LOC: M PAIN 09:15
PROVIDERS: ATTEND Nurse Practitioner Family
DX: M47.812 Spondylosis without myelopathy or radiculopathy, cervical region (principal); Z79.891 Long term (current) use of opiate analgesic; Z79.899 Other long term (current) drug therapy; Z88.0 Allergy status to penicillin; Z91.018 Allergy to other foods; Z91.040 Latex allergy status; Z91.048 Other nonmedicinal substance allergy status

== ENCOUNTER → 2019-09-14 | Outpatient (CLI) | payer BC | LOC: M LABSMTC 09:43 | PROVIDERS: ATTEND Anesthesiology | DX: Z11.59 Encounter for screening for other viral diseases (principal) | CPT/HCPCS: C9803; U0003 ==

== ENCOUNTER → 2019-10-02 | Outpatient (CLI) | payer BC ==
--- NOTE | 2019-10-03 02:08 | ECWPNPC ---
PATIENT NAME: ALEX AVILES : 1975 GENDER: FEMALE VISIT DATE: 10/02/2019 DISCHARGE DATE: 10/02/19 1050 VISIT LOCKED DATE TIME: PHYSICIAN: NATHALIE GONGORA RESOURCE: NATHALIE GONGORA REASON FOR APPOINTMENT 1. POST PROC HISTORY OF PRESENT ILLNESS GENERAL: HERE FOR POST PROCEDURE FOLLOW-UP. HAD RIGHT C5-6, C6-7 CERVICAL FACET BLOCK, THERAPEUTIC ON 09/17/2019. REPORTING NO SIGNIFICANT IMPROVEMENT POST PROCEDURE. STATES SHE MAY HAVE GOTTEN 3-4 DAYS OF IMPROVEMENT IN PAIN AND THEN PAIN RETURNED TO BASELINE. DISCUSSED COOLRADIOFREQUENCY PROCEDURE AND DIAGNOSTIC TESTING OF CERVICAL FACETS. -. FALL RISK SCREENING: SCREENING :ONE FALL WITH INJURY IN THE PAST YEAR BACK HAS BEEN HURTING AFTER PAIN SCREENING: PATIENT HAS A COMPLAINT OF ACUTE OR CHRONIC PAIN :YES LOCATION OF PAIN:NECK RIGHT SIDE INTENSITY OF PAIN (SCALE OF 1 TO 10):7 AVERAGE 5-10 10 WAS THE HEADACHE THAT SHE HAD 09/29 WHAT DOES YOUR PAIN FEEL LIKE:CONTINOUS, SHARP, STABBING, TENDER, SORE DURATION:CONTINOUS, CONSTANT, ALL DAY, AWAKENS FROM SLEEP PAIN IS INCREASED BY: LIFTING, HOLDING PHONE FOR ANY PERIOD OF TIME PAIN IS DECREASED BY: HEAT, ICE, MEDS PLAN/GOALS/TREATMENT/INTERVENTION/FOLLOW UP:SEE PLAN NURSING NOTE: -. PAIN CENTER INTAKE QUESTIONS: DO YOU HAVE A HISTORY OF MRSA? :NO DO YOU TAKE A BLOOD THINNERS? :NO DO YOU HAVE ANY BLEEDING DISORDERS? :YES ANEMIC ANY NEW NUMBNESS OR WEAKNESS IN YOUR LEGS OR ARMS? :NO ANY PACEMAKER,DEFIBRILLATOR, OR DORSAL COLUMN STIMULATOR? :NO DO YOU HAVE ANY RASHES OR OPEN SORES? :NO ARE YOU ALLERGIC TO IV DYE? :NO ARE YOU DIABETIC? :NO ANY NEW PROBLEMS WITH YOUR MEDICATIONS? :NO HAVE YOU RECEIVED A VACCINE IN THE PAST 30 DAYS? :NO DO YOU PLAN TO RECEIVE A VACCINE IN THE NEXT 21 DAYS? :NO DO YOU NEED ANY PRESCRIPTION? :NO DO YOU TAKE ANY IMMUNOSUPPRESSIVE MEDICATIONS? :NO CURRENT MEDICATIONS TAKING RANITIDINE HCL 150 MG CAPSULE 1 CAPSULE ORALLY ONCE DAILY TAKING HYDROXYZINE HCL 25 MG TABLET 2 TABS ORALLY EVERY 6 HRS NEEDED TAKING FLUTICASONE FUROATE 27.5 MCG/SPRAY SUSPENSION 1 SPRAY IN EACH NOSTRIL NASALLY TWICE A DAY TAKING PANTOPRAZOLE SODIUM 40 MG TABLET DELAYED RELEASE 1 TABLET ORALLY ONCE A DAY TAKING MIRALAX - POWDER 1 DOSE ORALLY ONCE A DAY NEEDED TAKING MONTELUKAST SODIUM 10 MG TABLET 1 TABLET IN THE EVENING ORALLY ONCE A DAY TAKING ASTELIN 1 SPRAY EACH NOSTRIL NASAL TWICE A DAY TAKING PROBIOTIC CAPSULE 1 TABLET ORALLY ONCE DAILY TAKING WELLBUTRIN SR 200 MG TABLET EXTENDED RELEASE 12 HOUR 1 TABLET IN THE MORNING ORALLY ONCE A DAY TAKING AMITRIPTYLINE HCL 25 MG TABLET 1 TABLET AT BEDTIME ORALLY ONCE A DAY TAKING TIZANIDINE HCL 4 MG TABLET 1 TAB ORALLY BID TAKING CYMBALTA 30 MG CAPSULE DELAYED RELEASE PARTICLES 1 CAPSULE ORALLY DAILY TAKING NORCO 10-325 MG TABLET 1 TABLET NEEDED ORALLY Q8H PRN MDD3 TAKING OXYCODONE-ACETAMINOPHEN 10-325 MG TABLET 1 TABLET NEEDED ORALLY Q8H PRN MDD2 MEDICATION LIST REVIEWED AND RECONCILED WITH THE PATIENT PAST MEDICAL HISTORY ANEMIA GERD STOMACH ULCERS WITH H PYLORI NECK AND LOW BACK PAIN 04/26/18 CONCUSSION FROM FALLING DOWN THE STAIRS AND HITTING HEAD LEFT EYE BLIND SINCE ALLERGIES PENICILLIN: SWELLING - ALLERGY ORANGES: ANAPHYLAXIS - ALLERGY BANDAIDS AND ADHESIVES: REDDNESS AND SWELLING - ALLERGY LATEX GLOVES: REDDNESS AND SWELLING - ALLERGY TEGADERM: REDNESS, SWELLING - ALLERGY SURGICAL HISTORY RIGHT KNEE 1985 TUBAL LIGATION 2002 D&C 1996 MOLES REMOVED 2016 TOTAL HYSTERECTOMY 2017 COLONOSCOPY/ENDOSCOPY 2019 FAMILY HISTORY FATHER: MOTHER: , DIAGNOSED WITH OTHER SPECIFIED CONDITIONS INFLUENCING HEALTH STATUS SIBLINGS: ALIVE PATERNAL GRAND FATHER: OTHER MALIGNANT NEOPLASM OF UNSPECIFIED SITE 3 BROTHER(S) , 4 SISTER(S) - HEALTHY. 1 SON(S) , 3 DAUGHTER(S) . FATHER FROM MVA, NO MEDICAL HISTORY \\NMOTHER- DUE TO CHF, BRAIN TUMOR X 2, BREAST CA\\NPATERNAL GRANDFATHER--[place]-UNSURE OF WHAT KIND\\NDAUGHTER - IRREGULAR HEART BEAT, ASTHMA\\NDAUGHTER - HYPOTHYROID. SOCIAL HISTORY GENERAL: TOBACCO USE ARE YOU A:NONSMOKER LATEX QUESTIONNAIRE LATEX ALLERGY : HAVE YOU EVER DEVELOPED ANY TYPE OF REACTION AFTER HANDLING LATEX PRODUCTS SUCH RUBBER GLOVES, CONDOMS, DIAPHRAGMS, BALLOONS, SOCKS, OR UNDERWEAR?YES - PLEASE INDICATE :RUBBER GLOVES, CONDOMS, BALLOONS, OTHER (DOCUMENT IN NOTES) BANDAIDS LATEX ALLERGY : HAVE YOU EVER DEVELOPED ANY TYPE OF REACTION DURING OR AFTER DENTAL APPOINTMENT, VAGINAL/RECTAL EXAMINATION, SURGICAL PROCEDURE, OR ANY OTHER EXPOSURE?NO LATEX RISK : HAVE YOU EVER HAD ANY DIFFICULTY BREATHING OR HIVES AFTER EATING OR HANDLING ANY FRUITS, OR VEGETABLES; SUCH KIWI, BANANAS, STONE FRUITS, OR CHESTNUTSYES - PLEASE INDICATE : ORANGES LATEX RISK : DO YOU HAVE A PREVIOUS PERSONAL HISTORY OF MORE THAN NINE SURGERIES, SPINA BIFIDA, OR REPEATED CATHERIZATIONS? NO LATEX RISK : ARE YOU FREQUENTLY EXPOSED TO LATEX PRODUCTS IN YOUR OCCUPATION?NO DATE ASKED : 10/01/2019 ALCOHOL SCREENING DID YOU HAVE A DRINK CONTAINING ALCOHOL IN THE PAST YEAR?NO POINTS0 INTERPRETATIONNEGATIVE RECREATIONAL DRUG USE DRUG USE?NO CAFFEINE CAFFEINE USE?YES HOW OFTEN AND HOW MUCH? 3 SODAS/DAY NONDENOMINATIONAL [id number] CAODAISM LANGUAGE LANGUAGES SPOKEN:PASHTO EDUCATION LEVEL OF EDUCATION:NOT FINISHED COLLEGE LEARNING BARRIERS / SPECIAL NEEDS BARRIERS TO LEARNING?NO HEARING IMPAIRED?NO VISION IMPAIRED?NO COGNITIVELY IMPAIRED?NO READINESS TO LEARN?YES LEARNING PREFERENCES?NO LEARNING CAPABILITIES PRESENT?YES EMOTIONAL BARRIERS?NO SPECIAL DEVICES?NO RESEARCH STAFF MEMBER NEEDED?NO DOMESTIC VIOLENCE DO YOU FEEL SAFE IN YOUR ENVIRONMENT?YES NEW PATIENT PAIN DIARY TODAY'S VISIT NOTES 09/14/2019, PATIENT DESCRIBES PAIN : HAVE IT ALL THE TIME, SHARP, FROM 0-10, WHAT LEVEL IS YOUR PAIN TODAY? 6, PRECIPITATING FACTORS LIFTING, ALLEVIATING FACTORS HEAT/ICE, MEDS, IMPACT ON FUNCTION YES. PAIN CLINIC PFS, CLERGY, PUBLIC HEALTH REFERRALS HAS THE PATIENT BEEN EDUCATED REGARDING HIS/HER PLAN OF CARE?YES HAS THE PATIENT BEEN EDUCATED REGARDING PAIN, THE RISK FOR PAIN, THE IMPORTANCE OF EFFECTIVE PAIN MANAGEMENT, AND THE PAIN ASSESSMENT PROCESS?YES ADVANCE DIRECTIVE ADVANCE DIRECTIVE DISCUSSED WITH PATIENT:YES HCP-TREVON SPARKS [phone] HOSPITALIZATION/MAJOR DIAGNOSTIC PROCEDURE CHILD 12/18/1991 CHILD 11/01/1996 CHILD 11/23/1998 CHILD 01/29/2002 HYSTERECTOMY 2017 KNEE SURGERY ALLERGIC REACTION AGE 2 OR 3 REVIEW OF SYSTEMS CONSTITUTIONAL: ANY RECENT FEVER OR ILLNESS NO . CHILLS NO . GASTROENTEROLOGY: BOWEL INCONTINENCE NO . ANY NEW CHANGE IN BOWEL CONTROL? NO . ABDOMINAL PAIN NO . CONSTIPATION NO . GENITOURINARY: ANY NEW CHANGE IN BLADDER CONTROL? NO . IS THERE A CHANCE YOU COULD BE ? NO . URINARY INCONTINENCE NO . CARDIOLOGY: CHEST PRESSURE NO . CHEST PAIN NO . RESPIRATORY: COUGH NO . SHORTNESS OF BREATH NO . VITAL SIGNS WT 204.6 LBS, HT 67 IN, BMI 32.04 INDEX, BP 124/72 MM HG, HR 85 /MIN, RR 18 /MIN, TEMP 97.7 F, OXYGEN SAT % 100%, NA INITIALS AW 1001. EXAMINATION GENERAL EXAMINATION: LUNGS: LUNG SOUNDS ARE CLEAR . HEART: HEART RATE REGULAR . MUSCULOSKELETAL:*, MUSCLE STRENGTH TESTING 5/5 BILATERAL UPPER EXTREMITIES. . CERVICAL:+ FOR PAIN WITH PALPATION OF CERVICAL SPINE. + FOR PAIN WITH PALPATION OF CERVICAL PARASPINALS.SPECIFIC POINT TENDERNESS NOTED OVER RIGHT C4/5-/C5/6 CERVICAL FACETS WITH EXTENSION AND FACET LOADING.. DIAGNOSTIC TESTS REVIEWED CERVICAL MRI -10/03/15. ASSESSMENTS SPONDYLOSIS OF CERVICAL REGION WITHOUT MYELOPATHY OR RADICULOPATHY - M47.812 (PRIMARY) TREATMENT SPONDYLOSIS OF CERVICAL REGION WITHOUT MYELOPATHY OR RADICULOPATHY CONTINUE TIZANIDINE HCL TABLET, 4 MG, 1 TAB, ORALLY, BID CONTINUE CYMBALTA CAPSULE DELAYED RELEASE PARTICLES, 30 MG, 1 CAPSULE, ORALLY, DAILY CONTINUE OXYCODONE-ACETAMINOPHEN TABLET, 10-325 MG, 1 TABLET NEEDED, ORALLY, Q8H PRN MDD2 CONTINUE NORCO TABLET, 10-325 MG, 1 TABLET NEEDED, ORALLY, Q8H PRN MDD3 NOTES: RIGHT C5/6-C6/7 DIAGNOSTIC CERVICAL FACET BLOCK , ISTOP REGISTRY REVIEWED AND DEMONSTRATES COMPLLIANCE.BRINGS IN MEDICATIONS WHICH IS APPROPRIATE FOR WHAT WAS DISPENSED. RECENT URINE TOXICOLOGY REVIEWED. NO UNAUTHORIZED MEDICATIONS. NO ILLICIT SUBSTANCES AND PRESCRIBED MEDICATIONS WERE PRESENT. , RISKS OF NARCOTIC/OPIOD MEDICATIONS INCLUDES BUT IS NOT LIMITED TO RISK OF DEPENDANCE/DEVELOPMENT OF ADDICTION, MOOD DISTURBANCE AND DEPRESSION, OSTEOPOROSIS, HORMONAL AND LABIDAL CHANGES, RESPIRATORY DEPRESSION AND . PATIENT IS ADVISED NOT TO DRIVE OR DRINK ALCOHOL WHILE ON THESE MEDICATIONS. OTHERS NOTES: FACET JOINT INJECTION MATERIAL WAS PRINTED. PROCEDURE CODES FA211 ESTABILISHED PATIENT [facility] FACILITY CHARGE DISPOSITION & COMMUNICATION FOLLOW UP POST (REASON: RIGHT C5/6-C6/7 DIAGNOSTIC CERVICAL FACET BLOCK) ELECTRONICALLY SIGNED BY GABRIELE DAWSON ON 10/02/2019 AT 02:19 PM EDT DISCLAIMER : THIS IS A VISIT SUMMARY EXTRACTED FROM THE [employer] CHART. IT IS NOT A COPY OF THE [employer] PROGRESS NOTE. MTDD
== END ==
LOC: M PAIN 10:00
PROVIDERS: ATTEND Nurse Practitioner Family
DX: M47.812 Spondylosis without myelopathy or radiculopathy, cervical region (principal); Z79.891 Long term (current) use of opiate analgesic; Z79.899 Other long term (current) drug therapy; Z88.0 Allergy status to penicillin; Z88.8 Allergy status to other drugs, medicaments and biological substances; Z91.018 Allergy to other foods; Z91.040 Latex allergy status; Z91.048 Other nonmedicinal substance allergy status

== ENCOUNTER → 2019-10-14 | Outpatient (CLI) | payer BC | LOC: M LABSMTC 09:34 | PROVIDERS: ATTEND Anesthesiology | DX: Z03.818 Encounter for observation for suspected exposure to other biological agents ruled out (principal); Z11.59 Encounter for screening for other viral diseases | CPT/HCPCS: C9803; U0003 ==

== ENCOUNTER → 2019-10-17 | Outpatient (CLI) | payer BC ==
[~2019-10-17] MED LIST changes: +BUPIVACAINE HCL 0.25% 30ML VIAL As Ordered ONE; +ISOVUE-M 300 61% 15ML VIAL As Ordered ONE; +LIDOCAINE 1% SDV 30ML VIAL As Ordered ONE; +diazePAM 5 MG TAB As Ordered ONE
--- NOTE | 2019-10-17 14:34 | REP ---
Cervical spine: Two views. History: Injection procedure for pain. 1 minute 33 seconds of fluoroscopy time is reported. Findings: Two intra procedural cross-table lateral fluoroscopically obtained spot radiographs of the cervical spine document various needle positions and contrast injection associated with procedure. Electronically Signed by John Chowdary MD 10/17/2019 02:25 P
--- NOTE | 2019-10-18 01:35 | ECWPNPC ---
PATIENT NAME: ALEX AVILES : 1975 GENDER: FEMALE VISIT DATE: 10/17/2019 DISCHARGE DATE: 10/17/19 1253 VISIT LOCKED DATE TIME: PHYSICIAN: YESSICA DRAKE MD RESOURCE: YESSICA DRAKE MD REASON FOR APPOINTMENT 1. PLEASE AUTH FOR A RIGHT C5/6-C6/7 DIAGNOSTIC CERVICAL FACET BLOCK. HISTORY OF PRESENT ILLNESS GENERAL: -. FALL RISK SCREENING: SCREENING :ONE FALL WITH INJURY IN THE PAST YEAR PAIN SCREENING: PATIENT HAS A COMPLAINT OF ACUTE OR CHRONIC PAIN :YES LOCATION OF PAIN:NECK INTENSITY OF PAIN (SCALE OF 1 TO 10):9 WHAT DOES YOUR PAIN FEEL LIKE:CONTINOUS, SHARP, STABBING DURATION:CONSTANT PAIN IS INCREASED BY: LIFTING, TURNING NECK PAIN IS DECREASED BY:USE OF PAIN MEDICATIONS ICE, HEAT NURSING NOTE: -. PAIN CENTER INTAKE QUESTIONS: DO YOU HAVE A HISTORY OF MRSA? :NO DO YOU TAKE A BLOOD THINNERS? :NO DO YOU HAVE ANY BLEEDING DISORDERS? :NO DOES HAVE HISTORY OF ANEMIA ANY NEW NUMBNESS OR WEAKNESS IN YOUR LEGS OR ARMS? :NO ANY PACEMAKER,DEFIBRILLATOR, OR DORSAL COLUMN STIMULATOR? :NO DO YOU HAVE ANY RASHES OR OPEN SORES? :NO ARE YOU ALLERGIC TO IV DYE? :NO ARE YOU DIABETIC? :NO ANY NEW PROBLEMS WITH YOUR MEDICATIONS? :NO HAVE YOU RECEIVED A VACCINE IN THE PAST 30 DAYS? :NO DO YOU PLAN TO RECEIVE A VACCINE IN THE NEXT 21 DAYS? :NO DO YOU TAKE ANY IMMUNOSUPPRESSIVE MEDICATIONS? :NO ANY HISTORY OF SEIZURES? :NO ANY HISTORY OF CARDIAC ISSUES OR EVENTS? :NO DO YOU HAVE SLEEP APNEA? : NO. ANY RECENT HEAD INJURY? :NO DO YOU HAVE ANY NEW INFECTIONS? :NO IS THERE A CHANCE YOU COULD BE ? :NO ARE YOU BREAST FEEDING? :NO WHEN DID YOU LAST EAT? : -10/15 7P WHEN DID YOU LAST DRINK? : -10/16 2AM WHAT DID YOU LAST DRINK? : -WATER NAME OF PERSON DRIVING YOU HOME? : - - TREVON DO YOU HAVE ANY OTHER QUESTIONS OR CONCERNS? : - CURRENT MEDICATIONS TAKING HYDROXYZINE HCL 25 MG TABLET 2 TABS ORALLY EVERY 6 HRS NEEDED, NOTES: 10/15 8P TAKING FLUTICASONE FUROATE 27.5 MCG/SPRAY SUSPENSION 1 SPRAY IN EACH NOSTRIL NASALLY TWICE A DAY, NOTES: 10/15 9P TAKING PANTOPRAZOLE SODIUM 40 MG TABLET DELAYED RELEASE 1 TABLET ORALLY ONCE A DAY, NOTES: 10/15 8A TAKING MIRALAX - POWDER 1 DOSE ORALLY ONCE A DAY NEEDED, NOTES: 1 MONTH TAKING MONTELUKAST SODIUM 10 MG TABLET 1 TABLET IN THE EVENING ORALLY ONCE A DAY, NOTES: 10/15 9P TAKING ASTELIN 1 SPRAY EACH NOSTRIL NASAL TWICE A DAY, NOTES: 2 DAYS TAKING PROBIOTIC CAPSULE 1 TABLET ORALLY ONCE DAILY, NOTES: 10/15 8A TAKING WELLBUTRIN SR 200 MG TABLET EXTENDED RELEASE 12 HOUR 1 TABLET IN THE MORNING ORALLY ONCE A DAY, NOTES: 10/15 8A TAKING AMITRIPTYLINE HCL 25 MG TABLET 1 TABLET AT BEDTIME ORALLY ONCE A DAY, NOTES: 10/15 9P TAKING TIZANIDINE HCL 4 MG TABLET 1 TAB ORALLY BID, NOTES: 10/15 2P TAKING OXYCODONE-ACETAMINOPHEN 10-325 MG TABLET 1 TABLET NEEDED ORALLY Q8H PRN MDD2, NOTES: 10/15 9P TAKING CYMBALTA 30 MG CAPSULE DELAYED RELEASE PARTICLES 1 CAPSULE ORALLY DAILY, NOTES: 10/15 8A TAKING NORCO 10-325 MG TABLET 1 TABLET NEEDED ORALLY Q8H PRN MDD3, NOTES: 10/15 12 NOON NOT-TAKING RANITIDINE HCL 150 MG CAPSULE 1 CAPSULE ORALLY ONCE DAILY MEDICATION LIST REVIEWED AND RECONCILED WITH THE PATIENT PAST MEDICAL HISTORY ANEMIA GERD STOMACH ULCERS WITH H PYLORI NECK AND LOW BACK PAIN 04/26/18 CONCUSSION FROM FALLING DOWN THE STAIRS AND HITTING HEAD LEFT EYE BLIND SINCE ALLERGIES PENICILLIN: SWELLING - ALLERGY ORANGES: ANAPHYLAXIS - ALLERGY BANDAIDS AND ADHESIVES: REDDNESS AND SWELLING - ALLERGY LATEX GLOVES: REDDNESS AND SWELLING - ALLERGY TEGADERM: REDNESS, SWELLING - ALLERGY SURGICAL HISTORY RIGHT KNEE 1985 TUBAL LIGATION 2002 D&C 1996 MOLES REMOVED 2016 TOTAL HYSTERECTOMY 2017 COLONOSCOPY/ENDOSCOPY 2019 FAMILY HISTORY FATHER: MOTHER: , DIAGNOSED WITH OTHER SPECIFIED CONDITIONS INFLUENCING HEALTH STATUS SIBLINGS: ALIVE PATERNAL GRAND FATHER: OTHER MALIGNANT NEOPLASM OF UNSPECIFIED SITE 3 BROTHER(S) , 4 SISTER(S) - HEALTHY. 1 SON(S) , 3 DAUGHTER(S) . FATHER FROM MVA, NO MEDICAL HISTORY \\NMOTHER- DUE TO CHF, BRAIN TUMOR X 2, BREAST CA\\NPATERNAL GRANDFATHER--[place]-UNSURE OF WHAT KIND\\NDAUGHTER - IRREGULAR HEART BEAT, ASTHMA\\NDAUGHTER - HYPOTHYROID. SOCIAL HISTORY GENERAL: TOBACCO USE ARE YOU A:NONSMOKER LATEX QUESTIONNAIRE LATEX ALLERGY : HAVE YOU EVER DEVELOPED ANY TYPE OF REACTION AFTER HANDLING LATEX PRODUCTS SUCH RUBBER GLOVES, CONDOMS, DIAPHRAGMS, BALLOONS, SOCKS, OR UNDERWEAR?YES - PLEASE INDICATE :RUBBER GLOVES, CONDOMS, BALLOONS, OTHER (DOCUMENT IN NOTES) BANDAIDS LATEX ALLERGY : HAVE YOU EVER DEVELOPED ANY TYPE OF REACTION DURING OR AFTER DENTAL APPOINTMENT, VAGINAL/RECTAL EXAMINATION, SURGICAL PROCEDURE, OR ANY OTHER EXPOSURE?NO LATEX RISK : HAVE YOU EVER HAD ANY DIFFICULTY BREATHING OR HIVES AFTER EATING OR HANDLING ANY FRUITS, OR VEGETABLES; SUCH KIWI, BANANAS, STONE FRUITS, OR CHESTNUTSYES - PLEASE INDICATE : ORANGES LATEX RISK : DO YOU HAVE A PREVIOUS PERSONAL HISTORY OF MORE THAN NINE SURGERIES, SPINA BIFIDA, OR REPEATED CATHERIZATIONS? NO LATEX RISK : ARE YOU FREQUENTLY EXPOSED TO LATEX PRODUCTS IN YOUR OCCUPATION?NO DATE ASKED : 10/16/2019 ALCOHOL SCREENING DID YOU HAVE A DRINK CONTAINING ALCOHOL IN THE PAST YEAR?NO POINTS0 INTERPRETATIONNEGATIVE RECREATIONAL DRUG USE DRUG USE?NO CAFFEINE CAFFEINE USE?YES HOW OFTEN AND HOW MUCH? 3 SODAS/DAY SIKH [id number] JAIN LANGUAGE LANGUAGES SPOKEN:[place] EDUCATION LEVEL OF EDUCATION:NOT FINISHED COLLEGE LEARNING BARRIERS / SPECIAL NEEDS BARRIERS TO LEARNING?NO HEARING IMPAIRED?NO VISION IMPAIRED?NO COGNITIVELY IMPAIRED?NO READINESS TO LEARN?YES LEARNING PREFERENCES?NO LEARNING CAPABILITIES PRESENT?YES EMOTIONAL BARRIERS?NO SPECIAL DEVICES?NO ASSISTANT COUNTY ENGINEER NEEDED?NO DOMESTIC VIOLENCE DO YOU FEEL SAFE IN YOUR ENVIRONMENT?YES NEW PATIENT PAIN DIARY TODAY'S VISIT NOTES 09/14/2019, PATIENT DESCRIBES PAIN : HAVE IT ALL THE TIME, SHARP, FROM 0-10, WHAT LEVEL IS YOUR PAIN TODAY? 6, PRECIPITATING FACTORS LIFTING, ALLEVIATING FACTORS HEAT/ICE, MEDS, IMPACT ON FUNCTION YES. PAIN CLINIC PFS, CLERGY, PUBLIC HEALTH REFERRALS HAS THE PATIENT BEEN EDUCATED REGARDING HIS/HER PLAN OF CARE?YES HAS THE PATIENT BEEN EDUCATED REGARDING PAIN, THE RISK FOR PAIN, THE IMPORTANCE OF EFFECTIVE PAIN MANAGEMENT, AND THE PAIN ASSESSMENT PROCESS?YES ADVANCE DIRECTIVE ADVANCE DIRECTIVE DISCUSSED WITH PATIENT:YES HCP-TREVON SPARKS [phone] HOSPITALIZATION/MAJOR DIAGNOSTIC PROCEDURE CHILD 12/18/1991 CHILD 11/01/1996 CHILD 11/23/1998 CHILD 01/29/2002 HYSTERECTOMY 2017 KNEE SURGERY ALLERGIC REACTION AGE 2 OR 3 VITAL SIGNS WT 198 LBS, HT 67 IN, BMI 31.01 INDEX, BP 130/83 MM HG, HR 88 /MIN, RR 16 /MIN, TEMP 97.6 F, OXYGEN SAT % 100, SAFE IN ENV? (Y/N) Y, REVIEWED BY: EM. EXAMINATION GENERAL EXAMINATION: THE PATIENT IS ALERT, ORIENTED TIMES THREE AND COOPERATIVE. HEART SHOWS REGULAR RHYTHM, NO MURMURS AND NO GALLOPS. LUNGS ARE CLEAR TO AUSCULTATION. ASSESSMENTS SPONDYLOSIS OF CERVICAL REGION WITHOUT MYELOPATHY OR RADICULOPATHY - M47.812 (PRIMARY) TREATMENT SPONDYLOSIS OF CERVICAL REGION WITHOUT MYELOPATHY OR RADICULOPATHY [facility] FACET BLOCK (PAIN)[id number] PROCEDURES PAIN NURSING RECORD PRE-PROCEDURE IV SITE RIGHT HAND, IV STARTED # 22, IV STARTED BY: Brett HERNANDEZ RN, IV ATTEMPTS 1, PRE-PROCEDURE ORAL MEDICATIONS 10/17/2019 1154 VALIUM 5MG PO GIVEN, PT TAKING PO PILLS AND FLUIDS WITHOUT DIFFICULTY. PROCEDURE IN ROOM 1200 PT AMBULATED TO PROCEDURE ROOM AND POSITIONED SELF ON TABLE WITH MIN 1 ASSIST. PT TOLERATED AMBULATION AND POSITIONING WELL., PHYSICIAN IN ROOM 1215, START 1224, FINISH 1233, PHYSICIAN OUT OF ROOM 1238, OUT OF ROOM 1242 PT AMBULATED FROM PROCEDURE ROOM TO RECOVERY ROOM WITH MIN 1 ASSIST, GAIT STEADY, PT TOLERATED PROCEDURE WELL, STEROID N/A , O2 RA , ECG NORMAL SINUS , PATIENT SHIELDED YES , SAFETY STRAP YES , PREP CHLOROPREP MD DRAKE, IV INFUSED N/A , DRESSING OTHER GAUZE AND PAPER TAPE LOC: TAMMY VARELA RN 10/17/2019 12:12:55 PM > , 1. ALERT, ORIENTED RESP: TAMMY VARELA RN 10/17/2019 12:13:00 PM > , 1. REGULAR, NO DYSPNEA COLOR: TAMMY VARELA RN 10/17/2019 12:13:05 PM > , 1. PINK SKIN: TAMMY VARELA RN 10/17/2019 12:13:15 PM > , 1. WARM, DRY POSITION: TAMMY VARELA RN 10/17/2019 12:13:21 PM > , 3. LATERAL VITALS: TAMMY VARELA RN 10/17/2019 12:13:25 PM > 116/80, 72, 18, 99% , TAMMY VARELA RN 10/17/2019 12:25:20 PM > 118/79, 74, 18, 99% DISCHARGE , TAMMY VARELA RN 10/17/2019 12:46:21 PM > 130/78, 87, 18, 98% DISCHARGE: POST PAIN 5-610, DRESSING SITE DRY AND INTACT, IV DISCONTINUED, SITE CLEAR, CATHETER INTACT, GAIT STEADY, TEACHING COMPLETED, PATIENT ACKNOWLEDGES UNDERSTANDING YES, PATIENT DISCHARGED AT 1248 PRE PROCEDURE DIAGNOSIS CERVICAL SPONDYLOSIS. POST PROCEDURE DIAGNOSIS CERVICAL SPONDYLOSIS. PROCEDURE RIGHT C5-C6 AND RIGHT C6-C7 DIAGNOSTIC CERVICAL FACET BLOCK NUMBER 1. SURGEON DR. YESSICA DRAKE. SPINDLE CARVER NONE. ANESTHESIA LOCAL. PRE PROCEDURE NOTE THE PATIENT HAS HISTORY OF CHRONIC CERVICAL PAIN. I EVALUATED THE PATIENT AND REVIEWED THE CHART. I WENT OVER THE RISKS, ALTERNATIVES, AND BENEFITS ASSOCIATED WITH THIS PROCEDURE. THE PATIENT WOULD LIKE TO PROCEED AND GIVE CONSENT TO PERFORMED THE PROCEDURE. AGREED WITH THE PATIENT, WE ARE DOING THIS PROCEDURE TO DETERMINE IF THE PATIENT IS A CANDIDATE FOR A RADIOFREQUENCY ABLATION OF THE FACETS JOINTS. THE PATIENT DENIES UNEXPLAINABLE WEIGHT LOSS, FEVER, CHILLS, OR NEW CHANGES IN URINARY OR BOWEL CONTROL. THE PATIENT IS COVID-19 NEGATIVE. DESCRIPTION OF PROCEDURE THE PATIENT WAS BROUGHT TO THE PROCEDURE ROOM AND PLACED IN THE PRONE POSITION. THE CERVICOTHORACIC AREA WAS CLEANED WITH CHLORAPREP SOLUTION AND DRAPED ASEPTICALLY. THE PROCEDURE WAS DONE UNDER STERILE CONDITIONS. A TIMEOUT WAS PERFORMED WHERE LATERALITY AND THE SITE OF THE PROCEDURE WERE CHECKED AND CONFIRMED WITH EVERYONE IN THE ROOM. UNDER FLUOROSCOPIC GUIDANCE, TARGET POINTS WERE SELECTED AT THE MID AND LATERAL POINTS OF THE LEFT ARTICULAR PILLARS OF RIGHT C4, RIGHT C5 AND RIGHT C6 VERTEBRAL BODIES. TARGET POINTS WERE SELECTED AFTER LATERAL ROTATION AND TILT OF THE MAGNIFIER OF THE C-ARM. LIDOCAINE 0.5% WAS USED TO NUMB THE SKIN AND THE SUBCUTANEOUS TISSUE BELOW IT. SPINAL NEEDLES, 22-GAUGE, WERE ADVANCED UNDER FLUOROSCOPIC GUIDANCE AND FOLLOWING PATIENT FEEDBACK UNTIL THE TARGETS WERE TOUCHED. THE POSITION OF THE NEEDLES WAS VERIFIED WITH AP AND LATERAL VIEWS. AFTER PROPER POSITION OF THE NEEDLES WAS ACHIEVED, ISOVUE-M DYE 30%, 0.2 ML, WAS INJECTED SHOWING SPREAD OF THE DYE. THEN A SOLUTION OF 0.3 ML OF BUPIVACAINE 0.25% WAS INJECTED AT EACH SITE. THERE WAS NO EVIDENCE OF BLOOD, PARESTHESIA OR CEREBROSPINAL FLUID DURING THE PROCEDURE. THE PATIENT WAS SENT TO THE RECOVERY ROOM. THE PATIENT WAS MOVING THE EXTREMITIES AND DOING WELL. THERE WERE NO COMPLICATIONS DURING THE PROCEDURE. ESTIMATED BLOOD LOSS WAS LESS THAN 5 ML. FLUOROSCOPY TIME WAS 1 MINUTE 32 SECONDS. POST PROCEDURE NOTE THE PATIENT WILL DOCUMENT PAIN LEVEL AND RESPONSE TO THIS PROCEDURE EVERY HOUR. THE PATIENT WILL BE SEEN IN A FOLLOW UP IN THE NEXT FEW WEEKS. FURTHER DETERMINATION FOR THE PATIENT'S CASE WILL BE DONE AT THE NEXT VISIT. THE PATIENT WILL BE SEEN IN A FOLLOW UP IN THE NEXT FEW WEEKS. I AM LOOKING FOR LONG LASTING RELIEF FOR THE PATIENT WITH THIS INTERVENTION. INSTRUCTIONS WERE GIVEN, QUESTIONS WERE ANSWERED, AND THE PATIENT EXPRESSED UNDERSTANDING AND AGREES WITH THE PLAN. I, OLIVE KING, DOCUMENTED THE ABOVE INFORMATION ACTING A SCRIBE FOR DR. DRAKE. I HAVE REVIEWED THE ABOVE DOCUMENT, WRITTEN BY OLIVE KING, OPEN HEARTH FURNACE LABORER, AND I VERIFY THAT IT IS ACCURATE. PROCEDURE CODES 38033 INJ PARAVERT F JNT C/T 1 LEV, MODIFIERS: [place] [id number] INJ PARAVERT F JNT C/T 2 LEV, MODIFIERS: RT DISPOSITION & COMMUNICATION FOLLOW UP F/UP WITH EXTERMINATION INSPECTOR (REASON: POST CFBD #1 RT C5-C6, C6-C7) ELECTRONICALLY SIGNED BY YESSICA DRAKE MD, MD ON 10/17/2019 AT 05:30 PM EDT DISCLAIMER : THIS IS A VISIT SUMMARY EXTRACTED FROM THE [employer] CHART. IT IS NOT A COPY OF THE [employer] PROGRESS NOTE. JOSE
== END ==
LOC: M PAIN 11:45
PROVIDERS: ATTEND Anesthesiology
DX: M47.812 Spondylosis without myelopathy or radiculopathy, cervical region (principal)
CPT/HCPCS: 64490; 64491; Q9967

== ENCOUNTER → 2019-12-13 | Outpatient (POV) | payer BC ==
[~2019-12-13] MED LIST changes: -BUPIVACAINE HCL 0.25% 30ML VIAL As Ordered ONE; +BUPIVACAINE HCL 0.25% 30ML VIAL ONE; -ISOVUE-M 300 61% 15ML VIAL As Ordered ONE; +ISOVUE-M 300 61% 15ML VIAL ONE; -LIDOCAINE 1% SDV 30ML VIAL As Ordered ONE; +LIDOCAINE 1% SDV 30ML VIAL ONE; +PANT40TA29 PO; -PANT40TA3 PO; -diazePAM 5 MG TAB As Ordered ONE; +diazePAM 5 MG TAB ONE
--- NOTE | 2020-01-24 16:12 | REP ---
C-ARM VIEWS CERVICAL SPINE CLINICAL HISTORY: Pain. TECHNIQUE: Multiple C-arm views of the cervical spine are performed during cervical facet joint injections by Dr. Sanchez. FINDINGS: [place] are seen overlying the cervical facet joints. There was 1 minute and 50 seconds of fluoroscopy utilized. MTDD
== END ==
LOC: M PAIN 09:00
PROVIDERS: ATTEND Anesthesiology
DX: M47.812 Spondylosis without myelopathy or radiculopathy, cervical region (principal)

== ENCOUNTER → 2019-12-20 | Outpatient (CLI) | payer BC ==
[~2019-12-20] MED LIST changes: -BUPIVACAINE HCL 0.25% 30ML VIAL ONE; -ISOVUE-M 300 61% 15ML VIAL ONE; -LIDOCAINE 1% SDV 30ML VIAL ONE; -diazePAM 5 MG TAB ONE
== END ==
LOC: M PAIN 12:04
PROVIDERS: ATTEND Anesthesiology
DX: M46.92 Unspecified inflammatory spondylopathy, cervical region (principal)

== ENCOUNTER → 2020-01-04 | Outpatient (CLI) | payer BC | LOC: M LABSMTC 10:19 | PROVIDERS: ATTEND Anesthesiology | DX: Z11.59 Encounter for screening for other viral diseases (principal) ==

== ENCOUNTER → 2020-01-09 | Outpatient (CLI) | payer BC ==
[~2020-01-09] MED LIST changes: +BUPIVACAINE HCL 0.25% 30ML VIAL As Ordered ONE; +ISOVUE-M 300 61% 15ML VIAL As Ordered ONE; +LIDOCAINE 1% SDV 30ML VIAL As Ordered ONE
--- NOTE | 2020-01-30 10:04 | REP ---
C-ARM VIEWS CERVICAL SPINE CLINICAL: Pain. Multiple C-arm views of the cervical spine are performed during injections by Dr. Sanchez. [place] are seen along the right cervical facet joints and a small amount of contrast is injected. One minute 44 seconds of fluoroscopy time utilized. JOSE
== END ==
LOC: M PAIN 08:57
PROVIDERS: ATTEND Anesthesiology
DX: M47.812 Spondylosis without myelopathy or radiculopathy, cervical region (principal)
CPT/HCPCS: 64490; 77003; G0463; Q9967

== ENCOUNTER → 2020-01-15 | Outpatient (CLI) | payer BC ==
[~2020-01-15] MED LIST changes: -BUPIVACAINE HCL 0.25% 30ML VIAL As Ordered ONE; -ISOVUE-M 300 61% 15ML VIAL As Ordered ONE; -LIDOCAINE 1% SDV 30ML VIAL As Ordered ONE
== END ==
LOC: M PAIN 14:18
PROVIDERS: ATTEND Anesthesiology
DX: M47.812 Spondylosis without myelopathy or radiculopathy, cervical region (principal)

== ENCOUNTER → 2020-02-06 | Outpatient (CLI) | payer BC ==
--- NOTE | 2020-02-06 15:49 | REPVR ---
PROCEDURE INFORMATION: Exam: MR Cervical Spine Without Contrast Exam date and time: 02/06/2020 2:23 PM Age: 44 years old Clinical indication: Other: Cervicalgia TECHNIQUE: Imaging protocol: Multiplanar magnetic resonance images of the cervical spine without contrast. COMPARISON: MRI-Spine,Cervical without con 10/03/2015 12:11 PM FINDINGS: Vertebrae: There is straightening of the cervical spine. This is nonspecific but may be seen in the setting of cervical muscle spasm or degenerative changes, please correlate clinically. Spinal cord: Normal signal. No cord compression. C2-C3: No significant disc disease. No significant spinal stenosis. C3-C4: There is disc desiccation. C4-C5: There is disc desiccation. There is a moderate disc/osteophyte complex, partial toward the right, that flattens the ventral thecal sac and compromises the right neural foramen. There is mild right-sided neuroforaminal narrowing. C5-C6: There is degenerative disc disease including disc space narrowing and dessication. There is a moderate disc/osteophyte complex that flattens the ventral thecal sac. There is a small right subarticular disc protrusion. There is moderate right-sided neuroforaminal narrowing. C6-C7: No significant disc disease. No significant spinal stenosis. C7-T1: No significant disc disease. No significant spinal stenosis. Paranasal sinuses: There is moderate sinus disease. IMPRESSION: 1. There is straightening of the cervical spine. This is nonspecific but may be seen in the setting of cervical muscle spasm or degenerative changes, please correlate clinically. 2. Multilevel degenerative changes with variable degrees of spinal canal and neuroforaminal narrowing. Electronically signed by: Aaron Tijerina On 02/06/2020 15:49:38 PM
== END ==
LOC: M RAD 12:57
PROVIDERS: ATTEND Anesthesiology
DX: M54.2 Cervicalgia (principal)

== ENCOUNTER → 2020-02-13 | Outpatient (CLI) | payer BC ==
--- NOTE | 2020-02-21 14:13 | ECWPNPC ---
PATIENT NAME: ALEX AVILES : 1975 GENDER: FEMALE VISIT DATE: 02/13/2020 DISCHARGE DATE: 02/13/20 1620 VISIT LOCKED DATE TIME: PHYSICIAN: YESSICA DRAKE MD RESOURCE: YESSICA DRAKE MD REASON FOR APPOINTMENT 1. REVIEW CERVICAL MRI HISTORY OF PRESENT ILLNESS GENERAL: 44-YEAR-OLD FEMALE PATIENT WITH A HISTORY OF CHRONIC NECK PAIN. THE PATIENT HAS BEEN SUFFERING FROM THIS PAIN FOR MANY YEARS. THE PATIENT DESCRIBES THE PAIN ACHING AND STABBING WITH A PAIN SCORE RANGING FROM 6-10 /10 DEPENDING ON PHYSICAL ACTIVITY. THE PATIENT STATES THAT THE PAIN RADIATES TO HER SHOULDER. WE HAVE DONE SOME DIAGNOSTIC TESTS WHICH HAVE DECREASED THE PAIN MORE THAN 80%. THE PATIENT IS INTERESTED IN RADIOFREQUENCY. THIS CONDITION IS AFFECTING HER ACTIVITIES OF DAILY LIVING SUCH CLEANING HER HOUSE. PATIENT DENIES UNEXPLAINABLE WEIGHT LOSS, FEVER, CHILLS, NEW CHANGES ON HER URINARY OR BOWEL CONTROL. FALL RISK SCREENING: SCREENING :TWO OR MORE FALLS WITHOUT INJURY IN THE PAST YEAR PAIN SCREENING: PATIENT HAS A COMPLAINT OF ACUTE OR CHRONIC PAIN :YES LOCATION OF PAIN:NECK, RIGHT SHOULDER, OTHER: RIGHT NECK RADIATES DOWN INTO RIGHT SHOULDER AND RIGHT NECK INTENSITY OF PAIN (SCALE OF 1 TO 10):7 WHAT DOES YOUR PAIN FEEL LIKE:INTERMITTENT, SHARP, STABBING, THROBBING, SHOOTING PAIN IS INTERMITTENT WITH MEDICATIONS DURATION:ALL DAY PAIN IS INCREASED BY:ACTIVITIES, OTHERS LIFTING PAIN IS DECREASED BY:USE OF PAIN MEDICATIONS NURSING NOTE: -. PAIN CENTER INTAKE QUESTIONS: DO YOU HAVE A HISTORY OF MRSA? :NO DO YOU TAKE A BLOOD THINNERS? :NO DO YOU HAVE ANY BLEEDING DISORDERS? :NO ANY NEW NUMBNESS OR WEAKNESS IN YOUR LEGS OR ARMS? :NO ANY PACEMAKER,DEFIBRILLATOR, OR DORSAL COLUMN STIMULATOR? :NO DO YOU HAVE ANY RASHES OR OPEN SORES? :NO ARE YOU ALLERGIC TO IV DYE? :NO ARE YOU DIABETIC? :NO ANY NEW PROBLEMS WITH YOUR MEDICATIONS? :NO HAVE YOU RECEIVED A VACCINE IN THE PAST 30 DAYS? :NO DO YOU PLAN TO RECEIVE A VACCINE IN THE NEXT 21 DAYS? :NO DO YOU NEED ANY PRESCRIPTION? :NO DO YOU TAKE ANY IMMUNOSUPPRESSIVE MEDICATIONS? :NO ANY HISTORY OF SEIZURES? :NO ANY HISTORY OF CARDIAC ISSUES OR EVENTS? :NO DO YOU HAVE SLEEP APNEA? :NO ANY RECENT HEAD INJURY? :NO DO YOU HAVE ANY NEW INFECTIONS? :NO IS THERE A CHANCE YOU COULD BE ? :NO ARE YOU BREAST FEEDING? :NO DO YOU HAVE ANY OTHER QUESTIONS OR CONCERNS? : NO CURRENT MEDICATIONS TAKING HYDROXYZINE HCL 25 MG TABLET 2 TABS ORALLY EVERY 6 HRS NEEDED TAKING FLUTICASONE FUROATE 27.5 MCG/SPRAY SUSPENSION 1 SPRAY IN EACH NOSTRIL NASALLY TWICE A DAY TAKING PANTOPRAZOLE SODIUM 40 MG TABLET DELAYED RELEASE 1 TABLET ORALLY ONCE A DAY TAKING MIRALAX - POWDER 1 DOSE ORALLY ONCE A DAY NEEDED TAKING MONTELUKAST SODIUM 10 MG TABLET 1 TABLET IN THE EVENING ORALLY ONCE A DAY TAKING ASTELIN 1 SPRAY EACH NOSTRIL NASAL TWICE A DAY TAKING PROBIOTIC CAPSULE 1 TABLET ORALLY ONCE DAILY TAKING WELLBUTRIN SR 200 MG TABLET EXTENDED RELEASE 12 HOUR 1 TABLET IN THE MORNING ORALLY ONCE A DAY TAKING TIZANIDINE HCL 4 MG TABLET 1 TAB ORALLY BID TAKING CYMBALTA 30 MG CAPSULE DELAYED RELEASE PARTICLES 1 CAPSULE ORALLY DAILY TAKING OXYCODONE-ACETAMINOPHEN 10-325 MG TABLET 1 TABLET NEEDED ORALLY Q8H PRN MDD2 TAKING AMITRIPTYLINE HCL 25 MG TABLET 1 TABLET AT BEDTIME ORALLY ONCE A DAY NOT-TAKING NORCO 10-325 MG TABLET 1 TABLET NEEDED ORALLY Q8H PRN MDD3, NOTES: 10/15 12 NOON NOT-TAKING RANITIDINE HCL 150 MG CAPSULE 1 CAPSULE ORALLY ONCE DAILY MEDICATION LIST REVIEWED AND RECONCILED WITH THE PATIENT PAST MEDICAL HISTORY ANEMIA GERD STOMACH ULCERS WITH H PYLORI NECK AND LOW BACK PAIN 04/26/18 CONCUSSION FROM FALLING DOWN THE STAIRS AND HITTING HEAD LEFT EYE BLIND SINCE ALLERGIES PENICILLIN: SWELLING - ALLERGY ORANGES: ANAPHYLAXIS - ALLERGY BANDAIDS AND ADHESIVES: REDDNESS AND SWELLING - ALLERGY LATEX GLOVES: REDDNESS AND SWELLING - ALLERGY TEGADERM: REDNESS, SWELLING - ALLERGY SURGICAL HISTORY RIGHT KNEE 1985 TUBAL LIGATION 2002 D&C 1996 MOLES REMOVED 2016 TOTAL HYSTERECTOMY 2017 COLONOSCOPY/ENDOSCOPY 2019 FAMILY HISTORY FATHER: MOTHER: , DIAGNOSED WITH OTHER SPECIFIED CONDITIONS INFLUENCING HEALTH STATUS SIBLINGS: ALIVE PATERNAL GRAND FATHER: OTHER MALIGNANT NEOPLASM OF UNSPECIFIED SITE 3 BROTHER(S) , 4 SISTER(S) - HEALTHY. 1 SON(S) , 3 DAUGHTER(S) . FATHER FROM MVA, NO MEDICAL HISTORY \\NMOTHER- DUE TO CHF, BRAIN TUMOR X 2, BREAST CA\\NPATERNAL GRANDFATHER--CA-UNSURE OF WHAT KIND\\NDAUGHTER - IRREGULAR HEART BEAT, ASTHMA\\NDAUGHTER - HYPOTHYROID. SOCIAL HISTORY GENERAL: TOBACCO USE ARE YOU A:NONSMOKER LATEX QUESTIONNAIRE LATEX ALLERGY : HAVE YOU EVER DEVELOPED ANY TYPE OF REACTION AFTER HANDLING LATEX PRODUCTS SUCH RUBBER GLOVES, CONDOMS, DIAPHRAGMS, BALLOONS, SOCKS, OR UNDERWEAR?YES - PLEASE INDICATE :RUBBER GLOVES, CONDOMS, BALLOONS, OTHER (DOCUMENT IN NOTES) BANDAIDS LATEX ALLERGY : HAVE YOU EVER DEVELOPED ANY TYPE OF REACTION DURING OR AFTER DENTAL APPOINTMENT, VAGINAL/RECTAL EXAMINATION, SURGICAL PROCEDURE, OR ANY OTHER EXPOSURE?NO LATEX RISK : HAVE YOU EVER HAD ANY DIFFICULTY BREATHING OR HIVES AFTER EATING OR HANDLING ANY FRUITS, OR VEGETABLES; SUCH KIWI, BANANAS, STONE FRUITS, OR CHESTNUTSYES - PLEASE INDICATE : ORANGES LATEX RISK : DO YOU HAVE A PREVIOUS PERSONAL HISTORY OF MORE THAN NINE SURGERIES, SPINA BIFIDA, OR REPEATED CATHERIZATIONS? NO LATEX RISK : ARE YOU FREQUENTLY EXPOSED TO LATEX PRODUCTS IN YOUR OCCUPATION?NO DATE ASKED : 02/13/2020 ALCOHOL SCREENING DID YOU HAVE A DRINK CONTAINING ALCOHOL IN THE PAST YEAR?NO POINTS0 INTERPRETATIONNEGATIVE RECREATIONAL DRUG USE DRUG USE?NO CAFFEINE CAFFEINE USE?YES HOW OFTEN AND HOW MUCH? 3 SODAS/DAY SYNAGOGUE [id number] SABIANIST LANGUAGE LANGUAGES SPOKEN:WELSH EDUCATION LEVEL OF EDUCATION:NOT FINISHED COLLEGE LEARNING BARRIERS / SPECIAL NEEDS BARRIERS TO LEARNING?NO HEARING IMPAIRED?NO VISION IMPAIRED?NO COGNITIVELY IMPAIRED?NO READINESS TO LEARN?YES LEARNING PREFERENCES?NO LEARNING CAPABILITIES PRESENT?YES EMOTIONAL BARRIERS?NO SPECIAL DEVICES?NO CHIEF PROJECTIONIST NEEDED?NO DOMESTIC VIOLENCE DO YOU FEEL SAFE IN YOUR ENVIRONMENT?YES DIET: REGULAR. NEW PATIENT PAIN DIARY TODAY'S VISIT NOTES 09/14/2019, PATIENT DESCRIBES PAIN : HAVE IT ALL THE TIME, SHARP, FROM 0-10, WHAT LEVEL IS YOUR PAIN TODAY? 6, PRECIPITATING FACTORS LIFTING, ALLEVIATING FACTORS HEAT/ICE, MEDS, IMPACT ON FUNCTION YES. PAIN CLINIC PFS, CLERGY, PUBLIC HEALTH REFERRALS HAS THE PATIENT BEEN EDUCATED REGARDING HIS/HER PLAN OF CARE?YES HAS THE PATIENT BEEN EDUCATED REGARDING PAIN, THE RISK FOR PAIN, THE IMPORTANCE OF EFFECTIVE PAIN MANAGEMENT, AND THE PAIN ASSESSMENT PROCESS?YES ADVANCE DIRECTIVE ADVANCE DIRECTIVE DISCUSSED WITH PATIENT:YES HCP-TREV[facility] SPARKS [phone] HOSPITALIZATION/MAJOR DIAGNOSTIC PROCEDURE CHILD 12/18/1991 CHILD 11/01/1996 CHILD 11/23/1998 CHILD 01/29/2002 HYSTERECTOMY 2017 KNEE SURGERY ALLERGIC REACTION AGE 2 OR 3 REVIEW OF SYSTEMS CONSTITUTIONAL: ANY RECENT FEVER NO . CHILLS NO . WEIGHT CHANGE OF UNKNOWN REASONS NO . GASTROENTEROLOGY: NEW UNEXPLAINABLE CHANGES IN BOWEL CONTROL NO . CONSTIPATION NO . GENITOURINARY: ANY NEW CHANGE IN BLADDER CONTROL? NO . NEUROLOGY: NEW ONSET DIZZINESS OR NEUROLOGICAL CHANGES NOT MENTIONED NO . NEW NUMBNESS OR PAIN PATTERNS NOT MENTIONED AND PERTINENT TO TODAY'S VISIT NO . CARDIOLOGY: NEW CHEST PRESSURE NO . NEW CHEST PAIN NO . RESPIRATORY: UNEXPLAINABLE COUGH NO . NEW SHORTNESS OF BREATH NO . VITAL SIGNS WT 192.6 LBS, HT 67 IN, BMI 30.16 INDEX, BP 143/79 MM HG, HR 99 /MIN, RR 18 /MIN, TEMP 96.8 F, OXYGEN SAT % 99%, SAFE IN ENV? (Y/N) YES, NA INITIALS AW 1523, REVIEWED BY: ARASELI. EXAMINATION GENERAL EXAMINATION: THE PATIENT IS ALERT, ORIENTED TIMES THREE AND COOPERATIVE. HEART SHOWS REGULAR RHYTHM, NO MURMURS AND NO GALLOPS. LUNGS ARE CLEAR TO AUSCULTATION. THE PATIENT'S RIGHT SHOULDER APPEARS LOWER THAN THE LEFT ONE. THE PATIENT HAS TENDERNESS OVER THE FACET JOINTS OVER THE RIGHT SIDE OVER THE NECK AND SHOULDER. THERE ARE SOME TRIGGER POINTS OVER THE AREA. THE RIGHT ARM IS WEAKER THAN THE LEFT ARM. MRI OF THE CERVICAL SPINE DATED 02/06/2020 SHOWS STRAIGHTENING OF THE MUSCLE OF THE NECK, FACET ARTHROPATHY CHANGES, DEGENERATIVE DISC DISEASE ESPECIALLY AT C4-C5, C5-C6. ASSESSMENTS SPONDYLOSIS OF CERVICAL REGION WITHOUT MYELOPATHY OR RADICULOPATHY - M47.812 (PRIMARY) FACET ARTHROPATHY, CERVICAL - M47.812 TREATMENT SPONDYLOSIS OF CERVICAL REGION WITHOUT MYELOPATHY OR RADICULOPATHY CLINICAL NOTES: I DISCUSSED ALTERNATIVE WITH MS. AVILES. WE DID DIAGNOSTIC BLOCKS AT RIGHT C5-C6 AND C6-C7. I WILL REQUEST AUTHORIZATION FOR COOL RADIOFREQUENCY RIGHT C5-C6, C6-C7. IT WAS DISCUSSED WITH THE PATIENT THE POSSIBILITY OF DOING MORE BLOCKS HIGH IF THERE IS ANY RESIDUAL PAIN. THE PATIENT UNDERSTANDS AND AGREES WITH THE PLAN. I, OLIVE KING, DOCUMENTED THE ABOVE INFORMATION ACTING A SCRIBE FOR DR. DRAKE. I HAVE REVIEWED THE ABOVE DOCUMENT, WRITTEN BY OLIVE KING, CASHIER PAYMENTS RECEIVED, AND I VERIFY THAT IT IS ACCURATE. PROCEDURE CODES FA211 ESTABILISHED PATIENT [facility] CHARGE [id number] OFFICE/OUTPATIENT VISIT EST DISPOSITION & COMMUNICATION FOLLOW UP REQUEST AUTHORIZATION FOR COOL RADIOFREQUENCY RIGHT C5-C6, C6-C7 (REASON: REQUEST AUTHORIZATION FOR COOL RADIOFREQUENCY RIGHT C5-C6, C6-C7) ELECTRONICALLY SIGNED BY YESSICA DRAKE MD, MD ON 02/21/2020 AT 11:33 AM EDT DISCLAIMER : THIS IS A VISIT SUMMARY EXTRACTED FROM THE [employer] CHART. IT IS NOT A COPY OF THE [employer] PROGRESS NOTE. MTDD
== END ==
LOC: M PAIN 15:00
PROVIDERS: ATTEND Anesthesiology
DX: M47.812 Spondylosis without myelopathy or radiculopathy, cervical region (principal); D64.9 Anemia, unspecified; K21.9 Gastro-esophageal reflux disease without esophagitis; Z79.891 Long term (current) use of opiate analgesic; Z79.899 Other long term (current) drug therapy; Z88.0 Allergy status to penicillin; Z88.8 Allergy status to other drugs, medicaments and biological substances; Z91.040 Latex allergy status; Z91.018 Allergy to other foods; Z91.048 Other nonmedicinal substance allergy status

== ENCOUNTER → 2020-02-16 | Outpatient (CLI) | payer BC | LOC: M LABSMTC 11:18 | PROVIDERS: ATTEND Anesthesiology | DX: Z20.828 Contact with and (suspected) exposure to other viral communicable diseases (principal) | CPT/HCPCS: C9803; U0003 ==

== ENCOUNTER → 2020-02-23 | Outpatient (CLI) | payer BC | LOC: M LABSMTC 10:57 | PROVIDERS: ATTEND Anesthesiology | DX: Z20.828 Contact with and (suspected) exposure to other viral communicable diseases (principal) | CPT/HCPCS: C9803; U0003 ==

== ENCOUNTER → 2020-02-28 | Outpatient (CLI) | payer BC ==
[~2020-02-28] MED LIST changes: +BUPIVACAINE HCL 0.25% 30ML VIAL As Ordered ONE; +LIDOCAINE 1% SDV 30ML VIAL As Ordered ONE; +dexameTHASONE 10MG/1ML VIAL PRES.FREE (J1100 PER 1MG) As Ordered ONE; +diazePAM 5 MG TAB As Ordered ONE; +diphenhydrAMINE 25MG CAP As Ordered ONE; +oxyCODONE 5MG TAB As Ordered ONE
--- NOTE | 2020-02-28 13:20 | REP ---
INDICATION: RIGHT SIDED CERVICAL COOL RADIOFREQUENCY. Pain COMPARISON: 01/09/2020. TECHNIQUE: Multiple C-arm views cervical spine performed during injections. FINDINGS: Multiple needles are seen along the cervical spine region. IMPRESSION: 221 seconds of fluoroscopy time was utilized. <Electronically signed by Abelino Holloway > 02/28/20 [id number]
--- NOTE | 2020-03-11 03:33 | ECWPNPC ---
PATIENT NAME: ALEX AVILES : 1975 GENDER: FEMALE VISIT DATE: 02/28/2020 DISCHARGE DATE: 02/28/20 1333 VISIT LOCKED DATE TIME: PHYSICIAN: YESSICA DRAKE MD RESOURCE: YESSICA DRAKE MD REASON FOR APPOINTMENT 1. COOL RADIOFREQUENCY RIGHT C5/C6, C6/C7 HISTORY OF PRESENT ILLNESS GENERAL: -. FALL RISK SCREENING: SCREENING :ONE FALL WITH INJURY IN THE PAST YEAR PAIN SCREENING: PATIENT HAS A COMPLAINT OF ACUTE OR CHRONIC PAIN :YES LOCATION OF PAIN:NECK RIGHT NECK AND RIGHT NECK INTENSITY OF PAIN (SCALE OF 1 TO 10):9 WHAT DOES YOUR PAIN FEEL LIKE:CONTINOUS, SHARP, OTHER TIGHTENING DURATION:CONTINOUS, CONSTANT PAIN IS INCREASED BY:ACTIVITIES PAIN IS DECREASED BY:USE OF PAIN MEDICATIONS TREATMENT/MEDICATIONS USED TO MANAGE PAIN:OPIOIDS LEVEL OF RELIEF FROM PAIN TREATMENTS IN THE PAST:50% PAIN HAS INTERFERED WITH THE FOLLOWING:BATHING/DRESSING, WALKING ABILITY, HOUSEWORK, SLEEP, TRANSPORTATION, TOILETING NURSING NOTE: -. PAIN CENTER INTAKE QUESTIONS: DO YOU HAVE A HISTORY OF MRSA? :NO DO YOU TAKE A BLOOD THINNERS? :NO DO YOU HAVE ANY BLEEDING DISORDERS? :YES ANEMIC ANY NEW NUMBNESS OR WEAKNESS IN YOUR LEGS OR ARMS? :YES RIGHT ARM PAIN- DR DRAKE AWARE ANY PACEMAKER,DEFIBRILLATOR, OR DORSAL COLUMN STIMULATOR? :NO DO YOU HAVE ANY RASHES OR OPEN SORES? :NO ARE YOU ALLERGIC TO IV DYE? :NO ARE YOU DIABETIC? :NO ANY NEW PROBLEMS WITH YOUR MEDICATIONS? :NO HAVE YOU RECEIVED A VACCINE IN THE PAST 30 DAYS? :NO DO YOU PLAN TO RECEIVE A VACCINE IN THE NEXT 21 DAYS? :NO DO YOU TAKE ANY IMMUNOSUPPRESSIVE MEDICATIONS? :NO ANY HISTORY OF SEIZURES? :NO ANY HISTORY OF CARDIAC ISSUES OR EVENTS? :NO DO YOU HAVE SLEEP APNEA? :NO ANY RECENT HEAD INJURY? :NO DO YOU HAVE ANY NEW INFECTIONS? :NO IS THERE A CHANCE YOU COULD BE ? :NO ARE YOU BREAST FEEDING? :NO WHEN DID YOU LAST EAT? : 02/27/2020 1900 WHEN DID YOU LAST DRINK? : 02/27/2020 2300 WHAT DID YOU LAST DRINK? : WATER NAME OF PERSON DRIVING YOU HOME? : - TREVON DO YOU HAVE ANY OTHER QUESTIONS OR CONCERNS? : - CURRENT MEDICATIONS TAKING HYDROXYZINE HCL 25 MG TABLET 2 TABS ORALLY EVERY 6 HRS NEEDED, NOTES: 02/27/20201929 TAKING FLUTICASONE FUROATE 27.5 MCG/SPRAY SUSPENSION 1 SPRAY IN EACH NOSTRIL NASALLY TWICE A DAY, NOTES: 02/27/2020899 TAKING PANTOPRAZOLE SODIUM 40 MG TABLET DELAYED RELEASE 1 TABLET ORALLY ONCE A DAY, NOTES: 02/27/2020899 TAKING MIRALAX - POWDER 1 DOSE ORALLY ONCE A DAY NEEDED, NOTES: PRN TAKING MONTELUKAST SODIUM 10 MG TABLET 1 TABLET IN THE EVENING ORALLY ONCE A DAY, NOTES: 02/27/20201929 TAKING ASTELIN 1 SPRAY EACH NOSTRIL NASAL TWICE A DAY, NOTES: HAS NOT USED LATELY TAKING PROBIOTIC CAPSULE 1 TABLET ORALLY ONCE DAILY, NOTES: 02/27/2020899 TAKING WELLBUTRIN SR 200 MG TABLET EXTENDED RELEASE 12 HOUR 1 TABLET IN THE MORNING ORALLY ONCE A DAY, NOTES: 02/27/2020899 TAKING TIZANIDINE HCL 4 MG TABLET 1 TAB ORALLY BID, NOTES: 02/27/20201929 TAKING CYMBALTA 30 MG CAPSULE DELAYED RELEASE PARTICLES 1 CAPSULE ORALLY DAILY, NOTES: 02/27/2020899 TAKING AMITRIPTYLINE HCL 25 MG TABLET 1 TABLET AT BEDTIME ORALLY ONCE A DAY, NOTES: 02/27/20201929 TAKING OXYCODONE-ACETAMINOPHEN 10-325 MG TABLET 1 TABLET NEEDED ORALLY Q8H PRN MDD2, NOTES: 02/27/20201699 NOT-TAKING NORCO 10-325 MG TABLET 1 TABLET NEEDED ORALLY Q8H PRN MDD3, NOTES: 10/15 12 NOON NOT-TAKING RANITIDINE HCL 150 MG CAPSULE 1 CAPSULE ORALLY ONCE DAILY MEDICATION LIST REVIEWED AND RECONCILED WITH THE PATIENT PAST MEDICAL HISTORY ANEMIA GERD STOMACH ULCERS WITH H PYLORI NECK AND LOW BACK PAIN 04/26/18 CONCUSSION FROM FALLING DOWN THE STAIRS AND HITTING HEAD LEFT EYE BLIND SINCE ALLERGIES PENICILLIN: SWELLING - ALLERGY ORANGES: ANAPHYLAXIS - ALLERGY BANDAIDS AND ADHESIVES: REDDNESS AND SWELLING - ALLERGY LATEX GLOVES: REDDNESS AND SWELLING - ALLERGY TEGADERM: REDNESS, SWELLING - ALLERGY SURGICAL HISTORY RIGHT KNEE 1985 TUBAL LIGATION 2002 D&C 1996 MOLES REMOVED 2016 TOTAL HYSTERECTOMY 2017 COLONOSCOPY/ENDOSCOPY 2019 FAMILY HISTORY FATHER: MOTHER: , DIAGNOSED WITH OTHER SPECIFIED CONDITIONS INFLUENCING HEALTH STATUS SIBLINGS: ALIVE PATERNAL GRAND FATHER: OTHER MALIGNANT NEOPLASM OF UNSPECIFIED SITE 3 BROTHER(S) , 4 SISTER(S) - HEALTHY. 1 SON(S) , 3 DAUGHTER(S) . FATHER FROM MVA, NO MEDICAL HISTORY \\NMOTHER- DUE TO CHF, BRAIN TUMOR X 2, BREAST CA\\NPATERNAL GRANDFATHER--CA-UNSURE OF WHAT KIND\\NDAUGHTER - IRREGULAR HEART BEAT, ASTHMA\\NDAUGHTER - HYPOTHYROID. SOCIAL HISTORY GENERAL: TOBACCO USE ARE YOU A:NONSMOKER LATEX QUESTIONNAIRE LATEX ALLERGY : HAVE YOU EVER DEVELOPED ANY TYPE OF REACTION AFTER HANDLING LATEX PRODUCTS SUCH RUBBER GLOVES, CONDOMS, DIAPHRAGMS, BALLOONS, SOCKS, OR UNDERWEAR?YES - PLEASE INDICATE :RUBBER GLOVES, CONDOMS, BALLOONS, OTHER (DOCUMENT IN NOTES) BANDAIDS LATEX ALLERGY : HAVE YOU EVER DEVELOPED ANY TYPE OF REACTION DURING OR AFTER DENTAL APPOINTMENT, VAGINAL/RECTAL EXAMINATION, SURGICAL PROCEDURE, OR ANY OTHER EXPOSURE?NO LATEX RISK : HAVE YOU EVER HAD ANY DIFFICULTY BREATHING OR HIVES AFTER EATING OR HANDLING ANY FRUITS, OR VEGETABLES; SUCH KIWI, BANANAS, STONE FRUITS, OR CHESTNUTSYES - PLEASE INDICATE : ORANGES LATEX RISK : DO YOU HAVE A PREVIOUS PERSONAL HISTORY OF MORE THAN NINE SURGERIES, SPINA BIFIDA, OR REPEATED CATHERIZATIONS? NO LATEX RISK : ARE YOU FREQUENTLY EXPOSED TO LATEX PRODUCTS IN YOUR OCCUPATION?NO DATE ASKED : 02/13/2020 ALCOHOL SCREENING DID YOU HAVE A DRINK CONTAINING ALCOHOL IN THE PAST YEAR?NO POINTS0 INTERPRETATIONNEGATIVE RECREATIONAL DRUG USE DRUG USE?NO CAFFEINE CAFFEINE USE?YES HOW OFTEN AND HOW MUCH? 3 SODAS/DAY PENTECOSTAL [id number] [employer]HA[place] LANGUAGE LANGUAGES SPOKEN:UKRAINIAN EDUCATION LEVEL OF EDUCATION:NOT FINISHED COLLEGE LEARNING BARRIERS / SPECIAL NEEDS BARRIERS TO LEARNING?NO HEARING IMPAIRED?NO VISION IMPAIRED?NO COGNITIVELY IMPAIRED?NO READINESS TO LEARN?YES LEARNING PREFERENCES?NO LEARNING CAPABILITIES PRESENT?YES EMOTIONAL BARRIERS?NO SPECIAL DEVICES?NO HEAD ANIMAL TRAINER NEEDED?NO DOMESTIC VIOLENCE DO YOU FEEL SAFE IN YOUR ENVIRONMENT?YES DIET: REGULAR. TODAY'S VISIT NOTES 09/14/2019, PATIENT DESCRIBES PAIN : HAVE IT ALL THE TIME, SHARP, FROM 0-10, WHAT LEVEL IS YOUR PAIN TODAY? 6, PRECIPITATING FACTORS LIFTING, ALLEVIATING FACTORS HEAT/ICE, MEDS, IMPACT ON FUNCTION YES. PAIN CLINIC PFS, CLERGY, PUBLIC HEALTH REFERRALS HAS THE PATIENT BEEN EDUCATED REGARDING HIS/HER PLAN OF CARE?YES HAS THE PATIENT BEEN EDUCATED REGARDING PAIN, THE RISK FOR PAIN, THE IMPORTANCE OF EFFECTIVE PAIN MANAGEMENT, AND THE PAIN ASSESSMENT PROCESS?YES ADVANCE DIRECTIVE ADVANCE DIRECTIVE DISCUSSED WITH PATIENT:YES HCP-TREVON SPARKS [phone] HOSPITALIZATION/MAJOR DIAGNOSTIC PROCEDURE CHILD 12/18/1991 CHILD 11/01/1996 CHILD 11/23/1998 CHILD 01/29/2002 HYSTERECTOMY 2017 KNEE SURGERY ALLERGIC REACTION AGE 2 OR 3 VITAL SIGNS WT 199.6 LBS, HT 67 IN, BMI 31.26 INDEX, BP 140/87 MM HG, REPEAT BP 122/82 MM HG, HR 91 /MIN, RR 18 /MIN, TEMP 97.6 F, OXYGEN SAT % 97%, SAFE IN ENV? (Y/N) YES, NA INITIALS AW 0902, REVIEWED BY: ROGERIO FOOTE RN. EXAMINATION GENERAL EXAMINATION: THE PATIENT IS ALERT, ORIENTED TIMES THREE AND COOPERATIVE. HEART SHOWS REGULAR RHYTHM, NO MURMURS AND NO GALLOPS. LUNGS ARE CLEAR TO AUSCULTATION. ASSESSMENTS SPONDYLOSIS OF CERVICAL REGION WITHOUT MYELOPATHY OR RADICULOPATHY - M47.812 (PRIMARY), RISK: (NULL) TREATMENT SPONDYLOSIS OF CERVICAL REGION WITHOUT MYELOPATHY OR RADICULOPATHY [facility] FACET BLOCK (PAIN)[id number] MEDICATION: BENADRYL TAB 25MG ORALLY (DIPHENHYDRAMINE)FIORELLA MORALES 02/28/2020 9:23:26 AM > VERIFIED. LOT # [id number], EXP: 03/2022. DESIRAE BUTTERFIELD 02/28/2020 9:32:01 AM > ADMINISTERED SALINE LOCKSYLVERFIORELLA 02/28/2020 9:48:12 AM > 22 GAUGE INSERTED INTO LEFT AC ON SECOND ATTEMPT. SITE CLEAR, FLUSHING WITHOUT DIFFICULTY. MEDICATION: VALIUM TAB 10MG ORALLY (DIAZEPAM)FIORELLA MORALES 02/28/2020 9:24:20 AM > VERIFIED. LOT #: [id number], EXP: 08/20. DESIRAE BUTTERFIELD 02/28/2020 9:32:21 AM > ADMINISTERED MEDICATION: OXYCODONE HCL TAB 10MG ORALLYSYLVZACKARY,FIORELLA [place] 02/28/2020 9:25:55 AM > VERIFIED. LOT #: [id number], EXP: 06/2021. DESIRAE BUTTERFIELD 02/28/2020 9:32:43 AM > ADMINISTERED OTHERS NOTES: 02/27/20 STEPH MIDDLETON, GATE KEEPER. PROCEDURES PAIN NURSING RECORD PRE-PROCEDURE IV SITE LEFT ANTECUBITAL, IV STARTED # 22, IV STARTED BY: Jeremie MORALES RN, IV ATTEMPTS 2, PRE-PROCEDURE ORAL MEDICATIONS BENADRYL 25 MG, VALIUM 10 MG, OXYCODONE 10 MG PROCEDURE IN ROOM 1119, PHYSICIAN IN ROOM 1127, START 1156, FINISH 1254, PHYSICIAN OUT OF ROOM 1256, OUT OF ROOM 1309, STEROID DEXAMETHASONE, O2 RA, ECG NORMAL SINUS, PATIENT SHIELDED YES, SAFETY STRAP YES, PREP CHLOROPREP BY DR. DRAKE, IV INFUSED N/A, DRESSING OTHER 2X2 GAUZE AND PAPER TAPE BY DR. DRAKE LOC: DESIRAE BUTTERFIELD 02/28/2020 11:57:10 AM > , 1. ALERT, ORIENTED RESP: DESIRAE BUTTERFIELD 02/28/2020 11:57:15 AM > , 1. REGULAR, NO DYSPNEA COLOR: DESIRAE BUTTERFIELD 02/28/2020 11:57:19 AM > , 1. PINK SKIN: DESIRAE BUTTERFIELD 02/28/2020 11:57:23 AM > , 1. WARM, DRY POSITION: DESIRAE BUTTERFIELD 02/28/2020 11:57:30 AM > , 1. PRONE VITALS: 1120: 112/56, 79, 16, 96% 1130: 117/67, 80, 16, 96% 1145: 112/62, 80, 16, 95% 1200: 124/69, 79, 18, 96% 1215: 137/80, 79, 18, 96% 1230: 128/72, 75, 16, 95% 1249: 126/76, 75, 16, 97% 1300: 125/79, 82, 18, 97% 1310: 131/73, 76, 16, 99% NOTES 1305 GROUNDING PAD REMOVED FROM RIGHT LATERAL FLANK, SITE CLEAR, NO REDNESS OR IRRITATION NOTED. Jeremie MORALES RN DISCHARGE: POST PAIN 3, DRESSING SITE DRY AND INTACT, IV DISCONTINUED, SITE CLEAR, CATHETER INTACT, GAIT STEADY, TEACHING COMPLETED, PATIENT ACKNOWLEDGES UNDERSTANDING YES, PATIENT DISCHARGED AT 1328 PN RADIOFREQUENCY DATE OF PROCEDURE 02/28/2020 THERMO LESION RADIOFREQUENCY > 80 DEGREES : COOL - AVANOS SYSTEM SET AT 60* WITH TISSUE TARGET TEMP > 80* OR MORE. STRAIGHT NEEDLE SIDE: : RIGHT LEVELS: : C5-C6, C6-C7 NEEDLE/CATHETER/GAUGE: : 17 CANULA LENGTH: : 75 MM ACTIVE TIP: : 2 MM GROUNDING PAD PLACED ON AFFECTED SIDE (MUSCULAR AREA): : CERVIAL (LATERAL FLANK) 1 ST LEVEL: : C5,INITAL POSTIVE SENSORY RESPONE (50 HZ) 2.0,MOTOR RESPONSE (2 HZ-UP TO 3 VOLTS) 3.0 ,PRE-LOCAL IMPEDENCE READING OHMS 361 ,POST-LOCAL IMPEDENCE READING OHMS 217 ,DURING RF IMPEDENCE READING OHMS 264 , 2 ND LEVEL: : C6,INITIAL POSITIVE SENSORY RESPONSE (50 HZ) 2.0,MOTOR RESPONSE (2 HZ- UP TO 3 VOLTS) 3.0 ,PRE-LOCAL IMPEDENCE READING OHMS 260 ,POST-LOCAL IMEPEDENCE READING OHMS 229 ,DURING RF IMPEDENCE READING OHMS 199 , 3 RD LEVEL: : C7,INITIAL POSITIVE SENSORY RESPONSE (50 HZ) 2.0,MOTOR RESPONSE (2HZ- UP TO 3 VOLTS) 3.0 ,PRE- LOCAL IMPEDENCE READING OHMS 451 ,POST-LOCAL IMPEDENCE READING OHMS 253 ,DURING RF IMPEDENCE READING OHMS 235 , PRE PROCEDURE DIAGNOSIS CERVICAL SPONDYLOSIS POST PROCEDURE DIAGNOSIS CERVICAL SPONDYLOSIS PROCEDURE RIGHT C5-C6 AND RIGHT C6-C6 CERVICAL FACET COOL RADIOFREQUENCY SURGEON DR. YESSICA DRAKE ENVIRONMENTAL ATTORNEY NONE ANESTHESIA LOCAL PRE PROCEDURE NOTE THE PATIENT HAS A HISTORY OF CHRONIC NECK PAIN. I EVALUATED THE PATIENT AND REVIEWED THE CHART. I WENT OVER THE RISKS, BENEFITS AND ALTERNATIVES ASSOCIATED WITH THIS PROCEDURE. I EXPLAINED TO THE PATIENT THAT THERE IS A CHANCE OF DEVELOPING NEURALGIA AFTER THE RADIOFREQUENCY. I EXPLAINED THAT IF THAT HAPPENS, I WILL GIVE THE PATIENT GABAPENTIN. I DISCUSSED THAT THE USE OF STEROIDS MAY CONTRIBUTE TO IMMUNOSUPPRESSION OF THE PATIENT'S BODY AGAINST INFECTIONS SUCH COVID-19. THE PATIENT IS AWARE OF THE POTENTIAL COMPLICATIONS ASSOCIATED WITH THIS VIRUS, INCLUDING, BUT NOT LIMITED TO, . THE PATIENT WOULD LIKE TO PROCEED AND GIVES CONSENT TO PERFORM THE PROCEDURE. THE PATIENT DENIES UNEXPLAINABLE WEIGHT LOSS, FEVER, CHILLS OR NEW CHANGES IN URINARY OR BOWEL CONTROL. THE PATENT IS COVID-19 NEGATIVE DESCRIPTION OF PROCEDURE THE PATIENT WAS BROUGHT TO THE PROCEDURE ROOM AND PLACED IN THE PRONE POSITION. THE CERVICOTHORACIC AREA WAS CLEANED WITH CHLORAPREP SOLUTION AND DRAPED ASEPTICALLY. THE PROCEDURE WAS DONE UNDER STERILE CONDITIONS. A TIMEOUT WAS PERFORMED WHERE LATERALITY AND THE SITE OF THE PROCEDURE WERE CHECKED AND CONFIRMED WITH EVERYONE IN THE ROOM. UNDER FLUOROSCOPIC GUIDANCE, THE TARGET POINT WAS SELECTED AT THE MORE MEDIAL POINT OF THE CONCAVE CURVE AT THE MID POINT OF THE LATERAL ARTICULAR PROCESS OF RIGHT C5, RIGHT C6 AND RIGHT C7. I CONFIRMED THE TARGET WITH EVERYONE IN THE ROOM 1156. LIDOCAINE WAS USED TO NUMB THE SKIN AND THE SUBCUTANEOUS TISSUE BELOW IT. RADIOFREQUENCY CANNULAS, 17-GAUGE 75 MM LONG WITH 2 MM ACTIVE TIP, WERE ADVANCED UNDER FLUOROSCOPIC GUIDANCE AND FOLLOWING PATIENT FEEDBACK UNTIL THE TARGET WAS REACHED. POSITION OF THE CANNULAS WAS VERIFIED WITH AP AND LATERAL VIEWS. WE MEASURED THE CORRESPONDING IMPEDANCE, SENSORY STIMULATION AND MOTOR RESPONSES INDICATED IN THE RADIOFREQUENCY WORKSHEET. POSITION OF THE CANNULAS WAS VERIFIED AGAIN WITH AP AND LATERAL VIEWS. LIDOCAINE 1%, 3 ML, WAS INJECTED AT EACH LEVEL. RADIOFREQUENCY WAS DONE AT EACH LEVEL USING THE Drip In SYSTEM-COOLED RF-WITH A SETTING AT THE MACHINE OF 60 DEGREES WITH A TARGET TISSUE TEMPERATURE OF 80 TO 90 DEGREES FOR A MINIMUM OF 150 SECONDS. AFTER RADIOFREQUENCY WAS DONE, DEXAMETHASONE 3 MG WAS INJECTED AT EACH SITE. THEN, THE NEEDLES WERE FLUSHED WITH 3 ML OF BUPIVACAINE 0.125%. THE MEDICATIONS WERE VERIFIED WITH THE NURSE. THERE WAS NO EVIDENCE OF BLOOD, PARESTHESIA OR CEREBROSPINAL FLUID DURING THE PROCEDURE. THE PATIENT WAS SENT TO THE RECOVERY ROOM. THE PATIENT WAS MOVING THE EXTREMITIES AND DOING WELL. THERE WERE NO COMPLICATIONS DURING THE PROCEDURE. ESTIMATED BLOOD LOSS WAS LESS THAN 5 ML. FLUOROSCOPIC TIME WAS 3 MINUTES 40 SECONDS. POST PROCEDURE NOTE : THE PATIENT WILL BE SEEN IN A FOLLOW UP IN THE NEXT FEW WEEKS. I AM LOOKING FOR LONG LASTING RELIEF FOR THE PATIENT WITH THIS INTERVENTION. INSTRUCTIONS WERE GIVEN, QUESTIONS WERE ANSWERED AND THE PATIENT EXPRESSED UNDERSTANDING AND AGREES WITH THE PAIN. I, OLIVE KING, DOCUMENTED THE ABOVE INFORMATION ACTING A SCRIBE FOR DR. DRAKE. I HAVE REVIEWED THE ABOVE DOCUMENT WRITTEN BY OLIVE KING, DISEASE MANAGEMENT NURSE, AND I VERIFY THAT IT IS ACCURATE. PROCEDURE CODES 96028 DESTROY CERV/THOR FACET JNT, MODIFIERS: [place] [id number] DESTROY C/TH FACET JNT ADDL, MODIFIERS: RT DISPOSITION & COMMUNICATION FOLLOW UP FOLLOW UP WITH CLASSIFIER OPERATOR (REASON: POST COOL RF RIGHT C5-C6, C6-C7) ELECTRONICALLY SIGNED BY YESSICA DRAKE MD, MD ON 03/10/2020 AT 12:24 PM EST DISCLAIMER : THIS IS A VISIT SUMMARY EXTRACTED FROM THE [employer] CHART. IT IS NOT A COPY OF THE [place] [employer] PROGRESS NOTE. JOSE
== END ==
LOC: M PAIN 09:00
PROVIDERS: ATTEND Anesthesiology
DX: M47.812 Spondylosis without myelopathy or radiculopathy, cervical region (principal); D64.9 Anemia, unspecified; K21.9 Gastro-esophageal reflux disease without esophagitis; Z79.899 Other long term (current) drug therapy; Z79.891 Long term (current) use of opiate analgesic; Z88.0 Allergy status to penicillin; Z88.8 Allergy status to other drugs, medicaments and biological substances; Z91.040 Latex allergy status; Z91.048 Other nonmedicinal substance allergy status; Z91.018 Allergy to other foods
CPT/HCPCS: 64633; 64634; J1100

== ENCOUNTER → 2020-03-14 | Outpatient (CLI) | payer BC ==
[~2020-03-14] MED LIST changes: -BUPIVACAINE HCL 0.25% 30ML VIAL As Ordered ONE; -LIDOCAINE 1% SDV 30ML VIAL As Ordered ONE; -dexameTHASONE 10MG/1ML VIAL PRES.FREE (J1100 PER 1MG) As Ordered ONE; -diazePAM 5 MG TAB As Ordered ONE; -diphenhydrAMINE 25MG CAP As Ordered ONE; -oxyCODONE 5MG TAB As Ordered ONE
--- NOTE | 2020-03-19 01:45 | ECWPNPC ---
PATIENT NAME: ALEX AVILES : 1975 GENDER: FEMALE VISIT DATE: 03/14/2020 DISCHARGE DATE: 03/14/20 1215 VISIT LOCKED DATE TIME: PHYSICIAN: YESSICA DRAKE MD RESOURCE: YESSICA DRAKE MD REASON FOR APPOINTMENT 1. POST COOL RF RIGHT C5-C6, C6-C7 HISTORY OF PRESENT ILLNESS DEPRESSION SCREENING: PHQ-2 (2015 EDITION) LITTLE INTEREST OR PLEASURE IN DOING THINGS?SEVERAL DAYS FEELING DOWN, DEPRESSED, OR HOPELESS?NOT AT ALL TOTAL SCORE1 GENERAL: 44-YEAR-OLD FEMALE PATIENT WITH A HISTORY OF CHRONIC RIGHT NECK PAIN. THE PATIENT DESCRIBES THE PAIN BURNING, SHARP AND SHOOTING WITH A PAIN SCORE RANGING FROM 9-10/10 DEPENDING ON PHYSICAL ACTIVITY. THE PATIENT HAD A COOL RADIOFREQUENCY OF THE RIGHT NECK AREA 2 WEEKS AGO. THE PATIENT EXPRESSED THAT AFTER THE RADIOFREQUENCY, THE PAIN WENT DOWN TO A 0-5/10 AND SHE WAS FEELING VERY COMFORTABLE. ABOUT 3 DAYS AGO, THAT CHANGED AND NOW SHE IS HAVING MORE PAIN AND SHE IS VERY UPSET AND CONCERNED ABOUT THIS PAIN. THE PATIENT USES OXYCODONE TWICE A DAY, TIZANIDINE AND CYMBALTA ONCE A DAY. THESE MEDICATIONS ARE NOT HELPING WITH THIS SITUATION AT THE MOMENT. PATIENT DENIES UNEXPLAINABLE WEIGHT LOSS, FEVER, CHILLS, NEW CHANGES ON URINARY OR BOWEL CONTROL. FALL RISK SCREENING: SCREENING :ONE FALL WITH INJURY IN THE PAST YEAR PT STATES THAT SHE DID NOT SEEK MEDICAL ATTENTION FOR FALL PAIN SCREENING: PATIENT HAS A COMPLAINT OF ACUTE OR CHRONIC PAIN :YES LOCATION OF PAIN:NECK, UPPER BACK INTENSITY OF PAIN (SCALE OF 1 TO 10):10 WHAT DOES YOUR PAIN FEEL LIKE:BURNING, CONTINOUS, SHARP, SHOOTING DURATION:CONSTANT, ALL DAY PAIN IS INCREASED BY:ACTIVITIES, PROLONGED STANDING MOVEMENT PAIN IS DECREASED BY:USE OF PAIN MEDICATIONS, OTHERS HEAT AND ICE NURSING NOTE: -. PAIN CENTER INTAKE QUESTIONS: DO YOU HAVE A HISTORY OF MRSA? :NO DO YOU TAKE A BLOOD THINNERS? :NO DO YOU HAVE ANY BLEEDING DISORDERS? :NO PT STATES THAT SHE IS ANEMIC ANY NEW NUMBNESS OR WEAKNESS IN YOUR LEGS OR ARMS? :NO ANY PACEMAKER,DEFIBRILLATOR, OR DORSAL COLUMN STIMULATOR? :NO DO YOU HAVE ANY RASHES OR OPEN SORES? :NO ARE YOU ALLERGIC TO IV DYE? :NO ARE YOU DIABETIC? :NO ANY NEW PROBLEMS WITH YOUR MEDICATIONS? :NO HAVE YOU RECEIVED A VACCINE IN THE PAST 30 DAYS? :NO DO YOU PLAN TO RECEIVE A VACCINE IN THE NEXT 21 DAYS? :NO DO YOU NEED ANY PRESCRIPTION? :NO DO YOU TAKE ANY IMMUNOSUPPRESSIVE MEDICATIONS? :NO IS THERE A CHANCE YOU COULD BE ? :NO ARE YOU BREAST FEEDING? :NO CURRENT MEDICATIONS TAKING HYDROXYZINE HCL 25 MG TABLET 2 TABS ORALLY EVERY 6 HRS NEEDED TAKING FLUTICASONE FUROATE 27.5 MCG/SPRAY SUSPENSION 1 SPRAY IN EACH NOSTRIL NASALLY TWICE A DAY TAKING PANTOPRAZOLE SODIUM 40 MG TABLET DELAYED RELEASE 1 TABLET ORALLY ONCE A DAY TAKING MIRALAX - POWDER 1 DOSE ORALLY ONCE A DAY NEEDED TAKING MONTELUKAST SODIUM 10 MG TABLET 1 TABLET IN THE EVENING ORALLY ONCE A DAY TAKING ASTELIN 1 SPRAY EACH NOSTRIL NASAL TWICE A DAY TAKING PROBIOTIC CAPSULE 1 TABLET ORALLY ONCE DAILY TAKING WELLBUTRIN SR 200 MG TABLET EXTENDED RELEASE 12 HOUR 1 TABLET IN THE MORNING ORALLY ONCE A DAY TAKING TIZANIDINE HCL 4 MG TABLET 1 TAB ORALLY BID TAKING CYMBALTA 30 MG CAPSULE DELAYED RELEASE PARTICLES 1 CAPSULE ORALLY DAILY TAKING AMITRIPTYLINE HCL 25 MG TABLET 1 TABLET AT BEDTIME ORALLY ONCE A DAY TAKING OXYCODONE-ACETAMINOPHEN 10-325 MG TABLET 1 TABLET NEEDED ORALLY Q8H PRN MDD2 NOT-TAKING NORCO 10-325 MG TABLET 1 TABLET NEEDED ORALLY Q8H PRN MDD3 NOT-TAKING RANITIDINE HCL 150 MG CAPSULE 1 CAPSULE ORALLY ONCE DAILY MEDICATION LIST REVIEWED AND RECONCILED WITH THE PATIENT PAST MEDICAL HISTORY ANEMIA GERD STOMACH ULCERS WITH H PYLORI NECK AND LOW BACK PAIN 04/26/18 CONCUSSION FROM FALLING DOWN THE STAIRS AND HITTING HEAD LEFT EYE BLIND SINCE ALLERGIES PENICILLIN: SWELLING - ALLERGY ORANGES: ANAPHYLAXIS - ALLERGY BANDAIDS AND ADHESIVES: REDDNESS AND SWELLING - ALLERGY LATEX GLOVES: REDDNESS AND SWELLING - ALLERGY TEGADERM: REDNESS, SWELLING - ALLERGY SURGICAL HISTORY RIGHT KNEE 1985 TUBAL LIGATION 2002 D&C 1996 MOLES REMOVED 2016 TOTAL HYSTERECTOMY 2017 COLONOSCOPY/ENDOSCOPY 2019 FAMILY HISTORY FATHER: MOTHER: , DIAGNOSED WITH OTHER SPECIFIED CONDITIONS INFLUENCING HEALTH STATUS SIBLINGS: ALIVE PATERNAL GRAND FATHER: OTHER MALIGNANT NEOPLASM OF UNSPECIFIED SITE 3 BROTHER(S) , 4 SISTER(S) - HEALTHY. 1 SON(S) , 3 DAUGHTER(S) . FATHER FROM MVA, NO MEDICAL HISTORY \\NMOTHER- DUE TO CHF, BRAIN TUMOR X 2, BREAST CA\\NPATERNAL GRANDFATHER--CA-UNSURE OF WHAT KIND\\NDAUGHTER - IRREGULAR HEART BEAT, ASTHMA\\NDAUGHTER - HYPOTHYROID. SOCIAL HISTORY GENERAL: TOBACCO USE ARE YOU A:NONSMOKER LATEX QUESTIONNAIRE LATEX ALLERGY : HAVE YOU EVER DEVELOPED ANY TYPE OF REACTION AFTER HANDLING LATEX PRODUCTS SUCH RUBBER GLOVES, CONDOMS, DIAPHRAGMS, BALLOONS, SOCKS, OR UNDERWEAR?YES - PLEASE INDICATE :RUBBER GLOVES, CONDOMS, BALLOONS, OTHER (DOCUMENT IN NOTES) BANDAIDS LATEX ALLERGY : HAVE YOU EVER DEVELOPED ANY TYPE OF REACTION DURING OR AFTER DENTAL APPOINTMENT, VAGINAL/RECTAL EXAMINATION, SURGICAL PROCEDURE, OR ANY OTHER EXPOSURE?NO LATEX RISK : HAVE YOU EVER HAD ANY DIFFICULTY BREATHING OR HIVES AFTER EATING OR HANDLING ANY FRUITS, OR VEGETABLES; SUCH KIWI, BANANAS, STONE FRUITS, OR CHESTNUTSYES - PLEASE INDICATE : ORANGES LATEX RISK : DO YOU HAVE A PREVIOUS PERSONAL HISTORY OF MORE THAN NINE SURGERIES, SPINA BIFIDA, OR REPEATED CATHERIZATIONS? NO LATEX RISK : ARE YOU FREQUENTLY EXPOSED TO LATEX PRODUCTS IN YOUR OCCUPATION?NO DATE ASKED : 03/14/2020 ALCOHOL SCREENING DID YOU HAVE A DRINK CONTAINING ALCOHOL IN THE PAST YEAR?NO POINTS0 INTERPRETATIONNEGATIVE RECREATIONAL DRUG USE DRUG USE?NO CAFFEINE CAFFEINE USE?YES HOW OFTEN AND HOW MUCH? 3 SODAS/DAY SIKHISM [id number] MORAVIAN LANGUAGE LANGUAGES SPOKEN:TONGAN EDUCATION LEVEL OF EDUCATION:NOT FINISHED COLLEGE LEARNING BARRIERS / SPECIAL NEEDS CHANGE FROM LAST VISIT?NO BARRIERS TO LEARNING?NO HEARING IMPAIRED?NO VISION IMPAIRED?NO COGNITIVELY IMPAIRED?NO READINESS TO LEARN?YES LEARNING PREFERENCES?NO LEARNING CAPABILITIES PRESENT?YES EMOTIONAL BARRIERS?NO SPECIAL DEVICES?NO JET OPERATOR NEEDED?NO DOMESTIC VIOLENCE DO YOU FEEL SAFE IN YOUR ENVIRONMENT?YES DIET: REGULAR. PAIN CLINIC PFS, CLERGY, PUBLIC HEALTH REFERRALS HAS THE PATIENT BEEN EDUCATED REGARDING HIS/HER PLAN OF CARE?YES HAS THE PATIENT BEEN EDUCATED REGARDING PAIN, THE RISK FOR PAIN, THE IMPORTANCE OF EFFECTIVE PAIN MANAGEMENT, AND THE PAIN ASSESSMENT PROCESS?YES ADVANCE DIRECTIVE ADVANCE DIRECTIVE DISCUSSED WITH PATIENT:YES HCP-TREVON SPARKS [phone] HOSPITALIZATION/MAJOR DIAGNOSTIC PROCEDURE CHILD 12/18/1991 CHILD 11/01/1996 CHILD 11/23/1998 CHILD 01/29/2002 HYSTERECTOMY 2017 KNEE SURGERY ALLERGIC REACTION AGE 2 OR 3 REVIEW OF SYSTEMS CONSTITUTIONAL: ANY RECENT FEVER NO . CHILLS NO . WEIGHT CHANGE OF UNKNOWN REASONS NO . GASTROENTEROLOGY: NEW UNEXPLAINABLE CHANGES IN BOWEL CONTROL NO . CONSTIPATION NO . GENITOURINARY: ANY NEW CHANGE IN BLADDER CONTROL? NO . NEUROLOGY: NEW ONSET DIZZINESS OR NEUROLOGICAL CHANGES NOT MENTIONED NO . NEW NUMBNESS OR PAIN PATTERNS NOT MENTIONED AND PERTINENT TO TODAY'S VISIT NO . CARDIOLOGY: NEW CHEST PRESSURE NO . NEW CHEST PAIN NO . RESPIRATORY: UNEXPLAINABLE COUGH NO . NEW SHORTNESS OF BREATH NO . VITAL SIGNS WT 198.6 LBS, HT 67 IN, BMI 31.10 INDEX, BP 144/76 MM HG, HR 78 /MIN, RR 18 /MIN, TEMP 96.8 F, OXYGEN SAT % 99%, SAFE IN ENV? (Y/N) Y, NA INITIALS AW 1044, REVIEWED BY: JOANNA RN 1048. EXAMINATION GENERAL EXAMINATION: THE PATIENT IS ALERT, ORIENTED TIMES THREE AND COOPERATIVE. HEART SHOWS REGULAR RHYTHM, NO MURMURS AND NO GALLOPS. LUNGS ARE CLEAR TO AUSCULTATION. THE PATIENT IS KEEPING A FLEXED POSITION BECAUSE IT IS UNCOMFORTABLE AND PAINFUL TO BE STRAIGHT. SHE CAN ABDUCT THE LEFT ARM UP TO THE SHOULDER LEVEL. THE PATIENT CAN ABDUCT THE RIGHT ARM TO 45 DEGREES AND SHE STARTS TO FEEL PAIN OVER THE SHOULDER AREA. WHEN I TOUCH THE PATIENT'S SKIN, SHE FEELS TENDERNESS AND BURNING WITH PAIN OVER THE RIGHT NECK AND RIGHT SHOULDER. THERE IS TENDERNESS OVER THE LEFT NECK AREA WITH PRESSURE WITH THE SAME SITUATION BUT WORSE ON THE RIGHT SIDE. CERVICAL MRI DATED 02/06/2020 SHOWS SOME DEGENERATIVE CHANGES AT MULTIPLE LEVELS. ASSESSMENTS SPONDYLOSIS OF CERVICAL REGION WITHOUT MYELOPATHY OR RADICULOPATHY - M47.812 (PRIMARY) FACET ARTHROPATHY, CERVICAL - M47.812, STATUS POST COOL RADIOFREQUENCY OVER THE RIGHT NECK NEURALGIA - M79.2, OF THE NECK TREATMENT SPONDYLOSIS OF CERVICAL REGION WITHOUT MYELOPATHY OR RADICULOPATHY START CARISOPRODOL TABLET, 350 MG, 1 TABLET NEEDED, ORALLY FOR SPAMS AND PAIN, EVERY 8 HOURS NEEDED MDD2, 5 DAYS, 10, REFILLS 0 CONTINUE OXYCODONE-ACETAMINOPHEN TABLET, 10-325 MG, 1 TABLET NEEDED, ORALLY FOR PAIN, Q8H PRN MDD3, 30 DAYS, 90, REFILLS 0 CONTINUE CYMBALTA CAPSULE DELAYED RELEASE PARTICLES, 30 MG, 1 CAPSULE, ORALLY FOR PAIN, TWICE A DAY, 30 DAYS, 60 CAPSULE, REFILLS 0 CLINICAL NOTES: I DISCUSSED ALTERNATIVES WITH MS. AVILES. THE PATIENT IS FEELING DEPRESSED BECAUSE OF THE NEW PAIN. SHE STATES THAT SHE IS FEELING SAFE AT HOME AND DOES NOT HAVE SUICIDAL IDEATIONS. I AM GOING TO INCREASE THE CYMBALTA TO 30 MG TWICE A DAY AND STOP THE AMITRIPTYLINE. THE PATIENT HAS A LOT OF SPASTICITY OF THE NECK. I WILL GIVE HER SOMA 350 MG UP TO 2 TABLETS A DAY. I WILL INCREASE HER OXYCODONE UP TO 3 A DAY. I WILL CONSIDER NEXT WEEK INCREASING THE CYMBALTA AND INCREASING THE SOMA AND STARTING GABAPENTIN. THE PATIENT WILL FOLLOW UP WITH ME IN 2 WEEKS. THE PATIENT UNDERSTANDS AND AGREES WITH THE PLAN. I, OLIVE KING, DOCUMENTED THE ABOVE INFORMATION ACTING A SCRIBE FOR DR. DRAKE. I HAVE REVIEWED THE ABOVE DOCUMENT, WRITTEN BY OLIVE KING, COST ACCOUNTING MANAGER, AND I VERIFY THAT IT IS ACCURATE. PROCEDURE CODES 30526 OFFICE/OUTPATIENT VISIT EST FA211 ESTABILISHED PATIENT FORMERLY [facility] CHARGE DISPOSITION & COMMUNICATION FOLLOW UP FOLLOW UP WITH DR. Muro IN 2 WEEKS (REASON: NEURALGIA AFTER RF) ELECTRONICALLY SIGNED BY YESSICA DRAKE MD, MD ON 03/18/2020 AT 01:43 PM EST DISCLAIMER : THIS IS A VISIT SUMMARY EXTRACTED FROM THE [employer] CHART. IT IS NOT A COPY OF THE [employer] PROGRESS NOTE. [email or web address]
== END ==
LOC: M PAIN 10:45
PROVIDERS: ATTEND Anesthesiology
DX: M47.812 Spondylosis without myelopathy or radiculopathy, cervical region (principal); M79.2 Neuralgia and neuritis, unspecified; D64.9 Anemia, unspecified; K21.9 Gastro-esophageal reflux disease without esophagitis; Z79.891 Long term (current) use of opiate analgesic; Z79.899 Other long term (current) drug therapy; Z88.0 Allergy status to penicillin; Z88.8 Allergy status to other drugs, medicaments and biological substances; Z91.018 Allergy to other foods; Z91.040 Latex allergy status; Z91.048 Other nonmedicinal substance allergy status

== ENCOUNTER → 2020-04-11 | Outpatient (CLI) | payer BC ==
[~2020-04-11] MED LIST changes: -MONT10TA4 PO; +MONT5TAB2 PO
--- NOTE | 2020-04-12 01:05 | ECWPNPC ---
PATIENT NAME: ALEX AVILES : 1975 GENDER: FEMALE VISIT DATE: 04/11/2020 DISCHARGE DATE: 04/11/20 1251 VISIT LOCKED DATE TIME: PHYSICIAN: YESSICA DRAKE MD RESOURCE: YESSICA DRAKE MD REASON FOR APPOINTMENT 1. NEURALGIA AFTER RADIO FREQUENCY HISTORY OF PRESENT ILLNESS FALL RISK SCREENING: SCREENING :ONE FALL WITH INJURY IN THE PAST YEAR PT STATES THAT SHE DID NOT SEEK MEDICAL ATTENTION FOR FALL GENERAL -. PAIN SCREENING: PATIENT HAS A COMPLAINT OF ACUTE OR CHRONIC PAIN :YES LOCATION OF PAIN:NECK, UPPER BACK INTENSITY OF PAIN (SCALE OF 1 TO 10):7 WHAT DOES YOUR PAIN FEEL LIKE:BURNING, CONTINOUS, SHARP DURATION:CONSTANT, ALL DAY PAIN IS INCREASED BY:ACTIVITIES, OTHERS MOVEMENT, HEAT, LIFTING ARM PAIN IS DECREASED BY:USE OF PAIN MEDICATIONS, OTHERS ICE NURSING NOTE: -. GENERAL: 44-YEAR-OLD FEMALE PATIENT WITH A HISTORY OF CHRONIC NECK PAIN. WE DID A COOL RADIOFREQUENCY A FEW WEEKS AGO. AFTER THE RADIOFREQUENCY, THE PATIENT DEVELOPED MORE PAIN. WE HAVE BEEN GIVEN HER MEDIATIONS. THEY HAVE BEEN HELPING HER, ALTHOUGH, SHE FEELS THAT THE GABAPENTIN IS GIVING HER NIGHTMARES. SHE IS USING 100 MG. SHE FEELS THAT SHE MAY NEED A BETTER ANALGESIC ACTIVITIES ARE MAKING THE PAIN WORKS. WHEN SHE USING HER RIGHT ARM AND NECK IT GETS VERY UNCOMFORTABLE. THE PAIN IS AFFECTING HER ABILITIES TO CLEAN HER HOUSE AND DO NORMAL ACTIVITIES. PATIENT DENIES UNEXPLAINABLE WEIGHT LOSS, FEVER, CHILLS, NEW CHANGES ON URINARY OR BOWEL CONTROL. PAIN CENTER INTAKE QUESTIONS: DO YOU HAVE A HISTORY OF MRSA? :NO DO YOU TAKE A BLOOD THINNERS? :NO DO YOU HAVE ANY BLEEDING DISORDERS? :NO PT STATES THAT SHE IS ANEMIC ANY NEW NUMBNESS OR WEAKNESS IN YOUR LEGS OR ARMS? :NO ANY PACEMAKER,DEFIBRILLATOR, OR DORSAL COLUMN STIMULATOR? :NO DO YOU HAVE ANY RASHES OR OPEN SORES? :NO ARE YOU ALLERGIC TO IV DYE? :NO ARE YOU DIABETIC? :NO ANY NEW PROBLEMS WITH YOUR MEDICATIONS? :NO HAVE YOU RECEIVED A VACCINE IN THE PAST 30 DAYS? :NO DO YOU PLAN TO RECEIVE A VACCINE IN THE NEXT 21 DAYS? :NO DO YOU NEED ANY PRESCRIPTION? :NO DO YOU TAKE ANY IMMUNOSUPPRESSIVE MEDICATIONS? :NO IS THERE A CHANCE YOU COULD BE ? :NO ARE YOU BREAST FEEDING? :NO CURRENT MEDICATIONS TAKING HYDROXYZINE HCL 25 MG TABLET 2 TABS ORALLY EVERY 6 HRS NEEDED TAKING FLUTICASONE FUROATE 27.5 MCG/SPRAY SUSPENSION 1 SPRAY IN EACH NOSTRIL NASALLY TWICE A DAY TAKING PANTOPRAZOLE SODIUM 40 MG TABLET DELAYED RELEASE 1 TABLET ORALLY ONCE A DAY TAKING MIRALAX - POWDER 1 DOSE ORALLY ONCE A DAY NEEDED TAKING MONTELUKAST SODIUM 10 MG TABLET 1 TABLET IN THE EVENING ORALLY ONCE A DAY TAKING ASTELIN 1 SPRAY EACH NOSTRIL NASAL TWICE A DAY TAKING PROBIOTIC CAPSULE 1 TABLET ORALLY ONCE DAILY TAKING WELLBUTRIN SR 200 MG TABLET EXTENDED RELEASE 12 HOUR 1 TABLET IN THE MORNING ORALLY ONCE A DAY, NOTES: ON HOLD CURRENTLY 04/11/20 TAKING TIZANIDINE HCL 4 MG TABLET 1 TAB ORALLY BID TAKING AMITRIPTYLINE HCL 25 MG TABLET 1 TABLET AT BEDTIME ORALLY ONCE A DAY TAKING OXYCODONE-ACETAMINOPHEN 10-325 MG TABLET 1 TABLET NEEDED ORALLY FOR PAIN Q6H PRN MDD4 TAKING CARISOPRODOL 350 MG TABLET 1 TABLET NEEDED ORALLY FOR SPAMS AND PAIN EVERY 8 HOURS NEEDED MDD3 TAKING CYMBALTA 60 MG CAPSULE DELAYED RELEASE PARTICLES 1 CAPSULE ORALLY FOR PAIN TWICE A DAY MDD2 TAKING GABAPENTIN 100 MG CAPSULE 1 CAPSULE ORALLY FOR PAIN THREE TIMES DAILY NOT-TAKING NORCO 10-325 MG TABLET 1 TABLET NEEDED ORALLY Q8H PRN MDD3 NOT-TAKING RANITIDINE HCL 150 MG CAPSULE 1 CAPSULE ORALLY ONCE DAILY MEDICATION LIST REVIEWED AND RECONCILED WITH THE PATIENT PAST MEDICAL HISTORY ANEMIA GERD STOMACH ULCERS WITH H PYLORI NECK AND LOW BACK PAIN 04/26/18 CONCUSSION FROM FALLING DOWN THE STAIRS AND HITTING HEAD LEFT EYE BLIND SINCE ALLERGIES PENICILLIN: SWELLING - ALLERGY ORANGES: ANAPHYLAXIS - ALLERGY BANDAIDS AND ADHESIVES: REDDNESS AND SWELLING - ALLERGY LATEX GLOVES: REDDNESS AND SWELLING - ALLERGY TEGADERM: REDNESS, SWELLING - ALLERGY SURGICAL HISTORY RIGHT KNEE 1985 TUBAL LIGATION 2002 D&C 1996 MOLES REMOVED 2016 TOTAL HYSTERECTOMY 2017 COLONOSCOPY/ENDOSCOPY 2019 FAMILY HISTORY FATHER: MOTHER: , DIAGNOSED WITH OTHER SPECIFIED CONDITIONS INFLUENCING HEALTH STATUS SIBLINGS: ALIVE PATERNAL GRAND FATHER: OTHER MALIGNANT NEOPLASM OF UNSPECIFIED SITE 3 BROTHER(S) , 4 SISTER(S) - HEALTHY. 1 SON(S) , 3 DAUGHTER(S) . FATHER FROM MVA, NO MEDICAL HISTORY \\NMOTHER- DUE TO CHF, BRAIN TUMOR X 2, BREAST CA\\NPATERNAL GRANDFATHER--CA-UNSURE OF WHAT KIND\\NDAUGHTER - IRREGULAR HEART BEAT, ASTHMA\\NDAUGHTER - HYPOTHYROID. SOCIAL HISTORY GENERAL: TOBACCO USE ARE YOU A:NONSMOKER LATEX QUESTIONNAIRE LATEX ALLERGY : HAVE YOU EVER DEVELOPED ANY TYPE OF REACTION AFTER HANDLING LATEX PRODUCTS SUCH RUBBER GLOVES, CONDOMS, DIAPHRAGMS, BALLOONS, SOCKS, OR UNDERWEAR?YES - PLEASE INDICATE :RUBBER GLOVES, CONDOMS, BALLOONS, OTHER (DOCUMENT IN NOTES) BANDAIDS LATEX ALLERGY : HAVE YOU EVER DEVELOPED ANY TYPE OF REACTION DURING OR AFTER DENTAL APPOINTMENT, VAGINAL/RECTAL EXAMINATION, SURGICAL PROCEDURE, OR ANY OTHER EXPOSURE?NO LATEX RISK : HAVE YOU EVER HAD ANY DIFFICULTY BREATHING OR HIVES AFTER EATING OR HANDLING ANY FRUITS, OR VEGETABLES; SUCH KIWI, BANANAS, STONE FRUITS, OR CHESTNUTSYES - PLEASE INDICATE : ORANGES LATEX RISK : DO YOU HAVE A PREVIOUS PERSONAL HISTORY OF MORE THAN NINE SURGERIES, SPINA BIFIDA, OR REPEATED CATHERIZATIONS? NO LATEX RISK : ARE YOU FREQUENTLY EXPOSED TO LATEX PRODUCTS IN YOUR OCCUPATION?NO DATE ASKED : 03/14/2020 ALCOHOL SCREENING DID YOU HAVE A DRINK CONTAINING ALCOHOL IN THE PAST YEAR?NO POINTS0 INTERPRETATIONNEGATIVE RECREATIONAL DRUG USE DRUG USE?NO CAFFEINE CAFFEINE USE?YES HOW OFTEN AND HOW MUCH? 3 SODAS/DAY YARSANISM [id number] SAMARITAN LANGUAGE LANGUAGES SPOKEN:BELIZEAN EDUCATION LEVEL OF EDUCATION:NOT FINISHED COLLEGE LEARNING BARRIERS / SPECIAL NEEDS CHANGE FROM LAST VISIT?NO BARRIERS TO LEARNING?NO HEARING IMPAIRED?NO VISION IMPAIRED?NO COGNITIVELY IMPAIRED?NO READINESS TO LEARN?YES LEARNING PREFERENCES?NO LEARNING CAPABILITIES PRESENT?YES EMOTIONAL BARRIERS?NO SPECIAL DEVICES?NO BAG TESTER NEEDED?NO DOMESTIC VIOLENCE DO YOU FEEL SAFE IN YOUR ENVIRONMENT?YES DIET: REGULAR. PAIN CLINIC PFS, CLERGY, PUBLIC HEALTH REFERRALS HAS THE PATIENT BEEN EDUCATED REGARDING HIS/HER PLAN OF CARE?YES HAS THE PATIENT BEEN EDUCATED REGARDING PAIN, THE RISK FOR PAIN, THE IMPORTANCE OF EFFECTIVE PAIN MANAGEMENT, AND THE PAIN ASSESSMENT PROCESS?YES ADVANCE DIRECTIVE ADVANCE DIRECTIVE DISCUSSED WITH PATIENT:YES HCP-TREVON SPARKS [phone] HOSPITALIZATION/MAJOR DIAGNOSTIC PROCEDURE CHILD 12/18/1991 CHILD 11/01/1996 CHILD 11/23/1998 CHILD 01/29/2002 HYSTERECTOMY 2017 KNEE SURGERY ALLERGIC REACTION AGE 2 OR 3 REVIEW OF SYSTEMS CONSTITUTIONAL: ANY RECENT FEVER NO . CHILLS NO . WEIGHT CHANGE OF UNKNOWN REASONS NO . GASTROENTEROLOGY: NEW UNEXPLAINABLE CHANGES IN BOWEL CONTROL NO . CONSTIPATION NO . GENITOURINARY: ANY NEW CHANGE IN BLADDER CONTROL? NO . NEUROLOGY: NEW ONSET DIZZINESS OR NEUROLOGICAL CHANGES NOT MENTIONED NO . NEW NUMBNESS OR PAIN PATTERNS NOT MENTIONED AND PERTINENT TO TODAY'S VISIT NO . CARDIOLOGY: NEW CHEST PRESSURE NO . NEW CHEST PAIN NO . RESPIRATORY: UNEXPLAINABLE COUGH NO . NEW SHORTNESS OF BREATH NO . VITAL SIGNS WT 195.4 LBS, HT 67 IN, BMI 30.60 INDEX, BP 140/78 MM HG, HR 74 /MIN, RR 18 /MIN, TEMP 98.6 F, OXYGEN SAT % 96%, SAFE IN ENV? (Y/N) Y, NA INITIALS AZ 11:17, REVIEWED BY: JSJ. CARMEN RN. EXAMINATION GENERAL EXAMINATION: THE PATIENT IS ALERT, ORIENTED TIMES THREE AND COOPERATIVE. LUNGS ARE CLEAR TO AUSCULTATION. HEART SHOWS REGULAR RHYTHM, NO MURMURS AND NO GALLOPS. SHE CAN ABDUCT THE LEFT ARM. WHEN I ASKED HER TO MOVE HER RIGHT ARM, SHE EXPRESSED THAT SHE DOES NOT WANT TO BECAUSE IT CAUSES PAIN AND SHE DOES NOT WANT TO AGGRAVATE IT SHE DID NOT BRING HER MEDICATIONS WITH HER TODAY. ASSESSMENTS SPONDYLOSIS OF CERVICAL REGION WITHOUT MYELOPATHY OR RADICULOPATHY - M47.812 (PRIMARY), STATUS POST COOL RADIOFREQUENCY, RISK: (NULL) NEURALGIA - M79.2, RIGHT NECK TREATMENT SPONDYLOSIS OF CERVICAL REGION WITHOUT MYELOPATHY OR RADICULOPATHY START MORPHINE SULFATE TABLET, 15 MG, 1 TABLET NEEDED, ORALLY FOR PAIN, EVERY 8 HRS MDD3, 7 DAY(S), 21, REFILLS 0 CONTINUE CARISOPRODOL TABLET, 350 MG, 1 TABLET NEEDED, ORALLY FOR SPAMS AND PAIN, EVERY 8 HOURS NEEDED MDD3, 30 DAYS, 90, REFILLS 0 CONTINUE CYMBALTA CAPSULE DELAYED RELEASE PARTICLES, 60 MG, 1 CAPSULE, ORALLY FOR PAIN, TWICE A DAY MDD2, 30 DAYS, 60, REFILLS 0 CLINICAL NOTES: I DISCUSSED ALTERNATIVES WITH MS. AVILES. I AM GOING TO TO START HER ON MORPHINE 15 MG EVERY 8 HOURS NEEDED FOR PAIN NO MORE THAN 3 A DAY AND SHE WILL DISCONTINUE THE OXYCODONE. I AM MAKING THIS SWITCH THE PATIENT IS NOT SURE IF THE OXYCODONE IS WORKING FOR HER. SHE WILL TRY TO MORPHINE AND IF SHE DOES NOT FEEL THAT IT IS HELPING, WE WILL GO BACK TO THE OXYCODONE. I WILL CONTINUE THE SOMA. THE PATIENT IS GOING TO SUBSTITUTE THE SOMA FOR TIZANIDINE ON OCCASION TO SEE HOW THAT WORKS FOR HER. I REVIEWED THE ISTOP, REFERENCE NUMBER [id number]. THE PATIENT WILL FOLLOW UP WITH NATHALIE. THE PATIENT REPORTS UNDERSTANDING AND AGREES WITH THE PLAN. I, OLIVE KING, DOCUMENTED THE ABOVE INFORMATION ACTING A SCRIBE FOR DR. DRAKE. I HAVE REVIEWED THE ABOVE DOCUMENT, WRITTEN BY OLIVE KING, SIZING END BANDER, AND I VERIFY THAT IT IS ACCURATE. PROCEDURE CODES FA211 ESTABILISHED PATIENT [facility] CHARGE [id number] OFFICE/OUTPATIENT VISIT EST DISPOSITION & COMMUNICATION FOLLOW UP FOLLOW UP WITH NATHALIE BEGINNING OF MAY. (REASON: MED MANAGEMENT ) ELECTRONICALLY SIGNED BY YESSICA DRAKE MD, ON 04/11/2020 AT 05:00 PM EST DISCLAIMER : THIS IS A VISIT SUMMARY EXTRACTED FROM THE [employer] CHART. IT IS NOT A COPY OF THE [employer] PROGRESS NOTE. JOSE
== END ==
LOC: M PAIN 11:00
PROVIDERS: ATTEND Anesthesiology
DX: M47.812 Spondylosis without myelopathy or radiculopathy, cervical region (principal); M79.2 Neuralgia and neuritis, unspecified; G89.29 Other chronic pain; K21.9 Gastro-esophageal reflux disease without esophagitis; Z88.0 Allergy status to penicillin; Z91.018 Allergy to other foods; Z91.040 Latex allergy status; Z91.09 Other allergy status, other than to drugs and biological substances; Z79.899 Other long term (current) drug therapy

== ENCOUNTER → 2020-05-27 | Outpatient (CLI) | payer BC ==
[~2020-05-27] MED LIST changes: +MONT10TA10 PO; -MONT5TAB2 PO
--- NOTE | 2020-05-30 01:53 | ECWPNPC ---
PATIENT NAME: ALEX AVILES : 1975 GENDER: FEMALE VISIT DATE: 05/27/2020 DISCHARGE DATE: 05/27/20 1627 VISIT LOCKED DATE TIME: PHYSICIAN: YESSICA DRAKE MD RESOURCE: YESSICA DRAKE MD REASON FOR APPOINTMENT 1. F/U [phone] HISTORY OF PRESENT ILLNESS GENERAL: PERMISSION FROM PATIENT WAS RECEIVED TO DO TELEPHONE OFFICE VISIT. 44-YEAR-OLD FEMALE PATIENT WITH A HISTORY OF CHRONIC NECK PAIN. THE PATIENT DESCRIBES THE PAIN ACHING, BURNING, SHARP AND THROBBING WITH A PAIN SCORE RANGING FROM 6-9/10 OVER THE NECK. WE DID A COOL RADIOFREQUENCY MONTHS AGO. UNFORTUNATELY, AFTER THE PROCEDURE, SHE DEVELOPED MORE PAIN. WE HAVE BEEN TRYING DIFFERENT MEDICATIONS. IT SEEMS THAT THE MEDICATIONS ARE HELPING DURING THE DAY EXCEPT FOR BAD DAYS THAT SEEM TO BE AGGRIEVED BY ACTIVITIES. THE PATIENT IS HAVING SOME BACK PAINS AND HAVING PROBLEMS SLEEPING. THE PATIENT HAS HAD PROBLEMS SLEEPING IN THE PAST. FALL RISK SCREENING: SCREENING :ONE FALL WITH INJURY IN THE PAST YEAR PAIN SCREENING: PATIENT HAS A COMPLAINT OF ACUTE OR CHRONIC PAIN :YES LOCATION OF PAIN:NECK, LOW BACK, OTHER: LEFT ARM INTENSITY OF PAIN (SCALE OF 1 TO 10):7 WHAT DOES YOUR PAIN FEEL LIKE:ACHING, BURNING, SHARP, THROBBING, SHOOTING DURATION:CONTINOUS PAIN IS INCREASED BY:ACTIVITIES, PROLONGED STANDING, OTHERS SITTING PAIN IS DECREASED BY:USE OF PAIN MEDICATIONS NURSING NOTE: -. PAIN CENTER INTAKE QUESTIONS: DO YOU HAVE A HISTORY OF MRSA? :NO DO YOU TAKE A BLOOD THINNERS? :NO DO YOU HAVE ANY BLEEDING DISORDERS? :YES STATES HAS ANEMIA ANY NEW NUMBNESS OR WEAKNESS IN YOUR LEGS OR ARMS? :YES RIGHT HAND PINS AND NEEDLES FOR PAST 4-5 DAYS ANY PACEMAKER,DEFIBRILLATOR, OR DORSAL COLUMN STIMULATOR? :NO DO YOU HAVE ANY RASHES OR OPEN SORES? :NO ARE YOU ALLERGIC TO IV DYE? :NO ARE YOU DIABETIC? :NO ANY NEW PROBLEMS WITH YOUR MEDICATIONS? :NO HAVE YOU RECEIVED A VACCINE IN THE PAST 30 DAYS? :NO DO YOU PLAN TO RECEIVE A VACCINE IN THE NEXT 21 DAYS? :NO DO YOU NEED ANY PRESCRIPTION? :NO DO YOU TAKE ANY IMMUNOSUPPRESSIVE MEDICATIONS? :NO IS THERE A CHANCE YOU COULD BE ? :NO ARE YOU BREAST FEEDING? :NO CURRENT MEDICATIONS TAKING HYDROXYZINE HCL 25 MG TABLET 2 TABS ORALLY EVERY 6 HRS NEEDED TAKING FLUTICASONE FUROATE 27.5 MCG/SPRAY SUSPENSION 1 SPRAY IN EACH NOSTRIL NASALLY TWICE A DAY TAKING PANTOPRAZOLE SODIUM 40 MG TABLET DELAYED RELEASE 1 TABLET ORALLY ONCE A DAY TAKING MIRALAX - POWDER 1 DOSE ORALLY ONCE A DAY NEEDED TAKING MONTELUKAST SODIUM 10 MG TABLET 1 TABLET IN THE EVENING ORALLY ONCE A DAY TAKING ASTELIN 1 SPRAY EACH NOSTRIL NASAL TWICE A DAY TAKING PROBIOTIC CAPSULE 1 TABLET ORALLY ONCE DAILY TAKING AMITRIPTYLINE HCL 25 MG TABLET 1 TABLET AT BEDTIME ORALLY ONCE A DAY TAKING GABAPENTIN 100 MG CAPSULE 1 CAPSULE ORALLY FOR PAIN THREE TIMES DAILY TAKING TIZANIDINE HCL 4 MG TABLET 1 TAB ORALLY FOR SPASMS AND PAIN EVERY 8 HOURS NEEDED (MDD 3) TAKING OXYCODONE-ACETAMINOPHEN 10-325 MG TABLET 1 TABLET NEEDED ORALLY FOR PAIN Q6H PRN MDD4 TAKING CARISOPRODOL 350 MG TABLET 1 TABLET NEEDED ORALLY FOR SPAMS AND PAIN 1 TO 2 HOURS BEFORE BEDTIME TAKING CYMBALTA 60 MG CAPSULE DELAYED RELEASE PARTICLES 1 CAPSULE ORALLY FOR PAIN TWICE A DAY MDD2 NOT-TAKING WELLBUTRIN SR 200 MG TABLET EXTENDED RELEASE 12 HOUR 1 TABLET IN THE MORNING ORALLY ONCE A DAY, NOTES: ON HOLD CURRENTLY 04/11/20 NOT-TAKING NORCO 10-325 MG TABLET 1 TABLET NEEDED ORALLY Q8H PRN MDD3 NOT-TAKING RANITIDINE HCL 150 MG CAPSULE 1 CAPSULE ORALLY ONCE DAILY MEDICATION LIST REVIEWED AND RECONCILED WITH THE PATIENT PAST MEDICAL HISTORY ANEMIA GERD STOMACH ULCERS WITH H PYLORI NECK AND LOW BACK PAIN 04/26/18 CONCUSSION FROM FALLING DOWN THE STAIRS AND HITTING HEAD LEFT EYE BLIND SINCE ALLERGIES PENICILLIN: SWELLING - ALLERGY ORANGES: ANAPHYLAXIS - ALLERGY BANDAIDS AND ADHESIVES: REDDNESS AND SWELLING - ALLERGY LATEX GLOVES: REDDNESS AND SWELLING - ALLERGY TEGADERM: REDNESS, SWELLING - ALLERGY SURGICAL HISTORY RIGHT KNEE 1985 TUBAL LIGATION 2002 D&C 1996 MOLES REMOVED 2016 TOTAL HYSTERECTOMY 2017 COLONOSCOPY/ENDOSCOPY 2019 FAMILY HISTORY FATHER: MOTHER: , DIAGNOSED WITH OTHER SPECIFIED CONDITIONS INFLUENCING HEALTH STATUS SIBLINGS: ALIVE PATERNAL GRAND FATHER: OTHER MALIGNANT NEOPLASM OF UNSPECIFIED SITE 3 BROTHER(S) , 4 SISTER(S) - HEALTHY. 1 SON(S) , 3 DAUGHTER(S) . FATHER FROM MVA, NO MEDICAL HISTORY \\NMOTHER- DUE TO CHF, BRAIN TUMOR X 2, BREAST CA\\NPATERNAL GRANDFATHER--CA-UNSURE OF WHAT KIND\\NDAUGHTER - IRREGULAR HEART BEAT, ASTHMA\\NDAUGHTER - HYPOTHYROID. SOCIAL HISTORY GENERAL: TOBACCO USE ARE YOU A:NONSMOKER LATEX QUESTIONNAIRE LATEX ALLERGY : HAVE YOU EVER DEVELOPED ANY TYPE OF REACTION AFTER HANDLING LATEX PRODUCTS SUCH RUBBER GLOVES, CONDOMS, DIAPHRAGMS, BALLOONS, SOCKS, OR UNDERWEAR?YES LATEX ALLERGY : HAVE YOU EVER DEVELOPED ANY TYPE OF REACTION DURING OR AFTER DENTAL APPOINTMENT, VAGINAL/RECTAL EXAMINATION, SURGICAL PROCEDURE, OR ANY OTHER EXPOSURE?NO - PLEASE INDICATE :RUBBER GLOVES, CONDOMS, BALLOONS, OTHER (DOCUMENT IN NOTES) BANDAIDS DATE ASKED : 03/14/2020 LATEX RISK : HAVE YOU EVER HAD ANY DIFFICULTY BREATHING OR HIVES AFTER EATING OR HANDLING ANY FRUITS, OR VEGETABLES; SUCH KIWI, BANANAS, STONE FRUITS, OR CHESTNUTSYES - PLEASE INDICATE : ORANGES LATEX RISK : DO YOU HAVE A PREVIOUS PERSONAL HISTORY OF MORE THAN NINE SURGERIES, SPINA BIFIDA, OR REPEATED CATHERIZATIONS? NO LATEX RISK : ARE YOU FREQUENTLY EXPOSED TO LATEX PRODUCTS IN YOUR OCCUPATION?NO ALCOHOL SCREENING DID YOU HAVE A DRINK CONTAINING ALCOHOL IN THE PAST YEAR?NO POINTS0 INTERPRETATIONNEGATIVE RECREATIONAL DRUG USE DRUG USE?NO CAFFEINE CAFFEINE USE?YES HOW OFTEN AND HOW MUCH? 3 SODAS/DAY JAINISM [id number] ZOROASTRIANISM LANGUAGE LANGUAGES SPOKEN:SETSWANA EDUCATION LEVEL OF EDUCATION:NOT FINISHED COLLEGE LEARNING BARRIERS / SPECIAL NEEDS CHANGE FROM LAST VISIT?NO BARRIERS TO LEARNING?NO HEARING IMPAIRED?NO VISION IMPAIRED?YES BLIND IN LEFT EYE COGNITIVELY IMPAIRED?NO READINESS TO LEARN?YES LEARNING PREFERENCES?NO LEARNING CAPABILITIES PRESENT?YES EMOTIONAL BARRIERS?NO SPECIAL DEVICES?NO DIGITAL MEDIA SALES CONSULTANT NEEDED?NO DOMESTIC VIOLENCE DO YOU FEEL SAFE IN YOUR ENVIRONMENT?YES DIET: REGULAR. - HAS THE PATIENT BEEN EDUCATED REGARDING HIS/HER PLAN OF CARE?YES HAS THE PATIENT BEEN EDUCATED REGARDING PAIN, THE RISK FOR PAIN, THE IMPORTANCE OF EFFECTIVE PAIN MANAGEMENT, AND THE PAIN ASSESSMENT PROCESS?YES ADVANCE DIRECTIVE ADVANCE DIRECTIVE DISCUSSED WITH PATIENT:YES HCP-TREVON SPARKS [phone] HOSPITALIZATION/MAJOR DIAGNOSTIC PROCEDURE CHILD 12/18/1991 CHILD 11/01/1996 CHILD 11/23/1998 CHILD 01/29/2002 HYSTERECTOMY 2017 KNEE SURGERY ALLERGIC REACTION AGE 2 OR 3 REVIEW OF SYSTEMS CONSTITUTIONAL: ANY RECENT FEVER NO . CHILLS NO . WEIGHT CHANGE OF UNKNOWN REASONS NO . GASTROENTEROLOGY: NEW UNEXPLAINABLE CHANGES IN BOWEL CONTROL NO . CONSTIPATION NO . GENITOURINARY: ANY NEW CHANGE IN BLADDER CONTROL? NO . NEUROLOGY: NEW ONSET DIZZINESS OR NEUROLOGICAL CHANGES NOT MENTIONED NO . NEW NUMBNESS OR PAIN PATTERNS NOT MENTIONED AND PERTINENT TO TODAY'S VISIT NO . CARDIOLOGY: NEW CHEST PRESSURE NO . NEW CHEST PAIN NO . RESPIRATORY: UNEXPLAINABLE COUGH NO . NEW SHORTNESS OF BREATH NO . EXAMINATION GENERAL EXAMINATION: THE PATIENT IS ALERT, ORIENTED TIMES THREE AND COOPERATIVE. MRI OF THE CERVICAL SPINE DATED 02/06/2020 SHOWS FACET ARTHROPATHY CHANGES, ESPECIALLY AT C4-C5, C5-C6. ASSESSMENTS CERVICAL SPONDYLOSIS - M47.812 (PRIMARY) FACET ARTHROPATHY, CERVICAL - M47.812 TREATMENT CERVICAL SPONDYLOSIS START MELATONIN CAPSULE, 5 MG, 1 OR 2 CAPSULE AT BEDTIME NEEDED, ORALLY NEEDED FOR SLEPNESS, ONCE A DAY, 30 DAY(S), 45, REFILLS 0 CONTINUE AMITRIPTYLINE HCL TABLET, 25 MG, 1 TABLET AT BEDTIME, ORALLY, ONCE A DAY CONTINUE GABAPENTIN CAPSULE, 300 MG, 1 CAPSULE, ORALLY FOR PAIN, BEFORE BEDTIME, 30 DAYS, 30, REFILLS 0 CONTINUE TIZANIDINE HCL TABLET, 4 MG, 1 TAB, ORALLY FOR SPASMS AND PAIN, EVERY 8 HOURS NEEDED (MDD 3), 30 DAYS, 80, REFILLS 0 CONTINUE OXYCODONE-ACETAMINOPHEN TABLET, 10-325 MG, 1 TABLET NEEDED, ORALLY FOR PAIN, Q6H PRN MDD4, 30 DAYS, 120, REFILLS 0 CONTINUE CARISOPRODOL TABLET, 350 MG, 1 TABLET NEEDED, ORALLY FOR SPAMS AND PAIN, 1 TO 2 HOURS BEFORE BEDTIME, 30 DAYS, 30, REFILLS 0 CONTINUE CYMBALTA CAPSULE DELAYED RELEASE PARTICLES, 60 MG, 1 CAPSULE, ORALLY FOR PAIN, TWICE A DAY MDD2, 30 DAYS, 60, REFILLS 0 CLINICAL NOTES: I DISCUSSED ALTERNATIVES WITH MS. AVILES. I WOULD PREFER TO KEEP THE MANAGEMENT IT IS. IT IS NOT PERFECT BUT SHE IS ABLE TO FUNCTION. I AM GOING TO HAVE HER TRY MELATONIN TO HELP HER TO SLEEP. I TOLD HER TO TALK ABOUT THIS WITH HER PRIMARY CARE PHYSICIAN. THE PATIENT WILL STOP THE AMITRIPTYLINE. THE PATIENT WILL FOLLOW UP WITH ME IN 1 MONTH AND CALL ME BEFORE THAT IF SHE HAS ANY CONCERNS. THE PATIENT REPORTS UNDERSTANDING AND AGREES WITH THE PLAN. THE START TIME WAS 3:27. THE END TIME WAS 358. THE TOTAL TIME WAS 32 MINUTES. I, OLIVE KING, DOCUMENTED THE ABOVE INFORMATION ACTING A SCRIBE FOR DR. DRAKE. I HAVE REVIEWED THE ABOVE DOCUMENT, WRITTEN BY OLIVE KING, FILM SOUND COORDINATOR, AND I VERIFY THAT IT IS ACCURATE. PROCEDURE CODES 72111 TELEMEDICINE PHONE E/M BY PHYS 21-30 MIN DISPOSITION & COMMUNICATION FOLLOW UP FOLLOW UP IN 1 MONTH (REASON: MED MANAGEMENT ) ELECTRONICALLY SIGNED BY YESSICA DRAKE MD, MD ON 05/29/2020 AT 04:14 PM EST DISCLAIMER : THIS IS A VISIT SUMMARY EXTRACTED FROM THE [employer] CHART. IT IS NOT A COPY OF THE [employer] PROGRESS NOTE. JOSE
== END ==
LOC: M PAIN 15:00
PROVIDERS: ATTEND Anesthesiology
DX: M47.812 Spondylosis without myelopathy or radiculopathy, cervical region (principal); D64.9 Anemia, unspecified; K21.9 Gastro-esophageal reflux disease without esophagitis; Z79.891 Long term (current) use of opiate analgesic; Z79.899 Other long term (current) drug therapy; Z88.0 Allergy status to penicillin; Z88.8 Allergy status to other drugs, medicaments and biological substances; Z91.040 Latex allergy status; Z91.018 Allergy to other foods

== ENCOUNTER → 2020-06-26 | Outpatient (CLI) | payer BC ==
--- NOTE | 2020-06-28 00:28 | ECWPNPC ---
PATIENT NAME: ALEX AVILES : 1975 GENDER: FEMALE VISIT DATE: 06/26/2020 DISCHARGE DATE: 06/26/20 0000 VISIT LOCKED DATE TIME: PHYSICIAN: YESSICA DRAKE MD RESOURCE: YESSICA DRAKE MD REASON FOR APPOINTMENT 1. NECK [phone] HISTORY OF PRESENT ILLNESS GENERAL: PERMISSION FROM PATIENT WAS RECEIVED TO DO TELEPHONE OFFICE VISIT. 44-YEAR-OLD FEMALE PATIENT WITH A HISTORY OF CHRONIC NECK PAIN. SHE RECEIVED RADIOFREQUENCY 4 MONTHS AGO, BUT UNFORTUNATELY SINCE THAT PROCEDURE, SHE REPORTS INCREASED PAIN. THE PATIENT DESCRIBES THE PAIN SHARP, SHOOTING AND CONTINUOUS WITH MIGRAINES WITH A PAIN SCORE RANGING FROM 6-9/10. SHE WENT TO THE EMERGENCY ROOM ON TUESDAY WITH A SEVERE HEADACHE. SHE STATES THAT SHE RECEIVED A "MIGRAINE COCKTAIL" WHICH CONSISTED OF BENADRYL, MAGNESIUM AND TORADOL, WHICH HELPED THE PATIENT. SINCE THEN, SHE HAS BEEN USING EXCEDRINE MIGRAINE THAT HAS HELPED HER IN SOME CAPACITY. PRESENTLY, SHE IS USING OXYCODONE 4 TABLETS A DAY FOR HER NECK PAIN, 1 SOMA PER DAY BEFORE BED, GABAPENTIN AND CYMBALTA. FALL RISK SCREENING: SCREENING :NO FALLS REPORTED IN THE LAST YEAR PAIN SCREENING: PATIENT HAS A COMPLAINT OF ACUTE OR CHRONIC PAIN :YES LOCATION OF PAIN:HEAD, NECK, LEFT SHOULDER, RIGHT SHOULDER, OTHER: STATES PAIN DOES RADIATE DOWN INTO HER ARMS. STATES HER PAIN FEELD LIKE A MIGRAINE AND IS A "VERY DIFFERENT PAIN FOR HER" INTENSITY OF PAIN (SCALE OF 1 TO 10):8 WHAT DOES YOUR PAIN FEEL LIKE:CONTINOUS, SHARP, SHOOTING HEADACHE DURATION:CONTINOUS STATES INTENSITY VARIES PAIN IS INCREASED BY:ACTIVITIES, OTHERS LIFTING, "ANY ACTIVITY MAKES PAIN WORSE BECAUSE IT IS SO CONSTANT RIGHT NOW" PAIN IS DECREASED BY:USE OF PAIN MEDICATIONS STATES MEDS HELP SOMETIMES NURSING NOTE: -. PAIN CENTER INTAKE QUESTIONS: DO YOU HAVE A HISTORY OF MRSA? :NO DO YOU TAKE A BLOOD THINNERS? :NO DO YOU HAVE ANY BLEEDING DISORDERS? :YES ANEMIA ANY NEW NUMBNESS OR WEAKNESS IN YOUR LEGS OR ARMS? :NO ANY PACEMAKER,DEFIBRILLATOR, OR DORSAL COLUMN STIMULATOR? :NO DO YOU HAVE ANY RASHES OR OPEN SORES? :NO ARE YOU ALLERGIC TO IV DYE? :NO ARE YOU DIABETIC? :NO ANY NEW PROBLEMS WITH YOUR MEDICATIONS? :NO HAVE YOU RECEIVED A VACCINE IN THE PAST 30 DAYS? :NO DO YOU PLAN TO RECEIVE A VACCINE IN THE NEXT 21 DAYS? :NO DO YOU NEED ANY PRESCRIPTION? :NO DO YOU TAKE ANY IMMUNOSUPPRESSIVE MEDICATIONS? :NO IS THERE A CHANCE YOU COULD BE ? :NO ARE YOU BREAST FEEDING? :NO CURRENT MEDICATIONS TAKING HYDROXYZINE HCL 25 MG TABLET 2 TABS ORALLY EVERY 6 HRS NEEDED TAKING FLUTICASONE FUROATE 27.5 MCG/SPRAY SUSPENSION 1 SPRAY IN EACH NOSTRIL NASALLY TWICE A DAY TAKING PANTOPRAZOLE SODIUM 40 MG TABLET DELAYED RELEASE 1 TABLET ORALLY ONCE A DAY TAKING MIRALAX - POWDER 1 DOSE ORALLY ONCE A DAY NEEDED TAKING MONTELUKAST SODIUM 10 MG TABLET 1 TABLET IN THE EVENING ORALLY ONCE A DAY TAKING ASTELIN 1 SPRAY EACH NOSTRIL NASAL TWICE A DAY TAKING PROBIOTIC CAPSULE 1 TABLET ORALLY ONCE DAILY TAKING MELATONIN 5 MG CAPSULE 1 OR 2 CAPSULE AT BEDTIME NEEDED ORALLY NEEDED FOR SLEPNESS ONCE A DAY TAKING AMITRIPTYLINE HCL 25 MG TABLET 1 TABLET AT BEDTIME ORALLY ONCE A DAY TAKING GABAPENTIN 300 MG CAPSULE 1 CAPSULE ORALLY FOR PAIN BEFORE BEDTIME TAKING TIZANIDINE HCL 4 MG TABLET 1 TAB ORALLY FOR SPASMS AND PAIN EVERY 8 HOURS NEEDED (MDD 3) TAKING OXYCODONE-ACETAMINOPHEN 10-325 MG TABLET 1 TABLET NEEDED ORALLY FOR PAIN Q6H PRN MDD4 TAKING CARISOPRODOL 350 MG TABLET 1 TABLET NEEDED ORALLY FOR SPAMS AND PAIN 1 TO 2 HOURS BEFORE BEDTIME TAKING CYMBALTA 60 MG CAPSULE DELAYED RELEASE PARTICLES 1 CAPSULE ORALLY FOR PAIN TWICE A DAY MDD2 NOT-TAKING WELLBUTRIN SR 200 MG TABLET EXTENDED RELEASE 12 HOUR 1 TABLET IN THE MORNING ORALLY ONCE A DAY, NOTES: ON HOLD CURRENTLY 04/11/20 NOT-TAKING NORCO 10-325 MG TABLET 1 TABLET NEEDED ORALLY Q8H PRN MDD3 NOT-TAKING RANITIDINE HCL 150 MG CAPSULE 1 CAPSULE ORALLY ONCE DAILY MEDICATION LIST REVIEWED AND RECONCILED WITH THE PATIENT PAST MEDICAL HISTORY ANEMIA GERD STOMACH ULCERS WITH H PYLORI NECK AND LOW BACK PAIN 04/26/18 CONCUSSION FROM FALLING DOWN THE STAIRS AND HITTING HEAD LEFT EYE BLIND SINCE ALLERGIES PENICILLIN: SWELLING - ALLERGY ORANGES: ANAPHYLAXIS - ALLERGY BANDAIDS AND ADHESIVES: REDDNESS AND SWELLING - ALLERGY LATEX GLOVES: REDDNESS AND SWELLING - ALLERGY TEGADERM: REDNESS, SWELLING - ALLERGY SOCIAL HISTORY GENERAL: TOBACCO USE ARE YOU A:NONSMOKER LATEX QUESTIONNAIRE LATEX ALLERGY : HAVE YOU EVER DEVELOPED ANY TYPE OF REACTION AFTER HANDLING LATEX PRODUCTS SUCH RUBBER GLOVES, CONDOMS, DIAPHRAGMS, BALLOONS, SOCKS, OR UNDERWEAR?YES - PLEASE INDICATE :RUBBER GLOVES, CONDOMS, BALLOONS, OTHER (DOCUMENT IN NOTES) BANDAIDS LATEX ALLERGY : HAVE YOU EVER DEVELOPED ANY TYPE OF REACTION DURING OR AFTER DENTAL APPOINTMENT, VAGINAL/RECTAL EXAMINATION, SURGICAL PROCEDURE, OR ANY OTHER EXPOSURE?NO LATEX RISK : HAVE YOU EVER HAD ANY DIFFICULTY BREATHING OR HIVES AFTER EATING OR HANDLING ANY FRUITS, OR VEGETABLES; SUCH KIWI, BANANAS, STONE FRUITS, OR CHESTNUTSYES - PLEASE INDICATE : ORANGES LATEX RISK : DO YOU HAVE A PREVIOUS PERSONAL HISTORY OF MORE THAN NINE SURGERIES, SPINA BIFIDA, OR REPEATED CATHERIZATIONS? NO LATEX RISK : ARE YOU FREQUENTLY EXPOSED TO LATEX PRODUCTS IN YOUR OCCUPATION?NO DATE ASKED : 06/26/2020 ALCOHOL SCREENING DID YOU HAVE A DRINK CONTAINING ALCOHOL IN THE PAST YEAR?NO POINTS0 INTERPRETATIONNEGATIVE RECREATIONAL DRUG USE DRUG USE?NO CAFFEINE CAFFEINE USE?YES HOW OFTEN AND HOW MUCH? 3 SODAS/DAY HOLINESS [id number] CAODAISM LANGUAGE LANGUAGES SPOKEN:MONTSERRATIAN EDUCATION LEVEL OF EDUCATION:NOT FINISHED COLLEGE LEARNING BARRIERS / SPECIAL NEEDS CHANGE FROM LAST VISIT?NO BARRIERS TO LEARNING?NO HEARING IMPAIRED?NO VISION IMPAIRED?YES BLIND IN LEFT EYE COGNITIVELY IMPAIRED?NO READINESS TO LEARN?YES LEARNING PREFERENCES?NO LEARNING CAPABILITIES PRESENT?YES EMOTIONAL BARRIERS?NO SPECIAL DEVICES?NO HEALTHCARE ECONOMICS MANAGER NEEDED?NO DOMESTIC VIOLENCE DO YOU FEEL SAFE IN YOUR ENVIRONMENT?YES DIET: REGULAR. - HAS THE PATIENT BEEN EDUCATED REGARDING HIS/HER PLAN OF CARE?YES HAS THE PATIENT BEEN EDUCATED REGARDING PAIN, THE RISK FOR PAIN, THE IMPORTANCE OF EFFECTIVE PAIN MANAGEMENT, AND THE PAIN ASSESSMENT PROCESS?YES ADVANCE DIRECTIVE ADVANCE DIRECTIVE DISCUSSED WITH PATIENT:YES HCP-TREVON SPARKS [phone] REVIEW OF SYSTEMS CONSTITUTIONAL: ANY RECENT FEVER NO . CHILLS NO . WEIGHT CHANGE OF UNKNOWN REASONS NO . GASTROENTEROLOGY: NEW UNEXPLAINABLE CHANGES IN BOWEL CONTROL NO . CONSTIPATION NO . GENITOURINARY: ANY NEW CHANGE IN BLADDER CONTROL? NO . NEUROLOGY: NEW ONSET DIZZINESS OR NEUROLOGICAL CHANGES NOT MENTIONED NO . NEW NUMBNESS OR PAIN PATTERNS NOT MENTIONED AND PERTINENT TO TODAY'S VISIT NO . CARDIOLOGY: NEW CHEST PRESSURE NO . PATIENT DENIES NO . RESPIRATORY: UNEXPLAINABLE COUGH NO . NEW SHORTNESS OF BREATH NO . EXAMINATION GENERAL EXAMINATION: THE PATIENT IS ALERT, ORIENTED TIMES THREE AND COOPERATIVE. THIS IS A TELEPHONE VISIT. ASSESSMENTS CERVICAL SPONDYLOSIS - M47.812 (PRIMARY) FACET ARTHROPATHY, CERVICAL - M47.812 NEURALGIA - M79.2, STATUS POST CERVICAL RADIOFREQUENCY TREATMENT CERVICAL SPONDYLOSIS START MORPHINE SULFATE TABLET, 15 MG, 1 TABLET NEEDED, ORALLY FOR PAIN, EVERY 8 HRS MDD3, 10 DAYS, 30, REFILLS 0 CLINICAL NOTES: I DISCUSSED ALTERNATIVES WITH MS. AVILES. SHE IS NOT USING AMITRIPTYLINE AND SHE IS USING MELATONIN AT NIGHT AND IT SEEMS TO BE HELPING HER SLEEP BETTER. I WILL REQUEST AUTHORIZATION FOR A TRIGGER POINT INJECTIONS BILATERAL NECK AND BILATERAL SHOULDER. I WILL ROTATE OPIOIDS TO MORPHINE. TOTAL TIME OF THE VISIT WAS 42 MINUTES. THE PATIENT REPORTS UNDERSTANDING AND AGREES WITH THE PLAN. I, OLIVE KING, DOCUMENTED THE ABOVE INFORMATION ACTING A SCRIBE FOR DR. DRAKE. I HAVE REVIEWED THE ABOVE DOCUMENT, WRITTEN BY OLIVE KING, SATELLITE SPECIALIST, AND I VERIFY THAT IT IS ACCURATE . OTHERS NOTES: PATIENT STATES SHE WAS SEEN IN THE ER IN [place] ON Tuesday06/23/2020 FOR A SEVERE HEADACHE. STATES SHE WAS GIVEN A "MIGRAINE COCKTAIL", PATIENT STATES THE ER NURSE TOLD HER THE MEDS WERE MAGNESIUM, BENADRYL, AND TORADOL. PATIENT ALSO STATED THAT THE ER DOCTOR TOLD HER TO LET DR DRAKE KNOW A CERTAIN MEDICATION TO ORDER THAT MAY HELP, BUT SHE DOES NOT REMEBER WHAT THE NAME OF THE MED WAS, BUT STATES SHE WILL HAVE ER PAPERWORK AVAILABLE FOR TELEPHONE VISIT. VITAL SIGNS NOT COMPLETED DUE TO TELEPHONE VISIT. 06/26/2020 [address]. PROCEDURE CODES [id number] TELEMEDICINE PHONE E/M BY PHYS 21-30 MIN DISPOSITION & COMMUNICATION FOLLOW UP REQUEST AUTH FOR TRIGGER POINT INJECTIONS BILATERAL NECK AND BILATERAL SHOULDER (REASON: June AT 10:30 FOR TRIGGER POINT.) ELECTRONICALLY SIGNED BY YESSICA DRAKE MD, MD ON 06/27/2020 AT 01:18 PM EST DISCLAIMER : THIS IS A VISIT SUMMARY EXTRACTED FROM THE [employer] CHART. IT IS NOT A COPY OF THE [employer] PROGRESS NOTE. MTDD
== END ==
LOC: M PAIN 15:00
PROVIDERS: ATTEND Anesthesiology
DX: M47.812 Spondylosis without myelopathy or radiculopathy, cervical region (principal); M79.2 Neuralgia and neuritis, unspecified; D64.9 Anemia, unspecified; K21.9 Gastro-esophageal reflux disease without esophagitis; Z79.891 Long term (current) use of opiate analgesic; Z79.899 Other long term (current) drug therapy; Z88.0 Allergy status to penicillin; Z91.040 Latex allergy status; Z91.048 Other nonmedicinal substance allergy status; Z88.8 Allergy status to other drugs, medicaments and biological substances; Z91.018 Allergy to other foods

== ENCOUNTER → 2020-06-29 | Outpatient (CLI) | payer BC | LOC: M LABSMTC 11:08 | PROVIDERS: ATTEND Anesthesiology | DX: Z11.52 Encounter for screening for COVID-19 (principal) ==

== ENCOUNTER → 2020-07-04 | Outpatient (CLI) | payer BC ==
[~2020-07-04] MED LIST changes: +BUPIVACAINE HCL 0.25% 10ML VIAL As Ordered ONE; +BUPIVACAINE HCL 0.25% 30ML VIAL As Ordered ONE; +TRIAMCINOLONE ACETONIDE SUSP 40 MG/ML VIAL (J3301) As Ordered ONE; +diazePAM 5MG TABLET As Ordered ONE; +diphenhydrAMINE 25MG CAP As Ordered ONE; +oxyCODONE 5MG TAB As Ordered ONE
--- NOTE | 2020-07-09 00:50 | ECWPNPC ---
PATIENT NAME: ALEX AVILES : 1975 GENDER: FEMALE VISIT DATE: 07/04/2020 DISCHARGE DATE: 07/04/20 1230 VISIT LOCKED DATE TIME: PHYSICIAN: YESSICA DRAKE MD RESOURCE: YESSICA DRAKE MD REASON FOR APPOINTMENT 1. TRIGGER POINT INEJCTIONS BILATERAL NECK AND BILATERAL SHOULDER HISTORY OF PRESENT ILLNESS GENERAL: 44-YEAR-OLD FEMALE PATIENT WITH A HISTORY OF CHRONIC RIGHT NECK PAIN AND PAIN TOWARDS HER HEAD. THE PATIENT DESCRIBES THE PAIN SEVERE AND ACHING WITH A PAIN SCORE RANGING FROM 6-10/10 IN THE RIGHT NECK AND RIGHT OCCIPITAL AREA. THE PATIENT IS USING PERCOCET, TIZANIDINE AND GABAPENTIN. SHE WAS USING MORPHINE BUT IT WAS MAKING HER TOO SLEEPY AND SHE WAS NOT FUNCTIONAL. SHE WAS USING PERCOCET WITH SOME CONCERN ABOUT THE ACETAMINOPHEN IN IT BECAUSE SHE WANTS TO USE EXCEDRIN NEEDED. FALL RISK SCREENING: SCREENING : NO FALLS REPORTED IN THE LAST YEAR . PAIN SCREENING: PATIENT HAS A COMPLAINT OF ACUTE OR CHRONIC PAIN :YES LOCATION OF PAIN:HEAD, NECK, RIGHT SHOULDER NECK PAIN IS CAUSING MIGRAINES THAT GOES FROM HEAD INTO EYES INTENSITY OF PAIN (SCALE OF 1 TO 10):9 AVERAGE 8-9 WHAT DOES YOUR PAIN FEEL LIKE:BURNING, CONTINOUS, SHARP, STABBING, THROBBING, SHOOTING DURATION:CONTINOUS, CONSTANT, AWAKENS FROM SLEEP PAIN IS INCREASED BY:ACTIVITIES PAIN IS DECREASED BY:USE OF PAIN MEDICATIONS DARKNESS FOR THE HEADACHES PAIN HAS INTERFERED WITH THE FOLLOWING: EVERYTHING NURSING NOTE: -. PAIN CENTER INTAKE QUESTIONS: DO YOU HAVE A HISTORY OF MRSA? :NO DO YOU TAKE A BLOOD THINNERS? :NO DO YOU HAVE ANY BLEEDING DISORDERS? :YES ANEMIC ANY NEW NUMBNESS OR WEAKNESS IN YOUR LEGS OR ARMS? :NO ANY PACEMAKER,DEFIBRILLATOR, OR DORSAL COLUMN STIMULATOR? :NO DO YOU HAVE ANY RASHES OR OPEN SORES? :NO ARE YOU ALLERGIC TO IV DYE? :NO ARE YOU DIABETIC? :NO ANY NEW PROBLEMS WITH YOUR MEDICATIONS? :NO HAVE YOU RECEIVED A VACCINE IN THE PAST 30 DAYS? :NO DO YOU PLAN TO RECEIVE A VACCINE IN THE NEXT 21 DAYS? :NO DO YOU TAKE ANY IMMUNOSUPPRESSIVE MEDICATIONS? :NO ANY HISTORY OF SEIZURES? :NO ANY HISTORY OF CARDIAC ISSUES OR EVENTS? :NO DO YOU HAVE ANY KIDNEY OR LIVER DISEASE? :NO DO YOU HAVE SLEEP APNEA? :NO ANY RECENT HEAD INJURY? :NO DO YOU HAVE ANY NEW INFECTIONS? :NO IS THERE A CHANCE YOU COULD BE ? :NO ARE YOU BREAST FEEDING? :NO WHEN DID YOU LAST EAT? : 07/03/201899 WHEN DID YOU LAST DRINK? : 08 WHAT DID YOU LAST DRINK? : WATER NAME OF PERSON DRIVING YOU HOME? : AUNT REHAN DO YOU HAVE ANY OTHER QUESTIONS OR CONCERNS? : NONE CURRENT MEDICATIONS TAKING HYDROXYZINE HCL 25 MG TABLET 2 TABS ORALLY EVERY 6 HRS NEEDED, NOTES: 06/05/201999 TAKING FLUTICASONE FUROATE 27.5 MCG/SPRAY SUSPENSION 1 SPRAY IN EACH NOSTRIL NASALLY TWICE A DAY TAKING PANTOPRAZOLE SODIUM 40 MG TABLET DELAYED RELEASE 1 TABLET ORALLY ONCE A DAY TAKING MIRALAX - POWDER 1 DOSE ORALLY ONCE A DAY NEEDED TAKING MONTELUKAST SODIUM 10 MG TABLET 1 TABLET IN THE EVENING ORALLY ONCE A DAY TAKING ASTELIN 1 SPRAY EACH NOSTRIL NASAL TWICE A DAY TAKING PROBIOTIC CAPSULE 1 TABLET ORALLY ONCE DAILY TAKING MELATONIN 5 MG CAPSULE 1 OR 2 CAPSULE AT BEDTIME NEEDED ORALLY NEEDED FOR SLEPNESS ONCE A DAY, NOTES: 07/03/201999 TAKING GABAPENTIN 300 MG CAPSULE 1 CAPSULE ORALLY FOR PAIN BEFORE BEDTIME TAKING TIZANIDINE HCL 4 MG TABLET 1 TAB ORALLY FOR SPASMS AND PAIN EVERY 8 HOURS NEEDED (MDD 3), NOTES: 07/03/201499 TAKING OXYCODONE-ACETAMINOPHEN 10-325 MG TABLET 1 TABLET NEEDED ORALLY FOR PAIN Q6H PRN MDD4, NOTES: NOT WHILE TAKING THE MORPHINE TAKING CARISOPRODOL 350 MG TABLET 1 TABLET NEEDED ORALLY FOR SPAMS AND PAIN 1 TO 2 HOURS BEFORE BEDTIME, NOTES: 07/03/201999 TAKING CYMBALTA 60 MG CAPSULE DELAYED RELEASE PARTICLES 1 CAPSULE ORALLY FOR PAIN TWICE A DAY MDD2 TAKING MORPHINE SULFATE 15 MG TABLET 1 TABLET NEEDED ORALLY FOR PAIN EVERY 8 HRS MDD3, NOTES: 07/03/202099 TAKING WELLBUTRIN SR 200 MG TABLET EXTENDED RELEASE 12 HOUR 1 TABLET IN THE MORNING ORALLY ONCE A DAY, NOTES: ON HOLD CURRENTLY 04/11/20 NOT-TAKING AMITRIPTYLINE HCL 25 MG TABLET 1 TABLET AT BEDTIME ORALLY ONCE A DAY NOT-TAKING NORCO 10-325 MG TABLET 1 TABLET NEEDED ORALLY Q8H PRN MDD3 NOT-TAKING RANITIDINE HCL 150 MG CAPSULE 1 CAPSULE ORALLY ONCE DAILY MEDICATION LIST REVIEWED AND RECONCILED WITH THE PATIENT PAST MEDICAL HISTORY ANEMIA GERD STOMACH ULCERS WITH H PYLORI NECK AND LOW BACK PAIN 04/26/18 CONCUSSION FROM FALLING DOWN THE STAIRS AND HITTING HEAD LEFT EYE BLIND SINCE MIGRAINE HEADACHES FIBROMYALGIA ALLERGIES PENICILLIN: SWELLING - ALLERGY ORANGES: ANAPHYLAXIS - ALLERGY BANDAIDS AND ADHESIVES: REDDNESS AND SWELLING - ALLERGY LATEX GLOVES: REDDNESS AND SWELLING - ALLERGY TEGADERM: REDNESS, SWELLING - ALLERGY SURGICAL HISTORY RIGHT KNEE 1985 TUBAL LIGATION 2002 D&C 1996 MOLES REMOVED 2016 TOTAL HYSTERECTOMY 2017 COLONOSCOPY/ENDOSCOPY 2019 SOCIAL HISTORY GENERAL: TOBACCO USE ARE YOU A:NONSMOKER LATEX QUESTIONNAIRE LATEX ALLERGY : HAVE YOU EVER DEVELOPED ANY TYPE OF REACTION AFTER HANDLING LATEX PRODUCTS SUCH RUBBER GLOVES, CONDOMS, DIAPHRAGMS, BALLOONS, SOCKS, OR UNDERWEAR?YES - PLEASE INDICATE :RUBBER GLOVES, CONDOMS, BALLOONS, OTHER (DOCUMENT IN NOTES) BANDAIDS LATEX ALLERGY : HAVE YOU EVER DEVELOPED ANY TYPE OF REACTION DURING OR AFTER DENTAL APPOINTMENT, VAGINAL/RECTAL EXAMINATION, SURGICAL PROCEDURE, OR ANY OTHER EXPOSURE?NO LATEX RISK : HAVE YOU EVER HAD ANY DIFFICULTY BREATHING OR HIVES AFTER EATING OR HANDLING ANY FRUITS, OR VEGETABLES; SUCH KIWI, BANANAS, STONE FRUITS, OR CHESTNUTSYES - PLEASE INDICATE : ORANGES LATEX RISK : DO YOU HAVE A PREVIOUS PERSONAL HISTORY OF MORE THAN NINE SURGERIES, SPINA BIFIDA, OR REPEATED CATHERIZATIONS? NO LATEX RISK : ARE YOU FREQUENTLY EXPOSED TO LATEX PRODUCTS IN YOUR OCCUPATION?NO DATE ASKED : 07/03/2020 ALCOHOL SCREENING DID YOU HAVE A DRINK CONTAINING ALCOHOL IN THE PAST YEAR?NO POINTS0 INTERPRETATIONNEGATIVE RECREATIONAL DRUG USE DRUG USE?NO CAFFEINE CAFFEINE USE?YES HOW OFTEN AND HOW MUCH? 3 SODAS/DAY BAHAI [id number] RELIGION LANGUAGE LANGUAGES SPOKEN:YI EDUCATION LEVEL OF EDUCATION:NOT FINISHED COLLEGE LEARNING BARRIERS / SPECIAL NEEDS CHANGE FROM LAST VISIT?NO BARRIERS TO LEARNING?NO HEARING IMPAIRED?NO VISION IMPAIRED?YES BLIND IN LEFT EYE COGNITIVELY IMPAIRED?NO READINESS TO LEARN?YES LEARNING PREFERENCES?NO LEARNING CAPABILITIES PRESENT?YES EMOTIONAL BARRIERS?NO SPECIAL DEVICES?NO STORY READER NEEDED?NO DOMESTIC VIOLENCE DO YOU FEEL SAFE IN YOUR ENVIRONMENT?YES DIET: REGULAR. - HAS THE PATIENT BEEN EDUCATED REGARDING HIS/HER PLAN OF CARE?YES HAS THE PATIENT BEEN EDUCATED REGARDING PAIN, THE RISK FOR PAIN, THE IMPORTANCE OF EFFECTIVE PAIN MANAGEMENT, AND THE PAIN ASSESSMENT PROCESS?YES ADVANCE DIRECTIVE ADVANCE DIRECTIVE DISCUSSED WITH PATIENT:YES HCP-TREVON SPARKS [phone] HOSPITALIZATION/MAJOR DIAGNOSTIC PROCEDURE CHILD 12/18/1991 CHILD 11/01/1996 CHILD 11/23/1998 CHILD 01/29/2002 HYSTERECTOMY 2017 KNEE SURGERY ALLERGIC REACTION AGE 2 OR 3 REVIEW OF SYSTEMS CONSTITUTIONAL: ANY RECENT FEVER NO . CHILLS NO . WEIGHT CHANGE OF UNKNOWN REASONS NO . GASTROENTEROLOGY: NEW UNEXPLAINABLE CHANGES IN BOWEL CONTROL NO . CONSTIPATION NO . GENITOURINARY: ANY NEW CHANGE IN BLADDER CONTROL? NO . NEUROLOGY: NEW ONSET DIZZINESS OR NEUROLOGICAL CHANGES NOT MENTIONED NO . NEW NUMBNESS OR PAIN PATTERNS NOT MENTIONED AND PERTINENT TO TODAY'S VISIT NO . CARDIOLOGY: NEW CHEST PRESSURE NO . PATIENT DENIES NO . RESPIRATORY: UNEXPLAINABLE COUGH NO . NEW SHORTNESS OF BREATH NO . VITAL SIGNS WT 192.8 LBS, HT 67 IN, BMI 30.19 INDEX, BP 186/93 MM HG, REPEAT BP 168/98 MANUAL, HR 87 /MIN, RR 18 /MIN, TEMP 97.3 F, OXYGEN SAT % 99%, SAFE IN ENV? (Y/N) YES, NA INITIALS AW 1040, REVIEWED BY: APDISCUSSED HIGH BP WITH PATIENT. PATIENT STATES SHE BELIEVES ITS DUE TO HER PAIN/ANXIETY. TOOK MANUAL BP AND MADE DR. DRAKE AWARE. EM, CELSA. EXAMINATION GENERAL EXAMINATION: THE PATIENT IS ALERT, ORIENTED TIMES THREE AND COOPERATIVE. LUNGS ARE CLEAR TO AUSCULTATION. HEART SHOWS REGULAR RHYTHM, NO MURMURS AND NO GALLOPS. THERE ARE PRESENCE OF TRIGGER POINTS IN THE NECK WITH RESTRICTION OF MOVEMENT PRESENT IN THE BANDS OF TISSUE OF THE NECK AREA. MRI OF THE CERVICAL SHOWS FACET ARTHROPATHY CHANGES. URINE TOXICOLOGY DATED 11/21/2019 SHOWS CONCORDANT RESULTS. ASSESSMENTS MYALGIA - M79.10 (PRIMARY) CHRONIC PRESCRIPTION OPIATE USE - Z79.891 TREATMENT MYALGIA START OXYCODONE HCL TABLET, 10 MG, 1 TABLET NEEDED, ORALLY FOR PAIN, EVERY 6 HRS MDD4, 30 DAYS, 120, REFILLS 0 LAB: URINE TEST GROUP SHAHIDA CEDEÑO 07/04/2020 12:20:57 PM > LAST DOSE: GABAPENTIN 07/03/20, CARISOPRODO07/03/20, MORPHINE 07/03/20, PERCOCET 07/03/20, TIZANIDINE07/03/20 MEDICATION: VALIUM TAB 10MG ORALLY (DIAZEPAM)FESTUS MIDDLETON 07/04/2020 11:01:46 AM > VERIFIED SHAHIDA CEDEÑO R 07/04/2020 11:05:09 AM > ADMINISTERED MEDICATION: OXYCODONE HCL TAB 10MG ORALLYFESTUS MIDDLETON 07/04/2020 11:01:58 AM > VERIFIED MARLENEOSVALDO JEFFREYSHAHIDA R 07/04/2020 11:05:25 AM > ADMINISTERED COMPLETION OF PROCEDURAL VISIT WHEN MEETS CRITERIAPECHIKIOSVALDO MorleySHAHIDA R 07/04/2020 12:31:50 PM > CRITERIA MET MED: PAIN BENADRYL TAB 25MG ORALLY DIPHENHYDRAMINETARIQARISTEOFESTUS Watson 07/04/2020 11:02:11 AM > VERIFIED FRANCIE CEDEÑOIL R 07/04/2020 11:05:44 AM > ADMINISTERED CLINICAL NOTES: I DISCUSSED ALTERNATIVES WITH MS. AVILES. WE AGREE ON DOING TRIGGER POINT INJECTIONS BILATERAL NECK. I WILL HAVE HER STOP THE MORPHINE AND I WILL GIVE HER OXYCODONE. I REVIEWED THE ISTOP, REFERENCE NUMBER [id number]. I AM GOING TO DO A NEW URINE TOX TODAY. I DISCUSSED THE USE OF THE MEDICATIONS AND THAT SHE NEEDS TO BE CAREFUL WITH THEM. THE PATIENT HAS A SAFE IN HER HOME WHERE SHE KEEPS HER MEDICATIONS. THE PATIENT IS AWARE OF THE RISKS INVOLVED WITH THE MEDICATIONS. THE PATIENT IS GOING TO COME IN FOR HER NEXT FOLLOW UP AND BRING IN HER MEDICATIONS THAT ARE BEING DISCONTINUED. THE PATIENT REPORTS UNDERSTANDING AND AGREES WITH THE PLAN. I, OLIVE KING, DOCUMENTED THE ABOVE INFORMATION ACTING A SCRIBE FOR DR. DRAKE. I HAVE REVIEWED THE ABOVE DOCUMENT, WRITTEN BY OLIVE KING, STUMP SHOOTER, AND I VERIFY THAT IT IS ACCURATE. OTHERS NOTES: 07/03/20 0947 PRE-PROCEDURE CALL COMPLETED. Brett HERNANDEZ RN. PROCEDURES PAIN NURSING RECORD PROCEDURE IN ROOM 1030, PHYSICIAN IN ROOM 1137, START 1143, FINISH 1147, PHYSICIAN OUT OF ROOM 1156, OUT OF ROOM 1229, ECG N/A, PATIENT SHIELDED N/A, SAFETY STRAP N/A, PREP ALCOHOL DR. DRAKE, DRESSING OTHER PAPER TAPE & GAUZE. Brett CEDEÑO RN LOC: SHAHIDA CEDEÑO 07/04/2020 11:43:22 AM > 1. ALERT, ORIENTED RESP: SHAHIDA CEDEÑO 07/04/2020 11:43:30 AM > 1. REGULAR, NO DYSPNEA COLOR: SHAHIDA CEDEÑO 07/04/2020 11:43:33 AM > 1. PINK SKIN: SHAHIDA CEDEÑO 07/04/2020 11:43:37 AM > 1. WARM, DRY POSITION: SHAHIDA CEDEÑO 07/04/2020 11:43:40 AM > 5. SITTING VITALS: SHAHIDA CEDEÑO 07/04/2020 12:18:25 PM > 179/81, 99, 18, 98% COMPLETION OF PROCEDURE APPOINTMENT: POST PAIN 4, DRESSING SITE DRY AND INTACT PAPER TAPE & GAUZE, IV N/A, GAIT STEADY, TEACHING COMPLETED, PATIENT ACKNOWLEDGES UNDERSTANDING YES, PROCEDURE APPOINTMENT COMPLETED AT 1229 BY: Brett CEDEÑO RN PN TRIGGER POINT INJECTION WITH STEROIDS PRE PROCEDURE DIAGNOSIS 1. MYALGIA 2. PAIN AT BILATERAL NECK AREA POST PROCEDURE DIAGNOSIS 1. MYALGIA 2. PAIN AT BILATERAL NECK AREA PROCEDURE TRIGGER POINT INJECTION AT BILATERAL NECK AREA SURGEON DR. YESSICA DRAKE SOMMELIER NONE ANESTHESIA LOCAL PRE PROCEDURE NOTE THE PATIENT HAS A HISTORY OF CHRONIC PAIN AT THE RIGHT AND LEFT NECK AREA. I EVALUATED THE PATIENT AND REVIEWED THE CHART. THERE IS EVIDENCE OF BANDS OF TISSUE WITH RESTRICTION OF MOVEMENT AND PRESENCE OF TRIGGER POINT AT THE RIGHT AND LEFT NECK AREA. I WENT OVER THE RISKS, ALTERNATIVES, AND BENEFITS ASSOCIATED WITH THIS PROCEDURE. THE PATIENT WOULD LIKE TO PROCEED AND GIVE CONSENT TO PERFORMED THE PROCEDURE. THE PATIENT DENIES UNEXPLAINABLE WEIGHT LOSS, FEVER, CHILLS, OR NEW CHANGES IN URINARY OR BOWEL CONTROL. THE PATIENT IS COVID-19 NEGATIVE DESCRIPTION OF PROCEDURE THE PATIENT WAS BROUGHT TO THE PROCEDURE ROOM AND PLACED IN THE SITTING POSITION. THE AREA WAS CLEANED WITH ALCOHOL. THE PROCEDURE WAS DONE USING ASEPTIC STERILE TECHNIQUE. A TIMEOUT WAS PERFORMED WHERE THE CONSENTED SITE WAS VERIFIED WITH EVERYONE IN THE ROOM. USING A 25-GAUGE NEEDLE, TRIGGER POINTS WERE INJECTED AT THE RIGHT AND LEFT NECK AREA WITH A TOTAL OF 40 ML OF BUPIVACAINE 0.25% AND KENALOG 40 MG. THE MEDICATIONS WERE VERIFIED WITH THE NURSE. THERE WAS NO EVIDENCE OF BLOOD OR PARESTHESIA DURING THE PROCEDURE. THE PATIENT WAS SENT TO THE RECOVERY ROOM. THE PATIENT WAS MOVING THE EXTREMITIES AND DOING WELL. THERE WERE NO COMPLICATIONS DURING THE PROCEDURE. ESTIMATED BLOOD LOSS WAS LESS THAN 5 ML POST PROCEDURE NOTE THE PROCEDURE DONE WAS DISCUSSED WITH THE PATIENT. THE PATIENT WILL BE SEEN IN A FOLLOW UP IN THE NEXT FEW WEEKS. I AM LOOKING FOR LONG LASTING PAIN RELIEF FOR THE PATIENT WITH THIS INTERVENTION. INSTRUCTIONS WERE GIVEN, QUESTIONS WERE ANSWERED, AND THE PATIENT EXPRESSED UNDERSTANDING AND AGREES WITH THE PLAN. I, OLIVE KING, DOCUMENTED THE ABOVE INFORMATION ACTING A SCRIBE FOR DR. DRAKE. I HAVE REVIEWED THE ABOVE DOCUMENT, WRITTEN BY OLIVE KING, STUMP SHOOTER, AND I VERIFY THAT IT IS ACCURATE PROCEDURE CODES 13889 INJ TRIGGER POINT 05/03 [facility] DISPOSITION & COMMUNICATION FOLLOW UP SCHEDULE AN APPOINTMENT NEXT WEEK WITH DR. Muro (REASON: POST TRIGGER POINT INJECTION BILATERAL NECK) ELECTRONICALLY SIGNED BY YESSICA DRAKE MD, ON 07/08/2020 AT 04:41 PM EST DISCLAIMER : THIS IS A VISIT SUMMARY EXTRACTED FROM THE [email or web address] CHART. IT IS NOT A COPY OF THE [email or web address] PROGRESS NOTE. JOSE
== END ==
LOC: M PAIN 10:30
PROVIDERS: ATTEND Anesthesiology
DX: M79.18 Myalgia, other site (principal); D64.9 Anemia, unspecified; G43.909 Migraine, unspecified, not intractable, without status migrainosus; M79.7 Fibromyalgia; K21.9 Gastro-esophageal reflux disease without esophagitis; Z79.899 Other long term (current) drug therapy; Z88.0 Allergy status to penicillin; Z88.8 Allergy status to other drugs, medicaments and biological substances; Z91.040 Latex allergy status; Z79.891 Long term (current) use of opiate analgesic; Z91.048 Other nonmedicinal substance allergy status
CPT/HCPCS: 20552; J3301

== ENCOUNTER → 2020-07-25 | Outpatient (CLI) | payer BC ==
[~2020-07-25] MED LIST changes: -BUPIVACAINE HCL 0.25% 10ML VIAL As Ordered ONE; -BUPIVACAINE HCL 0.25% 30ML VIAL As Ordered ONE; -TRIAMCINOLONE ACETONIDE SUSP 40 MG/ML VIAL (J3301) As Ordered ONE; -diazePAM 5MG TABLET As Ordered ONE; -diphenhydrAMINE 25MG CAP As Ordered ONE; -oxyCODONE 5MG TAB As Ordered ONE
--- NOTE | 2020-08-04 12:04 | ECWPNPC ---
PATIENT NAME: ALEX AVILES : 1975 GENDER: FEMALE VISIT DATE: 07/25/2020 DISCHARGE DATE: 07/25/20 0000 VISIT LOCKED DATE TIME: PHYSICIAN: YESSICA DRAKE MD RESOURCE: YESSICA DRAKE MD REASON FOR APPOINTMENT 1. POST TRIGGER POINT INJECTION BILATERAL NECK HISTORY OF PRESENT ILLNESS GENERAL: PERMISSION FROM PATIENT WAS RECEIVED TO DO TELEPHONE OFFICE VISIT. 44-YEAR-OLD FEMALE PATIENT WITH A HISTORY OF CHRONIC NECK PAIN. THE PATIENT DESCRIBES THE PAIN ACHING AND BURNING WITH A PAIN SCORE RANGING FROM 6-9/10. SHE RECEIVED TRIGGER POINT INJECTIONS THAT PROVIDED SOME RELIEF. PRESENTLY, SHE IS USING OXYCODONE 10 MG TABLETS. SHE FEELS THAT THIS IS A LITTLE STRONG. FALL RISK SCREENING: SCREENING : NO FALLS REPORTED IN THE LAST YEAR. PAIN SCREENING: PATIENT HAS A COMPLAINT OF ACUTE OR CHRONIC PAIN :YES LOCATION OF PAIN:HEAD, NECK, UPPER BACK INTENSITY OF PAIN (SCALE OF 1 TO 10):7 WHAT DOES YOUR PAIN FEEL LIKE:STABBING, SORE, SHOOTING DURATION:INTERMITTENT PAIN IS INCREASED BY:ACTIVITIES, OTHERS LIFTING, ADL'S PAIN IS DECREASED BY:USE OF PAIN MEDICATIONS, OTHERS ICE NURSING NOTE: -. PAIN CENTER INTAKE QUESTIONS: DO YOU HAVE A HISTORY OF MRSA? :NO DO YOU TAKE A BLOOD THINNERS? :NO DO YOU HAVE ANY BLEEDING DISORDERS? :YES ANEMIA ANY NEW NUMBNESS OR WEAKNESS IN YOUR LEGS OR ARMS? :NO ANY PACEMAKER,DEFIBRILLATOR, OR DORSAL COLUMN STIMULATOR? :NO DO YOU HAVE ANY RASHES OR OPEN SORES? :NO ARE YOU ALLERGIC TO IV DYE? :NO ARE YOU DIABETIC? :NO ANY NEW PROBLEMS WITH YOUR MEDICATIONS? :NO WAS WONDERING IF SHE COULD SWITCH BACK TO THE PERCOCET INSTEAD OF THE OXYCODONE. HAVING MORE FREQUENT AND MORE SEVERE HEADACHES THE PAST MONTH. HAVE YOU RECEIVED A VACCINE IN THE PAST 30 DAYS? :NO DO YOU PLAN TO RECEIVE A VACCINE IN THE NEXT 21 DAYS? :NO DO YOU NEED ANY PRESCRIPTION? :YES GABAPENTIN, CYMBALTA, TIZANIDINE DO YOU TAKE ANY IMMUNOSUPPRESSIVE MEDICATIONS? :NO DO YOU HAVE ANY KIDNEY OR LIVER DISEASE? :NO IS THERE A CHANCE YOU COULD BE ? :NO ARE YOU BREAST FEEDING? :NO CURRENT MEDICATIONS TAKING HYDROXYZINE HCL 25 MG TABLET 2 TABS ORALLY EVERY 6 HRS NEEDED TAKING FLUTICASONE FUROATE 27.5 MCG/SPRAY SUSPENSION 1 SPRAY IN EACH NOSTRIL NASALLY TWICE A DAY TAKING PANTOPRAZOLE SODIUM 40 MG TABLET DELAYED RELEASE 1 TABLET ORALLY ONCE A DAY TAKING MIRALAX - POWDER 1 DOSE ORALLY ONCE A DAY NEEDED TAKING MONTELUKAST SODIUM 10 MG TABLET 1 TABLET IN THE EVENING ORALLY ONCE A DAY TAKING ASTELIN 1 SPRAY EACH NOSTRIL NASAL TWICE A DAY TAKING PROBIOTIC CAPSULE 1 TABLET ORALLY ONCE DAILY TAKING MELATONIN 5 MG CAPSULE 1 OR 2 CAPSULE AT BEDTIME NEEDED ORALLY NEEDED FOR SLEPNESS ONCE A DAY TAKING GABAPENTIN 300 MG CAPSULE 1 CAPSULE ORALLY FOR PAIN BEFORE BEDTIME TAKING TIZANIDINE HCL 4 MG TABLET 1 TAB ORALLY FOR SPASMS AND PAIN EVERY 8 HOURS NEEDED (MDD 3) TAKING CYMBALTA 60 MG CAPSULE DELAYED RELEASE PARTICLES 1 CAPSULE ORALLY FOR PAIN TWICE A DAY MDD2 TAKING WELLBUTRIN SR 200 MG TABLET EXTENDED RELEASE 12 HOUR 1 TABLET IN THE MORNING ORALLY ONCE A DAY TAKING OXYCODONE HCL 10 MG TABLET 1 TABLET NEEDED ORALLY FOR PAIN EVERY 6 HRS MDD4 TAKING CARISOPRODOL 350 MG TABLET 1 TABLET NEEDED ORALLY FOR SPAMS AND PAIN 1 TO 2 HOURS BEFORE BEDTIME NOT-TAKING OXYCODONE-ACETAMINOPHEN 10-325 MG TABLET 1 TABLET NEEDED ORALLY FOR PAIN Q6H PRN MDD4, NOTES: NOT WHILE TAKING THE MORPHINE NOT-TAKING MORPHINE SULFATE 15 MG TABLET 1 TABLET NEEDED ORALLY FOR PAIN EVERY 8 HRS MDD3 NOT-TAKING AMITRIPTYLINE HCL 25 MG TABLET 1 TABLET AT BEDTIME ORALLY ONCE A DAY NOT-TAKING NORCO 10-325 MG TABLET 1 TABLET NEEDED ORALLY Q8H PRN MDD3 NOT-TAKING RANITIDINE HCL 150 MG CAPSULE 1 CAPSULE ORALLY ONCE DAILY MEDICATION LIST REVIEWED AND RECONCILED WITH THE PATIENT PAST MEDICAL HISTORY ANEMIA GERD STOMACH ULCERS WITH H PYLORI NECK AND LOW BACK PAIN 04/26/18 CONCUSSION FROM FALLING DOWN THE STAIRS AND HITTING HEAD LEFT EYE BLIND SINCE MIGRAINE HEADACHES FIBROMYALGIA ALLERGIES PENICILLIN: SWELLING - ALLERGY ORANGES: ANAPHYLAXIS - ALLERGY BANDAIDS AND ADHESIVES: REDDNESS AND SWELLING - ALLERGY LATEX GLOVES: REDDNESS AND SWELLING - ALLERGY TEGADERM: REDNESS, SWELLING - ALLERGY SOCIAL HISTORY GENERAL: TOBACCO USE ARE YOU A:NONSMOKER LATEX QUESTIONNAIRE LATEX ALLERGY : HAVE YOU EVER DEVELOPED ANY TYPE OF REACTION AFTER HANDLING LATEX PRODUCTS SUCH RUBBER GLOVES, CONDOMS, DIAPHRAGMS, BALLOONS, SOCKS, OR UNDERWEAR?YES - PLEASE INDICATE :RUBBER GLOVES, CONDOMS, BALLOONS, OTHER (DOCUMENT IN NOTES) BANDAIDS LATEX ALLERGY : HAVE YOU EVER DEVELOPED ANY TYPE OF REACTION DURING OR AFTER DENTAL APPOINTMENT, VAGINAL/RECTAL EXAMINATION, SURGICAL PROCEDURE, OR ANY OTHER EXPOSURE?NO LATEX RISK : HAVE YOU EVER HAD ANY DIFFICULTY BREATHING OR HIVES AFTER EATING OR HANDLING ANY FRUITS, OR VEGETABLES; SUCH KIWI, BANANAS, STONE FRUITS, OR CHESTNUTSYES - PLEASE INDICATE : ORANGES LATEX RISK : DO YOU HAVE A PREVIOUS PERSONAL HISTORY OF MORE THAN NINE SURGERIES, SPINA BIFIDA, OR REPEATED CATHERIZATIONS? NO LATEX RISK : ARE YOU FREQUENTLY EXPOSED TO LATEX PRODUCTS IN YOUR OCCUPATION?NO DATE ASKED : 07/03/2020 ALCOHOL SCREENING DID YOU HAVE A DRINK CONTAINING ALCOHOL IN THE PAST YEAR?NO POINTS0 INTERPRETATIONNEGATIVE RECREATIONAL DRUG USE DRUG USE?NO CAFFEINE CAFFEINE USE?YES HOW OFTEN AND HOW MUCH? 3 SODAS/DAY HOLINESS [id number] [employer] LANGUAGE LANGUAGES SPOKEN:BURUNDIAN EDUCATION LEVEL OF EDUCATION:NOT FINISHED COLLEGE LEARNING BARRIERS / SPECIAL NEEDS CHANGE FROM LAST VISIT?NO BARRIERS TO LEARNING?NO HEARING IMPAIRED?NO VISION IMPAIRED?YES BLIND IN LEFT EYE COGNITIVELY IMPAIRED?NO READINESS TO LEARN?YES LEARNING PREFERENCES?NO LEARNING CAPABILITIES PRESENT?YES EMOTIONAL BARRIERS?NO SPECIAL DEVICES?NO ELECTRONIC PREPRESS TECHNICIAN NEEDED?NO DOMESTIC VIOLENCE DO YOU FEEL SAFE IN YOUR ENVIRONMENT?YES DIET: REGULAR. - HAS THE PATIENT BEEN EDUCATED REGARDING HIS/HER PLAN OF CARE?YES HAS THE PATIENT BEEN EDUCATED REGARDING PAIN, THE RISK FOR PAIN, THE IMPORTANCE OF EFFECTIVE PAIN MANAGEMENT, AND THE PAIN ASSESSMENT PROCESS?YES ADVANCE DIRECTIVE ADVANCE DIRECTIVE DISCUSSED WITH PATIENT:YES HCP-TREVON SPARKS [phone] REVIEW OF SYSTEMS CONSTITUTIONAL: ANY RECENT FEVER NO . CHILLS NO . WEIGHT CHANGE OF UNKNOWN REASONS NO . GASTROENTEROLOGY: NEW UNEXPLAINABLE CHANGES IN BOWEL CONTROL NO . CONSTIPATION NO . GENITOURINARY: ANY NEW CHANGE IN BLADDER CONTROL? NO . NEUROLOGY: NEW ONSET DIZZINESS OR NEUROLOGICAL CHANGES NOT MENTIONED NO . NEW NUMBNESS OR PAIN PATTERNS NOT MENTIONED AND PERTINENT TO TODAY'S VISIT NO . CARDIOLOGY: NEW CHEST PRESSURE NO . PATIENT DENIES NO . RESPIRATORY: UNEXPLAINABLE COUGH NO . NEW SHORTNESS OF BREATH NO . EXAMINATION GENERAL EXAMINATION: THIS IS A TELEPHONE VISIT. THE PATIENT IS ALERT, ORIENTED TIMES THREE AND COOPERATIVE. MRI OF THE CERVICAL SPINE SHOWS SOME FACET ARTHROPATHY CHANGES. ASSESSMENTS OTHER CHRONIC PAIN - G89.29 MYALGIA - M79.1 CERVICALGIA - M54.2 CERVICAL SPONDYLOSIS - M47.812 TREATMENT OTHER CHRONIC PAIN CONTINUE CARISOPRODOL TABLET, 350 MG, 1 TABLET NEEDED, ORALLY FOR SPAMS AND PAIN, 1 TO 2 HOURS BEFORE BEDTIME, 30 DAYS, 30, REFILLS 0 CONTINUE GABAPENTIN CAPSULE, 300 MG, 1 CAPSULE, ORALLY FOR PAIN, BEFORE BEDTIME, 30 DAYS, 30, REFILLS 1 CONTINUE TIZANIDINE HCL TABLET, 4 MG, 1 TAB, ORALLY FOR SPASMS AND PAIN, EVERY 8 HOURS NEEDED (MDD 3), 30 DAYS, 90, REFILLS 1 CONTINUE CYMBALTA CAPSULE DELAYED RELEASE PARTICLES, 60 MG, 1 CAPSULE, ORALLY FOR PAIN, TWICE A DAY MDD2, 30 DAYS, 60, REFILLS 1 START OXYCODONE-ACETAMINOPHEN TABLET, 7.5-325 MG, 1 TABLET NEEDED, ORALLY FOR PAIN, EVERY 6 HRS MDD 4, 30 DAYS, 100, REFILLS 0 PAIN PROCEDURE LOGDATE OF PROCEDURE07/04/20PROCEDURE:TRIGGER POINT INJECTIONS BILATERAL NECK AND BILATERAL SHOULDERAMOUNT OF PRE SEDATEVALIUM 10MG, OXYCODONE 10MG, BENADRYL 25MGRESULT:PROVIDED SOME RELIEF MYALGIA CLINICAL NOTES: I DISCUSSED ALTERNATIVES WITH MS. AVILES. WE AGREE ON CONTINUING THE MEDIATION BUT REDUCING THE OXYCODONE TO 7.5 MG. THE PATIENT WILL TAKE 3 TABLETS A DAY FOR MOST DAYS BUT CAN HAVE UP TO 4 A DAY. WE TALKED ABOUT REDUCING THE GABAPENTIN BUT WE WILL HOLD OFF ON THAT FOR NOW AND REVISIT IN A MONTH. I REVIEWED THE ISTOP, REFERENCE NUMBER [id number]. TOTAL TIME FOR THE VISIT WAS 23 MINUTES. THE PATIENT REPORTS UNDERSTANDING AND AGREES WITH THE PLAN. I, OLIVE KING, DOCUMENTED THE ABOVE INFORMATION ACTING A SCRIBE FOR DR. DRAKE. I HAVE REVIEWED THE ABOVE DOCUMENT, WRITTEN BY OLIVE KING, MEDICAL RECORDS DIRECTOR, AND I VERIFY THAT IT IS ACCURATE. PROCEDURE CODES 48868 TELEMEDICINE PHONE E/M BY SHIRIN 21-30 MIN DISPOSITION & COMMUNICATION FOLLOW UP FOLLOW UP WITH DR. Muro IN 1 MONTH PHONE VISIT (REASON: MEDICATION MANAGEMENT ) ELECTRONICALLY SIGNED BY YESSICA DRAKE MD, MD ON 07/25/2020 AT 03:39 PM EDT DISCLAIMER : THIS IS A VISIT SUMMARY EXTRACTED FROM THE [employer] CHART. IT IS NOT A COPY OF THE [employer] PROGRESS NOTE. JOSE
== END ==
LOC: M PAIN 14:30
PROVIDERS: ATTEND Anesthesiology
DX: G89.29 Other chronic pain (principal); M54.2 Cervicalgia; M47.812 Spondylosis without myelopathy or radiculopathy, cervical region; D64.9 Anemia, unspecified; G43.909 Migraine, unspecified, not intractable, without status migrainosus; M79.7 Fibromyalgia; Z79.891 Long term (current) use of opiate analgesic; Z79.899 Other long term (current) drug therapy; Z88.0 Allergy status to penicillin; Z88.8 Allergy status to other drugs, medicaments and biological substances; Z91.040 Latex allergy status; Z91.048 Other nonmedicinal substance allergy status

== ENCOUNTER → 2020-08-25 | Outpatient (CLI) | payer BC ==
--- NOTE | 2020-08-26 23:47 | ECWPNPC ---
PATIENT NAME: ALEX AVILES : 1975 GENDER: FEMALE VISIT DATE: 08/25/2020 DISCHARGE DATE: 08/25/20 0000 VISIT LOCKED DATE TIME: PHYSICIAN: YESSICA DRAKE MD RESOURCE: YESSICA DRAKE MD REASON FOR APPOINTMENT 1. MEDICATION MANAGEMENT HISTORY OF PRESENT ILLNESS GENERAL: THE PATIENT GAVE PERMISSION TO DO A ZOOM VISIT. 44-YEAR-OLD FEMALE PATIENT WITH A HISTORY OF CHRONIC NECK PAIN AND HEADACHES. PRESENTLY, THE PATIENT DESCRIBES THE PAIN ACHING, TENDER AND SHOOTING WITH A PAIN SCORE RANGING FROM 6-10/10 AT THE NECK AND ALSO AT THE HEAD. SHE IS BEING FOLLOWED BY A NEUROLOGIST IN [facility], PHONE NUMBER [phone]. IT SEEMS TO BE THAT A BRAIN MRI WAS DONE AND THERE WAS SOME SORT OF ABNORMAL FINDINGS. THE PATIENT HAD BEE USING FIORICET FOR THIS PAIN BUT SHE HAS BEEN INFORMED TO AVOID USING THE MEDICATION MUCH SHE CAN. THE PATIENT WAS REFERRED BY THE NEUROLOGIST TO OUR FACILITY FOR BOTOX ALEX EXPLAINED TO US. SHE CONTINUES TO USE THE OXYCODONE, USUALLY UP TO 3 TABLETS A DAY, SOMETIMES 4. SHE HAS ALSO BEEN USING CYMBALTA, TIZANIDINE, GABAPENTIN AND SOMA. THE PATIENT HAS BEEN INFORMED TO REDUCE THE USE OF THE TIZANIDINE. THE PATIENT DID A MAMMOGRAM AND THEY FOUND A LUMP ON THE LEFT BREAST AND THEY WILL DO SOME BIOPSIES. THE PATIENT WAS SEEN BY HER CERTIFIED MEDICATION TECHNICIAN AND IT SEEMS TO BE THERE IS A CONCERN ABOUT HER VISION IN HER RIGHT EYE AND THEY INFORMED HER THAT SHE MAY HAVE GLAUCOMA. SHE IS BLIND IN THE LEFT EYE. THE PATIENT IS RECEIVING PREDINSONE PRESCRIBED BY THE CERTIFIED MEDICATION TECHNICIAN. FALL RISK SCREENING: SCREENING : NO FALLS REPORTED IN THE LAST YEAR. PAIN SCREENING: PATIENT HAS A COMPLAINT OF ACUTE OR CHRONIC PAIN :YES LOCATION OF PAIN:HEAD, NECK, UPPER BACK INTENSITY OF PAIN (SCALE OF 1 TO 10):7 WHAT DOES YOUR PAIN FEEL LIKE:ACHING, TENDER, SHOOTING DURATION:CONTINOUS VARIES IN INTENSITY AND SEVERITY PAIN IS INCREASED BY:ACTIVITIES, OTHERS PAIN IS DECREASED BY:USE OF PAIN MEDICATIONS, OTHERS ICE PLAN/GOALS/TREATMENT/INTERVENTION/FOLLOW UP:SEE PLAN NURSING NOTE: -. PAIN CENTER INTAKE QUESTIONS: DO YOU HAVE A HISTORY OF MRSA? :NO DO YOU TAKE A BLOOD THINNERS? :NO DO YOU HAVE ANY BLEEDING DISORDERS? :YES ANEMIA ANY NEW NUMBNESS OR WEAKNESS IN YOUR LEGS OR ARMS? :NO ANY PACEMAKER,DEFIBRILLATOR, OR DORSAL COLUMN STIMULATOR? :NO DO YOU HAVE ANY RASHES OR OPEN SORES? :NO ARE YOU ALLERGIC TO IV DYE? :NO ARE YOU DIABETIC? :NO HAVE YOU RECEIVED A VACCINE IN THE PAST 30 DAYS? :NO DO YOU PLAN TO RECEIVE A VACCINE IN THE NEXT 21 DAYS? :NO DO YOU NEED ANY PRESCRIPTION? :NO DO YOU TAKE ANY IMMUNOSUPPRESSIVE MEDICATIONS? :NO DO YOU HAVE ANY KIDNEY OR LIVER DISEASE? :NO IS THERE A CHANCE YOU COULD BE ? :NO ARE YOU BREAST FEEDING? :NO CURRENT MEDICATIONS TAKING HYDROXYZINE HCL 25 MG TABLET 2 TABS ORALLY EVERY 6 HRS NEEDED TAKING FLUTICASONE FUROATE 27.5 MCG/SPRAY SUSPENSION 1 SPRAY IN EACH NOSTRIL NASALLY TWICE A DAY TAKING PANTOPRAZOLE SODIUM 40 MG TABLET DELAYED RELEASE 1 TABLET ORALLY ONCE A DAY TAKING MIRALAX - POWDER 1 DOSE ORALLY ONCE A DAY NEEDED TAKING MONTELUKAST SODIUM 10 MG TABLET 1 TABLET IN THE EVENING ORALLY ONCE A DAY TAKING ASTELIN 1 SPRAY EACH NOSTRIL NASAL TWICE A DAY TAKING PROBIOTIC CAPSULE 1 TABLET ORALLY ONCE DAILY TAKING MELATONIN 5 MG CAPSULE 1 OR 2 CAPSULE AT BEDTIME NEEDED ORALLY NEEDED FOR SLEPNESS ONCE A DAY TAKING WELLBUTRIN SR 200 MG TABLET EXTENDED RELEASE 12 HOUR 1 TABLET IN THE MORNING ORALLY ONCE A DAY TAKING OXYCODONE HCL 10 MG TABLET 1 TABLET NEEDED ORALLY FOR PAIN EVERY 6 HRS MDD4 TAKING CARISOPRODOL 350 MG TABLET 1 TABLET NEEDED ORALLY FOR SPAMS AND PAIN 1 TO 2 HOURS BEFORE BEDTIME TAKING GABAPENTIN 300 MG CAPSULE 1 CAPSULE ORALLY FOR PAIN BEFORE BEDTIME TAKING TIZANIDINE HCL 4 MG TABLET 1 TAB ORALLY FOR SPASMS AND PAIN EVERY 8 HOURS NEEDED (MDD 3) TAKING CYMBALTA 60 MG CAPSULE DELAYED RELEASE PARTICLES 1 CAPSULE ORALLY FOR PAIN TWICE A DAY MDD2 TAKING OXYCODONE-ACETAMINOPHEN 7.5-325 MG TABLET 1 TABLET NEEDED ORALLY FOR PAIN EVERY 6 HRS MDD 4 NOT-TAKING OXYCODONE-ACETAMINOPHEN 10-325 MG TABLET 1 TABLET NEEDED ORALLY FOR PAIN Q6H PRN MDD4, NOTES: NOT WHILE TAKING THE MORPHINE NOT-TAKING MORPHINE SULFATE 15 MG TABLET 1 TABLET NEEDED ORALLY FOR PAIN EVERY 8 HRS MDD3 NOT-TAKING AMITRIPTYLINE HCL 25 MG TABLET 1 TABLET AT BEDTIME ORALLY ONCE A DAY NOT-TAKING NORCO 10-325 MG TABLET 1 TABLET NEEDED ORALLY Q8H PRN MDD3 NOT-TAKING RANITIDINE HCL 150 MG CAPSULE 1 CAPSULE ORALLY ONCE DAILY MEDICATION LIST REVIEWED AND RECONCILED WITH THE PATIENT PAST MEDICAL HISTORY ANEMIA GERD STOMACH ULCERS WITH H PYLORI NECK AND LOW BACK PAIN 04/26/18 CONCUSSION FROM FALLING DOWN THE STAIRS AND HITTING HEAD LEFT EYE BLIND SINCE MIGRAINE HEADACHES FIBROMYALGIA LEFT BREAST BUMP ALLERGIES PENICILLIN: SWELLING - ALLERGY ORANGES: ANAPHYLAXIS - ALLERGY BANDAIDS AND ADHESIVES: REDDNESS AND SWELLING - ALLERGY LATEX GLOVES: REDDNESS AND SWELLING - ALLERGY TEGADERM: REDNESS, SWELLING - ALLERGY FAMILY HISTORY FATHER: MOTHER: , DIAGNOSED WITH OTHER SPECIFIED CONDITIONS INFLUENCING HEALTH STATUS SIBLINGS: ALIVE PATERNAL GRAND FATHER: OTHER MALIGNANT NEOPLASM OF UNSPECIFIED SITE 3 BROTHER(S) , 4 SISTER(S) - HEALTHY. 1 SON(S) , 3 DAUGHTER(S) . FATHER FROM MVA, NO MEDICAL HISTORY \\NMOTHER- DUE TO CHF, BRAIN TUMOR X 2, BREAST CA\\NPATERNAL GRANDFATHER--CA-UNSURE OF WHAT KIND\\NDAUGHTER - IRREGULAR HEART BEAT, ASTHMA\\NDAUGHTER - HYPOTHYROIDSISTER A: RECURRENT BREAST CANCERSISTER B: 7 STENTS PLACEDBROTHER: LUNG PROBLEM (BORN WITH). SOCIAL HISTORY GENERAL: TOBACCO USE ARE YOU A:NONSMOKER LATEX QUESTIONNAIRE LATEX ALLERGY : HAVE YOU EVER DEVELOPED ANY TYPE OF REACTION AFTER HANDLING LATEX PRODUCTS SUCH RUBBER GLOVES, CONDOMS, DIAPHRAGMS, BALLOONS, SOCKS, OR UNDERWEAR?YES - PLEASE INDICATE :RUBBER GLOVES, CONDOMS, BALLOONS, OTHER (DOCUMENT IN NOTES) BANDAIDS LATEX ALLERGY : HAVE YOU EVER DEVELOPED ANY TYPE OF REACTION DURING OR AFTER DENTAL APPOINTMENT, VAGINAL/RECTAL EXAMINATION, SURGICAL PROCEDURE, OR ANY OTHER EXPOSURE?NO LATEX RISK : HAVE YOU EVER HAD ANY DIFFICULTY BREATHING OR HIVES AFTER EATING OR HANDLING ANY FRUITS, OR VEGETABLES; SUCH KIWI, BANANAS, STONE FRUITS, OR CHESTNUTSYES - PLEASE INDICATE : ORANGES LATEX RISK : DO YOU HAVE A PREVIOUS PERSONAL HISTORY OF MORE THAN NINE SURGERIES, SPINA BIFIDA, OR REPEATED CATHERIZATIONS? NO LATEX RISK : ARE YOU FREQUENTLY EXPOSED TO LATEX PRODUCTS IN YOUR OCCUPATION?NO DATE ASKED : 08/22/2020 ALCOHOL SCREENING DID YOU HAVE A DRINK CONTAINING ALCOHOL IN THE PAST YEAR?NO POINTS0 INTERPRETATIONNEGATIVE RECREATIONAL DRUG USE DRUG USE?NO CAFFEINE CAFFEINE USE?YES HOW OFTEN AND HOW MUCH? 3 SODAS/DAY JAINISM [id number] GNOSTICIST LANGUAGE LANGUAGES SPOKEN:SWEDISH EDUCATION LEVEL OF EDUCATION:NOT FINISHED COLLEGE LEARNING BARRIERS / SPECIAL NEEDS CHANGE FROM LAST VISIT?NO BARRIERS TO LEARNING?NO HEARING IMPAIRED?NO VISION IMPAIRED?YES BLIND IN LEFT EYE COGNITIVELY IMPAIRED?NO READINESS TO LEARN?YES LEARNING PREFERENCES?NO LEARNING CAPABILITIES PRESENT?YES EMOTIONAL BARRIERS?NO SPECIAL DEVICES?NO RN EMERGENCY NEEDED?NO DOMESTIC VIOLENCE DO YOU FEEL SAFE IN YOUR ENVIRONMENT?YES DIET: REGULAR. - HAS THE PATIENT BEEN EDUCATED REGARDING HIS/HER PLAN OF CARE?YES HAS THE PATIENT BEEN EDUCATED REGARDING PAIN, THE RISK FOR PAIN, THE IMPORTANCE OF EFFECTIVE PAIN MANAGEMENT, AND THE PAIN ASSESSMENT PROCESS?YES ADVANCE DIRECTIVE ADVANCE DIRECTIVE DISCUSSED WITH PATIENT:YES HCP-TREVON SPARKS [phone] REVIEW OF SYSTEMS CONSTITUTIONAL: ANY RECENT FEVER NO . CHILLS NO . WEIGHT CHANGE OF UNKNOWN REASONS NO . GASTROENTEROLOGY: NEW UNEXPLAINABLE CHANGES IN BOWEL CONTROL NO . CONSTIPATION NO . GENITOURINARY: ANY NEW CHANGE IN BLADDER CONTROL? NO . NEUROLOGY: NEW ONSET DIZZINESS OR NEUROLOGICAL CHANGES NOT MENTIONED NO . NEW NUMBNESS OR PAIN PATTERNS NOT MENTIONED AND PERTINENT TO TODAY'S VISIT NO . CARDIOLOGY: NEW CHEST PRESSURE NO . PATIENT DENIES NO . RESPIRATORY: UNEXPLAINABLE COUGH NO . NEW SHORTNESS OF BREATH NO . EXAMINATION GENERAL: THIS IS A TELEPHONE VISIT. THE PATIENT IS ALERT, ORIENTED TIMES THREE AND COOPERATIVE. ASSESSMENTS NECK PAIN - M54.2 (PRIMARY) FACET ARTHROPATHY, CERVICAL - M47.812 CHRONIC MIGRAINE - G43.709 LEFT BREAST MASS - N63.20, DOING BIOPSY ISSUES WITH HER RIGHT EYE. TREATMENT NECK PAIN CLINICAL NOTES: I DISCUSSED ALTERNATIVES WITH MS. AVILES. THE PATIENT IS FOLLOWING WITH HER CERTIFIED MEDICATION TECHNICIAN THE CONDITION OVER HER RIGHT EYE. IT IS IMPORTANT THAT WE ARE INFORMED OF WHAT IS HAPPENING WITH THAT SITUATION. IT SEEMS TO BE THAT THE CERTIFIED MEDICATION TECHNICIAN IS GIVING HER STEROIDS. LONG SHE IS UNDER THE CARE OF HER CERTIFIED MEDICATION TECHNICIAN EVERYTHING IS FINE. I JUST WANT TO SHARE WITH ALEX THAT THERE IS SOME EYE CONDITIONS, ESPECIALLY IN THE RETINA THAT STEROIDS MAY BE PROBLEMATIC. THE PATIENT HAS BEEN REFERRED FOR BOTOX, SO WE WILL HAVE TO EVALUATE HER FOR THAT AND LOOK AT THE MRI. FOR NOW, WE WILL CONTINUE WITH MEDICATION MANAGEMENT. AT SOME POINT, I WOULD LIKE TO TALK TO HER NEUROLOGIST ABOUT USING MORE TIZANIDINE AND LESS OXYCODONE. I WOULD LIKE TO FOLLOW UP WITH PATIENT IN 3 WEEKS IN PERSON. THE PATIENT REPORTS UNDERSTANDING AND AGREES WITH THE PLAN. I, OLIVE KING, DOCUMENTED THE ABOVE INFORMATION ACTING A SCRIBE FOR DR. DRAKE. I HAVE REVIEWED THE ABOVE DOCUMENT, WRITTEN BY OLIVE KING, SERVICE LINE BUS CLEANER, AND I VERIFY THAT IT IS ACCURATE. OTHERS NOTES: 08/22/20 1424 PAT COMPLETED DUE TO PENDING VIRTUAL VISIT, VITAL SIGNS UNABLE TO BE OBTAINED. Elvira TAPIA CVIR TECH. DISPOSITION & COMMUNICATION FOLLOW UP F/UP WITH DR. Muro 09/09 AT 12:45 IN PERSON (REASON: MEDICATION MANAGEMENT/CHRONIC HEADACHES) ELECTRONICALLY SIGNED BY YESSICA DRAKE MD, ON 08/26/2020 AT 02:29 PM EDT DISCLAIMER : THIS IS A VISIT SUMMARY EXTRACTED FROM THE [employer] CHART. IT IS NOT A COPY OF THE [employer] PROGRESS NOTE. JOSE
== END ==
LOC: M PAIN 14:00
PROVIDERS: ATTEND Anesthesiology
DX: M54.2 Cervicalgia (principal); M47.812 Spondylosis without myelopathy or radiculopathy, cervical region; G43.709 Chronic migraine without aura, not intractable, without status migrainosus; N63.20 Unspecified lump in the left breast, unspecified quadrant; D64.9 Anemia, unspecified; K21.9 Gastro-esophageal reflux disease without esophagitis; M79.7 Fibromyalgia; M54.5 Low back pain; Z79.891 Long term (current) use of opiate analgesic; Z79.899 Other long term (current) drug therapy; Z88.0 Allergy status to penicillin; Z88.8 Allergy status to other drugs, medicaments and biological substances; Z91.040 Latex allergy status; Z91.048 Other nonmedicinal substance allergy status; Z91.018 Allergy to other foods

== ENCOUNTER → 2020-09-09 | Outpatient (CLI) | payer BC ==
--- NOTE | 2020-09-13 02:26 | ECWPNPC ---
PATIENT NAME: ALEX AVILES : 1975 GENDER: FEMALE VISIT DATE: 09/09/2020 DISCHARGE DATE: 09/09/20 1454 VISIT LOCKED DATE TIME: PHYSICIAN: YESSICA DRAKE MD RESOURCE: YESSICA DRAKE MD REASON FOR APPOINTMENT 1. MEDICATION MANAGMENT/CHRONIC HEADACHES HISTORY OF PRESENT ILLNESS GENERAL: 44-YEAR-OLD FEMALE PATIENT WITH A HISTORY OF CHRONIC NECK PAIN AND CHRONIC MIGRAINES. SHE HAS BEEN SUFFERING FROM THIS CONDITION FOR SOME TIME. SHE WAS EVALUATED BY HER PRIMARY CARE WHO DID AN MRI WHICH SHOWS UNSPECIFIC CHANGES. THE PATIENT IS IN THE PROCESS OF BEING EVALUATED BY A NEUROLOGIST. THE PATIENT EXPLAINED TO ME THAT A REFERRAL WAS SENT TO US TO CONSIDER BOTOX. PRESENTLY, THE PATIENT IS USING, FOR HER NECK PAIN, OXYCODONE, SOMA, GABAPENTIN, TIZANIDINE AND CYMBALTA. THE PATIENT DESCRIBES THE PAIN ACHING, BURNING AND CONTINUOUS WITH A PAIN SCORE RANGING FROM 7-10/10. THE PAIN IS IN THE NECK AREA. SHE ALSO IS HAVING HEADACHES. THIS IS AFFECTING HER ABILITY TO DO ACTIVITIES SUCH CLEANING HER HOUSE AND GOING GROCERY SHOPPING. FALL RISK SCREENING: SCREENING : NO FALLS REPORTED IN THE LAST YEAR. PAIN SCREENING: PATIENT HAS A COMPLAINT OF ACUTE OR CHRONIC PAIN :YES LOCATION OF PAIN:NECK RIGHT SIDE INTENSITY OF PAIN (SCALE OF 1 TO 10):8 WHAT DOES YOUR PAIN FEEL LIKE:ACHING, BURNING, CONTINOUS, SHARP, STABBING, TENDER ACHING UPPER PORTION OF NECK, BURNING IN SHOULDER AREA DURATION:CONTINOUS, CONSTANT, AWAKENS FROM SLEEP PAIN IS INCREASED BY:ACTIVITIES, OTHERS PROLONGED SITTING, LYING FLAT NURSING NOTE: PT WOULD LIKE TO DISCUSS INCREASING OXYCODONE/ACETAMINOPHEN BACK TO 10/325 MGS DUE TO PAIN KEEPING HER UP OR WAKING HER UP AT NIGHT. Brett HERNANDEZ RN. PAIN CENTER INTAKE QUESTIONS: DO YOU HAVE A HISTORY OF MRSA? :NO DO YOU TAKE A BLOOD THINNERS? :NO DO YOU HAVE ANY BLEEDING DISORDERS? :YES ANEMIA ANY NEW NUMBNESS OR WEAKNESS IN YOUR LEGS OR ARMS? :NO ANY PACEMAKER,DEFIBRILLATOR, OR DORSAL COLUMN STIMULATOR? :NO DO YOU HAVE ANY RASHES OR OPEN SORES? :NO ARE YOU ALLERGIC TO IV DYE? :NO ARE YOU DIABETIC? :NO ANY NEW PROBLEMS WITH YOUR MEDICATIONS? :NO HAVE YOU RECEIVED A VACCINE IN THE PAST 30 DAYS? :NO DO YOU PLAN TO RECEIVE A VACCINE IN THE NEXT 21 DAYS? :NO NOT SURE, SHE MAY BE GETTING THE COVID VACCINE DO YOU NEED ANY PRESCRIPTION? :YES OXYCODONE, TIZANIDINE, DULOXETINE,SOMA, GABAPENTIN DO YOU TAKE ANY IMMUNOSUPPRESSIVE MEDICATIONS? :NO DO YOU HAVE ANY KIDNEY OR LIVER DISEASE? :NO IS THERE A CHANCE YOU COULD BE ? :NO ARE YOU BREAST FEEDING? :NO CURRENT MEDICATIONS TAKING FLUTICASONE FUROATE 27.5 MCG/SPRAY SUSPENSION 1 SPRAY IN EACH NOSTRIL NASALLY TWICE A DAY TAKING PANTOPRAZOLE SODIUM 40 MG TABLET DELAYED RELEASE 1 TABLET ORALLY ONCE A DAY TAKING MIRALAX - POWDER 1 DOSE ORALLY ONCE A DAY NEEDED TAKING MONTELUKAST SODIUM 10 MG TABLET 1 TABLET IN THE EVENING ORALLY ONCE A DAY TAKING ASTELIN 1 SPRAY EACH NOSTRIL NASAL TWICE A DAY TAKING MELATONIN 5 MG CAPSULE 1 OR 2 CAPSULE AT BEDTIME NEEDED ORALLY NEEDED FOR SLEPNESS ONCE A DAY TAKING WELLBUTRIN SR 200 MG TABLET EXTENDED RELEASE 12 HOUR 1 TABLET IN THE MORNING ORALLY ONCE A DAY TAKING CARISOPRODOL 350 MG TABLET 1 TABLET NEEDED ORALLY FOR SPAMS AND PAIN 1 TO 2 HOURS BEFORE BEDTIME TAKING GABAPENTIN 300 MG CAPSULE 1 CAPSULE ORALLY FOR PAIN BEFORE BEDTIME TAKING TIZANIDINE HCL 4 MG TABLET 1 TAB ORALLY FOR SPASMS AND PAIN EVERY 8 HOURS NEEDED (MDD 3) TAKING CYMBALTA 60 MG CAPSULE DELAYED RELEASE PARTICLES 1 CAPSULE ORALLY FOR PAIN TWICE A DAY MDD2 TAKING OXYCODONE-ACETAMINOPHEN 7.5-325 MG TABLET 1 TABLET NEEDED ORALLY FOR PAIN EVERY 6 HRS MDD 4 NOT-TAKING HYDROXYZINE HCL 25 MG TABLET 2 TABS ORALLY EVERY 6 HRS NEEDED NOT-TAKING PROBIOTIC CAPSULE 1 TABLET ORALLY ONCE DAILY NOT-TAKING OXYCODONE HCL 10 MG TABLET 1 TABLET NEEDED ORALLY FOR PAIN EVERY 6 HRS MDD4 NOT-TAKING OXYCODONE-ACETAMINOPHEN 10-325 MG TABLET 1 TABLET NEEDED ORALLY FOR PAIN Q6H PRN MDD4, NOTES: NOT WHILE TAKING THE MORPHINE NOT-TAKING MORPHINE SULFATE 15 MG TABLET 1 TABLET NEEDED ORALLY FOR PAIN EVERY 8 HRS MDD3 NOT-TAKING AMITRIPTYLINE HCL 25 MG TABLET 1 TABLET AT BEDTIME ORALLY ONCE A DAY NOT-TAKING NORCO 10-325 MG TABLET 1 TABLET NEEDED ORALLY Q8H PRN MDD3 NOT-TAKING RANITIDINE HCL 150 MG CAPSULE 1 CAPSULE ORALLY ONCE DAILY MEDICATION LIST REVIEWED AND RECONCILED WITH THE PATIENT PAST MEDICAL HISTORY ANEMIA GERD STOMACH ULCERS WITH H PYLORI NECK AND LOW BACK PAIN 04/26/18 CONCUSSION FROM FALLING DOWN THE STAIRS AND HITTING HEAD LEFT EYE BLIND SINCE MIGRAINE HEADACHES FIBROMYALGIA LEFT BREAST BUMP CYST RIGHT BREAST GLAUCOMA RIGHT EYE ALLERGIES PENICILLIN: SWELLING - ALLERGY ORANGES: ANAPHYLAXIS - ALLERGY BANDAIDS AND ADHESIVES: REDDNESS AND SWELLING - ALLERGY LATEX GLOVES: REDDNESS AND SWELLING - ALLERGY TEGADERM: REDNESS, SWELLING - ALLERGY SURGICAL HISTORY RIGHT KNEE 1985 TUBAL LIGATION 2001 D&C 1995 MOLES REMOVED 2015 TOTAL HYSTERECTOMY 2016 COLONOSCOPY/ENDOSCOPY 2018 BILATERAL BREAST BIOPSIES AT [facility] 09/08/20 FAMILY HISTORY FATHER: MOTHER: , DIAGNOSED WITH OTHER SPECIFIED CONDITIONS INFLUENCING HEALTH STATUS SIBLINGS: ALIVE PATERNAL GRAND FATHER: OTHER MALIGNANT NEOPLASM OF UNSPECIFIED SITE 3 BROTHER(S) , 4 SISTER(S) - HEALTHY. 1 SON(S) , 3 DAUGHTER(S) . FATHER FROM MVA, NO MEDICAL HISTORY \\NMOTHER- DUE TO CHF, BRAIN TUMOR X 2, BREAST CA\\NPATERNAL GRANDFATHER--CA-UNSURE OF WHAT KIND\\NDAUGHTER - IRREGULAR HEART BEAT, ASTHMA\\NDAUGHTER - HYPOTHYROIDSISTER A: RECURRENT BREAST CANCERSISTER B: 7 STENTS PLACEDBROTHER: LUNG PROBLEM (BORN WITH),KIDNEY CA. SOCIAL HISTORY GENERAL: TOBACCO USE ARE YOU A:NONSMOKER LATEX QUESTIONNAIRE LATEX ALLERGY : HAVE YOU EVER DEVELOPED ANY TYPE OF REACTION AFTER HANDLING LATEX PRODUCTS SUCH RUBBER GLOVES, CONDOMS, DIAPHRAGMS, BALLOONS, SOCKS, OR UNDERWEAR?YES KNOWN LATEX ALLERGY - PLEASE INDICATE :RUBBER GLOVES, CONDOMS, BALLOONS, OTHER (DOCUMENT IN NOTES) BANDAIDS LATEX ALLERGY : HAVE YOU EVER DEVELOPED ANY TYPE OF REACTION DURING OR AFTER DENTAL APPOINTMENT, VAGINAL/RECTAL EXAMINATION, SURGICAL PROCEDURE, OR ANY OTHER EXPOSURE?NO LATEX RISK : HAVE YOU EVER HAD ANY DIFFICULTY BREATHING OR HIVES AFTER EATING OR HANDLING ANY FRUITS, OR VEGETABLES; SUCH KIWI, BANANAS, STONE FRUITS, OR CHESTNUTSYES - PLEASE INDICATE : ORANGES LATEX RISK : DO YOU HAVE A PREVIOUS PERSONAL HISTORY OF MORE THAN NINE SURGERIES, SPINA BIFIDA, OR REPEATED CATHERIZATIONS? NO LATEX RISK : ARE YOU FREQUENTLY EXPOSED TO LATEX PRODUCTS IN YOUR OCCUPATION?NO DATE ASKED : 08/22/2020 ALCOHOL USE: NO. ALCOHOL SCREENING DID YOU HAVE A DRINK CONTAINING ALCOHOL IN THE PAST YEAR?NO POINTS0 INTERPRETATIONNEGATIVE RECREATIONAL DRUG USE DRUG USE?NO CAFFEINE CAFFEINE USE?YES HOW OFTEN AND HOW MUCH? 3 SODAS/DAY ORTHODOXY [id number] CONGREGATION LANGUAGE LANGUAGES SPOKEN:PORTUGUESE EDUCATION LEVEL OF EDUCATION:NOT FINISHED COLLEGE LEARNING BARRIERS / SPECIAL NEEDS CHANGE FROM LAST VISIT?NO BARRIERS TO LEARNING?NO HEARING IMPAIRED?NO VISION IMPAIRED?YES BLIND IN LEFT EYE COGNITIVELY IMPAIRED?NO READINESS TO LEARN?YES LEARNING PREFERENCES?NO LEARNING CAPABILITIES PRESENT?YES EMOTIONAL BARRIERS?NO SPECIAL DEVICES?NO PORTFOLIO MGR NEEDED?NO DOMESTIC VIOLENCE DO YOU FEEL SAFE IN YOUR ENVIRONMENT?YES DIET: REGULAR. - HAS THE PATIENT BEEN EDUCATED REGARDING HIS/HER PLAN OF CARE?YES HAS THE PATIENT BEEN EDUCATED REGARDING PAIN, THE RISK FOR PAIN, THE IMPORTANCE OF EFFECTIVE PAIN MANAGEMENT, AND THE PAIN ASSESSMENT PROCESS?YES ADVANCE DIRECTIVE ADVANCE DIRECTIVE DISCUSSED WITH PATIENT:YES HCP-TREVON SPARKS [phone] HOSPITALIZATION/MAJOR DIAGNOSTIC PROCEDURE CHILD 12/18/1991 CHILD 11/01/1996 CHILD 11/23/1998 CHILD 01/29/2002 HYSTERECTOMY 2017 KNEE SURGERY ALLERGIC REACTION AGE 2 OR 3 REVIEW OF SYSTEMS CONSTITUTIONAL: ANY RECENT FEVER NO . CHILLS NO . WEIGHT CHANGE OF UNKNOWN REASONS NO . GASTROENTEROLOGY: NEW UNEXPLAINABLE CHANGES IN BOWEL CONTROL NO . CONSTIPATION NO . GENITOURINARY: ANY NEW CHANGE IN BLADDER CONTROL? NO . NEUROLOGY: NEW ONSET DIZZINESS OR NEUROLOGICAL CHANGES NOT MENTIONED NO . NEW NUMBNESS OR PAIN PATTERNS NOT MENTIONED AND PERTINENT TO TODAY'S VISIT NO . CARDIOLOGY: NEW CHEST PRESSURE NO . PATIENT DENIES NO . RESPIRATORY: UNEXPLAINABLE COUGH NO . NEW SHORTNESS OF BREATH NO . VITAL SIGNS WT 180.0 LBS, HT 67 IN, BMI 28.19 INDEX, BP 135/85 MM HG, HR 75 /MIN, RR 18 /MIN, TEMP 98.0 F, OXYGEN SAT % 96%, SAFE IN ENV? (Y/N) Y, NA INITIALS AW 1313, REVIEWED BY: JT STEEN. EXAMINATION GENERAL: THE PATIENT IS ALERT, ORIENTED TIMES THREE AND COOPERATIVE. LUNGS ARE CLEAR TO AUSCULTATION. HEART SHOWS REGULAR RHYTHM, NO MURMURS AND NO GALLOPS. PRESENCE OF TRIGGER POINTS IN THE RIGHT NECK AREA WITH BANDS OF TISSUE AND RESTRICTION OF MOVEMENT IN THE AREA. MRI OF THE BRAIN DATED 08/06/2020 SHOWS NONSPECIFIC CHANGES IN THE SUBCORTICAL WHITE MATTER. CERVICAL MRI DATED 02/06/2020 SHOWS FACET ARTHROPATHY CHANGES AT MULTIPLE LEVELS. 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 EM. CLINICAL NOTES: I DISCUSSED ALTERNATIVES WITH MS. AVILES. URINE TOX DATED 07/04/2020 IS SHOWING CONCORDANT RESULTS. IT SHOWS A PRESENCE OF BENZODIAZEPINE. THE PATIENT USED VALIUM DURING A PROCEDURE, AND SHE USES LORAZEPAM SO THAT MAKES THE RESULTS CONCORDANT. THE PATIENT IS BEING FOLLOWED BY HER PRIMARY FOR THE MIGRAINES. HER PRIMARY SENT US A REFER TO CONSIDER BOTOX. AT THE MOMENT OF THE APPOINTMENT, I WAS NOT ABLE TO SEE THE REFERRAL. BUT THE PATIENT EXPRESSED TO ME THAT ONE OF THE CHIEF ENGINEERING DIVISION RECEIVED IT, SO WE SHOULD FIND THAT BEFORE HER NEXT FOLLOW UP. I REVIEWED WITH ALEX MEDICATIONS THAT SHE HAS TRIED IN TERMS OF THE MIGRAINES. SHE HAS TRIED AND FAILED AMITRIPTYLINE, CYMBALTA AND GABAPENTIN. SHE HAS TRIED ACETAMINOPHEN AND SHE CANNOT USE NSAIDS BECAUSE SHE HAS A HISTORY OF A BLEEDING ULCER. SHE HAS TRIED SUMATRIPTAN WITHOUT PAIN RELIEF. SHE HAS ALSO TRIED FIORICET WITHOUT ADEQUATE PAIN RELIEF. SO I WILL GIVE HER A PRESCRIPTION OF TOPAMAX TO SEE IF THAT HELPS HER. IF WE TRY TOPAMAX AND DO NOT SEE AN IMPROVEMENT IN HER CONDITION, WE WILL LOOK FOR THE REFERRAL AND START HER ON BOTOX IF WE NEED TO. IN TERMS OF THE MEDICATIONS THAT WE ARE USING FOR HER NECK PAIN, SHE IS HAVING A LOT OF DIFFICULTIES. WE REDUCED THE OXYCODONE TO 7.5 BUT SHE DOES NOT FEEL THAT IT IS WORKING THAT WELL. AFTER DISCUSSING ALTERNATIVES, WE AGREED ON INCREASING IT BACK UP TO 10 MG. THE PATIENT IS AWARE TO BE CAREFUL WITH THIS MEDICATION. SHE IS AWARE THAT THIS MEDICATION CAN BE ADDICTIVE. THE COMBINATION OF THESE MEDICATIONS CAN CAUSE RESPIRATORY DEPRESSION. SHE IS VERY CAREFUL WHERE SHE KEEPS HER MEDICATIONS. WE HAD A LONG CONVERSATION ABOUT THE NARCOTICS. WE AGREED WITH THE PATIENT TO TRY ONE MORE TIME OXYCODONE 10 MG 3 TIMES A DAY. SHE HAS BEEN FOLLOWING INSTRUCTIONS, SHE HAS BEEN RELIABLE. SHE HAS THEM IN A SAFE PLACE. SHE KNOWS TO BRING HER MEDICATIONS WITH HER TO EVERY APPOINTMENT. I WANT A NEUROLOGIST INVOLVED WITH HER CASE, EITHER ONE IN HER HOME TOWN OR ONE AROUND HERE. THE PATIENT REPORTS UNDERSTANDING AND AGREES WITH THE PLAN. I, OLIVE KING, DOCUMENTED THE ABOVE INFORMATION ACTING A SCRIBE FOR DR. DRAKE. I HAVE REVIEWED THE ABOVE DOCUMENT, WRITTEN BY OLIVE KING, SALT PLANT OPERATOR, AND I VERIFY THAT IT IS ACCURATE. OTHERS NOTES: TOPIRAMATE MATERIAL WAS PRINTED. PROCEDURE CODES FA211 ESTABILISHED PATIENT [facility] CHARGE [id number] OFFICE/OUTPATIENT VISIT EST DISPOSITION & COMMUNICATION FOLLOW UP F/UP DR. Muro IN 3 WEEKS (REASON: MEDICATION MANAGEMENT) ELECTRONICALLY SIGNED BY YESSICA DRAKE MD, MD ON 09/12/2020 AT 03:56 PM EDT DISCLAIMER : THIS IS A VISIT SUMMARY EXTRACTED FROM THE [employer] CHART. IT IS NOT A COPY OF THE [employer] PROGRESS NOTE. JOSE
== END ==
LOC: M PAIN 12:45
PROVIDERS: ATTEND Anesthesiology
DX: G43.709 Chronic migraine without aura, not intractable, without status migrainosus (principal); M54.2 Cervicalgia; M79.18 Myalgia, other site; M47.812 Spondylosis without myelopathy or radiculopathy, cervical region; K21.9 Gastro-esophageal reflux disease without esophagitis; Z88.0 Allergy status to penicillin; Z91.018 Allergy to other foods; Z91.040 Latex allergy status; Z91.09 Other allergy status, other than to drugs and biological substances; Z79.899 Other long term (current) drug therapy

== ENCOUNTER → 2020-10-03 | Outpatient (CLI) | payer BC ==
--- NOTE | 2020-10-09 03:41 | ECWPNPC ---
PATIENT NAME: ALEX AVILES : 1975 GENDER: FEMALE VISIT DATE: 10/03/2020 DISCHARGE DATE: 10/03/20 1538 VISIT LOCKED DATE TIME: PHYSICIAN: YESSICA DRAKE MD RESOURCE: YESSICA DRAKE MD REASON FOR APPOINTMENT 1. MEDICATION MANAGMENT/CHRONIC HEADACHES HISTORY OF PRESENT ILLNESS DEPRESSION SCREENING: PHQ-2 (2015 EDITION) LITTLE INTEREST OR PLEASURE IN DOING THINGS?NOT AT ALL FEELING DOWN, DEPRESSED, OR HOPELESS?NOT AT ALL TOTAL SCORE0 GENERAL: 44-YEAR-OLD FEMALE PATIENT WITH A HISTORY OF CHRONIC NECK PAIN AND HEADACHES. THE PATIENT DESCRIBES THE PAIN ACHING, BURNING AND SHARP WITH A PAIN SCORE RANGING FROM 6-10/10. THE PATIENT HAS BEEN USING MEDICATIONS MANAGEMENT AND ALSO IN THE PAST, WE HAVE DONE SOME INJECTION THERAPY BUT THE PAIN PERSISTS. THE PATIENT WAS REFERRED TO OUR FACILITY TO CONSIDER BOTOX. SHE IS ALSO IN THE PROCESS OF BEING EVALUATED BY NEUROLOGY. SHE IS LOOKING FOR ALTERNATIVES. FALL RISK SCREENING: SCREENING : NO FALLS REPORTED IN THE LAST YEAR. PAIN SCREENING: PATIENT HAS A COMPLAINT OF ACUTE OR CHRONIC PAIN :YES LOCATION OF PAIN:HEAD, NECK INTENSITY OF PAIN (SCALE OF 1 TO 10):7 WHAT DOES YOUR PAIN FEEL LIKE:ACHING, BURNING, CONTINOUS, SHARP, STABBING, SHOOTING DURATION:CONSTANT PAIN IS INCREASED BY:ACTIVITIES PAIN IS DECREASED BY:OTHERS REST NURSING NOTE: -. PAIN CENTER INTAKE QUESTIONS: DO YOU HAVE A HISTORY OF MRSA? :NO DO YOU TAKE A BLOOD THINNERS? :NO DO YOU HAVE ANY BLEEDING DISORDERS? :YES ANEMIC ANY NEW NUMBNESS OR WEAKNESS IN YOUR LEGS OR ARMS? :NO ANY PACEMAKER,DEFIBRILLATOR, OR DORSAL COLUMN STIMULATOR? :NO DO YOU HAVE ANY RASHES OR OPEN SORES? :YES MULTIPLE BREAST BIOPSY SITES ARE YOU ALLERGIC TO IV DYE? :NO ARE YOU DIABETIC? :NO ANY NEW PROBLEMS WITH YOUR MEDICATIONS? :NO HAVE YOU RECEIVED A VACCINE IN THE PAST 30 DAYS? :NO DO YOU PLAN TO RECEIVE A VACCINE IN THE NEXT 21 DAYS? :NO DO YOU NEED ANY PRESCRIPTION? :NO DO YOU TAKE ANY IMMUNOSUPPRESSIVE MEDICATIONS? :NO DO YOU HAVE ANY KIDNEY OR LIVER DISEASE? :NO IS THERE A CHANCE YOU COULD BE ? :NO ARE YOU BREAST FEEDING? :NO CURRENT MEDICATIONS TAKING PROBIOTIC CAPSULE 1 TABLET ORALLY ONCE DAILY TAKING OXYCODONE-ACETAMINOPHEN 10-325 MG TABLET 1 TABLET NEEDED ORALLY FOR PAIN Q6H PRN MDD4, NOTES: NOT WHILE TAKING THE MORPHINE TAKING FLUTICASONE FUROATE 27.5 MCG/SPRAY SUSPENSION 1 SPRAY IN EACH NOSTRIL NASALLY TWICE A DAY TAKING PANTOPRAZOLE SODIUM 40 MG TABLET DELAYED RELEASE 1 TABLET ORALLY ONCE A DAY TAKING MIRALAX - POWDER 1 DOSE ORALLY ONCE A DAY NEEDED TAKING MONTELUKAST SODIUM 10 MG TABLET 1 TABLET IN THE EVENING ORALLY ONCE A DAY TAKING ASTELIN 1 SPRAY EACH NOSTRIL NASAL TWICE A DAY TAKING MELATONIN 5 MG CAPSULE 1 OR 2 CAPSULE AT BEDTIME NEEDED ORALLY NEEDED FOR SLEPNESS ONCE A DAY TAKING WELLBUTRIN SR 200 MG TABLET EXTENDED RELEASE 12 HOUR 1 TABLET IN THE MORNING ORALLY ONCE A DAY TAKING GABAPENTIN 300 MG CAPSULE 1 CAPSULE ORALLY FOR PAIN BEFORE BEDTIME TAKING CYMBALTA 60 MG CAPSULE DELAYED RELEASE PARTICLES 1 CAPSULE ORALLY FOR PAIN TWICE A DAY MDD2 TAKING TOPIRAMATE 50 MG TABLET 1 TABLET ORALLY FOR HEADACHE ONCE A DAY TAKING CARISOPRODOL 350 MG TABLET 1 TABLET NEEDED ORALLY FOR SPAMS AND PAIN 1 TO 2 HOURS BEFORE BEDTIME TAKING PRILOSEC OTC 20 MG TABLET DELAYED RELEASE 1 TABLET 30 MINUTES BEFORE MORNING MEAL ORALLY ONCE A DAY NOT-TAKING HYDROXYZINE HCL 25 MG TABLET 2 TABS ORALLY EVERY 6 HRS NEEDED NOT-TAKING MORPHINE SULFATE 15 MG TABLET 1 TABLET NEEDED ORALLY FOR PAIN EVERY 8 HRS MDD3 NOT-TAKING AMITRIPTYLINE HCL 25 MG TABLET 1 TABLET AT BEDTIME ORALLY ONCE A DAY NOT-TAKING NORCO 10-325 MG TABLET 1 TABLET NEEDED ORALLY Q8H PRN MDD3 NOT-TAKING RANITIDINE HCL 150 MG CAPSULE 1 CAPSULE ORALLY ONCE DAILY NOT-TAKING TIZANIDINE HCL 4 MG TABLET 1 TAB ORALLY FOR SPASMS AND PAIN EVERY 8 HOURS NEEDED (MDD 3) NOT-TAKING OXYCODONE-ACETAMINOPHEN 7.5-325 MG TABLET 1 TABLET NEEDED ORALLY FOR PAIN EVERY 6 HRS MDD 4 NOT-TAKING OXYCODONE HCL 10 MG TABLET 1 TABLET NEEDED ORALLY FOR PAIN EVERY 6 HRS MDD4 MEDICATION LIST REVIEWED AND RECONCILED WITH THE PATIENT PAST MEDICAL HISTORY ANEMIA GERD STOMACH ULCERS WITH H PYLORI NECK AND LOW BACK PAIN 04/26/18 CONCUSSION FROM FALLING DOWN THE STAIRS AND HITTING HEAD LEFT EYE BLIND SINCE MIGRAINE HEADACHES FIBROMYALGIA LEFT BREAST BUMP CYST RIGHT BREAST GLAUCOMA RIGHT EYE ALLERGIES PENICILLIN: SWELLING - ALLERGY ORANGES: ANAPHYLAXIS - ALLERGY BANDAIDS AND ADHESIVES: REDDNESS AND SWELLING - ALLERGY LATEX GLOVES: REDDNESS AND SWELLING - ALLERGY TEGADERM: REDNESS, SWELLING - ALLERGY SURGICAL HISTORY RIGHT KNEE 1985 TUBAL LIGATION 2002 D&C 1996 MOLES REMOVED 2016 TOTAL HYSTERECTOMY 2017 COLONOSCOPY/ENDOSCOPY 2019 BILATERAL BREAST BIOPSIES AT [facility] 09/08/20 BREAST HEMATOMA DRAINAGE 09/26/2020 SOCIAL HISTORY GENERAL: TOBACCO USE ARE YOU A:NONSMOKER LATEX QUESTIONNAIRE LATEX ALLERGY : HAVE YOU EVER DEVELOPED ANY TYPE OF REACTION AFTER HANDLING LATEX PRODUCTS SUCH RUBBER GLOVES, CONDOMS, DIAPHRAGMS, BALLOONS, SOCKS, OR UNDERWEAR?YES KNOWN LATEX ALLERGY - PLEASE INDICATE :RUBBER GLOVES, CONDOMS, BALLOONS, OTHER (DOCUMENT IN NOTES) BANDAIDS LATEX ALLERGY : HAVE YOU EVER DEVELOPED ANY TYPE OF REACTION DURING OR AFTER DENTAL APPOINTMENT, VAGINAL/RECTAL EXAMINATION, SURGICAL PROCEDURE, OR ANY OTHER EXPOSURE?NO LATEX RISK : HAVE YOU EVER HAD ANY DIFFICULTY BREATHING OR HIVES AFTER EATING OR HANDLING ANY FRUITS, OR VEGETABLES; SUCH KIWI, BANANAS, STONE FRUITS, OR CHESTNUTSYES - PLEASE INDICATE : ORANGES LATEX RISK : DO YOU HAVE A PREVIOUS PERSONAL HISTORY OF MORE THAN NINE SURGERIES, SPINA BIFIDA, OR REPEATED CATHERIZATIONS? NO LATEX RISK : ARE YOU FREQUENTLY EXPOSED TO LATEX PRODUCTS IN YOUR OCCUPATION?NO DATE ASKED : 08/22/2020 ALCOHOL USE: NO. ALCOHOL SCREENING DID YOU HAVE A DRINK CONTAINING ALCOHOL IN THE PAST YEAR?NO POINTS0 INTERPRETATIONNEGATIVE RECREATIONAL DRUG USE DRUG USE?NO CAFFEINE CAFFEINE USE?YES HOW OFTEN AND HOW MUCH? 3 SODAS/DAY [id number] LANGUAGES SPOKEN:MOZAMBICAN EDUCATION LEVEL OF EDUCATION:NOT FINISHED COLLEGE LEARNING BARRIERS / SPECIAL NEEDS CHANGE FROM LAST VISIT?NO BARRIERS TO LEARNING?NO HEARING IMPAIRED?NO VISION IMPAIRED?YES BLIND IN LEFT EYE COGNITIVELY IMPAIRED?NO READINESS TO LEARN?YES LEARNING PREFERENCES?NO LEARNING CAPABILITIES PRESENT?YES EMOTIONAL BARRIERS?NO SPECIAL DEVICES?NO GROUP UNDERWRITER NEEDED?NO DOMESTIC VIOLENCE DO YOU FEEL SAFE IN YOUR ENVIRONMENT?YES DIET: REGULAR. - HAS THE PATIENT BEEN EDUCATED REGARDING HIS/HER PLAN OF CARE?YES HAS THE PATIENT BEEN EDUCATED REGARDING PAIN, THE RISK FOR PAIN, THE IMPORTANCE OF EFFECTIVE PAIN MANAGEMENT, AND THE PAIN ASSESSMENT PROCESS?YES ADVANCE DIRECTIVE ADVANCE DIRECTIVE DISCUSSED WITH PATIENT:YES HCP-TREVON SPARKS [phone] HOSPITALIZATION/MAJOR DIAGNOSTIC PROCEDURE CHILD 12/18/1991 CHILD 11/01/1996 CHILD 11/23/1998 CHILD 01/29/2002 HYSTERECTOMY 2017 KNEE SURGERY ALLERGIC REACTION AGE 2 OR 3 REVIEW OF SYSTEMS CONSTITUTIONAL: ANY RECENT FEVER NO . CHILLS NO . WEIGHT CHANGE OF UNKNOWN REASONS NO . GASTROENTEROLOGY: NEW UNEXPLAINABLE CHANGES IN BOWEL CONTROL NO . CONSTIPATION NO . GENITOURINARY: ANY NEW CHANGE IN BLADDER CONTROL? NO . NEUROLOGY: NEW ONSET DIZZINESS OR NEUROLOGICAL CHANGES NOT MENTIONED NO . NEW NUMBNESS OR PAIN PATTERNS NOT MENTIONED AND PERTINENT TO TODAY'S VISIT NO . CARDIOLOGY: NEW CHEST PRESSURE NO . PATIENT DENIES NO . RESPIRATORY: UNEXPLAINABLE COUGH NO . NEW SHORTNESS OF BREATH NO . VITAL SIGNS WT 174.6 LBS, HT 67 IN, BMI 27.34 INDEX, BP 133/70 MM HG, HR 58 /MIN, RR 18 /MIN, TEMP 97.5 F, OXYGEN SAT % 99%, NA INITIALS AW 1421. EXAMINATION GENERAL EXAMINATION: THE PATIENT IS ALERT, ORIENTED TIMES THREE AND COOPERATIVE. LUNGS ARE CLEAR TO AUSCULTATION. HEART SHOWS REGULAR RHYTHM, NO MURMURS AND NO GALLOPS. THERE IS SOME TRENDINESS OVER THE RIGHT CERVICAL FACET OVER THE AREA OF C2-C3, C3-C4. THERE IS ALSO BANDS OF TISSUE WITH RESTRICTION OF MOVEMENT PRESENT IN THE TRIGGER POINTS IN THE NECK AREA. MRI OF THE BRAIN 08/06/2020 SHOWS NO ACUTE ABNORMALITIES. MRI OF THE CERVICAL SPINE DATED 02/06/2020 SHOWS SOME FACET ARTHROPATHY CHANGES. THERE IS A RIGHT DISC PROTRUSION AT C5-C6. URINE TOXICOLOGY DATED 07/04/2020 SHOWS CONCORDANT RESULTS. IT SHOWS BENZODIAZEPINE WHICH WE GAVE HER FOR A PROCEDURE. ASSESSMENTS CHRONIC MIGRAINE - G43.709 SPONDYLOSIS OF CERVICAL REGION WITHOUT MYELOPATHY OR RADICULOPATHY - M47.812, STATUS POST COOL RADIOFREQUENCY, RISK: (NULL) FACET ARTHROPATHY, CERVICAL - M47.812, STATUS POST COOL RADIOFREQUENCY OVER THE RIGHT NECK MYALGIA - M79.1 TREATMENT CHRONIC MIGRAINE CONTINUE TOPIRAMATE TABLET, 50 MG, 1 TABLET, ORALLY FOR HEADACHE, BID, 30 DAYS, 60 TABLET, REFILLS 1 CONTINUE OXYCODONE-ACETAMINOPHEN TABLET, 10-325 MG, 1 TABLET NEEDED, ORALLY FOR PAIN, Q6H PRN MDD4, 30 DAYS, 120, REFILLS 0, NOTES: NOT WHILE TAKING THE MORPHINE CONTINUE GABAPENTIN CAPSULE, 300 MG, 1 CAPSULE, ORALLY FOR PAIN, BEFORE BEDTIME, 30 DAYS, 30, REFILLS 0 CONTINUE CYMBALTA CAPSULE DELAYED RELEASE PARTICLES, 60 MG, 1 CAPSULE, ORALLY FOR PAIN, TWICE A DAY MDD2, 30 DAYS, 60, REFILLS 1 CONTINUE CARISOPRODOL TABLET, 350 MG, 1 TABLET NEEDED, ORALLY FOR SPAMS AND PAIN, 1 TO 2 HOURS BEFORE BEDTIME, 30 DAYS, 30, REFILLS 0 NOTES: PROCEDURE REVIEWED WITH THE PT AND INSTRUCTIONS GIVEN TO PT . SPONDYLOSIS OF CERVICAL REGION WITHOUT MYELOPATHY OR RADICULOPATHY CLINICAL NOTES: I DISCUSSED ALTERNATIVES WITH MS. AVILES. I WILL REQUEST AUTHORIZATION FOR TRIGGER POINT INJECTIONS BILATERAL NECK AND BILATERAL SHOULDER. THE PATIENT IS GOING TO BE SEEN BY THE NEUROLOGIST. WE WILL DO THE TRIGGER POINTS AFTER SHE IS SEEN BY HER NEUROLOGISTS. SHE WILL ASK THEM WHAT THEY THINK ABOUT HER STARTING BOTOX. SHE MEETS ALL OF THE CRITERIA FOR BOTOX EXCEPT ONE MEDICATION THAT WE ARE GOING TO CONTINUE TRYING WHICH IS THE TOPAMAX. SHE IS GOING TO CONTINUE TO SEE HOW SHE RESPONDS TO THIS. I WILL INCREASE IT TO 50 MG TWICE A DAY. DEPENDING ON HOW SHE DOES WITH THE TOPAMAX AND THE OPINION OF THE NEUROLOGIST, WE WILL CONSIDER BOTOX. I HAD A LONG CONVERSATION ABOUT THE SAFETY OF THE MEDICATIONS. SHE KNOWS TO KEEP THEM IN A SAFE PLACE AND THEY COULD CAUSE ADDICTION. IN TERMS OF INTERVENTION, WE CAN CONSIDER DOING BOTOX. DEPENDING ON THE RESULTS OF THE TRIGGER POINT INJECTIONS, WE CAN CONSIDER WORKING WITH THE FACETS OF C2-C3 C3-C4 OF MAINLY THE RIGHT SIDE. THE PATIENT WILL FOLLOW UP WITH THE NURSE PRACTITIONER. THE PATIENT REPORTS UNDERSTATING AND AGREES WITH THE PLAN. I, OLIVE KING, DOCUMENTED THE ABOVE INFORMATION ACTING A SCRIBE FOR DR. DRAKE. I HAVE REVIEWED THE ABOVE DOCUMENT, WRITTEN BY OLIVE KING, CLERICAL ASSIGNER, AND I VERIFY THAT IT IS ACCURATE. . MYALGIA MEDICATION: VALIUM TAB 10MG ORALLY (DIAZEPAM) (ORDERED FOR 11/02/2020) MEDICATION: OXYCODONE HCL TAB 10MG ORALLY (ORDERED FOR 11/02/2020) MED: PAIN BENADRYL TAB 25MG ORALLY DIPHENHYDRAMINE (ORDERED FOR 11/02/2020) PROCEDURE CODES FA211 ESTABILISHED PATIENT [facility] CHARGE 59521 OFFICE/OUTPATIENT VISIT EST DISPOSITION & COMMUNICATION FOLLOW UP FOLLOW UP WITH HANDLE MAKER POST PROCEDURE (REASON: REQUEST AUTH FOR TRIGGER POINT INJECTIONS BILATERAL NECK AND BILATERAL SHOULDER) ELECTRONICALLY SIGNED BY YESSICA DRAKE MD, MD ON 10/08/2020 AT 10:21 AM EDT DISCLAIMER : THIS IS A VISIT SUMMARY EXTRACTED FROM THE [email or web address] CHART. IT IS NOT A COPY OF THE [email or web address] PROGRESS NOTE. JOSE
== END ==
LOC: M PAIN 14:15
PROVIDERS: ATTEND Anesthesiology
DX: G43.709 Chronic migraine without aura, not intractable, without status migrainosus (principal); M47.812 Spondylosis without myelopathy or radiculopathy, cervical region; M79.18 Myalgia, other site; D64.9 Anemia, unspecified; M79.7 Fibromyalgia; H40.9 Unspecified glaucoma; Z79.891 Long term (current) use of opiate analgesic; Z79.899 Other long term (current) drug therapy; Z88.0 Allergy status to penicillin; Z91.040 Latex allergy status; Z91.018 Allergy to other foods; Z91.048 Other nonmedicinal substance allergy status; Z88.8 Allergy status to other drugs, medicaments and biological substances

== ENCOUNTER → 2020-11-03 | Outpatient (CLI) | payer BC | LOC: M LABSMTC 09:59 | PROVIDERS: ATTEND Anesthesiology | DX: Z11.52 Encounter for screening for COVID-19 (principal) ==

== ENCOUNTER → 2020-11-07 | Outpatient (CLI) | payer BC ==
[~2020-11-07] MED LIST changes: +BUPIVACAINE HCL 0.25% 10ML VIAL As Ordered ONE; +BUPIVACAINE HCL 0.25% 30ML VIAL As Ordered ONE; -MONT10TA10 PO; +MONT10TA97 PO; +TRIAMCINOLONE ACETONIDE SUSP 40 MG/ML VIAL (J3301) As Ordered ONE; +diazePAM 5MG TABLET As Ordered ONE; +diphenhydrAMINE 25MG CAP As Ordered ONE; +oxyCODONE 5MG TAB As Ordered ONE
== END ==
LOC: M PAIN 09:15
PROVIDERS: ATTEND Anesthesiology
DX: M79.10 Myalgia, unspecified site (principal); K21.9 Gastro-esophageal reflux disease without esophagitis; G43.909 Migraine, unspecified, not intractable, without status migrainosus; Z88.0 Allergy status to penicillin; Z91.018 Allergy to other foods; Z91.040 Latex allergy status; Z91.09 Other allergy status, other than to drugs and biological substances; Z79.899 Other long term (current) drug therapy
CPT/HCPCS: 20552; J3301

== ENCOUNTER → 2020-12-05 | Outpatient (CLI) | payer BC ==
[~2020-12-05] MED LIST changes: -BUPIVACAINE HCL 0.25% 10ML VIAL As Ordered ONE; -BUPIVACAINE HCL 0.25% 30ML VIAL As Ordered ONE; +MONT10TA10 PO; -MONT10TA97 PO; -TRIAMCINOLONE ACETONIDE SUSP 40 MG/ML VIAL (J3301) As Ordered ONE; -diazePAM 5MG TABLET As Ordered ONE; -diphenhydrAMINE 25MG CAP As Ordered ONE; -oxyCODONE 5MG TAB As Ordered ONE
--- NOTE | 2020-12-10 02:44 | ECWPNPC ---
PATIENT NAME: ALEX AVILES : 1975 GENDER: FEMALE VISIT DATE: 12/05/2020 DISCHARGE DATE: 12/05/20 1225 VISIT LOCKED DATE TIME: PHYSICIAN: YESSICA DRAKE MD RESOURCE: YESSICA DRAKE MD REASON FOR APPOINTMENT 1. POST TRIGGER POINT INJECTIONS BILATERAL NECK AND BILATERAL SHOULDER HISTORY OF PRESENT ILLNESS GENERAL: 44-YEAR-OLD FEMALE PATIENT WITH A HISTORY OF CHRONIC NECK PAIN. THE PATIENT DESCRIBES THE PAIN ACHING, SHARP WITH A PAIN SCORE RANGING FROM 4-7/10. SHE RECEIVED SOME TRIGGER POINT INJECTIONS THAT ARE STILL HELPING HER. SHE CAN MOVE HER NECK BETTER. THIS HAS INCREASED HER FUNCTIONALITY. SHE IS STILL USING HER MEDICATIONS AND SHE FEELS THAT THEY ARE HELPING CONTROL THE PAIN. THE PATIENT REPORTS SOME INCREASE IN HER HEADACHES. WE TRIED TO USE TOPOMAX WITH ALEX AND SHE STATES THAT IS NOT HELPING HER. THE HEADACHES PERSIST. FALL RISK SCREENING: SCREENING : NO FALLS REPORTED IN THE LAST YEAR. PAIN SCREENING: PATIENT HAS A COMPLAINT OF ACUTE OR CHRONIC PAIN :YES LOCATION OF PAIN:NECK INTENSITY OF PAIN (SCALE OF 1 TO 10):5 WHAT DOES YOUR PAIN FEEL LIKE:ACHING, SHARP DURATION:CONTINOUS, CONSTANT PAIN IS INCREASED BY:ACTIVITIES PAIN IS DECREASED BY:USE OF PAIN MEDICATIONS NURSING NOTE: -. PAIN CENTER INTAKE QUESTIONS: DO YOU HAVE A HISTORY OF MRSA? :NO DO YOU TAKE A BLOOD THINNERS? :NO DO YOU HAVE ANY BLEEDING DISORDERS? :YES ANEMIC ANY NEW NUMBNESS OR WEAKNESS IN YOUR LEGS OR ARMS? :NO ANY PACEMAKER,DEFIBRILLATOR, OR DORSAL COLUMN STIMULATOR? :NO DO YOU HAVE ANY RASHES OR OPEN SORES? :NO ARE YOU ALLERGIC TO IV DYE? :NO ARE YOU DIABETIC? :NO ANY NEW PROBLEMS WITH YOUR MEDICATIONS? :NO HAVE YOU RECEIVED A VACCINE IN THE PAST 30 DAYS? :NO DO YOU PLAN TO RECEIVE A VACCINE IN THE NEXT 21 DAYS? :NO DO YOU NEED ANY PRESCRIPTION? :YES S[place] DO YOU TAKE ANY IMMUNOSUPPRESSIVE MEDICATIONS? :NO DO YOU HAVE ANY KIDNEY OR LIVER DISEASE? :NO IS THERE A CHANCE YOU COULD BE ? :NO ARE YOU BREAST FEEDING? :NO CURRENT MEDICATIONS TAKING PROBIOTIC CAPSULE 1 TABLET ORALLY ONCE DAILY TAKING FLUTICASONE FUROATE 27.5 MCG/SPRAY SUSPENSION 1 SPRAY IN EACH NOSTRIL NASALLY TWICE A DAY TAKING PANTOPRAZOLE SODIUM 40 MG TABLET DELAYED RELEASE 1 TABLET ORALLY ONCE A DAY TAKING MIRALAX - POWDER 1 DOSE ORALLY ONCE A DAY NEEDED TAKING MONTELUKAST SODIUM 10 MG TABLET 1 TABLET IN THE EVENING ORALLY ONCE A DAY TAKING ASTELIN 1 SPRAY EACH NOSTRIL NASAL TWICE A DAY TAKING MELATONIN 5 MG CAPSULE 1 OR 2 CAPSULE AT BEDTIME NEEDED ORALLY NEEDED FOR SLEPNESS ONCE A DAY TAKING WELLBUTRIN SR 200 MG TABLET EXTENDED RELEASE 12 HOUR 1 TABLET IN THE MORNING ORALLY ONCE A DAY TAKING PRILOSEC OTC 20 MG TABLET DELAYED RELEASE 1 TABLET 30 MINUTES BEFORE MORNING MEAL ORALLY ONCE A DAY TAKING TOPIRAMATE 50 MG TABLET 1 TABLET ORALLY FOR HEADACHE BID TAKING CYMBALTA 60 MG CAPSULE DELAYED RELEASE PARTICLES 1 CAPSULE ORALLY FOR PAIN TWICE A DAY MDD2 TAKING CARISOPRODOL 350 MG TABLET 1 TABLET NEEDED ORALLY FOR SPAMS AND PAIN 1 TO 2 HOURS BEFORE BEDTIME TAKING OXYCODONE-ACETAMINOPHEN 10-325 MG TABLET 1 TABLET NEEDED ORALLY FOR PAIN Q6H PRN MDD4 TAKING GABAPENTIN 300 MG CAPSULE 1 CAPSULE ORALLY FOR PAIN BEFORE BEDTIME NOT-TAKING HYDROXYZINE HCL 25 MG TABLET 2 TABS ORALLY EVERY 6 HRS NEEDED NOT-TAKING MORPHINE SULFATE 15 MG TABLET 1 TABLET NEEDED ORALLY FOR PAIN EVERY 8 HRS MDD3 NOT-TAKING AMITRIPTYLINE HCL 25 MG TABLET 1 TABLET AT BEDTIME ORALLY ONCE A DAY NOT-TAKING NORCO 10-325 MG TABLET 1 TABLET NEEDED ORALLY Q8H PRN MDD3 NOT-TAKING RANITIDINE HCL 150 MG CAPSULE 1 CAPSULE ORALLY ONCE DAILY NOT-TAKING TIZANIDINE HCL 4 MG TABLET 1 TAB ORALLY FOR SPASMS AND PAIN EVERY 8 HOURS NEEDED (MDD 3) NOT-TAKING OXYCODONE-ACETAMINOPHEN 7.5-325 MG TABLET 1 TABLET NEEDED ORALLY FOR PAIN EVERY 6 HRS MDD 4 NOT-TAKING OXYCODONE HCL 10 MG TABLET 1 TABLET NEEDED ORALLY FOR PAIN EVERY 6 HRS MDD4 MEDICATION LIST REVIEWED AND RECONCILED WITH THE PATIENT PAST MEDICAL HISTORY ANEMIA GERD STOMACH ULCERS WITH H PYLORI NECK AND LOW BACK PAIN 04/26/18 CONCUSSION FROM FALLING DOWN THE STAIRS AND HITTING HEAD LEFT EYE BLIND SINCE MIGRAINE HEADACHES FIBROMYALGIA LEFT BREAST BUMP CYST RIGHT BREAST GLAUCOMA RIGHT EYE ALLERGIES PENICILLIN: SWELLING - ALLERGY ORANGES: ANAPHYLAXIS - ALLERGY BANDAIDS AND ADHESIVES: REDDNESS AND SWELLING - ALLERGY LATEX GLOVES: REDDNESS AND SWELLING - ALLERGY TEGADERM: REDNESS, SWELLING - ALLERGY SOCIAL HISTORY GENERAL: TOBACCO USE ARE YOU A:NONSMOKER LATEX QUESTIONNAIRE LATEX ALLERGY : HAVE YOU EVER DEVELOPED ANY TYPE OF REACTION AFTER HANDLING LATEX PRODUCTS SUCH RUBBER GLOVES, CONDOMS, DIAPHRAGMS, BALLOONS, SOCKS, OR UNDERWEAR?YES KNOWN LATEX ALLERGY - PLEASE INDICATE :RUBBER GLOVES, CONDOMS, BALLOONS, OTHER (DOCUMENT IN NOTES) BANDAIDS LATEX ALLERGY : HAVE YOU EVER DEVELOPED ANY TYPE OF REACTION DURING OR AFTER DENTAL APPOINTMENT, VAGINAL/RECTAL EXAMINATION, SURGICAL PROCEDURE, OR ANY OTHER EXPOSURE?NO LATEX RISK : HAVE YOU EVER HAD ANY DIFFICULTY BREATHING OR HIVES AFTER EATING OR HANDLING ANY FRUITS, OR VEGETABLES; SUCH KIWI, BANANAS, STONE FRUITS, OR CHESTNUTSYES - PLEASE INDICATE : ORANGES LATEX RISK : DO YOU HAVE A PREVIOUS PERSONAL HISTORY OF MORE THAN NINE SURGERIES, SPINA BIFIDA, OR REPEATED CATHERIZATIONS? NO LATEX RISK : ARE YOU FREQUENTLY EXPOSED TO LATEX PRODUCTS IN YOUR OCCUPATION?NO DATE ASKED : 08/22/2020 ALCOHOL USE: NO. ALCOHOL SCREENING DID YOU HAVE A DRINK CONTAINING ALCOHOL IN THE PAST YEAR?NO POINTS0 INTERPRETATIONNEGATIVE RECREATIONAL DRUG USE DRUG USE?NO CAFFEINE CAFFEINE USE?YES HOW OFTEN AND HOW MUCH? 3 SODAS/DAY [employer]LAM [id number] JEWISH LANGUAGE LANGUAGES SPOKEN:AMHARIC EDUCATION LEVEL OF EDUCATION:NOT FINISHED COLLEGE LEARNING BARRIERS / SPECIAL NEEDS CHANGE FROM LAST VISIT?NO BARRIERS TO LEARNING?NO HEARING IMPAIRED?NO VISION IMPAIRED?YES BLIND IN LEFT EYE COGNITIVELY IMPAIRED?NO READINESS TO LEARN?YES LEARNING PREFERENCES?NO LEARNING CAPABILITIES PRESENT?YES EMOTIONAL BARRIERS?NO SPECIAL DEVICES?NO BAIT DIGGER NEEDED?NO DOMESTIC VIOLENCE DO YOU FEEL SAFE IN YOUR ENVIRONMENT?YES DIET: REGULAR. - HAS THE PATIENT BEEN EDUCATED REGARDING HIS/HER PLAN OF CARE?YES HAS THE PATIENT BEEN EDUCATED REGARDING PAIN, THE RISK FOR PAIN, THE IMPORTANCE OF EFFECTIVE PAIN MANAGEMENT, AND THE PAIN ASSESSMENT PROCESS?YES ADVANCE DIRECTIVE ADVANCE DIRECTIVE DISCUSSED WITH PATIENT:YES HCP-TREVON SPARKS [phone] REVIEW OF SYSTEMS CONSTITUTIONAL: ANY RECENT FEVER NO . CHILLS NO . WEIGHT CHANGE OF UNKNOWN REASONS NO . GASTROENTEROLOGY: NEW UNEXPLAINABLE CHANGES IN BOWEL CONTROL NO . CONSTIPATION NO . GENITOURINARY: ANY NEW CHANGE IN BLADDER CONTROL? NO . NEUROLOGY: NEW ONSET DIZZINESS OR NEUROLOGICAL CHANGES NOT MENTIONED NO . NEW NUMBNESS OR PAIN PATTERNS NOT MENTIONED AND PERTINENT TO TODAY'S VISIT NO. HEADACHES PERSIST . CARDIOLOGY: NEW CHEST PRESSURE NO . PATIENT DENIES NO . RESPIRATORY: UNEXPLAINABLE COUGH NO . NEW SHORTNESS OF BREATH NO . VITAL SIGNS WT 158.4 LBS, WT-KG 71.85 KG, HT 67 IN, BMI 24.81 INDEX, BP 107/54 MM HG, HR 70 /MIN, RR 18 /MIN, TEMP 96.9 F, OXYGEN SAT % 100%, SAFE IN ENV? (Y/N) Y, NA INITIALS SC 11:25, REVIEWED BY: EM. EXAMINATION GENERAL EXAMINATION: THE PATIENT IS ALERT, ORIENTED TIMES THREE AND COOPERATIVE. LUNGS ARE CLEAR TO AUSCULTATION. HEART SHOWS REGULAR RHYTHM, NO MURMURS AND NO GALLOPS. THERE IS INCREASE IN PAIN WHEN I TOUCH THE RIGHT CERVICAL FACETS OF C2-C3 AND C3-C4. MRI OF THE CERVICAL SPINE DATED 02/06/2020 IS SHOWING FACET ARTHROPATHY CHANGES. ASSESSMENTS OTHER CHRONIC PAIN - G89.29 (PRIMARY) CERVICAL SPONDYLOSIS - M47.812 FACET ARTHROPATHY, CERVICAL - M47.812 CHRONIC MIGRAINE - G43.709 NECK PAIN - M54.2 TREATMENT OTHER CHRONIC PAIN CONTINUE TOPIRAMATE TABLET, 100 MG, 1 TABLET, ORALLY, BID, 30 DAYS, 60 TABLET, REFILLS 2 PAIN PROCEDURE [id number] OF PROCEDURE11/07/20PROCEDURE:TRIGGER POINT INJECTIONS BILATERAL NECK AND BILATERAL SHOULDERAMOUNT OF PRE SEDATEVALIUM 10MG, OXYCODONE 10MG, BENADRYL 25MG PORESULT:WORKED WELL, STILL HAS PAIN RELIEF CERVICAL SPONDYLOSIS CLINICAL NOTES: I DISCUSSED ALTERNATIVES WITH MS. AVILES. SHE DID WELL WITH THE TRIGGER POINT AND IT HELPED WITH HER NECK PAIN. IN TERMS OF HER HEADACHES, THE PAIN PERSIST IS. I WILL INCREASE THE TOPOMAX TO TRY TO HAVE OPTIMAL RESULTS. SHE KNOWS THAT IF SHE EXPERIENCES ANY SIDE EFFECTS TO STOP THE MEDICATION. WE MAY CONSIDER BOTOX IF THAT DOES NOT HELP HER. IN THE PHYSICAL EXAMINATION, I AM INDUCING THE HEADACHE AND NECK PAIN. I WILL REQUEST AUTHORIZATION FOR A RIGHT DIAGNOSTIC CERVICAL FACET BLOCK #1 C2-C3, C3-C4, BOOK AFTER APPROVED. THE PATIENT REPORTS UNDERSTANDING AND AGREES WITH THE PLAN. I, OLIVE KING, DOCUMENTED THE ABOVE INFORMATION ACTING A SCRIBE FOR DR. DRAKE. I HAVE REVIEWED THE ABOVE DOCUMENT, WRITTEN BY OLIVE KING, [employer] POLICE OFFICER, AND I VERIFY THAT IT IS ACCURATE. VISIT CODES PROCEDURE CODES FA211 ESTABILISHED PATIENT [facility] CHARGE 10619 OFFICE/OUTPATIENT VISIT EST DISPOSITION & COMMUNICATION FOLLOW UP REQUEST AUTH FOR RIGHT DIAGNOSTIC CERVICAL FACET BLOCK #1 C2-C3, C3-C4 (REASON: REQUEST AUTH FOR RIGHT DIAGNOSTIC CERVICAL FACET BLOCK #1 C2-C3, C3-C4) ELECTRONICALLY SIGNED BY YESSICA DRAKE MD, MD ON 12/09/2020 AT 01:52 PM EDT DISCLAIMER : THIS IS A VISIT SUMMARY EXTRACTED FROM THE [facility] CHART. IT IS NOT A COPY OF THE [employer] PROGRESS NOTE. JOSE
== END ==
LOC: M PAIN 11:15
PROVIDERS: ATTEND Anesthesiology
DX: G89.29 Other chronic pain (principal); M47.812 Spondylosis without myelopathy or radiculopathy, cervical region; G43.709 Chronic migraine without aura, not intractable, without status migrainosus; M54.2 Cervicalgia; D64.9 Anemia, unspecified; K21.9 Gastro-esophageal reflux disease without esophagitis; G43.909 Migraine, unspecified, not intractable, without status migrainosus; M79.7 Fibromyalgia; H40.9 Unspecified glaucoma; H54.62 Unqualified visual loss, left eye, normal vision right eye; Z79.891 Long term (current) use of opiate analgesic; Z79.899 Other long term (current) drug therapy; Z88.0 Allergy status to penicillin; Z88.8 Allergy status to other drugs, medicaments and biological substances; Z91.040 Latex allergy status; Z91.018 Allergy to other foods; Z91.048 Other nonmedicinal substance allergy status

== ENCOUNTER → 2021-01-15 | Outpatient (CLI) | payer BC | LOC: M LABSMTC 10:34 | PROVIDERS: ATTEND Anesthesiology | DX: Z11.52 Encounter for screening for COVID-19 (principal) ==

== ENCOUNTER → 2021-01-20 | Outpatient (CLI) | payer BC ==
[~2021-01-20] MED LIST changes: +BUPIVACAINE HCL 0.25% 30ML VIAL As Ordered ONE; +ISOVUE-M 300 61% 15ML VIAL As Ordered ONE; +LIDOCAINE 1% SDV 30ML VIAL As Ordered ONE; +diazePAM 2 MG TAB As Ordered ONE
--- NOTE | 2021-01-20 15:26 | REP ---
INDICATION: RIGHT DIAGNOSTIC CERVICAL FACET BLOCK C2-C3, C3-C4 #1. COMPARISON: None. TECHNIQUE: A single views. 83.7 seconds of fluoroscopy time is reported. FINDINGS: A single last image hold fluoroscopically obtained spot radiograph(s) of the cervical spine document(s) needle position(s) and contrast injection associated with injection procedure. IMPRESSION: Procedural imaging. <Electronically signed by Timmy Chowdary > 01/20/21 3007
== END ==
LOC: M PAIN 13:45
PROVIDERS: ATTEND Anesthesiology
DX: M47.812 Spondylosis without myelopathy or radiculopathy, cervical region (principal); K21.9 Gastro-esophageal reflux disease without esophagitis; G43.909 Migraine, unspecified, not intractable, without status migrainosus; M79.7 Fibromyalgia; Z88.0 Allergy status to penicillin; Z91.018 Allergy to other foods; Z91.040 Latex allergy status; Z91.09 Other allergy status, other than to drugs and biological substances; Z79.899 Other long term (current) drug therapy
CPT/HCPCS: 64490; 64491; Q9967

== ENCOUNTER → 2021-04-17 | Outpatient (CLI) | payer BC ==
[~2021-04-17] MED LIST changes: -BUPIVACAINE HCL 0.25% 30ML VIAL As Ordered ONE; -ISOVUE-M 300 61% 15ML VIAL As Ordered ONE; -LIDOCAINE 1% SDV 30ML VIAL As Ordered ONE; -diazePAM 2 MG TAB As Ordered ONE
== END ==
LOC: M PAIN 10:00
PROVIDERS: ATTEND Anesthesiology
DX: M50.10 Cervical disc disorder with radiculopathy, unspecified cervical region (principal); D64.9 Anemia, unspecified; K21.9 Gastro-esophageal reflux disease without esophagitis; G43.909 Migraine, unspecified, not intractable, without status migrainosus; M79.7 Fibromyalgia; H40.9 Unspecified glaucoma; H54.62 Unqualified visual loss, left eye, normal vision right eye; Z79.891 Long term (current) use of opiate analgesic; Z79.899 Other long term (current) drug therapy; Z88.0 Allergy status to penicillin; Z88.8 Allergy status to other drugs, medicaments and biological substances; Z91.018 Allergy to other foods; Z91.048 Other nonmedicinal substance allergy status

== ENCOUNTER → 2021-04-20 | Outpatient (CLI) | payer BC | LOC: M PAIN 15:45 | PROVIDERS: ATTEND Anesthesiology | DX: M50.10 Cervical disc disorder with radiculopathy, unspecified cervical region (principal); D64.9 Anemia, unspecified; K21.9 Gastro-esophageal reflux disease without esophagitis; M54.50 Low back pain, unspecified; G43.909 Migraine, unspecified, not intractable, without status migrainosus; M79.7 Fibromyalgia; H40.9 Unspecified glaucoma; H54.62 Unqualified visual loss, left eye, normal vision right eye; Z79.891 Long term (current) use of opiate analgesic; Z79.899 Other long term (current) drug therapy ==

== ENCOUNTER → 2021-05-12 | Outpatient (CLI) | payer BC ==
[~2021-05-12] MED LIST changes: -MONT10TA10 PO; +MONT10TA97 PO
== END ==
LOC: M PAIN 15:00 → M TMPAIN 15:00
PROVIDERS: ATTEND Anesthesiology
DX: M47.812 Spondylosis without myelopathy or radiculopathy, cervical region (principal); D64.9 Anemia, unspecified; K21.9 Gastro-esophageal reflux disease without esophagitis; Z87.11 Personal history of peptic ulcer disease; M54.50 Low back pain, unspecified; G43.909 Migraine, unspecified, not intractable, without status migrainosus; H54.62 Unqualified visual loss, left eye, normal vision right eye; H40.9 Unspecified glaucoma; Z79.899 Other long term (current) drug therapy; Z88.0 Allergy status to penicillin; Z88.8 Allergy status to other drugs, medicaments and biological substances; Z91.018 Allergy to other foods; Z91.040 Latex allergy status; Z91.048 Other nonmedicinal substance allergy status

== ENCOUNTER → 2021-06-12 | Outpatient (CLI) | payer BC | LOC: M TMPAIN 15:00 → M PAIN 15:00 | PROVIDERS: ATTEND Anesthesiology | DX: M47.812 Spondylosis without myelopathy or radiculopathy, cervical region (principal); D64.9 Anemia, unspecified; G43.909 Migraine, unspecified, not intractable, without status migrainosus; M79.7 Fibromyalgia; H40.9 Unspecified glaucoma; Z87.11 Personal history of peptic ulcer disease; H54.62 Unqualified visual loss, left eye, normal vision right eye; Z88.0 Allergy status to penicillin; Z88.8 Allergy status to other drugs, medicaments and biological substances; Z91.040 Latex allergy status; Z91.048 Other nonmedicinal substance allergy status; Z91.018 Allergy to other foods; Z79.891 Long term (current) use of opiate analgesic; Z79.899 Other long term (current) drug therapy ==

== ENCOUNTER → 2021-08-05 | Outpatient (CLI) | payer BC | LOC: M PAIN 15:00 → M TMPAIN 15:00 | PROVIDERS: ATTEND Anesthesiology | DX: M50.10 Cervical disc disorder with radiculopathy, unspecified cervical region (principal); D64.9 Anemia, unspecified; K21.9 Gastro-esophageal reflux disease without esophagitis; G43.909 Migraine, unspecified, not intractable, without status migrainosus; M79.7 Fibromyalgia; H40.9 Unspecified glaucoma; H54.62 Unqualified visual loss, left eye, normal vision right eye; Z79.891 Long term (current) use of opiate analgesic; Z79.899 Other long term (current) drug therapy; Z88.0 Allergy status to penicillin; Z88.8 Allergy status to other drugs, medicaments and biological substances; Z91.040 Latex allergy status; Z91.048 Other nonmedicinal substance allergy status; Z91.018 Allergy to other foods ==

== ENCOUNTER → 2021-08-26 | Outpatient (CLI) | payer BC ==
[~2021-08-26] MED LIST changes: +AZEL23SP NS; +BRIN1TAB PO; +CARI1TAB7 PO; +CLAR10CA3 PO; +CYMB60CA4 PO; +MELA5TAB47 PO; +NARC1SPR NARES; +ONDA8TAB8 PO; +OXYC10TA3 PO; +PROC10TA5 PO; +TROK1CAP7 PO
== END ==
LOC: M LABSMTC 09:44
PROVIDERS: ATTEND Anesthesiology
DX: Z11.52 Encounter for screening for COVID-19 (principal)

== ENCOUNTER → 2021-08-28 | Outpatient (CLI) | payer BC ==
[~2021-08-28] MED LIST changes: +ISOVUE-M 300 61% 15ML VIAL As Ordered ONE; +LIDOCAINE 1% SDV 30ML VIAL As Ordered ONE; +LR 1,000 ML IV SCH; +LR 500 ML IV SCH; +diazePAM 5MG TABLET As Ordered ONE; +diazePAM 5MG TABLET PO ONE; +diphenhydrAMINE 25MG CAP As Ordered ONE; +diphenhydrAMINE 25MG CAP PO ONE; +methylPREDNISolone SUSP 40MG/ML 1ML VIAL (DEPO MEDROL) As Ordered ONE; +oxyCODONE 5MG TAB As Ordered ONE; +oxyCODONE 5MG TAB PO ONE
[2021-08-28 16:20] VITALS: BP 135/81
== END ==
LOC: M IRPRO 13:59
PROVIDERS: ATTEND Anesthesiology
DX: M50.10 Cervical disc disorder with radiculopathy, unspecified cervical region (principal); G89.29 Other chronic pain; M19.90 Unspecified osteoarthritis, unspecified site; Z88.0 Allergy status to penicillin; Z91.018 Allergy to other foods; Z91.040 Latex allergy status; Z91.09 Other allergy status, other than to drugs and biological substances; Z86.59 Personal history of other mental and behavioral disorders
CPT/HCPCS: 62321; J1030; Q9967

== ENCOUNTER → 2021-10-05 | Outpatient (CLI) | payer BC ==
[~2021-10-05] MED LIST changes: -ISOVUE-M 300 61% 15ML VIAL As Ordered ONE; -LIDOCAINE 1% SDV 30ML VIAL As Ordered ONE; -LR 1,000 ML IV SCH; -LR 500 ML IV SCH; -diazePAM 5MG TABLET As Ordered ONE; -diazePAM 5MG TABLET PO ONE; -diphenhydrAMINE 25MG CAP As Ordered ONE; -diphenhydrAMINE 25MG CAP PO ONE; -methylPREDNISolone SUSP 40MG/ML 1ML VIAL (DEPO MEDROL) As Ordered ONE; -oxyCODONE 5MG TAB As Ordered ONE; -oxyCODONE 5MG TAB PO ONE
== END ==
LOC: M PAIN 14:15
PROVIDERS: ATTEND Anesthesiology
DX: M51.16 Intervertebral disc disorders with radiculopathy, lumbar region (principal); G89.29 Other chronic pain; K21.9 Gastro-esophageal reflux disease without esophagitis; G43.909 Migraine, unspecified, not intractable, without status migrainosus; M79.7 Fibromyalgia; Z88.0 Allergy status to penicillin; Z91.018 Allergy to other foods; Z91.040 Latex allergy status; Z91.09 Other allergy status, other than to drugs and biological substances; Z79.899 Other long term (current) drug therapy

== ENCOUNTER → 2022-01-28 | Outpatient (CLI) | payer BC | LOC: M PAIN 10:00 | PROVIDERS: ATTEND Anesthesiology | DX: M54.16 Radiculopathy, lumbar region (principal); M54.50 Low back pain, unspecified; D64.9 Anemia, unspecified; K21.9 Gastro-esophageal reflux disease without esophagitis; G43.909 Migraine, unspecified, not intractable, without status migrainosus; M79.7 Fibromyalgia; H40.9 Unspecified glaucoma; H54.62 Unqualified visual loss, left eye, normal vision right eye; R00.1 Bradycardia, unspecified; K25.9 Gastric ulcer, unspecified as acute or chronic, without hemorrhage or perforation; Z79.891 Long term (current) use of opiate analgesic; Z79.899 Other long term (current) drug therapy; Z88.0 Allergy status to penicillin; Z88.8 Allergy status to other drugs, medicaments and biological substances; Z91.040 Latex allergy status; Z91.048 Other nonmedicinal substance allergy status; Z91.018 Allergy to other foods ==

== ENCOUNTER → 2022-02-24 | Outpatient (CLI) | payer BC | LOC: M PLAIMG 07:45 | PROVIDERS: ATTEND Anesthesiology | DX: M51.36 Other intervertebral disc degeneration, lumbar region (principal); M51.26 Other intervertebral disc displacement, lumbar region ==

== ENCOUNTER → 2022-04-06 | Outpatient (CLI) | payer BC | LOC: M PAIN 11:00 | PROVIDERS: ATTEND Anesthesiology | DX: M54.50 Low back pain, unspecified (principal); M79.10 Myalgia, unspecified site; M79.18 Myalgia, other site; D64.9 Anemia, unspecified; K21.9 Gastro-esophageal reflux disease without esophagitis; M54.2 Cervicalgia; G43.909 Migraine, unspecified, not intractable, without status migrainosus; M79.7 Fibromyalgia; H40.9 Unspecified glaucoma; H54.62 Unqualified visual loss, left eye, normal vision right eye; Z79.891 Long term (current) use of opiate analgesic; Z79.899 Other long term (current) drug therapy; Z88.0 Allergy status to penicillin; Z88.8 Allergy status to other drugs, medicaments and biological substances; Z91.018 Allergy to other foods; Z91.040 Latex allergy status; Z91.048 Other nonmedicinal substance allergy status ==

== ENCOUNTER → 2022-05-16 | Outpatient (CLI) | payer BC | LOC: M LABSMTC 10:35 | PROVIDERS: ATTEND Anesthesiology | DX: Z11.52 Encounter for screening for COVID-19 (principal) ==

== ENCOUNTER → 2022-05-21 | Outpatient (CLI) | payer BC ==
[~2022-05-21] MED LIST changes: +BUPIVACAINE HCL 0.25% 10ML VIAL As Ordered ONE; +BUPIVACAINE HCL 0.25% 30ML VIAL As Ordered ONE; +TRIAMCINOLONE ACETONIDE SUSP 40MG/ML 1ML VIAL As Ordered ONE; +diazePAM 5MG TABLET As Ordered ONE; +diphenhydrAMINE 25MG CAP As Ordered ONE; +oxyCODONE 5MG TAB As Ordered ONE
== END ==
LOC: M PAIN 10:30
PROVIDERS: ATTEND Anesthesiology
DX: M79.18 Myalgia, other site (principal); D64.9 Anemia, unspecified; K21.9 Gastro-esophageal reflux disease without esophagitis; K28.9 Gastrojejunal ulcer, unspecified as acute or chronic, without hemorrhage or perforation; M54.50 Low back pain, unspecified; M54.2 Cervicalgia; G43.909 Migraine, unspecified, not intractable, without status migrainosus; M79.7 Fibromyalgia; H40.9 Unspecified glaucoma; R00.1 Bradycardia, unspecified; Z79.891 Long term (current) use of opiate analgesic; Z79.899 Other long term (current) drug therapy; Z80.0 Family history of malignant neoplasm of digestive organs; Z88.8 Allergy status to other drugs, medicaments and biological substances; Z91.018 Allergy to other foods; Z91.048 Other nonmedicinal substance allergy status

== ENCOUNTER → 2022-06-16 | Outpatient (CLI) | payer BC ==
[~2022-06-16] MED LIST changes: -BUPIVACAINE HCL 0.25% 10ML VIAL As Ordered ONE; -BUPIVACAINE HCL 0.25% 30ML VIAL As Ordered ONE; -TRIAMCINOLONE ACETONIDE SUSP 40MG/ML 1ML VIAL As Ordered ONE; -diazePAM 5MG TABLET As Ordered ONE; -diphenhydrAMINE 25MG CAP As Ordered ONE; -oxyCODONE 5MG TAB As Ordered ONE
== END ==
LOC: M PAIN 13:45
PROVIDERS: ATTEND Anesthesiology
DX: G89.29 Other chronic pain (principal); M50.10 Cervical disc disorder with radiculopathy, unspecified cervical region; D64.9 Anemia, unspecified; K21.9 Gastro-esophageal reflux disease without esophagitis; M54.50 Low back pain, unspecified; G43.909 Migraine, unspecified, not intractable, without status migrainosus; M79.7 Fibromyalgia; Z79.891 Long term (current) use of opiate analgesic; Z79.899 Other long term (current) drug therapy; Z88.0 Allergy status to penicillin; Z88.8 Allergy status to other drugs, medicaments and biological substances; Z91.018 Allergy to other foods; Z91.048 Other nonmedicinal substance allergy status; Z91.040 Latex allergy status

== ENCOUNTER → 2022-07-30 | Outpatient (CLI) | payer BC ==
[~2022-07-30] MED LIST changes: +ISOVUE-M 300 61% 15ML VIAL As Ordered ONE; +LIDOCAINE 1% SDV 30ML VIAL As Ordered ONE; +diazePAM 5MG TABLET As Ordered ONE; +diphenhydrAMINE 25MG CAP As Ordered ONE; +methylPREDNISolone SUSP 40MG/ML 1ML VIAL (DEPO MEDROL) As Ordered ONE; +oxyCODONE 5MG TAB As Ordered ONE
== END ==
LOC: M PAIN 08:00
PROVIDERS: ATTEND Anesthesiology
DX: M50.120 Mid-cervical disc disorder, unspecified level (principal); D64.9 Anemia, unspecified; K21.9 Gastro-esophageal reflux disease without esophagitis; M54.50 Low back pain, unspecified; G43.909 Migraine, unspecified, not intractable, without status migrainosus; M79.7 Fibromyalgia; Z79.891 Long term (current) use of opiate analgesic; Z79.899 Other long term (current) drug therapy; Z88.0 Allergy status to penicillin; Z88.8 Allergy status to other drugs, medicaments and biological substances; Z91.018 Allergy to other foods; Z91.040 Latex allergy status; Z91.048 Other nonmedicinal substance allergy status
CPT/HCPCS: 62321; J1030; Q9967

== ENCOUNTER → 2022-08-16 | Outpatient (CLI) | payer BC ==
[~2022-08-16] MED LIST changes: +FLUT50SP17; -FLUTISP; -ISOVUE-M 300 61% 15ML VIAL As Ordered ONE; -LIDOCAINE 1% SDV 30ML VIAL As Ordered ONE; -diazePAM 5MG TABLET As Ordered ONE; -diphenhydrAMINE 25MG CAP As Ordered ONE; -methylPREDNISolone SUSP 40MG/ML 1ML VIAL (DEPO MEDROL) As Ordered ONE; -oxyCODONE 5MG TAB As Ordered ONE
== END ==
LOC: M PLAIMG 07:52
PROVIDERS: ATTEND Anesthesiology
DX: M54.2 Cervicalgia (principal)

== ENCOUNTER → 2022-08-18 | Outpatient (CLI) | payer BC | LOC: M PAIN 11:15 | PROVIDERS: ATTEND Anesthesiology | DX: G89.29 Other chronic pain (principal); M50.10 Cervical disc disorder with radiculopathy, unspecified cervical region; D64.9 Anemia, unspecified; K21.9 Gastro-esophageal reflux disease without esophagitis; G43.909 Migraine, unspecified, not intractable, without status migrainosus; M79.7 Fibromyalgia; H40.9 Unspecified glaucoma; Z79.891 Long term (current) use of opiate analgesic; Z79.899 Other long term (current) drug therapy; Z88.0 Allergy status to penicillin; Z88.8 Allergy status to other drugs, medicaments and biological substances; Z91.040 Latex allergy status; Z91.048 Other nonmedicinal substance allergy status; Z91.018 Allergy to other foods ==

== ENCOUNTER → 2022-10-08 | Outpatient (CLI) | payer BC | LOC: M PAIN 08:45 | PROVIDERS: ATTEND Anesthesiology | DX: M50.10 Cervical disc disorder with radiculopathy, unspecified cervical region (principal); M47.816 Spondylosis without myelopathy or radiculopathy, lumbar region; K21.9 Gastro-esophageal reflux disease without esophagitis; G43.909 Migraine, unspecified, not intractable, without status migrainosus; M79.7 Fibromyalgia; Z88.0 Allergy status to penicillin; Z91.018 Allergy to other foods; Z91.040 Latex allergy status; Z91.09 Other allergy status, other than to drugs and biological substances; Z79.899 Other long term (current) drug therapy ==

== ENCOUNTER → 2022-11-24 | Outpatient (CLI) | payer BC | LOC: M PAIN 15:30 | PROVIDERS: ATTEND Anesthesiology | DX: M50.10 Cervical disc disorder with radiculopathy, unspecified cervical region (principal); M54.50 Low back pain, unspecified; G89.29 Other chronic pain; K21.9 Gastro-esophageal reflux disease without esophagitis; D64.9 Anemia, unspecified; G43.909 Migraine, unspecified, not intractable, without status migrainosus; M79.7 Fibromyalgia; H40.9 Unspecified glaucoma; Z79.891 Long term (current) use of opiate analgesic; Z79.899 Other long term (current) drug therapy; Z88.0 Allergy status to penicillin; Z88.8 Allergy status to other drugs, medicaments and biological substances; Z91.048 Other nonmedicinal substance allergy status; Z91.018 Allergy to other foods; Z91.040 Latex allergy status ==

== ENCOUNTER → 2022-11-29 | Outpatient (CLI) | payer BC ==
[~2022-11-29] MED LIST changes: +ISOVUE-M 300 61% 15ML VIAL As Ordered ONE; +LIDOCAINE 1% SDV 30ML VIAL As Ordered ONE; +diazePAM 5MG TABLET As Ordered ONE; +diphenhydrAMINE 25MG CAP As Ordered ONE; +methylPREDNISolone SUSP 40MG/ML 1ML VIAL (DEPO MEDROL) As Ordered ONE; +oxyCODONE 5MG TAB As Ordered ONE
== END ==
LOC: M PAIN 10:30
PROVIDERS: ATTEND Anesthesiology
DX: M50.120 Mid-cervical disc disorder, unspecified level (principal); D64.9 Anemia, unspecified; K21.9 Gastro-esophageal reflux disease without esophagitis; M54.50 Low back pain, unspecified; G43.909 Migraine, unspecified, not intractable, without status migrainosus; M79.7 Fibromyalgia; H40.9 Unspecified glaucoma; Z79.891 Long term (current) use of opiate analgesic; Z79.899 Other long term (current) drug therapy; Z88.0 Allergy status to penicillin; Z91.018 Allergy to other foods; Z91.048 Other nonmedicinal substance allergy status
CPT/HCPCS: 62321; J1030; Q9967

== ENCOUNTER → 2022-12-08 | Outpatient (CLI) | payer BC ==
[~2022-12-08] MED LIST changes: -ISOVUE-M 300 61% 15ML VIAL As Ordered ONE; -LIDOCAINE 1% SDV 30ML VIAL As Ordered ONE; -diazePAM 5MG TABLET As Ordered ONE; -diphenhydrAMINE 25MG CAP As Ordered ONE; -methylPREDNISolone SUSP 40MG/ML 1ML VIAL (DEPO MEDROL) As Ordered ONE; -oxyCODONE 5MG TAB As Ordered ONE
== END ==
LOC: M PAIN 14:15
PROVIDERS: ATTEND Anesthesiology
DX: M50.120 Mid-cervical disc disorder, unspecified level (principal); M47.816 Spondylosis without myelopathy or radiculopathy, lumbar region; G89.29 Other chronic pain; D64.9 Anemia, unspecified; K21.9 Gastro-esophageal reflux disease without esophagitis; M54.50 Low back pain, unspecified; G43.909 Migraine, unspecified, not intractable, without status migrainosus; M79.7 Fibromyalgia; H40.9 Unspecified glaucoma; Z79.891 Long term (current) use of opiate analgesic; Z79.899 Other long term (current) drug therapy; Z88.0 Allergy status to penicillin; Z91.040 Latex allergy status; Z91.018 Allergy to other foods; Z91.048 Other nonmedicinal substance allergy status; Z88.8 Allergy status to other drugs, medicaments and biological substances

== ENCOUNTER → 2022-12-29 | Outpatient (CLI) | payer BC | LOC: M PAIN 08:45 | PROVIDERS: ATTEND Anesthesiology | DX: M50.10 Cervical disc disorder with radiculopathy, unspecified cervical region (principal); D64.9 Anemia, unspecified; K21.9 Gastro-esophageal reflux disease without esophagitis; M54.50 Low back pain, unspecified; G43.909 Migraine, unspecified, not intractable, without status migrainosus; M79.7 Fibromyalgia; H40.9 Unspecified glaucoma; Z79.891 Long term (current) use of opiate analgesic; Z79.899 Other long term (current) drug therapy; Z88.0 Allergy status to penicillin; Z88.8 Allergy status to other drugs, medicaments and biological substances; Z91.040 Latex allergy status; Z91.048 Other nonmedicinal substance allergy status; Z91.018 Allergy to other foods ==

== ENCOUNTER → 2023-02-07 | Outpatient (CLI) | payer BC ==
[~2023-02-07] MED LIST changes: +TRIAMCINOLONE ACETONIDE SUSP 40MG/ML 1ML VIAL As Ordered ONE; +diazePAM 5MG TABLET As Ordered ONE; +diphenhydrAMINE 25MG CAP As Ordered ONE; +oxyCODONE 5MG TAB As Ordered ONE
== END ==
LOC: M PAIN 14:20
PROVIDERS: ATTEND Anesthesiology
DX: M79.12 Myalgia of auxiliary muscles, head and neck (principal); M79.18 Myalgia, other site; D64.9 Anemia, unspecified; K21.9 Gastro-esophageal reflux disease without esophagitis; M54.2 Cervicalgia; M54.50 Low back pain, unspecified; G43.909 Migraine, unspecified, not intractable, without status migrainosus; H40.9 Unspecified glaucoma; Z79.891 Long term (current) use of opiate analgesic; Z79.899 Other long term (current) drug therapy; Z88.0 Allergy status to penicillin; Z88.8 Allergy status to other drugs, medicaments and biological substances; Z91.018 Allergy to other foods; Z91.040 Latex allergy status; Z91.048 Other nonmedicinal substance allergy status
CPT/HCPCS: 20553; J0665; J3301

== ENCOUNTER → 2023-02-10 | Outpatient (CLI) | payer BC ==
[~2023-02-10] MED LIST changes: -TRIAMCINOLONE ACETONIDE SUSP 40MG/ML 1ML VIAL As Ordered ONE; -diazePAM 5MG TABLET As Ordered ONE; -diphenhydrAMINE 25MG CAP As Ordered ONE; -oxyCODONE 5MG TAB As Ordered ONE
== END ==
LOC: M PAIN 14:15
PROVIDERS: ATTEND Anesthesiology
DX: M50.10 Cervical disc disorder with radiculopathy, unspecified cervical region (principal); D64.9 Anemia, unspecified; K21.9 Gastro-esophageal reflux disease without esophagitis; G43.909 Migraine, unspecified, not intractable, without status migrainosus; M79.7 Fibromyalgia; H40.9 Unspecified glaucoma; Z79.891 Long term (current) use of opiate analgesic; Z79.899 Other long term (current) drug therapy; Z88.0 Allergy status to penicillin; Z88.8 Allergy status to other drugs, medicaments and biological substances; Z91.040 Latex allergy status; Z91.048 Other nonmedicinal substance allergy status; Z91.018 Allergy to other foods

== ENCOUNTER → 2023-03-03 | Outpatient (CLI) | payer BC | LOC: M PAIN 11:45 | PROVIDERS: ATTEND Anesthesiology | DX: M47.812 Spondylosis without myelopathy or radiculopathy, cervical region (principal); M50.120 Mid-cervical disc disorder, unspecified level; D64.9 Anemia, unspecified; K21.9 Gastro-esophageal reflux disease without esophagitis; M54.50 Low back pain, unspecified; G43.909 Migraine, unspecified, not intractable, without status migrainosus; M79.7 Fibromyalgia; H40.9 Unspecified glaucoma; Z79.891 Long term (current) use of opiate analgesic; Z79.899 Other long term (current) drug therapy; Z88.0 Allergy status to penicillin; Z91.040 Latex allergy status; Z91.048 Other nonmedicinal substance allergy status; Z91.018 Allergy to other foods ==

== ENCOUNTER → 2023-04-06 | Outpatient (CLI) | payer BC, MEDICAID ==
[~2023-04-06] MED LIST changes: -FLUT50SP17; +FLUTISP
== END ==
LOC: M PAIN 11:30
PROVIDERS: ATTEND Anesthesiology
DX: M50.10 Cervical disc disorder with radiculopathy, unspecified cervical region (principal); Z88.0 Allergy status to penicillin; Z91.018 Allergy to other foods; Z91.040 Latex allergy status; Z91.09 Other allergy status, other than to drugs and biological substances; Z79.899 Other long term (current) drug therapy

== ENCOUNTER → 2023-04-15 | Outpatient (CLI) | payer BC | LOC: M PAIN 09:30 | PROVIDERS: ATTEND Anesthesiology | DX: M50.10 Cervical disc disorder with radiculopathy, unspecified cervical region (principal); M47.812 Spondylosis without myelopathy or radiculopathy, cervical region; Z88.0 Allergy status to penicillin; Z91.018 Allergy to other foods; Z91.040 Latex allergy status; Z91.09 Other allergy status, other than to drugs and biological substances; Z79.899 Other long term (current) drug therapy ==

== ENCOUNTER → 2023-04-22 | Outpatient (CLI) | payer BC, MEDICAID | LOC: M PAIN 15:30 → M TMPAIN 15:30 | PROVIDERS: ATTEND Anesthesiology | DX: M50.10 Cervical disc disorder with radiculopathy, unspecified cervical region (principal); D64.9 Anemia, unspecified; K21.9 Gastro-esophageal reflux disease without esophagitis; M54.50 Low back pain, unspecified; M79.7 Fibromyalgia; G43.909 Migraine, unspecified, not intractable, without status migrainosus; Z79.891 Long term (current) use of opiate analgesic; Z79.899 Other long term (current) drug therapy; Z88.0 Allergy status to penicillin; Z91.018 Allergy to other foods; Z91.048 Other nonmedicinal substance allergy status ==

== ENCOUNTER → 2023-05-19 | Outpatient (CLI) | payer BC, MEDICAID | LOC: M TMPAIN 16:00 → M PAIN 16:00 | PROVIDERS: ATTEND Anesthesiology | DX: M47.816 Spondylosis without myelopathy or radiculopathy, lumbar region (principal); M54.2 Cervicalgia; M54.50 Low back pain, unspecified; K21.9 Gastro-esophageal reflux disease without esophagitis; G43.909 Migraine, unspecified, not intractable, without status migrainosus; M79.7 Fibromyalgia; Z79.891 Long term (current) use of opiate analgesic; Z79.899 Other long term (current) drug therapy; Z88.0 Allergy status to penicillin; Z91.040 Latex allergy status; Z91.048 Other nonmedicinal substance allergy status; Z91.018 Allergy to other foods ==

== ENCOUNTER → 2023-06-08 | Outpatient (CLI) | payer BC | LOC: M PAIN 14:45 | PROVIDERS: ATTEND Anesthesiology | DX: M79.10 Myalgia, unspecified site (principal); M54.50 Low back pain, unspecified; Z88.0 Allergy status to penicillin; Z91.018 Allergy to other foods; Z91.040 Latex allergy status; Z91.09 Other allergy status, other than to drugs and biological substances; Z79.891 Long term (current) use of opiate analgesic; Z79.899 Other long term (current) drug therapy ==

== ENCOUNTER → 2023-06-16 | Outpatient (CLI) | payer BC, MEDICAID | LOC: M PAIN 13:45 | PROVIDERS: ATTEND Anesthesiology | DX: M51.26 Other intervertebral disc displacement, lumbar region (principal); M79.18 Myalgia, other site; M47.816 Spondylosis without myelopathy or radiculopathy, lumbar region; D64.9 Anemia, unspecified; K21.9 Gastro-esophageal reflux disease without esophagitis; G43.909 Migraine, unspecified, not intractable, without status migrainosus; H40.9 Unspecified glaucoma; Z79.891 Long term (current) use of opiate analgesic; Z79.899 Other long term (current) drug therapy; Z88.0 Allergy status to penicillin; Z91.018 Allergy to other foods; Z91.048 Other nonmedicinal substance allergy status ==

== ENCOUNTER → 2023-06-30 | Outpatient (CLI) | payer BC, MEDICAID | LOC: M TMPAIN 15:30 → M PAIN 15:30 | PROVIDERS: ATTEND Anesthesiology | DX: M96.1 Postlaminectomy syndrome, not elsewhere classified (principal); M54.50 Low back pain, unspecified; D64.9 Anemia, unspecified; K21.9 Gastro-esophageal reflux disease without esophagitis; M54.2 Cervicalgia; G43.909 Migraine, unspecified, not intractable, without status migrainosus; M79.7 Fibromyalgia; Z79.891 Long term (current) use of opiate analgesic; Z79.899 Other long term (current) drug therapy; Z88.0 Allergy status to penicillin; Z91.040 Latex allergy status; Z91.048 Other nonmedicinal substance allergy status; Z91.018 Allergy to other foods ==

== ENCOUNTER → 2023-07-15 | Outpatient (CLI) | payer BC | LOC: M PAIN 15:30 | PROVIDERS: ATTEND Nurse Practitioner Family | DX: Z79.891 Long term (current) use of opiate analgesic (principal) ==

== ENCOUNTER → 2023-08-31 | Outpatient (CLI) | payer BC, MEDICAID, OTHER | LOC: M PLAIMG 15:45 | PROVIDERS: ATTEND Anesthesiology | DX: M51.16 Intervertebral disc disorders with radiculopathy, lumbar region (principal) ==

== ENCOUNTER → 2023-09-07 | Outpatient (CLI) | payer OTHER | LOC: M PAIN 15:00 | PROVIDERS: ATTEND Anesthesiology | DX: M54.2 Cervicalgia (principal); M79.18 Myalgia, other site; D64.9 Anemia, unspecified; K21.9 Gastro-esophageal reflux disease without esophagitis; M54.50 Low back pain, unspecified; G43.909 Migraine, unspecified, not intractable, without status migrainosus; H40.9 Unspecified glaucoma; Z79.891 Long term (current) use of opiate analgesic; Z79.899 Other long term (current) drug therapy; Z88.0 Allergy status to penicillin; Z91.040 Latex allergy status; Z91.048 Other nonmedicinal substance allergy status; Z91.018 Allergy to other foods | CPT/HCPCS: 76000; G0463 ==

== ENCOUNTER → 2024-01-05 | Outpatient (CLI) | payer OTHER ==
[~2024-01-05] MED LIST changes: +ONDA-284 PO; -ONDA8TAB8 PO; +TRIAMCINOLONE ACETONIDE SUSP 40MG/ML 1ML VIAL As Ordered ONE; +TROK100C PO; -TROK1CAP7 PO; +diazePAM 5MG TABLET As Ordered ONE; +oxyCODONE 5MG TAB As Ordered ONE
== END ==
LOC: M PAIN 16:30
PROVIDERS: ATTEND Anesthesiology
DX: M79.18 Myalgia, other site (principal); G89.29 Other chronic pain; M25.511 Pain in right shoulder; M25.512 Pain in left shoulder; D64.9 Anemia, unspecified; K21.9 Gastro-esophageal reflux disease without esophagitis; M54.2 Cervicalgia; M54.50 Low back pain, unspecified; G43.909 Migraine, unspecified, not intractable, without status migrainosus; H40.9 Unspecified glaucoma; Z79.891 Long term (current) use of opiate analgesic; Z79.899 Other long term (current) drug therapy; Z88.0 Allergy status to penicillin; Z88.8 Allergy status to other drugs, medicaments and biological substances; Z91.018 Allergy to other foods; Z91.040 Latex allergy status; Z91.048 Other nonmedicinal substance allergy status
CPT/HCPCS: 20552; J0665; J3301

== ENCOUNTER → 2024-02-01 | Outpatient (CLI) | payer OTHER ==
[~2024-02-01] MED LIST changes: -TRIAMCINOLONE ACETONIDE SUSP 40MG/ML 1ML VIAL As Ordered ONE; -diazePAM 5MG TABLET As Ordered ONE; -oxyCODONE 5MG TAB As Ordered ONE
== END ==
LOC: M PAIN 10:15
PROVIDERS: ATTEND Anesthesiology
DX: M54.12 Radiculopathy, cervical region (principal); M96.1 Postlaminectomy syndrome, not elsewhere classified; D64.9 Anemia, unspecified; K21.9 Gastro-esophageal reflux disease without esophagitis; Z79.891 Long term (current) use of opiate analgesic; M79.7 Fibromyalgia; Z88.0 Allergy status to penicillin; Z88.8 Allergy status to other drugs, medicaments and biological substances; Z91.040 Latex allergy status; Z91.018 Allergy to other foods

== ENCOUNTER → 2024-02-10 | Outpatient (CLI) | payer OTHER | LOC: M PAIN 10:30 | PROVIDERS: ATTEND Anesthesiology | DX: M96.1 Postlaminectomy syndrome, not elsewhere classified (principal); M54.2 Cervicalgia; Z79.891 Long term (current) use of opiate analgesic; D64.9 Anemia, unspecified; K21.9 Gastro-esophageal reflux disease without esophagitis; M54.50 Low back pain, unspecified; G43.909 Migraine, unspecified, not intractable, without status migrainosus; H40.9 Unspecified glaucoma; Z79.899 Other long term (current) drug therapy; Z88.0 Allergy status to penicillin; Z91.018 Allergy to other foods; Z91.040 Latex allergy status; Z91.048 Other nonmedicinal substance allergy status ==

== ENCOUNTER → 2024-02-10 | Outpatient (CLI) | payer OTHER | LOC: M PAIN 02-09 08:00 | PROVIDERS: ATTEND Anesthesiology | DX: M96.1 Postlaminectomy syndrome, not elsewhere classified (principal); M54.2 Cervicalgia; Z79.51 Long term (current) use of inhaled steroids; Z79.899 Other long term (current) drug therapy; Z80.3 Family history of malignant neoplasm of breast; Z80.51 Family history of malignant neoplasm of kidney; Z88.0 Allergy status to penicillin; Z91.018 Allergy to other foods; Z91.040 Latex allergy status; Z91.048 Other nonmedicinal substance allergy status ==

== ENCOUNTER → 2024-03-02 | Outpatient (CLI) | payer OTHER | LOC: M PLARAD 13:13 | PROVIDERS: ATTEND Anesthesiology | DX: M96.1 Postlaminectomy syndrome, not elsewhere classified (principal) ==

== ENCOUNTER → 2024-03-14 | Outpatient (CLI) | payer OTHER | LOC: M PAIN 16:00 | PROVIDERS: ATTEND Anesthesiology | DX: M50.10 Cervical disc disorder with radiculopathy, unspecified cervical region (principal); Z79.891 Long term (current) use of opiate analgesic; M96.1 Postlaminectomy syndrome, not elsewhere classified; M48.02 Spinal stenosis, cervical region; D64.9 Anemia, unspecified; K21.9 Gastro-esophageal reflux disease without esophagitis; M54.50 Low back pain, unspecified; G43.909 Migraine, unspecified, not intractable, without status migrainosus; M79.7 Fibromyalgia; H40.9 Unspecified glaucoma; Z79.899 Other long term (current) drug therapy; Z88.0 Allergy status to penicillin; Z91.040 Latex allergy status; Z91.048 Other nonmedicinal substance allergy status; Z91.018 Allergy to other foods ==

== ENCOUNTER → 2024-04-13 | Outpatient (CLI) | payer OTHER | LOC: M PAIN 09:30 | PROVIDERS: ATTEND Anesthesiology | DX: M50.10 Cervical disc disorder with radiculopathy, unspecified cervical region (principal); M96.1 Postlaminectomy syndrome, not elsewhere classified; K21.9 Gastro-esophageal reflux disease without esophagitis; G43.909 Migraine, unspecified, not intractable, without status migrainosus; M79.7 Fibromyalgia; M54.50 Low back pain, unspecified; Z79.891 Long term (current) use of opiate analgesic; Z79.899 Other long term (current) drug therapy; Z88.0 Allergy status to penicillin; Z91.040 Latex allergy status; Z91.048 Other nonmedicinal substance allergy status; Z91.018 Allergy to other foods ==

== ENCOUNTER → 2024-04-20 | Outpatient (CLI) | payer OTHER ==
[~2024-04-20] MED LIST changes: +ISOVUE-M 300 61% 15ML VIAL As Ordered ONE; +LIDOCAINE 1% SDV 30ML VIAL As Ordered ONE; +dexAMETHasone 10MG/1ML VIAL PRES.FREE As Ordered ONE; +diazePAM 5MG TABLET As Ordered ONE; +diphenhydrAMINE 25MG CAP As Ordered ONE; +oxyCODONE 5MG TAB As Ordered ONE
== END ==
LOC: M PAIN 12:45
PROVIDERS: ATTEND Anesthesiology
DX: M50.13 Cervical disc disorder with radiculopathy, cervicothoracic region (principal); M96.1 Postlaminectomy syndrome, not elsewhere classified; K21.9 Gastro-esophageal reflux disease without esophagitis; G43.909 Migraine, unspecified, not intractable, without status migrainosus; M79.7 Fibromyalgia; M54.50 Low back pain, unspecified; Z79.891 Long term (current) use of opiate analgesic; Z79.899 Other long term (current) drug therapy; Z88.0 Allergy status to penicillin; Z91.040 Latex allergy status; Z91.048 Other nonmedicinal substance allergy status; Z91.018 Allergy to other foods
CPT/HCPCS: 62321; J1100; Q9967

== ENCOUNTER → 2024-05-11 | Outpatient (CLI) | payer OTHER ==
[~2024-05-11] MED LIST changes: -ISOVUE-M 300 61% 15ML VIAL As Ordered ONE; -LIDOCAINE 1% SDV 30ML VIAL As Ordered ONE; -dexAMETHasone 10MG/1ML VIAL PRES.FREE As Ordered ONE; -diazePAM 5MG TABLET As Ordered ONE; -diphenhydrAMINE 25MG CAP As Ordered ONE; -oxyCODONE 5MG TAB As Ordered ONE
== END ==
LOC: M PAIN 10:30
PROVIDERS: ATTEND Anesthesiology
DX: M96.1 Postlaminectomy syndrome, not elsewhere classified (principal); G89.29 Other chronic pain; Z79.899 Other long term (current) drug therapy; Z80.3 Family history of malignant neoplasm of breast; Z80.51 Family history of malignant neoplasm of kidney; Z88.0 Allergy status to penicillin; Z88.8 Allergy status to other drugs, medicaments and biological substances; Z91.018 Allergy to other foods; Z91.040 Latex allergy status; Z91.048 Other nonmedicinal substance allergy status

== ENCOUNTER → 2024-06-27 | Outpatient (CLI) | payer OTHER ==
[~2024-06-27] MED LIST changes: +CARI-555 PO; -CARI1TAB7 PO
== END ==
LOC: M PAIN 16:00
PROVIDERS: ATTEND Anesthesiology
DX: M96.1 Postlaminectomy syndrome, not elsewhere classified (principal); M54.50 Low back pain, unspecified; G89.29 Other chronic pain; Z79.51 Long term (current) use of inhaled steroids; Z79.899 Other long term (current) drug therapy; Z80.3 Family history of malignant neoplasm of breast; Z80.51 Family history of malignant neoplasm of kidney; Z88.0 Allergy status to penicillin; Z88.8 Allergy status to other drugs, medicaments and biological substances; Z91.018 Allergy to other foods; Z91.040 Latex allergy status; Z91.048 Other nonmedicinal substance allergy status